=== PATIENT | male | born 1935 | race Caucasian/White ===

== ENCOUNTER → 2016-08-13 | Outpatient (CLI) | payer OTHER ==
[2016-07-08 13:18] VITALS: BP 173/81
--- NOTE | 2016-08-14 09:19 | VAS ---
HISTORY: Bilateral feet pressure ulcers Study: Lower extremity arterial ultrasound Comparison: None Technique: Multiple rodriguez scale and color flow Doppler images of the right and left lower extremity a rterial system were obtained. Interrogation of the common femoral artery, superficial femoral arter y, popliteal artery, and tibial arteries was performed. Findings: Triphasic and biphasic waveforms are seen throughout the right and left lower extremity from the com mon femoral arterial system to the tibial runoff. The calf vessels are heavily calcified. IMPRESSION: 1. Triphasic and biphasic waveforms are seen throughout the right and left lower extremity with no evidence of high-grade stenosis. The calf vessels are heavily calcified limiting evaluation. Reported By:
== END ==
LOC: RAD 14:07
PROVIDERS: ATTEND Internal Medicine
DX: L89.899 Pressure ulcer of other site, unspecified stage (principal); R09.89 Other specified symptoms and signs involving the circulatory and respiratory systems
CPT/HCPCS: 93925

== ENCOUNTER → 2016-11-13 | Outpatient (CLI) | payer OTHER ==
[2016-07-08 13:18] VITALS: BP 173/81
--- NOTE | 2016-11-13 10:25 | RAD ---
HISTORY: Pain Study: Right shoulder series Comparison: None Findings: There is severe narrowing of the glenohumeral joint with subchondral areas of lucency and sclerosis along the articular surfaces. There are prominent osteophytes inferiorly. No fracture or dislocation is seen. There are mild hypertrophic changes of the AC joint. The soft tissues are unremarkable. 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 Mild hypertrophic changes of the AC joint. Reported By:
[2016-11-13 15:05] LABS: BILIRUBIN,URINE NEGATIVE (NEGATIVE); BLOOD/HEMOGLOBIN,URINE 3+ (NEGATIVE); GLUCOSE, URINE NEGATIVE (NEGATIVE); KETONES,URINE NEGATIVE (NEGATIVE); LEUKOCYTE ESTERASE ,URINE 3+ (NEGATIVE); NITRITES,URINE POSITIVE (NEGATIVE); PH,URINE 6.5 (5.0 - 8.0); PROTEIN,URINE 2+ (NEGATIVE); UROBILINOGEN,URINE NORMAL (NORMAL)
[2016-11-13 15:41] LABS: APPEARANCE,URINE CLOUDY (CLEAR); COLOR,URINE YELLOW (YELLOW); RBC,URINE NONE SEEN /HPF (NEGATIVE)
[2016-11-13 15:42] LABS: BACTERIA,URINE 3+ /HPF (NEGATIVE); SQUAMOUS EPITHELIAL CELL,UR NEGATIVE /HPF (NEGATIVE)
== END ==
LOC: RAD 09:07
PROVIDERS: ATTEND Internal Medicine
DX: M25.511 Pain in right shoulder (principal); R41.82 Altered mental status, unspecified; B96.5 Pseudomonas (aeruginosa) (mallei) (pseudomallei) as the cause of diseases classified elsewhere
CPT/HCPCS: 73030; 81001; 87086; 87088; 87186

== ENCOUNTER 2016-11-16 06:54 | Inpatient (IN) | payer OTHER ==
[2016-11-16 07:30] LABS: BILIRUBIN,URINE NEGATIVE (NEGATIVE); BLOOD/HEMOGLOBIN,URINE 5+ (NEGATIVE); GLUCOSE, URINE NEGATIVE (NEGATIVE); KETONES,URINE 1+ (NEGATIVE); LEUKOCYTE ESTERASE ,URINE 3+ (NEGATIVE); NITRITES,URINE POSITIVE (NEGATIVE); PROTEIN,URINE 2+ (NEGATIVE); UROBILINOGEN,URINE NORMAL (NORMAL)
[2016-11-16 07:37] LABS: APPEARANCE,URINE CLOUDY (CLEAR); BACTERIA,URINE 1+ /HPF (NEGATIVE); COLOR,URINE RED (YELLOW); RBC,URINE TNTC /HPF (NEGATIVE); SQUAMOUS EPITHELIAL CELL,UR NEGATIVE /HPF (NEGATIVE)
--- NOTE | 2016-11-16 07:42 | DR.GENAD ---
HPI - PCP Primary Care Physician: CORINA - Complaint/Symptoms Chief Complaint Doctors Comments: Patient sent from nursing for evaluation of fever yesterday of 103 with episode of nausea and vomiting. patient denies chest pain, SOB, nausea or vomiting or pain presently. States his bradley cath had some blood in it and his right shoulder has been bothering him and he has a sore on his bottom that they have been trying to heal other than that he has been doing fine. states his appetite has been good. He has had a cold and a cough but he is not coughing up anything. He denies abdominal pain or diarrhea. Chief Complaint:: STAFF AT [facility] STATES PT. HAD A FEVER OF 103 THROUGHOUT THE NIGHT WELL N/V. PT. WAS MEDICATED AND TEMP. DECREASED TO 100.3. PT. HAS HAD 3 EPISODES OF N/V SINCE 1900 ON 11/15/16. PT'S BRADLEY CATHETER WAS ALSO CHANGED YESTERDAY DUE TO HAVING BLOOD IN BAG AND TUBING. PT. DENIES PAIN. BLOOD AND CLOTS NOTED IN BRADLEY CATHETER TUBING AND BAG UPON ARRIVAL TO ER. - Nurses notes reviewed Nurses Notes Review: Yes - Source History Provided: [facility] - Mode of Arrival Mode of Arrival: Stretcher - Timing Onset of Chief Complaint: 11/15/16 Came on: Gradually - Duration Duration: Intermittent How lon Duration: Days - Location Location: fever - Severity Severity: Mild - Modifying Factors Worsens:: nothing Improves:: nothing <CATY GRECO - Last Filed: 11/16/16 08:01> PM - [facility] Past Medical History: Yes Past Medical History: Anxiety, Coronary Artery Disease, Dementia, Depression, Diabetes, Dyslipidemia, GERD, Hypertension Past Medical History Comment: UTI, 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, PARAPLEGIA, BPH, RLS Past Surgical History: Yes Surgical History: Cholecystectomy, Ortho Surgery - Family History History of Family Medical Conditions: Yes Family Medical History: Coronary Artery Disease, Hypertension - Social History Does patient currently use any type of tobacco product: No Have you used tobacco products in the last 12 months: No Type of Tobacco Use: None Does any household member use tobacco: No Alcohol Use: None Do you use any recreational Drugs:: No Lives Where: Pen[facility]iary - infectious screening In the last 2 months have you had wt loss of >10#?: NO Have you had fever, night sweats or hemotysis?: No Have you traveled outside the country in the last 6 months?: No Isolation: Standard <CATY GRECO - Last Filed: 11/16/16 08:01> ROS - Review of Systems Constitutional: Fever. negative: No Symptoms Reported, See HPI, Chills, Diaphoresis, Malaise, Weakness, Irritable, Fatigue, Loss of Appetite, Other Eyes: No Symptoms Reported. negative: See HPI, Eye Pain, Blurred Vision, Tearing, Discharge, Photophobia, Diplopia, Other ENTM: No Symptoms Reported, Nose Discharge, Nose Congestion. negative: See HPI , Ear Pain, Ear Discharge, Pulling on Ears, Hearing Loss, Nose Pain, Epistaxis, Mouth Pain, Mouth Swelling, Loose Teeth, Drooling, Throat Pain, Throat Swelling , Ear Foreign Body Respiratoy: Non-Productive Cough. negative: No Symptoms Reported, See HPI, Productive Cough, Moist Cough, Dry Cough, Hacking Cough, Barking Cough, Brassy Cough, Orthopnea, Short of Breath, Stridor, Wheezing, Hemoptysis, Other Cardiovascular: No Symptoms Reported. negative: See HPI, Chest Pain, Edema, Palpitations, Syncope, Cyanosis, Skin Mottling, Other Gastrointestinal/Abdominal: No Symptoms Reported, Nausea, Vomiting. negative: See HPI, Abdominal Pain, Constipation, Diarrhea, Food Intolerance, Other Genitourinary: No Symptoms Reported, Hematuria. negative: See HPI, Discharge, Dysuria, Frequency, Pain, Bleeding, Other Neurological: No Symptoms Reported. negative: See HPI (patient paralyzed), Anxiety, Depressed, Emotional Problems, Headache, Numbness, Paresthesia, Pre- existing Deficit, Seizure, Tingling, Tremors, Weakness, Dizziness, Problems Walking, Speech Problem, Other Musculoskeletal: No Symptoms Reported Integumentary: No Symptoms Reported Hematologic/Lymphatic: No Symptoms Reported Endocrine: No Symptoms Reported Psychiatric: No Symptoms Reported <CATY GRECO - Last Filed: 11/16/16 08:01> PE - General Limitations: No Limitations, Physical Limitation (patient paralyzed) General Appearance: Alert, In No Apparent Distress. negative: Appears Intoxicated, Anxious, Lethargic, Obtunded, In Distress, Obese, Cachectic, Other - Head Head Exam: Normal Inspection, Atraumatic, Normocephalic - Eyes Eye exam: Normal Appearance, PERRL, EOMI. negative: Scleral Icterus, Conjunctival Injection, Nystagmus, Miosis, Mydrasis, Periorbital Swelling, Periorbital Tenderness, Other - ENT ENT Exam: Normal Exam, Normal Oropharynx, Normal External Ear Exam, Mucous Membranes Moist, TM's Normal Bilaterally External Ear Exam: Normal External Inspection TM/Canal Exam: Bilateral Normal Nose Exam: Normal Nose Exam Mouth Exam: Normal Inspection Throat Exam: Normal Inspection - Neck Neck Exam: Normal Inspection, Full ROM, Trachea Midline. negative: Tenderness, Meningismus, Lymphadenopathy, Thyromegaly, Other - Chest Chest Inspection: Normal Inspection, Symmetric Chest Wall Rise - Respiratory Respiratory Exam: Normal Lung Sounds Bilat Respiratory Exam: Bilateral Clear to Auscultation - Cardiovascular Cardiovascular Exam: Regular Rate, Normal Rhythm, Normal Heart Sounds, Systolic Murmur. negative: Bradycardia, Tachycardia, Irregular Rhythm, Diastolic Murmur , Rubs, Gallop, Clicks, JVD, +S1, +S2, +S3, +S4, Other - Abdominal Exam Abdominal Exam: Normal Inspection, Normal Bowel Sounds, Soft. negative: Distention, Tenderness, Guarding, Rebound, Rigidity, Dimnished Bowel Sounds, Hyperactive Bowel Sounds, Hypoactive Bowel Sounds, Organomegaly, Trauma, Incision, Ascites, Mass, Bruit, Pulsatile Mass, Hernia, Other Abdominal Tenderness: negative: RUQ, RLQ, LUQ, LLQ, Epigastrium, Suprapubic, Diffuse, Mild, Moderate, Severe, Other - Extremities Extremities Exam: Normal Inspection, Normal Capillary Refill - Back Back Exam: Normal Inspection, Full ROM, Other (3 cm sacral decubitus with small crater, clean; iodoform gauze in center; no discharge) - Neurologic Neurological Exam: Alert, Oriented X3, Motor Sensory Deficit (paralyzed). negative: CN II-XII Intact (paralayzed lower extremities), Normal Gait (gait not tested), Reflexes Normal (patient paraplegic) - Psychiatric Psychiatric Exam: Normal Affect, Normal Mood. negative: Depressed, Agitated, Anxious, Flat Affect, Manic, Homicidal Ideation, Suicidal Ideation, Other - Skin Skin Exam: Warm, Dry, Intact, Normal Color <CATY GRECO - Last Filed: 11/16/16 08:01> MDM - Differential Diagnosis Differential Diagnosis: HYPOTENS.UROSEPSIS, UTI, PYELONEPHRITIS, HEMATURIA, SACRAL DECUBITUS ULCER. <DELISA CARMICHAEL - Last Filed: 11/16/16 10:29> Course - Treatment Treatment: HYPOTENSION PERSIST. NS 1L IV BOLUS IN PROGRESS. - Consultation Consultation Comments: DISCUSS PATIENT WITH DR. NY. HE WILL ADMIT PATIENT. - Education/Counseling Education/Counseling: Patient, Education Educated On: Treatment, Diagnosis <DELISA CARMICHAEL - Last Filed: 11/16/16 10:29> ROR - Labs Reviewed Result Diagrams: 11/16/16 07:14 11/16/16 07:14 <FANNIECATY - Last Filed: 11/16/16 08:01> - Labs Reviewed Laboratory Results Reviewed?: Yes Result Diagrams: 11/16/16 07:14 11/16/16 07:14 - XRAY XRAY Interpreted by: Radiologist XRAY Findings: REPORT DISCUSS WITH PATIENTS. <DELISA CARMICHAEL - Last Filed: 11/16/16 10:29> - Labs Reviewed Laboratory: WBC 19.4 X10^3/uL (3.6-10.0) H 11/16/16 07:14 RBC 3.54 X10^6/uL (4.7-6.0) L 11/16/16 07:14 Hgb 11.0 g/dL (13.5-18.0) L 11/16/16 07:14 Hct 32.4 % (42.0-54.0) L 11/16/16 07:14 MCV 91.5 fL (80.0-100.0) 11/16/16 07:14 MCH 31.0 pg (27.0-34.0) 11/16/16 07:14 MCHC 33.8 g/dL (33.0-35.0) 11/16/16 07:14 RDW 15.0 % (11.6-16.5) 11/16/16 07:14 Plt Count 164 X10^3/uL (150.0-450.0) 11/16/16 07:14 MPV 9.1 fL (7.4-11.0) 11/16/16 07:14 Neut % 88.9 % (42.0-75.0) H 11/16/16 07:14 Lymph % 4.7 % (21.0-51.0) L 11/16/16 07:14 [place] % 6.2 % (0.0-13.0) 11/16/16 07:14 Eos % 0.1 % (0.9-2.9) L 11/16/16 07:14 Baso % 0.1 % (0.2-1.0) L 11/16/16 07:14 Neut # 17.3 x10^3/uL (2.2-4.8) H 11/16/16 07:14 Lymph # 0.9 X10^3/uL (1.3-2.9) L 11/16/16 07:14 [place] # 1.2 x10^3/uL (0.3-0.8) H 11/16/16 07:14 Eos # 0.0 x10^3/uL (0.0-0.2) 11/16/16 07:14 Baso # 0.0 X10^3/uL (0.0-0.1) 11/16/16 07:14 Absolute Nucleated RBC 0.0 /100WBC 11/16/16 07:14 INR Target Range - 11/16/16 07:14 INR 1.46 (0.8-1.3) H 11/16/16 07:14 PTT 42.7 SECONDS (22.9-36.5) H 11/16/16 07:14 PTT Comment - 11/16/16 07:14 Sodium 134 mmol/L (136-145) L 11/16/16 07:14 Corrected Sodium 135 mmol/L (136-145) L 11/16/16 07:14 Potassium 5.0 mmol/L (3.5-5.1) 11/16/16 07:14 Chloride 103 mmol/L (98-107) 11/16/16 07:14 Carbon Dioxide 24.3 mmol/L (21-32) 11/16/16 07:14 BUN 47 mg/dL (7-18) H 11/16/16 07:14 Creatinine 1.63 mg/dL (0.70-1.30) H 11/16/16 07:14 Est GFR (MDRD) Af Amer 53 (>60) L 11/16/16 07:14 Est GFR (MDRD) Non-Af 44 (>60) L 11/16/16 07:14 Glucose 128 mg/dL (65-99) H 11/16/16 07:14 Lactic Acid 1.4 mmol/L (0.4-2.0) 11/16/16 08:49 Calcium 8.3 mg/dL (8.5-10.1) L 11/16/16 07:14 Corrected Calcium 9.3 mg/dL (8.5-10.1) 11/16/16 07:14 Magnesium 1.6 mg/dL (1.7-2.9) L 11/16/16 07:14 Total Bilirubin 0.60 mg/dL (0.2-1.0) 11/16/16 07:14 AST 16 Units/L (15-37) 11/16/16 07:14 ALT 19 Units/L (12-78) 11/16/16 07:14 Alkaline Phosphatase 94 Units/L (46-116) 11/16/16 07:14 Creatine Kinase 166 Units/L (39-308) 11/16/16 07:14 CK-MB (CK-2) 1.3 ng/mL (0-4.0) 11/16/16 07:14 CK/CKMB % Calc 0.8 % (<4) 11/16/16 07:14 Troponin I 0.08 ng/mL (0-1.5) 11/16/16 07:14 Total Protein 6.3 g/dL (6.4-8.2) L 11/16/16 07:14 Albumin 2.8 g/dL (3.4-5.0) L 11/16/16 07:14 Globulin 3.5 g/dL (2.5-4.5) 11/16/16 07:14 Albumin/Globulin Ratio 0.8 Ratio (1.1-2.1) L 11/16/16 07:14 Amylase 41 Units/L (25-115) 11/16/16 07:14 Lipase 79 Units/L (73-393) 11/16/16 07:14 Specimen Type Catherized urine 11/16/16 09:35 Urine Color Red (YELLOW) 11/16/16 09:35 Urine Appearance Cloudy (CLEAR) 11/16/16 09:35 Urine pH 6.0 (5.0 - 8.0) 11/16/16 09:35 Ur Specific Luana 1.010 (1.000-1.030) 11/16/16 09:35 Urine Protein 2+ (NEGATIVE) 11/16/16 09:35 Urine Glucose (UA) Negative (NEGATIVE) 11/16/16 09:35 Urine Ketones 1+ (NEGATIVE) 11/16/16 09:35 Urine Occult Blood 5+ (NEGATIVE) 11/16/16 09:35 Urine Nitrite Negative (NEGATIVE) 11/16/16 09:35 Urine Bilirubin Negative (NEGATIVE) 11/16/16 09:35 Urine Urobilinogen Normal (NORMAL) 11/16/16 09:35 Ur Leukocyte Esterase 3+ (NEGATIVE) 11/16/16 09:35 Urine RBC Tntc /HPF (NEGATIVE) 11/16/16 09:35 Urine WBC 3-5 /HPF (NEGATIVE) 11/16/16 09:35 Ur Squamous Epith Cells Negative /HPF (NEGATIVE) 11/16/16 09:35 Urine Bacteria 1+ /HPF (NEGATIVE) 11/16/16 09:35 Ur Culture Indicated? No/not indicated 11/16/16 09:35 (DELISA CARMICHAEL) <CATY GRECO - Last Filed: 11/16/16 08:01> <DELISA CARMICHAEL - Last Filed: 11/16/16 10:29> - Diagnosis Discharge Problem: Hypotension, Hematuria Urinary tract infection Qualifiers: Urinary tract infection type: acute cystitis Hematuria presence: with hematuria Qualified Code(s): N30.01 - Acute cystitis with hematuria Sacral decubitus ulcer Qualifiers: Pressure ulcer stage: stage 3 Qualified Code(s): L89.153 - Pressure ulcer of sacral region, stage 3 - Discharge Plan Disposition: ADMITTED INPATIENT Condition: Stable - Follow ups/Referrals Follow ups/Referrals: Sharif Edmonds [Primary Care Provider] - 3 days - Instructions
[2016-11-16 07:46] LABS: MEAN PLATELET VOLUME 9.1 fL (7.4-11.0); PLATELET COUNT 164 X10^3/uL (150.0-450.0)
[2016-11-16 07:48] LABS: BASOPHILS % (AUTO) 0.1 % (0.2-1.0); EOSINOPHILS % (AUTO) 0.1 % (0.9-2.9); HEMATOCRIT 32.4 % (42.0-54.0); LYMPHOCYTES # (AUTO) 0.9 X10^3/uL (1.3-2.9); LYMPHOCYTES % (AUTO) 4.7 % (21.0-51.0); MEAN CORPUSCULAR HGB CONC 33.8 g/dL (33.0-35.0); MEAN CORPUSCULAR VOLUME 91.5 fL (80.0-100.0); MONOCYTES # (AUTO) 1.2 x10^3/uL (0.3-0.8); MONOCYTES % (AUTO) 6.2 % (0.0-13.0); NEUTROPHILS # (AUTO) 17.3 x10^3/uL (2.2-4.8); NEUTROPHILS % (AUTO) 88.9 % (42.0-75.0); RED BLOOD COUNT 3.54 X10^6/uL (4.7-6.0); WHITE BLOOD COUNT 19.4 X10^3/uL (3.6-10.0)
[2016-11-16] MEDS: NS 1000 ML 1,000 ML IV SCH ×2 (07:53→21:32)
[2016-11-16] MEDS ORDERED: ROCEPHIN VIAL 1 GM 1 GM in NS 50 ML IV + SPIKE MINIBAG* 50 ML IV ONE (07:57)
[2016-11-16 08:16] LABS: CALCIUM 8.3 mg/dL (8.5-10.1); CARBON DIOXIDE 24.3 mmol/L (21-32); CREATININE 1.63 mg/dL (0.70-1.30); TROPONIN I 0.08 ng/mL (0-1.5)
[2016-11-16] MEDS ORDERED: ROCEPHIN 1 GM IV PREMIX * OUT OF STOCK 50 ML IV ONE (08:18)
[2016-11-16 08:19] LABS: ALBUMIN 2.8 g/dL (3.4-5.0); CKMB % 0.8 % (<4); COR CA(FOR HYPOALB) 9.3 mg/dL (8.5-10.1); CREATINE KINASE MB 1.3 ng/mL (0-4.0); MAGNESIUM 1.6 mg/dL (1.7-2.9); TOTAL PROTEIN 6.3 g/dL (6.4-8.2)
[2016-11-16] MEDS ORDERED: NORCO 10/325 TAB PO ONE (08:35)
[2016-11-16] MEDS ORDERED: NORCO 10/325 TAB ONE (08:38)
[2016-11-16] MEDS ORDERED: NS 1000 ML 1,000 ML IV ONE (09:23)
[2016-11-16 09:42] LABS: BILIRUBIN,URINE NEGATIVE (NEGATIVE); BLOOD/HEMOGLOBIN,URINE 5+ (NEGATIVE); GLUCOSE, URINE NEGATIVE (NEGATIVE); KETONES,URINE 1+ (NEGATIVE); LEUKOCYTE ESTERASE ,URINE 3+ (NEGATIVE); NITRITES,URINE NEGATIVE (NEGATIVE); PROTEIN,URINE 2+ (NEGATIVE); UROBILINOGEN,URINE NORMAL (NORMAL)
[2016-11-16] MEDS ORDERED: VANCOMYCIN 1 GM PREMIX (ADDVANTAGE) 250 ML IV NR (10:00)
[2016-11-16] MEDS ORDERED: PHARMACY CONSULT - VANCOMYCIN XX SCH (10:00)
[2016-11-16] MEDS ORDERED: XANAX PO PRN ×2 (10:04→19:17)
[2016-11-16] MEDS ORDERED: NORCO 10/325 TAB PO PRN (10:04)
[2016-11-16] MEDS ORDERED: ONDANSETRON HCL PO PRN (10:04)
[2016-11-16 10:12] LABS: APPEARANCE,URINE CLOUDY (CLEAR); COLOR,URINE RED (YELLOW); RBC,URINE TNTC /HPF (NEGATIVE)
[2016-11-16 10:13] LABS: BACTERIA,URINE 1+ /HPF (NEGATIVE); SQUAMOUS EPITHELIAL CELL,UR NEGATIVE /HPF (NEGATIVE)
[2016-11-16] MEDS ORDERED: PATIENT'S HOME MEDICATION (Apixaban [Eliquis] 2.5 MG) PO SCH (10:15)
[2016-11-16] MEDS ORDERED: CALCIUM CARBONATE VITAMIN D PO SCH (10:15)
[2016-11-16] MEDS ORDERED: ZOFRAN INJ 4 MG VIAL ONE (10:18)
[2016-11-16] MEDS ORDERED: ZOFRAN INJ 4 MG VIAL IVP PRN (10:18)
[2016-11-16] MEDS: PEPCID 20 MG IV PREMIX* 20 MG/50 ML BAG IV SCH ×2 (13:05→21:22)
[2016-11-16] MEDS: ZINC SULFATE PO SCH (13:06)
[2016-11-16] MEDS: WELLBUTRIN XL 150 MG (DAILY) PO SCH (13:06)
[2016-11-16] MEDS: ELIQUIS PO SCH ×2 (13:06→21:18)
[2016-11-16 13:11] LABS: HEMATOCRIT 28.9 % (42.0-54.0); HEMOGLOBIN 9.8 g/dL (13.5-18.0)
[2016-11-16 13:29] LABS: CKMB % 0.8 % (<4); CREATINE KINASE MB 2.1 ng/mL (0-4.0); TROPONIN I 0.06 ng/mL (0-1.5)
[2016-11-16] MEDS ORDERED: ZOSYN VIAL 3.375 GM 1.5 GM in NS 100 ML IV + SPIKE MINIBAG* 100 ML IV SCH (14:00)
[2016-11-16] MEDS ORDERED: NS 100 ML IV + SPIKE MINIBAG* 100 ML IV ONE (14:10)
[2016-11-16] MEDS ORDERED: ZOSYN VIAL 3.375 GM IV ONE (14:10)
[2016-11-16] MEDS: ZOSYN VIAL 3.375 GM 3.375 GM in NS 100 ML IV + SPIKE MINIBAG* 100 ML IV SCH ×2 (14:27→21:22)
--- NOTE | 2016-11-16 15:09 | RAD ---
AP Chest Indication:chest pain Comparison: 07/08/2016 Findings: The trachea is midline. The cardiac silhouette is unremarkable. There is suboptimal inspiration wi th vascular crowding and bilateral lower lobe subsegmental atelectasis. No focal airspace opacity, p leural effusion or pneumothorax. Since previous examination there has been removal of the right-side d PICC line. Advanced osteoarthrosis of the right glenohumeral joint. IMPRESSION: 1. No acute cardiopulmonary abnormality. Reported By:
[2016-11-16] MEDS: VOLTAREN 1 % GEL MULTI DOSE TUBE TOP SCH ×2 (15:14→21:17)
[2016-11-16 18:57] LABS: HEMOGLOBIN 9.6 g/dL (13.5-18.0)
[2016-11-16 19:16] LABS: CKMB % 0.9 % (<4); CREATINE KINASE MB 2.7 ng/mL (0-4.0); TROPONIN I 0.05 ng/mL (0-1.5)
[2016-11-16] MEDS ORDERED: ASCORBIC ACID PO SCH (21:00)
[2016-11-16] MEDS: MIRALAX POWDER (1 DOSE 17GM) PO SCH (21:17)
[2016-11-16] MEDS: VITAMIN C PO SCH (21:18)
[2016-11-16] MEDS: FLOMAX PO SCH (21:18)
[2016-11-16] MEDS: LIPITOR TAB 10 MG PO SCH (21:18)
[2016-11-16] MEDS: MAG-OX TAB PO SCH (21:18)
[2016-11-16] MEDS: VANCOMYCIN 1 GM PREMIX (ADDVANTAGE) 250 ML IV SCH (21:22)
[2016-11-16] MEDS: AMINO ACIDS PO SCH (21:34)
[2016-11-16] MEDS: PROTEIN HYDROLYS PO SCH (21:34)
[2016-11-16] MEDS: [UNRECOGNIZED DRUG - OTHER] PO SCH (21:34)
[2016-11-17 06:07] LABS: BASOPHILS % (AUTO) 0.5 % (0.2-1.0); EOSINOPHILS % (AUTO) 0.9 % (0.9-2.9); HEMOGLOBIN 9.3 g/dL (13.5-18.0); LYMPHOCYTES # (AUTO) 0.8 X10^3/uL (1.3-2.9); LYMPHOCYTES % (AUTO) 14.4 % (21.0-51.0); MEAN CORPUSCULAR HEMOGLOBIN 31.7 pg (27.0-34.0); MEAN CORPUSCULAR HGB CONC 34.3 g/dL (33.0-35.0); MEAN CORPUSCULAR VOLUME 92.6 fL (80.0-100.0); MEAN PLATELET VOLUME 9.3 fL (7.4-11.0); MONOCYTES # (AUTO) 0.3 x10^3/uL (0.3-0.8); MONOCYTES % (AUTO) 5.6 % (0.0-13.0); NEUTROPHILS # (AUTO) 4.2 x10^3/uL (2.2-4.8); NEUTROPHILS % (AUTO) 78.6 % (42.0-75.0); PLATELET COUNT 101 X10^3/uL (150.0-450.0); RED BLOOD COUNT 2.92 X10^6/uL (4.7-6.0); RED CELL DISTRIBUTION WIDTH 14.9 % (11.6-16.5); WHITE BLOOD COUNT 5.4 X10^3/uL (3.6-10.0)
[2016-11-17] MEDS: NS 1000 ML 1,000 ML IV SCH ×3 (06:07→15:35)
[2016-11-17] MEDS: ZOSYN VIAL 3.375 GM 3.375 GM in NS 100 ML IV + SPIKE MINIBAG* 100 ML IV SCH ×3 (06:07→21:52)
[2016-11-17 06:27] LABS: ALANINE AMINOTRANSFERASE 17 Units/L (12-78); ALBUMIN 2.3 g/dL (3.4-5.0); ALKALINE PHOSPHATASE 73 Units/L (46-116); ASPARTATE AMINO TRANSFERASE 17 Units/L (15-37); BLOOD UREA NITROGEN 45 mg/dL (7-18); CALCIUM 7.7 mg/dL (8.5-10.1); CARBON DIOXIDE 22.2 mmol/L (21-32); CHLORIDE 106 mmol/L (98-107); COR CA(FOR HYPOALB) 9.1 mg/dL (8.5-10.1); COR NA(FOR HYPERGLY) 137 mmol/L (136-145); CREATININE 1.38 mg/dL (0.70-1.30); GLUCOSE 125 mg/dL (65-99); SODIUM 136 mmol/L (136-145); TOTAL PROTEIN 5.4 g/dL (6.4-8.2); eGFR BLACK RACES > 60 (>60); eGFR NON BLACK RACES 53 (>60)
[2016-11-17] MEDS ORDERED: GLUCOPHAGE ONE (08:43)
[2016-11-17] MEDS: AMINO ACIDS PO SCH ×2 (08:53→21:56)
[2016-11-17] MEDS: ZINC SULFATE PO SCH (08:53)
[2016-11-17] MEDS: PROTEIN HYDROLYS PO SCH ×2 (08:53→21:56)
[2016-11-17] MEDS: [UNRECOGNIZED DRUG - OTHER] PO SCH ×2 (08:53→21:56)
[2016-11-17] MEDS: VITAMIN C PO SCH ×2 (08:54→21:46)
[2016-11-17] MEDS: MIRALAX POWDER (1 DOSE 17GM) PO SCH ×2 (08:54→21:47)
[2016-11-17] MEDS: TAB-A-VITE PO SCH (08:56)
[2016-11-17] MEDS: OSCAL+D or CALTRATE+D PO SCH (08:56)
[2016-11-17] MEDS: GLUCOPHAGE PO SCH (08:56)
[2016-11-17] MEDS: PROSCAR PO SCH (08:56)
[2016-11-17] MEDS: MAG-OX TAB PO SCH ×2 (08:57→21:45)
[2016-11-17] MEDS: WELLBUTRIN XL 150 MG (DAILY) PO SCH (08:57)
[2016-11-17] MEDS: ELIQUIS PO SCH ×2 (08:57→21:42)
[2016-11-17] MEDS: PEPCID 20 MG IV PREMIX* 20 MG/50 ML BAG IV SCH ×2 (08:59→23:06)
[2016-11-17] MEDS ORDERED: MULTIPLE VITAMIN PO SCH (09:00)
[2016-11-17] MEDS ORDERED: FINASTERIDE 5 MG PO SCH (09:00)
[2016-11-17] MEDS: VOLTAREN 1 % GEL MULTI DOSE TUBE TOP SCH ×2 (09:02→21:51)
[2016-11-17] MEDS: VANCOMYCIN 1 GM PREMIX (ADDVANTAGE) 250 ML IV SCH ×2 (09:20→21:40)
[2016-11-17] MEDS: FLOMAX PO SCH (21:44)
[2016-11-17] MEDS: LIPITOR TAB 10 MG PO SCH (21:45)
[2016-11-18] MEDS: NS 1000 ML 1,000 ML IV SCH (01:08)
[2016-11-18 06:01] LABS: ALANINE AMINOTRANSFERASE 17 Units/L (12-78); ALBUMIN 2.3 g/dL (3.4-5.0); ALKALINE PHOSPHATASE 65 Units/L (46-116); ASPARTATE AMINO TRANSFERASE 16 Units/L (15-37); BLOOD UREA NITROGEN 30 mg/dL (7-18); CALCIUM 8.1 mg/dL (8.5-10.1); CARBON DIOXIDE 22.9 mmol/L (21-32); CHLORIDE 109 mmol/L (98-107); COR CA(FOR HYPOALB) 9.5 mg/dL (8.5-10.1); CREATININE 1.03 mg/dL (0.70-1.30); GLUCOSE 91 mg/dL (65-99); SODIUM 140 mmol/L (136-145); TOTAL PROTEIN 5.6 g/dL (6.4-8.2); eGFR BLACK RACES > 60 (>60); eGFR NON BLACK RACES > 60 (>60)
[2016-11-18 06:08] LABS: BASOPHILS % (AUTO) 0.7 % (0.2-1.0); EOSINOPHILS # (AUTO) 0.2 x10^3/uL (0.0-0.2); EOSINOPHILS % (AUTO) 4.5 % (0.9-2.9); HEMOGLOBIN 9.3 g/dL (13.5-18.0); LYMPHOCYTES # (AUTO) 1.3 X10^3/uL (1.3-2.9); LYMPHOCYTES % (AUTO) 28.1 % (21.0-51.0); MEAN CORPUSCULAR HEMOGLOBIN 31.5 pg (27.0-34.0); MEAN CORPUSCULAR HGB CONC 34.3 g/dL (33.0-35.0); MEAN CORPUSCULAR VOLUME 91.7 fL (80.0-100.0); MEAN PLATELET VOLUME 9.4 fL (7.4-11.0); MONOCYTES # (AUTO) 0.4 x10^3/uL (0.3-0.8); NEUTROPHILS # (AUTO) 2.7 x10^3/uL (2.2-4.8); NEUTROPHILS % (AUTO) 57.7 % (42.0-75.0); PLATELET COUNT 120 X10^3/uL (150.0-450.0); RED BLOOD COUNT 2.95 X10^6/uL (4.7-6.0); RED CELL DISTRIBUTION WIDTH 14.7 % (11.6-16.5); WHITE BLOOD COUNT 4.7 X10^3/uL (3.6-10.0)
[2016-11-18] MEDS: ZOSYN VIAL 3.375 GM 3.375 GM in NS 100 ML IV + SPIKE MINIBAG* 100 ML IV SCH ×2 (06:11→16:30)
[2016-11-18] MEDS ORDERED: GLUCOPHAGE ONE (09:22)
[2016-11-18 09:58] VITALS: BMI 28.0
[2016-11-18] MEDS: OSCAL+D or CALTRATE+D PO SCH (10:01)
[2016-11-18] MEDS: ELIQUIS PO SCH (10:01)
[2016-11-18] MEDS: ZINC SULFATE PO SCH (10:02)
[2016-11-18] MEDS: WELLBUTRIN XL 150 MG (DAILY) PO SCH (10:02)
[2016-11-18] MEDS: VITAMIN C PO SCH (10:02)
[2016-11-18] MEDS: MAG-OX TAB PO SCH (10:02)
[2016-11-18] MEDS: TAB-A-VITE PO SCH (10:02)
[2016-11-18] MEDS: PROSCAR PO SCH (10:02)
[2016-11-18] MEDS: MIRALAX POWDER (1 DOSE 17GM) PO SCH (10:03)
[2016-11-18] MEDS: VOLTAREN 1 % GEL MULTI DOSE TUBE TOP SCH (10:03)
[2016-11-18] MEDS: GLUCOPHAGE PO SCH (10:03)
[2016-11-18] MEDS: PEPCID 20 MG IV PREMIX* 20 MG/50 ML BAG IV SCH (10:03)
[2016-11-18 10:14] LABS: CREATININE 1.14 mg/dL (0.70-1.30); VANCOMYCIN,TROUGH 19.3 ug/mL (15-20)
[2016-11-18] MEDS: VANCOMYCIN 1 GM PREMIX (ADDVANTAGE) 250 ML IV SCH (11:40)
[2016-11-18 13:55] VITALS: BP 119/59
[2016-11-18] MEDS: [UNRECOGNIZED DRUG - OTHER] PO SCH (13:55)
[2016-11-18] MEDS: AMINO ACIDS PO SCH (13:55)
[2016-11-18] MEDS: PROTEIN HYDROLYS PO SCH (13:55)
== END 2016-11-18 16:05 | DRG 314 ==
LOC: ER 06:54 → MED/SURG 10:22
PROVIDERS: ADMIT Internal Medicine; ATTEND Internal Medicine
DX: I95.89 Other hypotension (principal); N30.01 Acute cystitis with hematuria; I25.10 Atherosclerotic heart disease of native coronary artery without angina pectoris; L89.153 Pressure ulcer of sacral region, stage 3; R94.31 Abnormal electrocardiogram [ECG] [EKG]
CPT/HCPCS: 36415; 51702; 71010; 74176; 80053; 80202; 81001; 82150; 82550; 82553; 82565; 83605; 83690; 83735; 84484; 85014; 85018; 85025; 85610; 85730; 87040; 87070; 87075; 87077; 87086; 87186; 87205; 93005; 94760; 96365; 96367; 96374; 96375; 99284; A4222; S0028; S0106; S0138; J0696; J2405; J2543; J3370

== ENCOUNTER → 2017-07-07 | Outpatient (CLI) | payer OTHER ==
[2017-04-15 02:09] VITALS: BP 136/70
--- NOTE | 2017-07-07 15:02 | RAD ---
Examination: Lumbar spine, AP and lateral views History: Back pain Findings: There is severe degenerative disc narrowing and osteophyte formation at multiple levels. Th ere is retrolisthesis at L2-3-4 and anterior listhesis at L5-S1. No acute fracture or bone destructio n or sacroiliac disease is appreciated. Impression: Severe multilevel degenerative disc disease and spondylosis. Malalignment of vertebrae at levels described is consistent with associated apophyseal facet arthrosis. Reported By:
== END ==
LOC: RAD 12:09
PROVIDERS: ATTEND Internal Medicine
DX: M54.5 Low back pain (principal)
CPT/HCPCS: 72100

== ENCOUNTER → 2017-08-12 | Outpatient (CLI) | payer OTHER ==
[2017-04-15 02:09] VITALS: BP 136/70
--- NOTE | 2017-08-12 15:52 | CT ---
CT HEAD WITHOUT CONTRAST CLINICAL HISTORY: 82-year-old male slurred speech COMPARISON: None. TECHNIQUE: Multiple, non-contrasted axial CT images were obtained from the skull base to the cranial vertex. Coronal and sagittal reformats were performed. FINDINGS: There are no abnormal intra- or extra-axial fluid collections, midline shift, or mass effec t. Babcock-white differentiation is normal. Global cortical involutional changes are present that are ad vanced for the patient's stated age. The ventricular system is enlarged but commensurate with the deg ree of sulcal prominence. Periventricular and supraventricular white matter hypodensity is present th at is nonspecific in appearance, but most likely to represent microvascular ischemic changes. Atheros clerotic vascular calcification is present within the carotid siphons and distal vertebral arteries. The imaged paranasal sinuses and mastoid air cells are clear. Debris in the tympanic cavities, likely cerumen. IMPRESSION: 1. No definite evidence of an acute intracranial process. If clinical concern persists for acute str michael, consider MRI/MRA brain. 2. Moderate microvascular white matter ischemic changes, with associated volume loss. Reported By:
--- NOTE | 2017-08-13 06:18 | VAS ---
HISTORY: Type 2 diabetes, paraplegia Study: Bilateral lower extremity arterial Doppler ultrasound Comparison: 08/13/2016. Technique: Grayscale, color and duplex Doppler imaging of the arteries of both lower extremities is p rovided. Findings: Calcified plaque materials are present throughout the lower extremity arteries bilaterally. There are predominantly biphasic waveforms present on the right. Triphasic and biphasic waveforms are present on the left. There is increase in velocity, but less than doubling of peak systolic arterial velociti es, proceeding from the proximal to the mid posterior tibial artery regions bilaterally. Findings lik bhavik indicate stenosis, but less than 70%. Turbulent waveforms are present in both areas. IMPRESSION: Atherosclerotic changes with no evidence of hemodynamically significant stenosis. Reported By:
== END | disposition home or self-care (01) ==
LOC: RAD 10:10
PROVIDERS: ATTEND Internal Medicine
DX: R47.81 Slurred speech (principal); G82.20 Paraplegia, unspecified; E11.9 Type 2 diabetes mellitus without complications
CPT/HCPCS: 70450; 93925

== ENCOUNTER 2019-03-30 17:18 | Inpatient (IN) ==
[2019-03-30] MEDS ORDERED: LEVAQUIN PREMIX IV 500 MG 500 MG/100 ML BAG IV SCH (20:00)
[2019-03-30] MEDS: FORTAZ or TAZICEF VIAL INJ 1 G in NS 100 ML IV + SPIKE MINIBAG* 100 ML IV SCH (20:52)
[2019-03-30 20:53] VITALS: BMI 28.6
[2019-03-30] MEDS: NS 1000 ML 1,000 ML IV SCH (20:53)
[2019-03-30] MEDS ORDERED: HumuLIN R SUBCUT PRN (20:58)
[2019-03-30] MEDS ORDERED: PHARMACY CONSULT LTC MEDICATIONS XX SCH (21:00)
[2019-03-31] MEDS: FORTAZ or TAZICEF VIAL INJ 1 G in NS 100 ML IV + SPIKE MINIBAG* 100 ML IV SCH ×2 (00:14→05:44)
[2019-03-31 05:25] LABS: BASOPHILS % (AUTO) 0.2 % (0.2-1.0); HEMATOCRIT 38.2 % (42.0-54.0); LYMPHOCYTES # (AUTO) 1.6 X10^3/uL (1.3-2.9); LYMPHOCYTES % (AUTO) 10.3 % (21.0-51.0); MEAN PLATELET VOLUME 8.6 fL (7.4-11.0); MONOCYTES # (AUTO) 1.5 x10^3/uL (0.3-0.8); MONOCYTES % (AUTO) 9.6 % (0.0-13.0); NEUTROPHILS # (AUTO) 12.4 x10^3/uL (2.2-4.8); NEUTROPHILS % (AUTO) 79.9 % (42.0-75.0); PLATELET COUNT 176 X10^3/uL (150.0-450.0); RED CELL DISTRIBUTION WIDTH 15.6 % (11.6-16.5); WHITE BLOOD COUNT 15.5 X10^3/uL (3.6-10.0)
[2019-03-31 05:37] LABS: ALBUMIN 2.9 g/dL (3.4-5.0); CALCIUM 8.3 mg/dL (8.5-10.1); CARBON DIOXIDE 26.4 mmol/L (21-32); COR CA(FOR HYPOALB) 9.2 mg/dL (8.5-10.1); CREATININE 2.13 mg/dL (0.70-1.30); TOTAL PROTEIN 6.5 g/dL (6.4-8.2)
[2019-03-31] MEDS ORDERED: LEVAQUIN PREMIX IV 500 MG 500 MG/100 ML BAG IV ONE (08:00)
[2019-03-31] MEDS: NS 1000 ML 1,000 ML IV SCH ×2 (10:29→22:11)
--- NOTE | 2019-03-31 12:04 | DR.H&P ---
H&P - History & Physical for Day of: H&P Date: 03/30/19 - Chief Complaint Chief Complaint: AMS, ABDOMINAL PAIN, URINARY TRACT INFECTION - History of Present Illness History of Present Illness: IS A 83 YEAR OLD PATIENT OF OURS WHO WAS A DIRECT ADMISSION TO THE HOSPITAL DUE TO UROSEPSIS. OUTPATIENT LABS WERE OBTAINED ON 03/30/19 AND REVEALED THE FOLLOWING ABNORMAL VALUES: WBC 13.0, RBC 4.44, HGB 13.2, HCT 40.2, BUN 34, CREATININE 1.66, GLUCOSE 175. A URINALYSIS WAS OBTAINED AND REVEALED: WBC 30-50, RBC TNTC, LEUKOCYTES 3+, BACTERIA 1+. A URINE CULTURE WAS SET UP. ON ADMISSION, VITALS WERE 98.3-60-18-99%-108/44. HE REPORTED LOWER ABDOMINAL PAIN. STAFF REPORTS CONFUSION AT TIMES. WE STARTED NORMAL SALINE AT 75ML/HR, LEVAQUIN 250MG IV DAILY, FORTAZ 1G IV DAILY, OTBS ACHS, AND HUMULIN R SLIDING SCALE. OTHERWISE, WE WILL FOLLOW UP WITH AM LABS AND CONTINUE TO MONITOR. - Past Medical History Past Medical History: Coronary Artery Disease, Hypertension, Dyslipidemia, Diabetes, Dementia, Depression, Anxiety, GERD Additional Medical History: bph/paraplegia - Past Surgical History Surgical History: Cholecystectomy, Ortho Surgery - Family History Family Medical History: Diabetes Mellitus, Cancer, Hypertension - Social History Does patient currently use any type of tobacco product: No Have you used tobacco products in the last 12 months: No Alcohol Use: None Drug Use: None - Medications Home Medications: doxycycline Allergy (Verified 03/30/19 20:55) CONTINUE taking the following medications acetaminophen [Tylenol] 650 mg PO Q4H PRN 03/30/19 [History] aspirin [Aspir-81] 81 mg PO DAILY 03/30/19 [History] finasteride 5 mg PO DAILY 03/30/19 [History] fluoxetine 40 mg PO DAILY 03/30/19 [History] metoprolol succinate 25 mg PO DAILY 03/30/19 [History] tramadol 50 mg PO Q8H PRN 03/30/19 [History] - Review of Systems Constitutional: See HPI, Weakness Eyes: No Symptoms Reported ENT: No Symptoms Reported Respiratory: No Symptoms Reported Cardiovascular: No Symptoms Reported Gastrointestinal: Abdominal Pain Genitourinary: No Symptoms Reported Musculoskeletal: No Symptoms Reported Skin: No Symptoms Reported Neurological: Weakness, Confusion - Physical Exam Vital Signs: Temperature 98.6 F Pulse Rate [Right Brachial] 59 Respiratory Rate 18 Blood Pressure [Left Arm] 141/79 Blood Pressure [Right Arm] 100/51 Blood Pressure 141/79 O2 Sat by Pulse Oximetry 98 Oriented: Not Oriented Eyes: Normal Ear: Normal Nose: Normal Throat: Normal Respiratory: Diminished Throughout Cardiovascular: Normal : Normal Auscultation: Bowel Sounds: Normal Palpation: Normal Tenderness: Suprapubic, Mild. negative: Rebound, Guarding, Rigidity Skin: Normal Musculoskeletal: Normal Psychiatric: Normal Mood Description: Calm Affect: Normal Speech Pattern: Inappropriate - Assessment/Plan (1) Sepsis due to urinary tract infection Status: Acute (2) Sepsis Qualifiers: Sepsis type: sepsis due to unspecified organism Sepsis acute organ dysfunction status: unspecified Qualified Code(s): A41.9 - Sepsis, unspecified organism Status: Acute Plan: NORMAL SALINE, IV FORTAZ, IV LEVAQUIN, CONTINUE TO MONITOR (3) Diabetes mellitus Qualifiers: Diabetes mellitus type: type 2 Diabetes mellitus buttermaker continuous churn insulin use: unspecified buttermaker continuous churn insulin use status Diabetes mellitus complication status: without complication Qualified Code(s): E11.9 - Type 2 diabetes mellitus without complications Status: Acute Plan: OTBS ACHS, HUMULIN R SLIDING SCALE, CONTINUE TO MONITOR - Allergies Allergies/Adverse Reactions: Allergies Allergy/AdvReac Type Severity Reaction Status Date / Time doxycycline Allergy Verified 03/30/19 20:55
[2019-03-31] MEDS ORDERED: TYLENOL 325 MG TAB PO PRN (12:05)
[2019-03-31] MEDS ORDERED: ULTRAM PO PRN (12:05)
[2019-03-31] MEDS ORDERED: CALCIUM CARBONATE VITAMIN D PO SCH (12:15)
[2019-03-31] MEDS ORDERED: MULTIPLE VITAMIN PO SCH (12:15)
[2019-03-31] MEDS: ELIQUIS PO SCH (15:31)
[2019-03-31] MEDS: VITAMIN C PO SCH (15:32)
[2019-03-31] MEDS: PROzac PO SCH (15:32)
[2019-03-31] MEDS: ASPIRIN EC 81 MG PO SCH (15:33)
[2019-03-31] MEDS: K-DUR TAB 20 MEQ PO SCH ×2 (15:33→21:56)
[2019-03-31] MEDS: MAG-OX TAB PO SCH ×2 (15:34→21:56)
[2019-03-31] MEDS: PROSCAR PO SCH (15:34)
[2019-03-31] MEDS: ZINC SULFATE PO SCH (15:35)
--- NOTE | 2019-03-31 16:42 | PCM.PROG ---
Progress Note - Progress Note for Day of Date of Exam: 03/31/19 - Subjective Subjective: IS BEING TREATED FOR UROSEPSIS AND ALTERED MENTAL STATUS. TODAY, HE IS LYING IN BED WITH EYES CLOSED ON MORNING ROUNDS. HE OPENS EYES TO VERBAL STIMULI. HE ANSWERS QUESTIONS APPROPRIATELY TODAY AND IS ORIENTED TO PERSON AND PLACE. HE REPORTS LOWER ABDOMINAL PAIN THIS MORNING. ON EXAMINATION, HEART IS REGULAR IN RATE AND RHYTHM. BILATERAL LUNGS ARE NOTED WITH DIMINISHED LUNG SOUNDS THROUGHOUT. ABDOMEN IS ROUND, SOFT, AND NOTED WITH MILD, SUPRAPUBIC TENDERNESS TO PALPATION. HIS VITALS THIS MORNING ARE: 98.6-59-18-98%-100/51. LABS WERE OBTAINED. ABNORMAL LAB VALUES INCLUDE THE FOLLOWING: WBC 15.5, RBC 4.20, HGB 13.0, HCT 38.2, SODIUM 134, BUN 41, CREATININE 2.13, GLUCOSE 134, C ALCIUM 8.3, TOTAL BILI 1.20, ALBUMIN 2.9. A URINE CULTURE IS PENDING. PRELIMINARY CULTURES REPORT GROWTH OF GRAM NEGATIVE RODS. HE IS CURRENTLY RECEIVING NORMAL SALINE AT 75ML/HR, LEVAQUIN 250 MG IV DAILY, FORTAZ 1G IV DAILY, AND HOME MEDICATIONS WERE RESUMED. WE WILL CONTINUE WITH CURRENT PLAN OF CARE TODAY. OTHERWISE, WE WILL FOLLOW UP WITH AM LABS AND CONTINUE TO MONITOR. - Past Medical Family Social History Past Med/Fam/Surg Hx: No changes since H&P Allergies: Allergies doxycycline Allergy (Verified 03/30/19 20:55) - Review of Systems ROS: No change since H&P - Vital Signs and I&O's Vital Signs: Temperature 98.6 F Pulse Rate [Right Brachial] 59 Respiratory Rate 18 Blood Pressure [Left Arm] 141/79 Blood Pressure [Right Arm] 100/51 Blood Pressure 141/79 O2 Sat by Pulse Oximetry 98 Intake and Output: Intake & Output 03/29/19 03/30/19 03/31/19 04/01/19 11:59 11:59 11:59 11:59 Intake Total 840 / 840 Balance 840 / 840 - Physical Exam Oriented: Not Oriented Eyes: Normal Ear: Normal Nose: Normal Throat: Normal Cardiovascular: Normal : Normal Auscultation: Bowel Sounds: Normal Palpation: Normal Tenderness: Suprapubic, Mild. negative: Rebound, Guarding, Rigidity Skin: Normal Musculoskeletal: Normal Psychiatric: Normal Mood Description: Calm Affect: Normal Speech Pattern: Inappropriate - Laboratory and Diagnostics Result Diagrams: 03/31/19 05:04 03/31/19 05:04 Labs: Laboratory WBC 15.5 X10^3/uL (3.6-10.0) H 03/31/19 05:04 RBC 4.20 X10^6/uL (4.7-6.0) L 03/31/19 05:04 Hgb 13.0 g/dL (13.5-18.0) L 03/31/19 05:04 Hct 38.2 % (42.0-54.0) L 03/31/19 05:04 MCV 91.0 fL (80.0-100.0) 03/31/19 05:04 MCH 31.0 pg (27.0-34.0) 03/31/19 05:04 MCHC 34.0 g/dL (33.0-35.0) 03/31/19 05:04 RDW 15.6 % (11.6-16.5) 03/31/19 05:04 Plt Count 176 X10^3/uL (150.0-450.0) 03/31/19 05:04 MPV 8.6 fL (7.4-11.0) 03/31/19 05:04 Neut % (Auto) 79.9 % (42.0-75.0) H 03/31/19 05:04 Lymph % (Auto) 10.3 % (21.0-51.0) L 03/31/19 05:04 [place] % (Auto) 9.6 % (0.0-13.0) 03/31/19 05:04 Eos % (Auto) 0.0 % (0.9-2.9) L 03/31/19 05:04 Baso % (Auto) 0.2 % (0.2-1.0) 03/31/19 05:04 Neut # (Auto) 12.4 x10^3/uL (2.2-4.8) H 03/31/19 05:04 Lymph # (Auto) 1.6 X10^3/uL (1.3-2.9) 03/31/19 05:04 [place] # (Auto) 1.5 x10^3/uL (0.3-0.8) H 03/31/19 05:04 Eos # (Auto) 0.0 x10^3/uL (0.0-0.2) 03/31/19 05:04 Baso # (Auto) 0.0 X10^3/uL (0.0-0.1) 03/31/19 05:04 Absolute Nucleated RBC 0.1 /100WBC 03/31/19 05:04 Sodium 134 mmol/L (136-145) L 03/31/19 05:04 Corrected Sodium 135 mmol/L (136-145) L 03/31/19 05:04 Potassium 5.0 mmol/L (3.5-5.1) 03/31/19 05:04 Chloride 101 mmol/L (98-107) 03/31/19 05:04 Carbon Dioxide 26.4 mmol/L (21-32) 03/31/19 05:04 BUN 41 mg/dL (7-18) H 03/31/19 05:04 Creatinine 2.13 mg/dL (0.70-1.30) H 03/31/19 05:04 Est GFR (MDRD) Af Amer 39 (>60) L 03/31/19 05:04 Est GFR (MDRD) Non-Af 32 (>60) L 03/31/19 05:04 Glucose 134 mg/dL (65-99) H 03/31/19 05:04 POC Glucose (mg/dL) 94 mg/dL (65-99) 03/31/19 16:05 Calcium 8.3 mg/dL (8.5-10.1) L 03/31/19 05:04 Corrected Calcium 9.2 mg/dL (8.5-10.1) 03/31/19 05:04 Total Bilirubin 1.20 mg/dL (0.2-1.0) H 03/31/19 05:04 AST 15 Units/L (15-37) 03/31/19 05:04 ALT 17 Units/L (12-78) 03/31/19 05:04 Alkaline Phosphatase 88 Units/L (46-116) 03/31/19 05:04 Total Protein 6.5 g/dL (6.4-8.2) 03/31/19 05:04 Albumin 2.9 g/dL (3.4-5.0) L 03/31/19 05:04 Globulin 3.6 g/dL (2.5-4.5) 03/31/19 05:04 Albumin/Globulin Ratio 0.8 Ratio (1.1-2.1) L 03/31/19 05:04 - Plan (1) Sepsis due to urinary tract infection Status: Acute Plan: NORMAL SALINE, IV FORTAZ, IV LEVAQUIN, CONTINUE TO MONITOR (2) Diabetes mellitus Status: Acute Qualifiers: Diabetes mellitus type: type 2 Diabetes mellitus senior care insulin use: unspecified senior care insulin use status Diabetes mellitus complication statu s: without complication Qualified Code(s): E11.9 - Type 2 diabetes mellitus without complications Plan: OTBS ACHS, HUMULIN R SLIDING SCALE, CONTINUE TO MONITOR
[2019-03-31] MEDS ORDERED: BUTT CREAM (COMPOUND) ONE (18:39)
[2019-03-31] MEDS: VOLTAREN 1 % GEL MULTI DOSE TUBE TOP SCH ×2 (18:40→21:00)
[2019-03-31] MEDS: BUTT CREAM (COMPOUND) TOP SCH (21:57)
[2019-03-31] MEDS: XANAX PO SCH (21:57)
[2019-03-31] MEDS: FLOMAX PO SCH (21:57)
[2019-03-31] MEDS: LIPITOR TAB 10 MG PO SCH (21:57)
[2019-03-31] MEDS: SNACK - Diabetic Appropriate PO SCH (22:10)
[2019-03-31] MEDS: LANTISEPTIC TOP SCH (22:10)
[2019-04-01] MEDS: NS 1000 ML 1,000 ML IV SCH ×3 (05:44→23:06)
[2019-04-01 06:40] LABS: BASOPHILS % (AUTO) 0.2 % (0.2-1.0); EOSINOPHILS # (AUTO) 0.1 x10^3/uL (0.0-0.2); EOSINOPHILS % (AUTO) 0.7 % (0.9-2.9); HEMATOCRIT 31.4 % (42.0-54.0); HEMOGLOBIN 10.5 g/dL (13.5-18.0); LYMPHOCYTES # (AUTO) 1.1 X10^3/uL (1.3-2.9); LYMPHOCYTES % (AUTO) 12.9 % (21.0-51.0); MEAN CORPUSCULAR HEMOGLOBIN 30.2 pg (27.0-34.0); MEAN CORPUSCULAR HGB CONC 33.4 g/dL (33.0-35.0); MEAN CORPUSCULAR VOLUME 90.5 fL (80.0-100.0); MEAN PLATELET VOLUME 8.3 fL (7.4-11.0); MONOCYTES # (AUTO) 0.6 x10^3/uL (0.3-0.8); MONOCYTES % (AUTO) 7.7 % (0.0-13.0); NEUTROPHILS # (AUTO) 6.5 x10^3/uL (2.2-4.8); NEUTROPHILS % (AUTO) 78.5 % (42.0-75.0); PLATELET COUNT 123 X10^3/uL (150.0-450.0); RED BLOOD COUNT 3.47 X10^6/uL (4.7-6.0); RED CELL DISTRIBUTION WIDTH 15.6 % (11.6-16.5); WHITE BLOOD COUNT 8.3 X10^3/uL (3.6-10.0)
[2019-04-01 06:49] LABS: ALBUMIN 2.4 g/dL (3.4-5.0); CALCIUM 7.9 mg/dL (8.5-10.1); CARBON DIOXIDE 24.5 mmol/L (21-32); COR CA(FOR HYPOALB) 9.2 mg/dL (8.5-10.1); CREATININE 2.67 mg/dL (0.70-1.30); TOTAL PROTEIN 5.9 g/dL (6.4-8.2)
[2019-04-01] MEDS: LANTISEPTIC TOP SCH ×3 (08:11→21:33)
[2019-04-01] MEDS ORDERED: LEVAQUIN PREMIX IV 250 MG 250 MG/50 ML BAG IV SCH (09:00)
[2019-04-01] MEDS ORDERED: FORTAZ or TAZICEF VIAL INJ 1 G in NS 100 ML IV + SPIKE MINIBAG* 100 ML IV SCH (09:00)
[2019-04-01] MEDS: VITAMIN C PO SCH (10:18)
[2019-04-01] MEDS: PROSCAR PO SCH (10:18)
[2019-04-01] MEDS: ZINC SULFATE PO SCH (10:19)
[2019-04-01] MEDS: MAG-OX TAB PO SCH ×2 (10:20→21:34)
[2019-04-01] MEDS: PROzac PO SCH (10:20)
[2019-04-01] MEDS: K-DUR TAB 20 MEQ PO SCH ×2 (10:20→21:34)
[2019-04-01] MEDS: XANAX PO SCH ×2 (10:20→21:34)
[2019-04-01] MEDS: ASPIRIN EC 81 MG PO SCH (10:21)
[2019-04-01] MEDS: ELIQUIS PO SCH (10:21)
[2019-04-01] MEDS: BUTT CREAM (COMPOUND) TOP SCH ×2 (10:23→21:32)
[2019-04-01] MEDS: VOLTAREN 1 % GEL MULTI DOSE TUBE TOP SCH ×2 (10:24→21:32)
[2019-04-01] MEDS: INVANZ INJ 1 GM VIAL 1 GM in NS 100 ML IV + SPIKE MINIBAG* 100 ML IV SCH (11:35)
--- NOTE | 2019-04-01 17:42 | PCM.PROG ---
Progress Note - Progress Note for Day of Date of Exam: 04/01/19 - Subjective Subjective: IS BEING TREATED FOR UROSEPSIS AND ALTERED MENTAL STATUS. TODAY, HE IS LYING IN BED WITH EYES CLOSED ON MORNING ROUNDS. HE OPENS EYES TO VERBAL STIMULI. HE IS ORIENTED TO PERSON AND PLACE. HE CONTINUES WITH LOWER ABDOMINAL PAIN THIS MORNING. ON EXAMINATION, HEART IS REGULAR IN RATE AND RHYTHM. BILATERAL LUNGS ARE NOTED WITH DIMINISHED LUNG SOUNDS THROUGHOUT. ABDOMEN IS ROUND, SOFT, AND NOTED WITH MILD, SUPRAPUBIC TENDERNESS TO PALPATION. HIS VITALS THIS MORNING ARE: 98.3-57-20-98%-93/51. LABS WERE OBTAINED. ABNORMAL LAB VALUES INCLUDE THE FOLLOWING: RBC 3.47, HGB 10.5, HCT 31.4, PLT COUNT 123, SODIUM 134, BUN 52, CREATININE 2.067, GLUCOSE 113, CALCIUM 7.9, AST 13, BNP 337, TOTAL PROTEIN 5.9, ALBUMIN 2.4. A URINE CULTURE IS PENDING. PRELIMINARY CULTURES REPORT GROWTH OF E.COLI. HE IS CURRENTLY RECEIVING NORMAL SALINE AT 75ML/HR, LEVAQUIN 250 MG IV DAILY, FORTAZ 1G IV DAILY, AND HOME MEDICATIONS WERE RESUMED. WE WILL DISCONTINUE THE FORTAZ AND LEVAQUIN TODAY AND START INVANZ 1G IV DAILY. OTHERWISE, WE WILL CONTINUE WITH CURRENT PLAN OF CARE TODAY. WE WILL FOLLOW UP WITH AM LABS AND CONTINUE TO MONITOR. - Past Medical Family Social History Past Med/Fam/Surg Hx: No changes since H&P Allergies: Allergies doxycycline Allergy (Verified 03/30/19 20:55) - Review of Systems ROS: No change since H&P - Vital Signs and I&O's Vital Signs: Temperature 98.5 F Pulse Rate [Right Brachial] 58 Respiratory Rate 20 Blood Pressure [Left Arm] 141/79 Blood Pressure [Right Arm] 130/57 Blood Pressure 141/79 O2 Sat by Pulse Oximetry 96 Intake and Output: Intake & Output 03/30/19 03/31/19 04/01/19 04/02/19 11:59 11:59 11:59 11:59 Intake Total 840 / 840 2440 / 2440 480 / 480 Balance 840 / 840 2440 / 2440 480 / 480 - Physical Exam Oriented: Not Oriented Eyes: Normal Ear: Normal Nose: Normal Throat: Normal Cardiovascular: Normal : Normal Auscultation: Bowel Sounds: Normal Tenderness: Suprapubic, Mild. negative: Rebound, Guarding, Rigidity Skin: Normal Musculoskeletal: Normal Psychiatric: Normal Mood Description: Calm Affect: Normal Speech Pattern: Clear, Appropriate - Laboratory and Diagnostics Result Diagrams: 04/01/19 06:05 04/01/19 06:05 Labs: Laboratory WBC 8.3 X10^3/uL (3.6-10.0) 04/01/19 06:05 RBC 3.47 X10^6/uL (4.7-6.0) L 04/01/19 06:05 Hgb 10.5 g/dL (13.5-18.0) L D 04/01/19 06:05 Hct 31.4 % (42.0-54.0) L 04/01/19 06:05 MCV 90.5 fL (80.0-100.0) 04/01/19 06:05 MCH 30.2 pg (27.0-34.0) 04/01/19 06:05 MCHC 33.4 g/dL (33.0-35.0) 04/01/19 06:05 RDW 15.6 % (11.6-16.5) 04/01/19 06:05 Plt Count 123 X10^3/uL (150.0-450.0) L 04/01/19 06:05 MPV 8.3 fL (7.4-11.0) 04/01/19 06:05 Neut % (Auto) 78.5 % (42.0-75.0) H 04/01/19 06:05 Lymph % (Auto) 12.9 % (21.0-51.0) L 04/01/19 06:05 [place] % (Auto) 7.7 % (0.0-13.0) 04/01/19 06:05 Eos % (Auto) 0.7 % (0.9-2.9) L 04/01/19 06:05 Baso % (Auto) 0.2 % (0.2-1.0) 04/01/19 06:05 Neut # (Auto) 6.5 x10^3/uL (2.2-4.8) H 04/01/19 06:05 Lymph # (Auto) 1.1 X10^3/uL (1.3-2.9) L 04/01/19 06:05 [place] # (Auto) 0.6 x10^3/uL (0.3-0.8) 04/01/19 06:05 Eos # (Auto) 0.1 x10^3/uL (0.0-0.2) 04/01/19 06:05 Baso # (Auto) 0.0 X10^3/uL (0.0-0.1) 04/01/19 06:05 Absolute Nucleated RBC 0.0 /100WBC 04/01/19 06:05 Sodium 134 mmol/L (136-145) L 04/01/19 06:05 Corrected Sodium 134 mmol/L (136-145) L 04/01/19 06:05 Potassium 4.0 mmol/L (3.5-5.1) 04/01/19 06:05 Chloride 102 mmol/L (98-107) 04/01/19 06:05 Carbon Dioxide 24.5 mmol/L (21-32) 04/01/19 06:05 BUN 52 mg/dL (7-18) H 04/01/19 06:05 Creatinine 2.67 mg/dL (0.70-1.30) H 04/01/19 06:05 Est GFR (MDRD) Af Amer 30 (>60) L 04/01/19 06:05 Est GFR (MDRD) Non-Af 25 (>60) L 04/01/19 06:05 Glucose 113 mg/dL (65-99) H 04/01/19 06:05 POC Glucose (mg/dL) 98 mg/dL (65-99) 04/01/19 16:50 Calcium 7.9 mg/dL (8.5-10.1) L 04/01/19 06:05 Corrected Calcium 9.2 mg/dL (8.5-10.1) 04/01/19 06:05 Total Bilirubin 0.50 mg/dL (0.2-1.0) 04/01/19 06:05 AST 13 Units/L (15-37) L 04/01/19 06:05 ALT 14 Units/L (12-78) 04/01/19 06:05 Alkaline Phosphatase 79 Units/L (46-116) 04/01/19 06:05 B-Natriuretic Peptide 337 pg/mL (0-79) H 04/01/19 06:05 Total Protein 5.9 g/dL (6.4-8.2) L 04/01/19 06:05 Albumin 2.4 g/dL (3.4-5.0) L 04/01/19 06:05 Globulin 3.5 g/dL (2.5-4.5) 04/01/19 06:05 Albumin/Globulin Ratio 0.7 Ratio (1.1-2.1) L 04/01/19 06:05 - Plan (1) Sepsis due to urinary tract infection Status: Acute Plan: NORMAL SALINE, INVANZ 1G IV DAILY, CONTINUE TO MONITOR (2) Diabetes mellitus Status: Acute Qualifiers: Diabetes mellitus type: type 2 Diabetes mellitus snf insulin use: unspecified snf insulin use status Diabetes mellitus complication status: without complication Qualified Code(s): E11.9 - Type 2 diabetes mellitus without complications Plan: OTBS ACHS, HUMULIN R SLIDING SCALE, CONTINUE TO MONITOR
[2019-04-01] MEDS: SNACK - Diabetic Appropriate PO SCH (19:57)
[2019-04-01] MEDS: FLOMAX PO SCH (21:34)
[2019-04-01] MEDS: LIPITOR TAB 10 MG PO SCH (21:34)
[2019-04-02] MEDS: NS 1000 ML 1,000 ML IV SCH ×4 (02:49→20:23)
[2019-04-02 05:18] LABS: BASOPHILS % (AUTO) 0.3 % (0.2-1.0); EOSINOPHILS # (AUTO) 0.1 x10^3/uL (0.0-0.2); EOSINOPHILS % (AUTO) 2.2 % (0.9-2.9); HEMATOCRIT 31.2 % (42.0-54.0); HEMOGLOBIN 10.4 g/dL (13.5-18.0); LYMPHOCYTES # (AUTO) 0.8 X10^3/uL (1.3-2.9); LYMPHOCYTES % (AUTO) 13.7 % (21.0-51.0); MEAN CORPUSCULAR HEMOGLOBIN 30.3 pg (27.0-34.0); MEAN CORPUSCULAR HGB CONC 33.3 g/dL (33.0-35.0); MEAN CORPUSCULAR VOLUME 90.9 fL (80.0-100.0); MEAN PLATELET VOLUME 8.5 fL (7.4-11.0); MONOCYTES # (AUTO) 0.4 x10^3/uL (0.3-0.8); MONOCYTES % (AUTO) 7.6 % (0.0-13.0); NEUTROPHILS # (AUTO) 4.4 x10^3/uL (2.2-4.8); NEUTROPHILS % (AUTO) 76.2 % (42.0-75.0); PLATELET COUNT 119 X10^3/uL (150.0-450.0); RED BLOOD COUNT 3.43 X10^6/uL (4.7-6.0); RED CELL DISTRIBUTION WIDTH 15.6 % (11.6-16.5); WHITE BLOOD COUNT 5.8 X10^3/uL (3.6-10.0)
[2019-04-02 05:35] LABS: ALBUMIN 2.4 g/dL (3.4-5.0); CALCIUM 7.9 mg/dL (8.5-10.1); CARBON DIOXIDE 22.1 mmol/L (21-32); COR CA(FOR HYPOALB) 9.2 mg/dL (8.5-10.1); CREATININE 2.12 mg/dL (0.70-1.30)
[2019-04-02] MEDS: INVANZ INJ 1 GM VIAL 1 GM in NS 100 ML IV + SPIKE MINIBAG* 100 ML IV SCH (09:07)
[2019-04-02] MEDS: ASPIRIN EC 81 MG PO SCH (09:08)
[2019-04-02] MEDS: ZINC SULFATE PO SCH (09:08)
[2019-04-02] MEDS: XANAX PO SCH ×3 (09:08→20:23)
[2019-04-02] MEDS: PROSCAR PO SCH (09:09)
[2019-04-02] MEDS: K-DUR TAB 20 MEQ PO SCH ×2 (09:09→20:23)
[2019-04-02] MEDS: VITAMIN C PO SCH (09:09)
[2019-04-02] MEDS: MAG-OX TAB PO SCH ×2 (09:09→20:23)
[2019-04-02] MEDS: PROzac PO SCH (09:09)
[2019-04-02] MEDS: VOLTAREN 1 % GEL MULTI DOSE TUBE TOP SCH ×2 (09:10→20:25)
[2019-04-02] MEDS: ELIQUIS PO SCH (09:10)
[2019-04-02] MEDS: BUTT CREAM (COMPOUND) TOP SCH ×2 (09:11→20:24)
[2019-04-02] MEDS: LANTISEPTIC TOP SCH ×2 (12:00→20:24)
[2019-04-02] MEDS: FLOMAX PO SCH (20:23)
[2019-04-02] MEDS: LIPITOR TAB 10 MG PO SCH (20:23)
[2019-04-02] MEDS: SNACK - Diabetic Appropriate PO SCH (20:25)
[2019-04-03 05:08] LABS: BASOPHILS % (AUTO) 0.5 % (0.2-1.0); EOSINOPHILS # (AUTO) 0.2 x10^3/uL (0.0-0.2); EOSINOPHILS % (AUTO) 3.4 % (0.9-2.9); HEMATOCRIT 32.6 % (42.0-54.0); LYMPHOCYTES # (AUTO) 1.1 X10^3/uL (1.3-2.9); LYMPHOCYTES % (AUTO) 20.6 % (21.0-51.0); MEAN CORPUSCULAR HEMOGLOBIN 30.6 pg (27.0-34.0); MEAN CORPUSCULAR HGB CONC 33.7 g/dL (33.0-35.0); MEAN PLATELET VOLUME 8.6 fL (7.4-11.0); MONOCYTES # (AUTO) 0.4 x10^3/uL (0.3-0.8); MONOCYTES % (AUTO) 7.5 % (0.0-13.0); NEUTROPHILS # (AUTO) 3.5 x10^3/uL (2.2-4.8); PLATELET COUNT 146 X10^3/uL (150.0-450.0); RED BLOOD COUNT 3.58 X10^6/uL (4.7-6.0); RED CELL DISTRIBUTION WIDTH 15.3 % (11.6-16.5); WHITE BLOOD COUNT 5.1 X10^3/uL (3.6-10.0)
[2019-04-03 05:28] LABS: ALANINE AMINOTRANSFERASE 16 Units/L (12-78); ALBUMIN 2.4 g/dL (3.4-5.0); ALKALINE PHOSPHATASE 72 Units/L (46-116); ASPARTATE AMINO TRANSFERASE 12 Units/L (15-37); BLOOD UREA NITROGEN 31 mg/dL (7-18); CALCIUM 8.1 mg/dL (8.5-10.1); CHLORIDE 108 mmol/L (98-107); COR CA(FOR HYPOALB) 9.4 mg/dL (8.5-10.1); CREATININE 1.62 mg/dL (0.70-1.30); SODIUM 139 mmol/L (136-145); TOTAL PROTEIN 6.1 g/dL (6.4-8.2); eGFR NON BLACK RACES 44 (>60)
[2019-04-03] MEDS: NS 1000 ML 1,000 ML IV SCH ×2 (05:49→20:06)
[2019-04-03] MEDS: MAG-OX TAB PO SCH ×2 (09:15→20:08)
[2019-04-03] MEDS: VITAMIN C PO SCH (09:15)
[2019-04-03] MEDS: PROSCAR PO SCH (09:15)
[2019-04-03] MEDS: K-DUR TAB 20 MEQ PO SCH ×2 (09:15→20:08)
[2019-04-03] MEDS: ZINC SULFATE PO SCH (09:15)
[2019-04-03] MEDS: PROzac PO SCH (09:15)
[2019-04-03] MEDS: ASPIRIN EC 81 MG PO SCH (09:15)
[2019-04-03] MEDS: ELIQUIS PO SCH (09:15)
[2019-04-03] MEDS: INVANZ INJ 1 GM VIAL 1 GM in NS 100 ML IV + SPIKE MINIBAG* 100 ML IV SCH (09:15)
[2019-04-03] MEDS: XANAX PO SCH ×2 (09:15→20:08)
[2019-04-03] MEDS: BUTT CREAM (COMPOUND) TOP SCH ×2 (09:30→20:07)
[2019-04-03] MEDS: LANTISEPTIC TOP SCH ×2 (09:31→20:09)
[2019-04-03] MEDS: VOLTAREN 1 % GEL MULTI DOSE TUBE TOP SCH ×2 (09:33→20:07)
[2019-04-03] MEDS: TOPROL XL PO SCH (17:08)
[2019-04-03] MEDS: SNACK - Diabetic Appropriate PO SCH (20:07)
[2019-04-03] MEDS: LIPITOR TAB 10 MG PO SCH (20:08)
[2019-04-03] MEDS: FLOMAX PO SCH (20:08)
[2019-04-04 05:11] LABS: BASOPHILS % (AUTO) 0.6 % (0.2-1.0); EOSINOPHILS # (AUTO) 0.2 x10^3/uL (0.0-0.2); EOSINOPHILS % (AUTO) 3.9 % (0.9-2.9); HEMOGLOBIN 11.1 g/dL (13.5-18.0); LYMPHOCYTES # (AUTO) 1.4 X10^3/uL (1.3-2.9); LYMPHOCYTES % (AUTO) 24.7 % (21.0-51.0); MEAN CORPUSCULAR HEMOGLOBIN 30.1 pg (27.0-34.0); MEAN CORPUSCULAR HGB CONC 33.5 g/dL (33.0-35.0); MEAN CORPUSCULAR VOLUME 89.6 fL (80.0-100.0); MEAN PLATELET VOLUME 7.8 fL (7.4-11.0); MONOCYTES # (AUTO) 0.4 x10^3/uL (0.3-0.8); MONOCYTES % (AUTO) 7.8 % (0.0-13.0); NEUTROPHILS # (AUTO) 3.5 x10^3/uL (2.2-4.8); PLATELET COUNT 168 X10^3/uL (150.0-450.0); RED BLOOD COUNT 3.68 X10^6/uL (4.7-6.0); RED CELL DISTRIBUTION WIDTH 15.1 % (11.6-16.5); WHITE BLOOD COUNT 5.6 X10^3/uL (3.6-10.0)
[2019-04-04 05:17] LABS: ALANINE AMINOTRANSFERASE 14 Units/L (12-78); ALBUMIN 2.5 g/dL (3.4-5.0); ALKALINE PHOSPHATASE 72 Units/L (46-116); ASPARTATE AMINO TRANSFERASE 12 Units/L (15-37); BLOOD UREA NITROGEN 22 mg/dL (7-18); CALCIUM 7.8 mg/dL (8.5-10.1); CARBON DIOXIDE 24.5 mmol/L (21-32); CHLORIDE 108 mmol/L (98-107); CREATININE 1.27 mg/dL (0.70-1.30); SODIUM 141 mmol/L (136-145); TOTAL PROTEIN 6.1 g/dL (6.4-8.2); eGFR NON BLACK RACES 58 (>60)
[2019-04-04] MEDS: NS 1000 ML 1,000 ML IV SCH ×2 (05:40→16:32)
[2019-04-04] MEDS: TOPROL XL PO SCH (08:34)
[2019-04-04] MEDS: ASPIRIN EC 81 MG PO SCH (08:34)
[2019-04-04] MEDS: XANAX PO SCH ×2 (08:34→21:24)
[2019-04-04] MEDS: PROSCAR PO SCH (08:34)
[2019-04-04] MEDS: ZINC SULFATE PO SCH (08:34)
[2019-04-04] MEDS: PROzac PO SCH (08:34)
[2019-04-04] MEDS: K-DUR TAB 20 MEQ PO SCH ×2 (08:35→21:24)
[2019-04-04] MEDS: MAG-OX TAB PO SCH ×2 (08:35→21:24)
[2019-04-04] MEDS: VITAMIN C PO SCH (08:35)
[2019-04-04] MEDS: ELIQUIS PO SCH (08:35)
[2019-04-04] MEDS: VOLTAREN 1 % GEL MULTI DOSE TUBE TOP SCH ×2 (08:39→21:26)
[2019-04-04] MEDS: INVANZ INJ 1 GM VIAL 1 GM in NS 100 ML IV + SPIKE MINIBAG* 100 ML IV SCH (08:40)
[2019-04-04] MEDS: LANTISEPTIC TOP SCH ×2 (08:42→21:25)
[2019-04-04] MEDS: BUTT CREAM (COMPOUND) TOP SCH ×2 (08:42→21:24)
[2019-04-04] MEDS: SNACK - Diabetic Appropriate PO SCH (21:00)
[2019-04-04] MEDS: LIPITOR TAB 10 MG PO SCH (21:23)
[2019-04-04] MEDS: FLOMAX PO SCH (21:24)
[2019-04-05] MEDS: NS 1000 ML 1,000 ML IV SCH ×3 (01:00→19:10)
[2019-04-05 04:58] LABS: BASOPHILS % (AUTO) 0.7 % (0.2-1.0); EOSINOPHILS # (AUTO) 0.3 x10^3/uL (0.0-0.2); EOSINOPHILS % (AUTO) 3.7 % (0.9-2.9); HEMOGLOBIN 10.9 g/dL (13.5-18.0); LYMPHOCYTES # (AUTO) 1.4 X10^3/uL (1.3-2.9); LYMPHOCYTES % (AUTO) 20.4 % (21.0-51.0); MEAN CORPUSCULAR HEMOGLOBIN 29.7 pg (27.0-34.0); MEAN CORPUSCULAR HGB CONC 33.2 g/dL (33.0-35.0); MEAN CORPUSCULAR VOLUME 89.4 fL (80.0-100.0); MEAN PLATELET VOLUME 7.3 fL (7.4-11.0); MONOCYTES # (AUTO) 0.5 x10^3/uL (0.3-0.8); MONOCYTES % (AUTO) 7.7 % (0.0-13.0); NEUTROPHILS # (AUTO) 4.6 x10^3/uL (2.2-4.8); NEUTROPHILS % (AUTO) 67.5 % (42.0-75.0); PLATELET COUNT 174 X10^3/uL (150.0-450.0); RED BLOOD COUNT 3.69 X10^6/uL (4.7-6.0); RED CELL DISTRIBUTION WIDTH 14.7 % (11.6-16.5); WHITE BLOOD COUNT 6.8 X10^3/uL (3.6-10.0)
[2019-04-05 05:21] LABS: ALANINE AMINOTRANSFERASE 12 Units/L (12-78); ALBUMIN 2.6 g/dL (3.4-5.0); ALKALINE PHOSPHATASE 73 Units/L (46-116); ASPARTATE AMINO TRANSFERASE 16 Units/L (15-37); BLOOD UREA NITROGEN 16 mg/dL (7-18); CALCIUM 7.7 mg/dL (8.5-10.1); CHLORIDE 108 mmol/L (98-107); COR CA(FOR HYPOALB) 8.8 mg/dL (8.5-10.1); CREATININE 1.19 mg/dL (0.70-1.30); MAGNESIUM 1.7 mg/dL (1.7-2.9); SODIUM 140 mmol/L (136-145); TOTAL PROTEIN 6.3 g/dL (6.4-8.2); eGFR NON BLACK RACES > 60 (>60)
[2019-04-05] MEDS: INVANZ INJ 1 GM VIAL 1 GM in NS 100 ML IV + SPIKE MINIBAG* 100 ML IV SCH (09:41)
[2019-04-05] MEDS: VITAMIN C PO SCH (09:44)
[2019-04-05] MEDS: MAG-OX TAB PO SCH ×2 (09:45→21:48)
[2019-04-05] MEDS: PROzac PO SCH (09:45)
[2019-04-05] MEDS: K-DUR TAB 20 MEQ PO SCH ×2 (09:45→21:46)
[2019-04-05] MEDS: TOPROL XL PO SCH (09:46)
[2019-04-05] MEDS: ASPIRIN EC 81 MG PO SCH (09:46)
[2019-04-05] MEDS: ELIQUIS PO SCH (09:46)
[2019-04-05] MEDS: PROSCAR PO SCH (09:47)
[2019-04-05] MEDS: BUTT CREAM (COMPOUND) TOP SCH ×2 (09:48→21:47)
[2019-04-05] MEDS: ZINC SULFATE PO SCH (09:48)
[2019-04-05] MEDS: LANTISEPTIC TOP SCH ×2 (09:48→21:49)
[2019-04-05] MEDS: VOLTAREN 1 % GEL MULTI DOSE TUBE TOP SCH ×2 (09:49→21:50)
[2019-04-05] MEDS: XANAX PO SCH ×2 (09:49→21:48)
[2019-04-05] MEDS: SNACK - Diabetic Appropriate PO SCH (20:00)
[2019-04-05] MEDS: LIPITOR TAB 10 MG PO SCH (21:46)
[2019-04-05] MEDS: FLOMAX PO SCH (21:48)
[2019-04-06] MEDS: NS 1000 ML 1,000 ML IV SCH ×2 (04:00→06:29)
[2019-04-06 05:19] LABS: BASOPHILS % (AUTO) 0.6 % (0.2-1.0); EOSINOPHILS # (AUTO) 0.2 x10^3/uL (0.0-0.2); EOSINOPHILS % (AUTO) 2.9 % (0.9-2.9); HEMATOCRIT 33.9 % (42.0-54.0); HEMOGLOBIN 11.2 g/dL (13.5-18.0); LYMPHOCYTES # (AUTO) 1.2 X10^3/uL (1.3-2.9); LYMPHOCYTES % (AUTO) 16.6 % (21.0-51.0); MEAN CORPUSCULAR HEMOGLOBIN 29.8 pg (27.0-34.0); MEAN CORPUSCULAR HGB CONC 33.1 g/dL (33.0-35.0); MEAN CORPUSCULAR VOLUME 89.9 fL (80.0-100.0); MEAN PLATELET VOLUME 7.5 fL (7.4-11.0); MONOCYTES # (AUTO) 0.4 x10^3/uL (0.3-0.8); MONOCYTES % (AUTO) 6.1 % (0.0-13.0); NEUTROPHILS # (AUTO) 5.3 x10^3/uL (2.2-4.8); NEUTROPHILS % (AUTO) 73.8 % (42.0-75.0); PLATELET COUNT 199 X10^3/uL (150.0-450.0); RED BLOOD COUNT 3.77 X10^6/uL (4.7-6.0); WHITE BLOOD COUNT 7.1 X10^3/uL (3.6-10.0)
[2019-04-06 05:45] LABS: ALANINE AMINOTRANSFERASE 12 Units/L (12-78); ALBUMIN 2.7 g/dL (3.4-5.0); ALKALINE PHOSPHATASE 74 Units/L (46-116); ASPARTATE AMINO TRANSFERASE 14 Units/L (15-37); BLOOD UREA NITROGEN 13 mg/dL (7-18); CALCIUM 7.8 mg/dL (8.5-10.1); CARBON DIOXIDE 23.7 mmol/L (21-32); CHLORIDE 107 mmol/L (98-107); COR CA(FOR HYPOALB) 8.8 mg/dL (8.5-10.1); CREATININE 1.08 mg/dL (0.70-1.30); SODIUM 141 mmol/L (136-145); TOTAL PROTEIN 6.3 g/dL (6.4-8.2); eGFR NON BLACK RACES > 60 (>60)
--- NOTE | 2019-04-06 05:56 | RAD ---
Chest, one view Indication: Diminished lung sounds Comparison: 07/12/2018 Findings: Accounting for AP technique and low lung volumes, the cardiac silhouette is normal in size. Left-sided pacemaker noted. The lungs are hypoinflated and there are streaky bibasilar opacities, likely reflecting atelectasis. No significant pleural effusion is identified. No pneumothorax. Impression: Hypoinflation of the lungs with streaky bibasilar opacities, likely reflecting atelectasis. Underlying pneumonia not excluded. Correlate clinically. Reported By:
[2019-04-06] MEDS ORDERED: POTASSIUM CHL 40 MEQ/NS 0.45% 500 ML IV PRN (06:04)
[2019-04-06] MEDS ORDERED: KLOR-CON PO PRN (06:04)
[2019-04-06] MEDS ORDERED: MICRO K EXTEN CAP 10 MEQ PO PRN (06:04)
[2019-04-06] MEDS ORDERED: MAGNESIUM SULFATE 1 GRAM/100 mL PREMIX 1 GM/100 ML BAG IV PRN (06:04)
[2019-04-06] MEDS ORDERED: POTASSIUM CHLORIDE LIQ 20 MEQ UDC PO PRN (06:04)
[2019-04-06] MEDS ORDERED: K-RIDER 10 MEQ/NS 100 ML 10 MEQ/100 ML BAG IV PRN (06:04)
[2019-04-06] MEDS ORDERED: POTASSIUM CHL 60 MEQ/NS 0.45% 500 ML IV PRN (06:04)
[2019-04-06] MEDS ORDERED: K-DUR TAB 20 MEQ PO PRN (06:04)
[2019-04-06] MEDS: VOLTAREN 1 % GEL MULTI DOSE TUBE TOP SCH (08:57)
[2019-04-06] MEDS: INVANZ INJ 1 GM VIAL 1 GM in NS 100 ML IV + SPIKE MINIBAG* 100 ML IV SCH (08:57)
[2019-04-06] MEDS: ZINC SULFATE PO SCH (09:04)
[2019-04-06] MEDS: ELIQUIS PO SCH (09:04)
[2019-04-06] MEDS: VITAMIN C PO SCH (09:04)
[2019-04-06] MEDS: PROzac PO SCH (09:04)
[2019-04-06] MEDS: MAG-OX TAB PO SCH (09:05)
[2019-04-06] MEDS: TOPROL XL PO SCH (09:05)
[2019-04-06] MEDS: ASPIRIN EC 81 MG PO SCH (09:05)
[2019-04-06] MEDS: PROSCAR PO SCH (09:05)
[2019-04-06] MEDS: K-DUR TAB 20 MEQ PO SCH (09:05)
[2019-04-06] MEDS: XANAX PO SCH (09:08)
[2019-04-06] MEDS: BUTT CREAM (COMPOUND) TOP SCH (09:08)
[2019-04-06] MEDS: LANTISEPTIC TOP SCH (09:09)
[2019-04-06 13:06] VITALS: BP 162/78
== END 2019-04-06 13:14 | DRG 872 ==
LOC: MED/SURG
PROVIDERS: ADMIT Internal Medicine; ATTEND Internal Medicine
DX: N39.0 Urinary tract infection, site not specified; K21.9 Gastro-esophageal reflux disease without esophagitis; I25.10 Atherosclerotic heart disease of native coronary artery without angina pectoris; R79.89 Other specified abnormal findings of blood chemistry; M19.90 Unspecified osteoarthritis, unspecified site; E78.2 Mixed hyperlipidemia; Z79.899 Other long term (current) drug therapy; R10.84 Generalized abdominal pain; R31.9 Hematuria, unspecified; E11.65 Type 2 diabetes mellitus with hyperglycemia; I10 Essential (primary) hypertension; F32.89 Other specified depressive episodes; R40.4 Transient alteration of awareness; F41.8 Other specified anxiety disorders; A41.51 Sepsis due to Escherichia coli [E. coli]
CPT/HCPCS: 36415; 71010; 71045; 80053; 81001; 83735; 83880; 85025; 87086; 87088; 87186; 93306; A4222; S0138; G0378; J0713; J1335; J1956; J7030; J7050

== ENCOUNTER 2019-04-10 16:56 | Observation (INO) ==
[2019-04-10] MEDS ORDERED: DUONEB 0.5 MG/3 MG NEB ONE (17:16)
[2019-04-10] MEDS ORDERED: DUONEB 0.5 MG/3 MG ONE (17:18)
[2019-04-10 17:25] LABS: BASOPHILS % (AUTO) 0.3 % (0.2-1.0); EOSINOPHILS % (AUTO) 0.2 % (0.9-2.9); HEMATOCRIT 32.7 % (42.0-54.0); HEMOGLOBIN 10.9 g/dL (13.5-18.0); LYMPHOCYTES # (AUTO) 0.7 X10^3/uL (1.3-2.9); LYMPHOCYTES % (AUTO) 6.4 % (21.0-51.0); MEAN CORPUSCULAR HEMOGLOBIN 29.7 pg (27.0-34.0); MEAN CORPUSCULAR HGB CONC 33.4 g/dL (33.0-35.0); MEAN PLATELET VOLUME 6.8 fL (7.4-11.0); MONOCYTES # (AUTO) 0.5 x10^3/uL (0.3-0.8); MONOCYTES % (AUTO) 4.5 % (0.0-13.0); NEUTROPHILS # (AUTO) 9.1 x10^3/uL (2.2-4.8); NEUTROPHILS % (AUTO) 88.6 % (42.0-75.0); PLATELET COUNT 205 X10^3/uL (150.0-450.0); RED BLOOD COUNT 3.67 X10^6/uL (4.7-6.0); RED CELL DISTRIBUTION WIDTH 15.1 % (11.6-16.5); WHITE BLOOD COUNT 10.2 X10^3/uL (3.6-10.0)
--- NOTE | 2019-04-10 17:26 | DR.SOBA ---
HPI Time Seen Time Seen by Provider: 04/10/19 17:07 Primary Care Physician Primary Care Physician: CORINA GALVAN Complaints Chief Complaint Doctors Comments: Patient is 83 year old male who presents for shortness of breath and the saturation. Patient has past medical of pacer paraplegia and diet control diabetes. 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 The patient has been increasingly more congested over the past 2 to 3 days per nursing staff period. The patient is also been intermittently confused and resistant to care. The patient has is still completing ertapenem IV daily. The patient is speaking in one word sentences and seems to have labored breathing. Chief Complaint:: PT TO BE EVALUATED PER GHASSAN GALVAN ORDERS, [facility] STAFF STATES PT IS CONGESTED , UPON ARRIVAL TO HER PT RESP EVER NON-LABORDED PT DENIES ANY PAIN OR SOB, PT HAS EXP WHEEZING NOTED , PT STATES " I FEEL FINE "..BR Reviewed Nurses Notes Reviewed: Yes Source History Provided: Patient and [facility] Mode of Arrival Mode of Arrival: Stretcher Timing Onset of Chief Complaint: 04/10/19 PMH PMH Past Medical History: Yes Past Medical History: Anxiety, Coronary Artery Disease, Dementia, Depression, Diabetes, Dyslipidemia, GERD and Hypertension Past Surgical History: Yes Surgical History: Cholecystectomy and Ortho Surgery Family History History of Family Medical Conditions: Yes Family Medical History: Diabetes Mellitus, Cancer and Hypertension Social History Does patient currently use any type of tobacco product: No Have you used tobacco products in the last 12 months: No Type of Tobacco Use: None Does any household member use tobacco: No Alcohol Use: None Do you use any recreational Drugs:: No Lives Where: [facility] infectious screening In the last 2 months have you had wt loss of >10#?: NO Have you had fever, night sweats or hemotysis?: No Have you traveled outside the country in the last 6 months?: No Isolation: Standard ROS Review of Systems Constitutional: No Symptoms Reported and Fatigue Eyes: No Symptoms Reported ENTM: No Symptoms Reported Respiratoy: Productive Cough and Short of Breath Cardiovascular: No Symptoms Reported Gastrointestinal/Abdominal: No Symptoms Reported Genitourinary: Other (incontinence urinary ) Neurological: No Symptoms Reported Musculoskeletal: No Symptoms Reported Integumentary: No Symptoms Reported Hematologic/Lymphatic: No Symptoms Reported Endocrine: No Symptoms Reported Psychiatric: No Symptoms Reported All Other Systems: Reviewed and Negative PE Vital Signs Vitals: Temperature 98.2 F Pulse Rate 77 Respiratory Rate 21 Blood Pressure [Left Arm] 141/79 Blood Pressure [Right Arm] 162/78 Blood Pressure 131/68 O2 Sat by Pulse Oximetry 95 General Limitations: Physical Limitation General Appearance: Alert and In Distress (respiratory ) Head Head Exam: Normal Inspection, Atraumatic and Normocephalic Eyes Eye exam: Normal Appearance and PERRL ENT ENT Exam: Normal Exam and Mucous Membranes Dry Neck Neck Exam: Normal Inspection and Full ROM COURSE Treatment Treatment: Pt has been on ABX once today ertapenem IV daily for urosepsis. Pt has LLL PNA vs CHF exacerbation, lasix given in ED. with pt WBC likely infectious. Will given levaquin in ED and allow hospitalist team to adjust. Reevaluation 1st: Improved (15:50 pt improved ) 2nd: Unchanged (17:20 pt is stable ) Consultation Called: 18:04 Call Returned: 18:04 Consultation Comments: Dr. Ko discussed case with him, he accepts admission Education/Counseling Education/Counseling: Patient, Family, Education and Counseling Educated On: Treatment, Diagnosis, Prognosis and Needs for Follow Up ROR Labs Reviewed Laboratory Results Reviewed?: Yes Result Diagrams: 04/10/19 17:15 04/10/19 17:15 Laboratory: WBC 10.2 X10^3/uL (3.6-10.0) H 04/10/19 17:15 RBC 3.67 X10^6/uL (4.7-6.0) L 04/10/19 17:15 Hgb 10.9 g/dL (13.5-18.0) L 04/10/19 17:15 Hct 32.7 % (42.0-54.0) L 04/10/19 17:15 MCV 89.0 fL (80.0-100.0) 04/10/19 17:15 MCH 29.7 pg (27.0-34.0) 04/10/19 17:15 MCHC 33.4 g/dL (33.0-35.0) 04/10/19 17:15 RDW 15.1 % (11.6-16.5) 04/10/19 17:15 Plt Count 205 X10^3/uL (150.0-450.0) 04/10/19 17:15 MPV 6.8 fL (7.4-11.0) L 04/10/19 17:15 Neut % (Auto) 88.6 % (42.0-75.0) H 04/10/19 17:15 Lymph % (Auto) 6.4 % (21.0-51.0) L 04/10/19 17:15 [place] % (Auto) 4.5 % (0.0-13.0) 04/10/19 17:15 Eos % (Auto) 0.2 % (0.9-2.9) L 04/10/19 17:15 Baso % (Auto) 0.3 % (0.2-1.0) 04/10/19 17:15 Neut # (Auto) 9.1 x10^3/uL (2.2-4.8) H 04/10/19 17:15 Lymph # (Auto) 0.7 X10^3/uL (1.3-2.9) L 04/10/19 17:15 [place] # (Auto) 0.5 x10^3/uL (0.3-0.8) 04/10/19 17:15 Eos # (Auto) 0.0 x10^3/uL (0.0-0.2) 04/10/19 17:15 Baso # (Auto) 0.0 X10^3/uL (0.0-0.1) 04/10/19 17:15 Absolute Nucleated RBC 0.0 /100WBC 04/10/19 17:15 Sample Site Lbra 04/10/19 17:21 ABG pH 7.480 (7.35-7.45) H 04/10/19 17:21 ABG pCO2 39.0 mmHg (35.0-45.0) 04/10/19 17:21 ABG pO2 70.0 mmHg (80.0-100.0) L 04/10/19 17:21 ABG HCO3 29.0 mmol/L (22-26) H 04/10/19 17:21 ABG O2 Saturation 95.0 % (90-100) 04/10/19 17:21 ABG Base Excess 5.2 mmol/L (-2.0-2.0) H 04/10/19 17:21 Félix Test N/a 04/10/19 17:21 A-a Gradient 31.0 mmHg 04/10/19 17:21 FiO2 21.0 04/10/19 17:21 Blood Gas Comments Pt deion well elj cdn 04/10/19 17:21 Sodium 142 mmol/L (136-145) 04/10/19 17:15 Corrected Sodium 143 mmol/L (136-145) 04/10/19 17:15 Potassium 4.0 mmol/L (3.5-5.1) 04/10/19 17:15 Chloride 106 mmol/L (98-107) 04/10/19 17:15 Carbon Dioxide 30.7 mmol/L (21-32) 04/10/19 17:15 BUN 18 mg/dL (7-18) 04/10/19 17:15 Creatinine 1.38 mg/dL (0.70-1.30) H 04/10/19 17:15 Est GFR (MDRD) Af Amer > 60 (>60) 04/10/19 17:15 Est GFR (MDRD) Non-Af 53 (>60) L 04/10/19 17:15 Glucose 135 mg/dL (65-99) H 04/10/19 17:15 Calcium 8.2 mg/dL (8.5-10.1) L 04/10/19 17:15 Corrected Calcium 9.2 mg/dL (8.5-10.1) 04/10/19 17:15 Total Bilirubin 0.40 mg/dL (0.2-1.0) 04/10/19 17:15 AST 13 Units/L (15-37) L 04/10/19 17:15 ALT 9 Units/L (12-78) L 04/10/19 17:15 Alkaline Phosphatase 77 Units/L (46-116) 04/10/19 17:15 Creatine Kinase 164 Units/L (39-308) 04/10/19 17:15 CK-MB (CK-2) 1.6 ng/mL (0-4.0) 04/10/19 17:15 CK/CKMB % Calc 1.0 % (<4) 04/10/19 17:15 Troponin I 0.04 ng/mL (0-1.5) 04/10/19 17:15 Total Protein 6.4 g/dL (6.4-8.2) 04/10/19 17:15 Albumin 2.7 g/dL (3.4-5.0) L 04/10/19 17:15 Globulin 3.7 g/dL (2.5-4.5) 04/10/19 17:15 Albumin/Globulin Ratio 0.7 Ratio (1.1-2.1) L 04/10/19 17:15 Influenza Type A (PCR) Negative (NEGATIVE) 04/10/19 17:15 Influenza Type B (PCR) Negative (NEGATIVE) 04/10/19 17:15 XRAY XRAY Interpreted by: Self and Both XRAY Findings: bilateral consolidation; EKG Compared to prior EKG Dated: 05/27/18 (both Read by Dr. Bah @ 04/10/19 ) Rate: 59 [place]: LAD Rhythm: Paced Block: None Hypertrophy: None (difficult to assess) ST: Normal Opioid Opioid Risk Tool Age (Jose David box if 16-45): No History of Preadolescent Sexual Abuse: No Total: 0 Total Score Risk Category: Low Risk Copyright: [employer] predicting aberrant behaviors Diagnosis Discharge Problem: Respiratory failure Qualifiers: Chronicity: acute Respiratory failure complication: hypoxia Qualified Code(s): J96.01 - Acute respiratory failure with hypoxia Narrative Support Text: Admitted to Dr. Ko
[2019-04-10 17:28] LABS: ABG BASE EXCESS 5.2 mmol/L (-2.0-2.0)
[2019-04-10 17:36] LABS: ALANINE AMINOTRANSFERASE 9 Units/L (12-78); ALBUMIN 2.7 g/dL (3.4-5.0); ALKALINE PHOSPHATASE 77 Units/L (46-116); ASPARTATE AMINO TRANSFERASE 13 Units/L (15-37); BLOOD UREA NITROGEN 18 mg/dL (7-18); CALCIUM 8.2 mg/dL (8.5-10.1); CARBON DIOXIDE 30.7 mmol/L (21-32); CHLORIDE 106 mmol/L (98-107); COR CA(FOR HYPOALB) 9.2 mg/dL (8.5-10.1); COR NA(FOR HYPERGLY) 143 mmol/L (136-145); CREATININE 1.38 mg/dL (0.70-1.30); SODIUM 142 mmol/L (136-145); TOTAL PROTEIN 6.4 g/dL (6.4-8.2); eGFR NON BLACK RACES 53 (>60)
--- NOTE | 2019-04-10 17:48 | RAD ---
HISTORY: Cough and congestion Study: Single-view chest Comparison: 04/06/2019 Findings: The trachea is midline. The cardiac silhouette is enlarged with a tortuous thoracic aorta. A pacing device overlying the left wisam thorax is observed. Increased interstitial and vascular prominence is observed within the right and left hemithorax for which developing CHF would be suspected. In addition, scattered airspace opacity within the left lower lobe is noted for which concomitant pneumonia is suspected. The bony thorax is unremarkable. IMPRESSION: Subtle airspace opacity within the left lower lobe with developing interstitial and vascular prominence consistent with CHF and concomitant left lower lobe pneumonia. Reported By:
[2019-04-10 17:58] LABS: CREATINE KINASE MB 1.6 ng/mL (0-4.0); TROPONIN I 0.04 ng/mL (0-1.5)
[2019-04-10] MEDS ORDERED: LASIX IVP ONE (18:04)
[2019-04-10] MEDS ORDERED: LASIX ONE (18:05)
[2019-04-10] MEDS ORDERED: LEVAQUIN PREMIX IV 750 MG 750 MG/150 ML BAG IV ONE ×2 (18:38→18:39)
[2019-04-10] MEDS ORDERED: NS 1000 ML 1,000 ML ONE (18:39)
[2019-04-10] MEDS: NS 1000 ML 1,000 ML IV SCH (18:45)
[2019-04-10] MEDS ORDERED: NS 1000 ML 1,000 ML IV SCH (19:00)
[2019-04-10 19:56] LABS: BILIRUBIN,URINE NEGATIVE (NEGATIVE); BLOOD/HEMOGLOBIN,URINE 2+ (NEGATIVE); GLUCOSE, URINE NEGATIVE (NEGATIVE); KETONES,URINE NEGATIVE (NEGATIVE); LEUKOCYTE ESTERASE ,URINE 1+ (NEGATIVE); NITRITES,URINE NEGATIVE (NEGATIVE); PROTEIN,URINE 2+ (NEGATIVE); UROBILINOGEN,URINE NORMAL (NORMAL)
[2019-04-10] MEDS: DUONEB 0.5 MG/3 MG NEB SCH (20:04)
[2019-04-10] MEDS: PULMICORT NEB TX 0.5 MG NEB SCH (20:04)
[2019-04-10 20:05] LABS: APPEARANCE,URINE CLEAR (CLEAR); BACTERIA,URINE NEGATIVE /HPF (NEGATIVE); COLOR,URINE YELLOW (YELLOW); SQUAMOUS EPITHELIAL CELL,UR RARE /HPF (NEGATIVE)
[2019-04-10 20:06] LABS: AMORPHOUS SEDIMENT,UR 1+ /HPF (NEGATIVE); HYALINE CASTS, URINE FEW /LPF (NEGATIVE)
[2019-04-10 22:27] VITALS: BMI 29.4
[2019-04-10] MEDS ORDERED: PHARMACY CONSULT LTC MEDICATIONS XX SCH (23:00)
[2019-04-11] MEDS: DUONEB 0.5 MG/3 MG NEB SCH ×7 (01:10→20:29)
[2019-04-11] MEDS ORDERED: ROCEPHIN VIAL 500 MG ONE (05:30)
[2019-04-11] MEDS ORDERED: ROCEPHIN VIAL 1 GRAM 1 G in NS 100 ML IV + SPIKE MINIBAG* 100 ML IV SCH (06:00)
[2019-04-11 06:10] LABS: BASOPHILS % (AUTO) 0.4 % (0.2-1.0); EOSINOPHILS # (AUTO) 0.1 x10^3/uL (0.0-0.2); EOSINOPHILS % (AUTO) 0.8 % (0.9-2.9); HEMATOCRIT 30.1 % (42.0-54.0); HEMOGLOBIN 10.1 g/dL (13.5-18.0); LYMPHOCYTES # (AUTO) 0.8 X10^3/uL (1.3-2.9); MEAN CORPUSCULAR HGB CONC 33.6 g/dL (33.0-35.0); MEAN CORPUSCULAR VOLUME 89.2 fL (80.0-100.0); MEAN PLATELET VOLUME 6.9 fL (7.4-11.0); MONOCYTES # (AUTO) 0.4 x10^3/uL (0.3-0.8); MONOCYTES % (AUTO) 5.1 % (0.0-13.0); NEUTROPHILS # (AUTO) 6.4 x10^3/uL (2.2-4.8); NEUTROPHILS % (AUTO) 83.7 % (42.0-75.0); PLATELET COUNT 162 X10^3/uL (150.0-450.0); RED BLOOD COUNT 3.37 X10^6/uL (4.7-6.0); RED CELL DISTRIBUTION WIDTH 15.1 % (11.6-16.5); WHITE BLOOD COUNT 7.6 X10^3/uL (3.6-10.0)
[2019-04-11 06:31] LABS: ALANINE AMINOTRANSFERASE 7 Units/L (12-78); ALBUMIN 2.5 g/dL (3.4-5.0); ALKALINE PHOSPHATASE 73 Units/L (46-116); ASPARTATE AMINO TRANSFERASE 16 Units/L (15-37); BLOOD UREA NITROGEN 17 mg/dL (7-18); CALCIUM 7.9 mg/dL (8.5-10.1); CARBON DIOXIDE 30.9 mmol/L (21-32); CHLORIDE 104 mmol/L (98-107); COR CA(FOR HYPOALB) 9.1 mg/dL (8.5-10.1); CREATININE 1.28 mg/dL (0.70-1.30); SODIUM 141 mmol/L (136-145); TOTAL PROTEIN 6.2 g/dL (6.4-8.2); eGFR NON BLACK RACES 57 (>60)
[2019-04-11] MEDS ORDERED: TYLENOL 325 MG TAB PO PRN (06:52)
[2019-04-11] MEDS: PULMICORT NEB TX 0.5 MG NEB SCH ×2 (08:19→20:29)
[2019-04-11] MEDS: ZITHROMAX INJ 500 MG VIAL 500 MG in D5W 250 ML IV 250 ML IV SCH (09:00)
[2019-04-11] MEDS ORDERED: PATIENT'S HOME MEDICATION PO SCH (09:00)
[2019-04-11] MEDS: MICRO K EXTEN CAP 10 MEQ PO SCH ×2 (09:00→09:15)
[2019-04-11] MEDS: LASIX IVP SCH ×2 (09:15→21:09)
[2019-04-11] MEDS: PROSCAR PO SCH (09:15)
[2019-04-11] MEDS: TAB-A-VITE PO SCH (09:16)
[2019-04-11] MEDS: VITAMIN C PO SCH (09:16)
[2019-04-11] MEDS: ELIQUIS PO SCH (09:16)
[2019-04-11] MEDS: ZINC SULFATE PO SCH (09:17)
[2019-04-11] MEDS: TOPROL XL PO SCH (09:17)
[2019-04-11] MEDS: MAG-OX TAB PO SCH ×2 (09:17→21:09)
[2019-04-11] MEDS: ASPIRIN EC 81 MG PO SCH (09:17)
[2019-04-11] MEDS ORDERED: ROCEPHIN 1 GRAM IV PREMIX 1 G/50 ML IV.SOLN. IV SCH (10:00)
[2019-04-11] MEDS ORDERED: BUTT CREAM (COMPOUND) ONE (14:33)
[2019-04-11] MEDS: INVANZ INJ 1 GM VIAL 1 GM in NS 100 ML IV + SPIKE MINIBAG* 100 ML IV SCH (16:11)
[2019-04-11] MEDS ORDERED: LIPITOR TAB 10 MG PO SCH (21:00)
[2019-04-11] MEDS ORDERED: FLOMAX PO SCH (21:00)
[2019-04-12] MEDS ORDERED: ROCEPHIN VIAL 1 GRAM 1 G in NS 100 ML IV + SPIKE MINIBAG* 100 ML IV SCH (06:00)
[2019-04-12 06:09] LABS: BASOPHILS % (AUTO) 0.4 % (0.2-1.0); EOSINOPHILS # (AUTO) 0.2 x10^3/uL (0.0-0.2); EOSINOPHILS % (AUTO) 1.8 % (0.9-2.9); HEMATOCRIT 31.5 % (42.0-54.0); HEMOGLOBIN 10.5 g/dL (13.5-18.0); LYMPHOCYTES # (AUTO) 1.2 X10^3/uL (1.3-2.9); LYMPHOCYTES % (AUTO) 13.6 % (21.0-51.0); MEAN CORPUSCULAR HEMOGLOBIN 29.5 pg (27.0-34.0); MEAN CORPUSCULAR HGB CONC 33.3 g/dL (33.0-35.0); MEAN CORPUSCULAR VOLUME 88.7 fL (80.0-100.0); MEAN PLATELET VOLUME 7.4 fL (7.4-11.0); MONOCYTES # (AUTO) 0.5 x10^3/uL (0.3-0.8); MONOCYTES % (AUTO) 5.6 % (0.0-13.0); NEUTROPHILS # (AUTO) 6.7 x10^3/uL (2.2-4.8); NEUTROPHILS % (AUTO) 78.6 % (42.0-75.0); PLATELET COUNT 198 X10^3/uL (150.0-450.0); RED BLOOD COUNT 3.55 X10^6/uL (4.7-6.0); RED CELL DISTRIBUTION WIDTH 15.1 % (11.6-16.5); WHITE BLOOD COUNT 8.5 X10^3/uL (3.6-10.0)
[2019-04-12 06:31] LABS: ALANINE AMINOTRANSFERASE 11 Units/L (12-78); ALBUMIN 2.5 g/dL (3.4-5.0); ALKALINE PHOSPHATASE 69 Units/L (46-116); ASPARTATE AMINO TRANSFERASE 14 Units/L (15-37); BLOOD UREA NITROGEN 18 mg/dL (7-18); CARBON DIOXIDE 32.2 mmol/L (21-32); CHLORIDE 101 mmol/L (98-107); COR CA(FOR HYPOALB) 9.2 mg/dL (8.5-10.1); MAGNESIUM 1.4 mg/dL (1.7-2.9); SODIUM 139 mmol/L (136-145); TOTAL PROTEIN 6.1 g/dL (6.4-8.2); eGFR NON BLACK RACES 56 (>60)
[2019-04-12] MEDS: NS 1000 ML 1,000 ML IV SCH (07:01)
[2019-04-12] MEDS ORDERED: OSCAL+D or CALTRATE+D PO SCH (09:00)
[2019-04-12] MEDS: ASPIRIN EC 81 MG PO SCH (09:18)
[2019-04-12] MEDS: INVANZ INJ 1 GM VIAL 1 GM in NS 100 ML IV + SPIKE MINIBAG* 100 ML IV SCH (09:18)
[2019-04-12] MEDS: PROSCAR PO SCH (09:19)
[2019-04-12] MEDS: TAB-A-VITE PO SCH (09:19)
[2019-04-12] MEDS: VITAMIN C PO SCH (09:19)
[2019-04-12] MEDS: MAG-OX TAB PO SCH (09:29)
[2019-04-12] MEDS: ELIQUIS PO SCH (09:30)
[2019-04-12] MEDS: LASIX IVP SCH (09:30)
[2019-04-12] MEDS: TOPROL XL PO SCH (09:30)
[2019-04-12] MEDS: MICRO K EXTEN CAP 10 MEQ PO SCH ×2 (09:32)
[2019-04-12] MEDS: ZINC SULFATE PO SCH (09:35)
[2019-04-12] MEDS: DUONEB 0.5 MG/3 MG NEB SCH ×2 (09:42→12:15)
[2019-04-12] MEDS: PULMICORT NEB TX 0.5 MG NEB SCH ×2 (09:42→09:43)
--- NOTE | 2019-04-12 09:47 | RAD ---
History: Cough and congestion and wheezing Study: Portable upright AP chest Comparison: Yesterday Findings: There is persistent left perihilar inferior infiltrate. There is limited inspiration. There is improvement in right perihilar density. Heart is enlarged as before with intact pacer wires via the left subclavian vein. 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 Impression: Persistent left perihilar and lower lobe pneumonitis. Improved right perihilar appearance compared to yesterday's exam. Reported By:
[2019-04-12] MEDS ORDERED: KLOR-CON PO PRN (10:03)
[2019-04-12] MEDS ORDERED: POTASSIUM CHL 60 MEQ/NS 0.45% 500 ML IV PRN (10:03)
[2019-04-12] MEDS ORDERED: POTASSIUM CHL 40 MEQ/NS 0.45% 500 ML IV PRN (10:03)
[2019-04-12] MEDS ORDERED: POTASSIUM CHLORIDE LIQ 20 MEQ UDC PO PRN (10:03)
[2019-04-12] MEDS ORDERED: K-DUR TAB 20 MEQ PO PRN (10:03)
[2019-04-12] MEDS ORDERED: MICRO K EXTEN CAP 10 MEQ PO PRN (10:03)
[2019-04-12] MEDS ORDERED: K-RIDER 10 MEQ/NS 100 ML 10 MEQ/100 ML BAG IV PRN (10:03)
[2019-04-12] MEDS: ZITHROMAX INJ 500 MG VIAL 500 MG in D5W 250 ML IV 250 ML IV SCH (10:47)
[2019-04-12 14:08] VITALS: BP 133/57
[2019-04-14 07:06] LABS: SODIUM STOOL < 20
[2019-04-14 07:07] LABS: CHLORIDE STOOL 56; POTASSIUM STOOL 147
== END 2019-04-12 14:50 ==
LOC: ICU 16:56 → ER 16:56 → ICU 19:15
PROVIDERS: ADMIT Internal Medicine; ATTEND Internal Medicine
DX: J15.212 Pneumonia due to Methicillin resistant Staphylococcus aureus; R94.31 Abnormal electrocardiogram [ECG] [EKG]; I50.1 Left ventricular failure, unspecified; N39.0 Urinary tract infection, site not specified; G82.20 Paraplegia, unspecified; Z95.0 Presence of cardiac pacemaker; J96.01 Acute respiratory failure with hypoxia; I11.0 Hypertensive heart disease with heart failure; Z79.01 Long term (current) use of anticoagulants; E11.65 Type 2 diabetes mellitus with hyperglycemia; R41.82 Altered mental status, unspecified
CPT/HCPCS: 36415; 36600; 71010; 71045; 80053; 81001; 82438; 82550; 82553; 82705; 82803; 83735; 84132; 84302; 84484; 84999; 85025; 87040; 87070; 87077; 87086; 87186; 87205; 87502; 93005; 94640; 94669; 96360; 96361; 96365; 96374; 96375; 99284; A4222; S0138; G0378; J0456; J0696; J1335; J1940; J1956; J7030; J7050; J7060; J7620; J7626

== ENCOUNTER 2020-04-24 11:24 | Inpatient (IN) ==
[2020-04-24 15:55] LABS: BASOPHILS % (AUTO) 0.4 % (0.2-1.0); EOSINOPHILS % (AUTO) 0.3 % (0.9-2.9); HEMATOCRIT 27.4 % (42.0-54.0); HEMOGLOBIN 9.3 g/dL (13.5-18.0); LYMPHOCYTES # (AUTO) 0.5 X10^3/uL (1.3-2.9); MEAN CORPUSCULAR HEMOGLOBIN 28.9 pg (27.0-34.0); MEAN CORPUSCULAR HGB CONC 33.8 g/dL (33.0-35.0); MEAN CORPUSCULAR VOLUME 85.3 fL (80.0-100.0); MEAN PLATELET VOLUME 6.5 fL (7.4-11.0); MONOCYTES # (AUTO) 0.5 x10^3/uL (0.3-0.8); NEUTROPHILS # (AUTO) 6.8 x10^3/uL (2.2-4.8); NEUTROPHILS % (AUTO) 86.3 % (42.0-75.0); PLATELET COUNT 148 X10^3/uL (150.0-450.0); RED BLOOD COUNT 3.21 X10^6/uL (4.7-6.0); RED CELL DISTRIBUTION WIDTH 16.8 % (11.6-16.5); WHITE BLOOD COUNT 7.9 X10^3/uL (3.6-10.0)
[2020-04-24 16:09] LABS: ALBUMIN 2.6 g/dL (3.4-5.0); CALCIUM 8.5 mg/dL (8.5-10.1); CARBON DIOXIDE 21.7 mmol/L (21-32); COR CA(FOR HYPOALB) 9.6 mg/dL (8.5-10.1); CREATININE 2.14 mg/dL (0.70-1.30); TOTAL PROTEIN 7.4 g/dL (6.4-8.2)
--- NOTE | 2020-04-24 16:27 | RAD ---
HISTORYSOBSTUDYCHEST, 1 VIEWCOMPARISONAP chest December 06, 2019.FINDINGSThe trachea is midline. The cardiac silhouette is unremarkable. A pacemaker is in place battery over the left anterior thorax 1 lead in the superior 1 lead in the inferior right ventricle and 1 in the right atrium. Lung volumes are extremely low. The lungs are clear without focal infiltrate or effusion. The bony thorax is unremarkable. Osteoarthritis is severe at both glenohumeral joints.IMPRESSIONLow lung volumes but no acute cardiopulmonary disease and no change from last film December 06, 2019..Electronically signed by: RHONDA THOMAS (Apr 24, 2020 16:25:57)
[2020-04-24] MEDS: LEVAQUIN PREMIX IV 500 MG 500 MG/100 ML BAG IV SCH (17:15)
[2020-04-24] MEDS: NS 1000 ML 1,000 ML IV SCH (17:15)
[2020-04-24 17:17] VITALS: BMI 30.2
[2020-04-24] MEDS ORDERED: PHARMACY CONSULT LTC MEDICATIONS XX SCH (18:00)
[2020-04-24] MEDS ORDERED: HumuLIN R SC PRN (19:06)
[2020-04-24] MEDS: BACTRIM DS TAB PO SCH (21:04)
[2020-04-24] MEDS: SNACK - Diabetic Appropriate PO SCH (22:21)
[2020-04-24 23:55] LABS: BILIRUBIN,URINE NEGATIVE (NEGATIVE); BLOOD/HEMOGLOBIN,URINE 5+ (NEGATIVE); GLUCOSE, URINE NEGATIVE (NEGATIVE); KETONES,URINE NEGATIVE (NEGATIVE); LEUKOCYTE ESTERASE ,URINE 3+ (NEGATIVE); NITRITES,URINE NEGATIVE (NEGATIVE); PROTEIN,URINE 3+ (NEGATIVE); UROBILINOGEN,URINE NORMAL (NORMAL)
[2020-04-24 23:59] LABS: APPEARANCE,URINE CLOUDY (CLEAR); BACTERIA,URINE 2+ /HPF (NEGATIVE); COLOR,URINE YELLOW (YELLOW); RBC,URINE TNTC /HPF (0-3); SQUAMOUS EPITHELIAL CELL,UR FEW /HPF (NEGATIVE)
[2020-04-25] MEDS: NS 1000 ML 1,000 ML IV SCH ×4 (03:03→20:32)
[2020-04-25 06:34] LABS: BASOPHILS % (AUTO) 0.3 % (0.2-1.0); EOSINOPHILS # (AUTO) 0.1 x10^3/uL (0.0-0.2); EOSINOPHILS % (AUTO) 0.8 % (0.9-2.9); HEMATOCRIT 23.8 % (42.0-54.0); HEMOGLOBIN 8.1 g/dL (13.5-18.0); LYMPHOCYTES # (AUTO) 1.1 X10^3/uL (1.3-2.9); LYMPHOCYTES % (AUTO) 15.3 % (21.0-51.0); MEAN CORPUSCULAR HGB CONC 33.9 g/dL (33.0-35.0); MEAN CORPUSCULAR VOLUME 85.7 fL (80.0-100.0); MONOCYTES # (AUTO) 0.6 x10^3/uL (0.3-0.8); MONOCYTES % (AUTO) 8.5 % (0.0-13.0); NEUTROPHILS # (AUTO) 5.3 x10^3/uL (2.2-4.8); NEUTROPHILS % (AUTO) 75.1 % (42.0-75.0); PLATELET COUNT 131 X10^3/uL (150.0-450.0); RED BLOOD COUNT 2.78 X10^6/uL (4.7-6.0); RED CELL DISTRIBUTION WIDTH 16.8 % (11.6-16.5); WHITE BLOOD COUNT 7.1 X10^3/uL (3.6-10.0)
[2020-04-25 06:49] LABS: ALANINE AMINOTRANSFERASE 12 Units/L (12-78); ALBUMIN 2.3 g/dL (3.4-5.0); ALKALINE PHOSPHATASE 80 Units/L (46-116); ASPARTATE AMINO TRANSFERASE 17 Units/L (15-37); BLOOD UREA NITROGEN 25 mg/dL (7-18); CALCIUM 8.3 mg/dL (8.5-10.1); CARBON DIOXIDE 21.6 mmol/L (21-32); CHLORIDE 101 mmol/L (98-107); COR CA(FOR HYPOALB) 9.7 mg/dL (8.5-10.1); CREATININE 1.99 mg/dL (0.70-1.30); SODIUM 133 mmol/L (136-145); TOTAL PROTEIN 6.6 g/dL (6.4-8.2); eGFR NON BLACK RACES 34 (>60)
--- NOTE | 2020-04-25 09:09 | DR.H&P ---
H&P - History & Physical for Day of: H&P Date: 04/24/20 - Chief Complaint Chief Complaint: UTI, FEVER, WEAKNESS, AMS - History of Present Illness History of Present Illness: IS A 84 YEAR OLD PATIENT OF OURS. HE IS A RESIDENT OF [facility]. HE PRESENTED TO THE HOSPITAL A DIRECT ADMISSION DUE TO REPORTS OF FEVER, WEAKNESS, AND ALTERED MENTAL STATUS. A URINE CULTURE WAS SET UP ON 04/10/20 AND WAS POSITIVE FOR GROWTH OF STENOTROPHOMONAS MALTOPHILIA AND MRSA. HE HAS HAD BEEN TREATED WITH INVANZ 1G IV DAILY X 14 DAYS. HE WAS THEN STARTED ON BACTRIM DS 1 TABLET BID. HE CONTINUES TO RECEIVE THE BACTRIM. DESPITE COMPLIANCE WITH MEDICATIONS, SYMPTOMS CONTINUE TO WORSEN. ON ARRIVAL TO THE HOSPITAL, VITALS WERE 98.6-76-20-97%-115/55. LABS WERE OBTAINED. ABNORMAL LAB VALUES INCLUDE THE FOLLOWING: RBC 3.21, HGB 9.3, HCT 27.4, SODIUM 131, BUN 26, CREATININE 2.14, GLUCOSE 171, LACTIC ACID 2.4, ALT 10, ALBUMIN 2.6, GLOBULIN 4.8. A CHEST XRAY WAS OBTAINED AND REVEALED: Low lung volumes but no acute cardiopulmonary disease and no change from last film December 06, 2019. OUTPATIENT BLOOD CULTURES WERE SET UP ON 04/23/20. WE WILL REPEAT URINALYSIS AND URINE CULTURE. HE WAS STARTED ON NORMAL SALINE AT 80 ML/HR, LEVAQUIN 500MG IV DAILY, BACTRIM DS 1 TABLET PO BID, AND HUMULIN R SLIDING SCALE. WE WILL REVIEW HIS HOME MEDICATIONS. OTHERWISE, WE WILL FOLLOW UP WITH AM LABS AND CONTINUE TO MONITOR. - Past Medical History Past Medical History: Coronary Artery Disease, Hypertension, Dyslipidemia, Diabetes, Dementia, Depression, Anxiety, GERD Additional Medical History: bph/paraplegia - Past Surgical History Surgical History: Cholecystectomy, Joint Replacement, Other - Family History Family Medical History: Diabetes Mellitus, Cancer, Hypertension - Social History Does patient currently use any type of tobacco product: No Have you used tobacco products in the last 12 months: No Type of Tobacco Use: Cigarettes How many years tobacco product used: 25 Does any household member use tobacco: No Alcohol Use: None Drug Use: None - Medications Home Medications: doxycycline Allergy (Verified 04/10/19 17:47) CONTINUE taking the following medications apixaban [Eliquis] 0.625 mg PO HS 04/24/20 [History] [id number] [UTI-Stat] 30 ea PO DAILY 04/24/20 [History] cranberry fruit concentrate [Azo Cranberry] 500 mg PO DAILY 04/24/20 [History] triamterene-hydrochlorothiazid 1 tab PO DAILY 04/24/20 [History] - Review of Systems Constitutional: Fever, Chills, Weakness Eyes: No Symptoms Reported ENT: No Symptoms Reported Respiratory: No Symptoms Reported Cardiovascular: No Symptoms Reported Gastrointestinal: Abdominal Pain Genitourinary: No Symptoms Reported Musculoskeletal: No Symptoms Reported Skin: No Symptoms Reported Neurological: Weakness, Confusion - Physical Exam Vital Signs: Temperature 99.1 F Pulse Rate [Left Brachial] 65 Respiratory Rate 16 Blood Pressure [Left Arm] 107/50 Blood Pressure 133/62 O2 Sat by Pulse Oximetry 98 Oriented: Not Oriented Eyes: Normal Ear: Normal Nose: Normal Throat: Normal Respiratory: Diminished Throughout Cardiovascular: Normal : Normal Auscultation: Bowel Sounds: Normal Palpation: Normal Tenderness: Suprapubic, Mild Skin: Normal Musculoskeletal: Normal Psychiatric: Normal Mood Description: Calm Affect: Normal Speech Pattern: Clear - Assessment/Plan (1) Acute hyponatremia Status: Acute Plan: ADMIT (2) Sepsis Qualifiers: Sepsis type: sepsis due to unspecified organism Sepsis acute organ dysfunction status: unspecified Qualified Code(s): A41.9 - Sepsis, unspecified organism Status: Acute (3) Urinary tract infection Qualifiers: Hematuria presence: with hematuria Status: Acute - Allergies Allergies/Adverse Reactions: Allergies Allergy/AdvReac Type Severity Reaction Status Date / Time doxycycline Allergy Verified 04/10/19 17:47
[2020-04-25] MEDS: BACTRIM DS TAB PO SCH ×2 (09:30→20:33)
[2020-04-25] MEDS: LEVAQUIN PREMIX IV 500 MG 500 MG/100 ML BAG IV SCH (09:32)
[2020-04-25] MEDS ORDERED: ZOFRAN INJ 4 MG VIAL IVP PRN (18:44)
[2020-04-25] MEDS: SNACK - Diabetic Appropriate PO SCH (20:35)
[2020-04-26] MEDS: NS 1000 ML 1,000 ML IV SCH ×3 (04:01→18:21)
[2020-04-26] MEDS ORDERED: TYLENOL 325 MG TAB PO PRN (04:14)
[2020-04-26 05:54] LABS: ALBUMIN 2.3 g/dL (3.4-5.0); CALCIUM 8.1 mg/dL (8.5-10.1); COR CA(FOR HYPOALB) 9.5 mg/dL (8.5-10.1); CREATININE 1.84 mg/dL (0.70-1.30); TOTAL PROTEIN 6.6 g/dL (6.4-8.2)
[2020-04-26 06:01] LABS: CARBON DIOXIDE 21.5 mmol/L (21-32)
[2020-04-26 06:13] LABS: BASOPHILS % (AUTO) 0.2 % (0.2-1.0); EOSINOPHILS % (AUTO) 0.4 % (0.9-2.9); HEMATOCRIT 23.7 % (42.0-54.0); HEMOGLOBIN 7.9 g/dL (13.5-18.0); LYMPHOCYTES # (AUTO) 1.1 X10^3/uL (1.3-2.9); MEAN CORPUSCULAR HEMOGLOBIN 28.5 pg (27.0-34.0); MEAN CORPUSCULAR HGB CONC 33.2 g/dL (33.0-35.0); MEAN CORPUSCULAR VOLUME 85.9 fL (80.0-100.0); MEAN PLATELET VOLUME 7.1 fL (7.4-11.0); MONOCYTES # (AUTO) 0.7 x10^3/uL (0.3-0.8); MONOCYTES % (AUTO) 10.1 % (0.0-13.0); NEUTROPHILS # (AUTO) 5.3 x10^3/uL (2.2-4.8); NEUTROPHILS % (AUTO) 74.3 % (42.0-75.0); PLATELET COUNT 137 X10^3/uL (150.0-450.0); RED BLOOD COUNT 2.76 X10^6/uL (4.7-6.0); RED CELL DISTRIBUTION WIDTH 16.8 % (11.6-16.5); WHITE BLOOD COUNT 7.1 X10^3/uL (3.6-10.0)
[2020-04-26 07:16] LABS: PLATELET MORPHOLOGY COMMENT NORMAL (NORMAL)
[2020-04-26] MEDS ORDERED: CRANBERRY FRUIT 250 MG PO SCH (09:00)
[2020-04-26] MEDS ORDERED: [UNRECOGNIZED DRUG - OTHER] PO SCH (09:00)
[2020-04-26] MEDS ORDERED: PHARMACY CONSULT - VANCOMYCIN XX SCH (09:00)
[2020-04-26] MEDS ORDERED: [UNRECOGNIZED DRUG - OTHER] PO SCH (09:00)
[2020-04-26] MEDS ORDERED: CRAN VITC MANNOSE FOS BROMELN PO SCH (09:00)
[2020-04-26] MEDS: CYMBALTA PO SCH (10:22)
[2020-04-26] MEDS: PROSCAR PO SCH (10:22)
[2020-04-26] MEDS: K-DUR TAB 20 MEQ PO SCH (10:23)
[2020-04-26] MEDS: XANAX PO SCH ×2 (10:23→21:26)
[2020-04-26] MEDS: VANCOMYCIN IV *PREMIX 1 G/200 ML BAG 1 G/200 ML PIGGYBACK IV SCH ×2 (10:23→21:26)
[2020-04-26] MEDS: VOLTAREN 1 % GEL MULTI DOSE TUBE TOP SCH ×2 (10:24→21:26)
[2020-04-26] MEDS: VSL#3 PO SCH ×2 (10:24→21:26)
[2020-04-26] MEDS: TOPROL XL PO SCH (10:25)
[2020-04-26] MEDS: MAG-OX TAB PO SCH ×2 (10:25→21:26)
[2020-04-26] MEDS: PriLOSEC PO SCH (10:25)
[2020-04-26] MEDS: VITAMIN C PO SCH (10:37)
[2020-04-26 11:09] LABS: BILIRUBIN,URINE NEGATIVE (NEGATIVE); BLOOD/HEMOGLOBIN,URINE 5+ (NEGATIVE); GLUCOSE, URINE NEGATIVE (NEGATIVE); KETONES,URINE NEGATIVE (NEGATIVE); LEUKOCYTE ESTERASE ,URINE 3+ (NEGATIVE); NITRITES,URINE NEGATIVE (NEGATIVE); PH,URINE 6.5 (5.0 - 8.0); PROTEIN,URINE 3+ (NEGATIVE); UROBILINOGEN,URINE NORMAL (NORMAL)
[2020-04-26 11:22] LABS: APPEARANCE,URINE CLOUDY (CLEAR); BACTERIA,URINE 2+ /HPF (NEGATIVE); COLOR,URINE YELLOW (YELLOW); RBC,URINE TNTC /HPF (0-3); SQUAMOUS EPITHELIAL CELL,UR NEGATIVE /HPF (NEGATIVE)
[2020-04-26 11:23] LABS: YEAST,URINE MODERATE /HPF (NEGATIVE)
[2020-04-26 11:39] LABS: BILIRUBIN,URINE NEGATIVE (NEGATIVE); BLOOD/HEMOGLOBIN,URINE 4+ (NEGATIVE); GLUCOSE, URINE NEGATIVE (NEGATIVE); KETONES,URINE NEGATIVE (NEGATIVE); LEUKOCYTE ESTERASE ,URINE 3+ (NEGATIVE); NITRITES,URINE NEGATIVE (NEGATIVE); PROTEIN,URINE 1+ (NEGATIVE); UROBILINOGEN,URINE NORMAL (NORMAL)
[2020-04-26 11:46] LABS: APPEARANCE,URINE SLIGHTLY HAZY (CLEAR); BACTERIA,URINE TRACE /HPF (NEGATIVE); COLOR,URINE YELLOW (YELLOW); SQUAMOUS EPITHELIAL CELL,UR RARE /HPF (NEGATIVE); YEAST,URINE FEW /HPF (NEGATIVE)
[2020-04-26] MEDS ORDERED: FLOMAX PO SCH (21:00)
[2020-04-26] MEDS ORDERED: LIPITOR TAB 10 MG PO SCH (21:00)
[2020-04-26] MEDS: SNACK - Diabetic Appropriate PO SCH (21:25)
[2020-04-27] MEDS: NS 1000 ML 1,000 ML IV SCH ×2 (01:37→06:30)
[2020-04-27 06:07] LABS: BASOPHILS % (AUTO) 0.2 % (0.2-1.0); EOSINOPHILS # (AUTO) 0.1 x10^3/uL (0.0-0.2); EOSINOPHILS % (AUTO) 1.4 % (0.9-2.9); HEMATOCRIT 24.9 % (42.0-54.0); HEMOGLOBIN 8.3 g/dL (13.5-18.0); LYMPHOCYTES # (AUTO) 0.9 X10^3/uL (1.3-2.9); LYMPHOCYTES % (AUTO) 16.5 % (21.0-51.0); MEAN CORPUSCULAR HEMOGLOBIN 28.8 pg (27.0-34.0); MEAN CORPUSCULAR HGB CONC 33.3 g/dL (33.0-35.0); MEAN CORPUSCULAR VOLUME 86.5 fL (80.0-100.0); MEAN PLATELET VOLUME 7.1 fL (7.4-11.0); MONOCYTES # (AUTO) 0.5 x10^3/uL (0.3-0.8); MONOCYTES % (AUTO) 8.7 % (0.0-13.0); NEUTROPHILS # (AUTO) 4.2 x10^3/uL (2.2-4.8); NEUTROPHILS % (AUTO) 73.2 % (42.0-75.0); PLATELET COUNT 137 X10^3/uL (150.0-450.0); RED BLOOD COUNT 2.88 X10^6/uL (4.7-6.0); RED CELL DISTRIBUTION WIDTH 16.1 % (11.6-16.5); WHITE BLOOD COUNT 5.7 X10^3/uL (3.6-10.0)
[2020-04-27 06:27] LABS: ALBUMIN 2.1 g/dL (3.4-5.0); CALCIUM 8.2 mg/dL (8.5-10.1); CARBON DIOXIDE 19.9 mmol/L (21-32); COR CA(FOR HYPOALB) 9.7 mg/dL (8.5-10.1); CREATININE 1.68 mg/dL (0.70-1.30); TOTAL PROTEIN 6.5 g/dL (6.4-8.2)
[2020-04-27] MEDS ORDERED: ZINC SULFATE PO SCH (09:00)
[2020-04-27] MEDS ORDERED: TAB-A-VITE PO SCH (09:00)
[2020-04-27] MEDS ORDERED: CITRACAL + VITAMIN D PO SCH (09:00)
[2020-04-27] MEDS: VITAMIN C PO SCH (10:00)
[2020-04-27] MEDS: K-DUR TAB 20 MEQ PO SCH (10:10)
[2020-04-27] MEDS: CYMBALTA PO SCH (10:10)
[2020-04-27] MEDS: MAG-OX TAB PO SCH (10:11)
[2020-04-27] MEDS: PriLOSEC PO SCH (10:11)
[2020-04-27] MEDS: PROSCAR PO SCH (10:11)
[2020-04-27] MEDS: VSL#3 PO SCH (10:12)
[2020-04-27] MEDS: TOPROL XL PO SCH (10:12)
[2020-04-27] MEDS: XANAX PO SCH (10:13)
[2020-04-27] MEDS: VANCOMYCIN IV *PREMIX 1 G/200 ML BAG 1 G/200 ML PIGGYBACK IV SCH (10:14)
[2020-04-27] MEDS: VOLTAREN 1 % GEL MULTI DOSE TUBE TOP SCH (10:34)
[2020-04-27 12:24] VITALS: BP 125/65
[2020-04-27] MEDS ORDERED: PHARMACY COMMENT IV NR (20:30)
== END 2020-04-27 15:10 | DRG 872 ==
LOC: MED/SURG 15:29
PROVIDERS: ADMIT Internal Medicine; ATTEND Internal Medicine

== ENCOUNTER 2020-08-04 19:44 | Inpatient (IN) ==
[2020-08-04] MEDS ORDERED: PEPCID 20 MG IV PREMIX* 20 MG/50 ML BAG IV SCH (21:00)
[2020-08-04] MEDS: NS 1000 ML 1,000 ML IV SCH (22:05)
[2020-08-04] MEDS: CIPRO IV 200 MG PREMIX* 200 MG/100 ML BAG IV SCH (22:06)
[2020-08-04] MEDS: PROTONIX INJ 40 MG VIAL IVP SCH (22:06)
[2020-08-04] MEDS: ZOFRAN INJ 4 MG VIAL IVP PRN (22:06)
[2020-08-04 23:18] VITALS: BMI 29.0
[2020-08-04] MEDS ORDERED: PHARMACY CONSULT LTC MEDICATIONS XX SCH (23:45)
[2020-08-05 00:35] LABS: BILIRUBIN,URINE NEGATIVE (NEGATIVE); BLOOD/HEMOGLOBIN,URINE 5+ (NEGATIVE); GLUCOSE, URINE NEGATIVE (NEGATIVE); KETONES,URINE 1+ (NEGATIVE); LEUKOCYTE ESTERASE ,URINE 3+ (NEGATIVE); NITRITES,URINE NEGATIVE (NEGATIVE); PROTEIN,URINE 3+ (NEGATIVE); UROBILINOGEN,URINE 1+ (NORMAL)
[2020-08-05 00:53] LABS: APPEARANCE,URINE CLOUDY (CLEAR); BACTERIA,URINE 3+ /HPF (NEGATIVE); COLOR,URINE YELLOW (YELLOW); RBC,URINE TNTC /HPF (0-3); SQUAMOUS EPITHELIAL CELL,UR NEGATIVE /HPF (NEGATIVE)
[2020-08-05 00:54] LABS: YEAST,URINE NUMEROUS /HPF (NEGATIVE)
[2020-08-05] MEDS: NS 1000 ML 1,000 ML IV SCH ×4 (04:06→20:14)
[2020-08-05 06:30] LABS: BASOPHILS % (AUTO) 0.2 % (0.2-1.0); EOSINOPHILS % (AUTO) 0.2 % (0.9-2.9); HEMATOCRIT 37.3 % (42.0-54.0); HEMOGLOBIN 12.3 g/dL (13.5-18.0); LYMPHOCYTES # (AUTO) 1.4 X10^3/uL (1.3-2.9); LYMPHOCYTES % (AUTO) 10.4 % (21.0-51.0); MEAN CORPUSCULAR HEMOGLOBIN 28.4 pg (27.0-34.0); MEAN CORPUSCULAR HGB CONC 33.1 g/dL (33.0-35.0); MEAN PLATELET VOLUME 7.2 fL (7.4-11.0); MONOCYTES # (AUTO) 0.6 x10^3/uL (0.3-0.8); MONOCYTES % (AUTO) 4.2 % (0.0-13.0); NEUTROPHILS # (AUTO) 11.4 x10^3/uL (2.2-4.8); PLATELET COUNT 343 X10^3/uL (150.0-450.0); RED BLOOD COUNT 4.33 X10^6/uL (4.7-6.0); RED CELL DISTRIBUTION WIDTH 16.3 % (11.6-16.5); WHITE BLOOD COUNT 13.4 X10^3/uL (3.6-10.0)
[2020-08-05 06:34] LABS: ALBUMIN 2.8 g/dL (3.4-5.0); CREATININE 2.43 mg/dL (0.70-1.30); TOTAL PROTEIN 7.4 g/dL (6.4-8.2)
--- NOTE | 2020-08-05 06:58 | RAD ---
HISTORYIleus versus SBOSTUDYKUBCOMPARISONMarch 2020FINDINGSThere is persistent gaseous dilatation of small bowel and colon. There is no evidence for developing pneumatosis, ascites or mass formation. Visceral contours are obscured. No abnormal calcification is seen.IMPRESSIONNo significant change. Persistent intestinal distention consistent with ileus or distal mechanical obstruction. Abdomen CT may provide additional diagnostic detail if clinically appropriate.Electronically signed by: YAZMIN FIGUEROA (Aug 05, 2020 06:56:24)
[2020-08-05] MEDS: CIPRO IV 200 MG PREMIX* 200 MG/100 ML BAG IV SCH ×2 (08:13→20:06)
[2020-08-05] MEDS: PROTONIX INJ 40 MG VIAL IVP SCH ×2 (08:13→20:12)
[2020-08-05] MEDS: ZOFRAN INJ 4 MG VIAL IVP PRN ×3 (09:11→20:14)
[2020-08-05] MEDS: DIFLUCAN 100 MG IV (MIX by PHARMACY)* 100 MG/50 ML BAG IV SCH (09:30)
[2020-08-05] MEDS: PROSCAR PO SCH (09:30)
[2020-08-05] MEDS: CYMBALTA PO SCH (09:30)
[2020-08-05] MEDS: VOLTAREN 1 % GEL MULTI DOSE TUBE TOP SCH ×2 (09:30→20:27)
[2020-08-05] MEDS: XANAX PO SCH ×2 (09:30→20:13)
[2020-08-05] MEDS: TOPROL XL PO SCH (09:30)
[2020-08-05] MEDS: VSL#3 PO SCH ×2 (09:30→20:13)
[2020-08-05] MEDS: VITAMIN C PO SCH (09:30)
[2020-08-05] MEDS: GEODON PO SCH ×2 (09:30→20:12)
--- NOTE | 2020-08-05 09:37 | DR.H&P ---
H&P - History & Physical for Day of: H&P Date: 08/04/20 - Chief Complaint Chief Complaint: ABDOMINAL PAIN, NAUSEA, VOMITING, ABDOMINAL DISTENTION - History of Present Illness History of Present Illness: IS A 85 YEAR OLD PATIENT OF OURS WHO IS A RESIDENT OF [facility]. HE PRESENTED TO THE HOSPITAL A DIRECT ADMISSION DUE TO ILEUS VS SMALL BOWEL OBSTRUCTION. PATIENT BEGAN COMPLAINING OF NAUSEA, VOMTING, ABDOMINAL PAIN, AND ABDOMINAL SWELLING TWO DAYS PRIOR TO ARRIVAL. OUTPATIENT LABS AND KUB WERE OBTAINED AT THE [facility]UST[facility]. ABNORMAL LAB VALUES INCLUDED THE FOLLOWING: WBC 15.3, RBC 4.30, HGB 12.3, HCT 37.5, ESR 67, BUN 68, CREATININE 2.32, GLUCOSE 179, ALT 10, CRP 93.80, ALBUMIN 2.7, GLOBULIN 4.9, LIPASE 71. COVID-19 WAS NEGATIVE. A KUB WAS OBTAINED AND REVEALED: Significant generalized intestinal distention. The appearance may represent a reflex ileus although a distal obstruction is not excluded and should be clinically considered with follow-up imaging. HE WAS GIVEN ZOFRAN AND MILK OF MAGNESIA AT THE CUSTOD[facility], BUT HE DENIED IMPROVEMENT IN SYMPTOMS. HE WAS ADMITTED TO THE HOSPITAL FOR FURTHER EVALUATION AND TREATMENT. ON EXAMINATION, ABDOMEN IS NOTED TO BE DISTENDED AND HYPOACTIVE BOWEL SOUNDS ARE NOTED. PATIENT IS NOTED TO HAVE MULTIPLE PRESSURE ULCERS TO SACRUM AND LOWER EXTREMITIES. SEE WOUND ASSESSMENT. PATIENT IS PARAPLEGIC AND IS BED BOUND. ON ARRIVAL, HIS VITALS WERE 97.4-94-20-97%-150/70. A URINALYSIS WAS OBTAINED AND REVEALED: WBC TNTC, RBC TNTC, LEUKOCYTES 3+, BACTERIA 3+, YEAST NUMEROUS, OCCULT BLOOD 5+, PROTEIN 3+. A URINE CULTURE WAS SET UP. HE WAS STARTED ON NORMAL SALINE AT 75 ML/HR, CIPRO 200MG IV Q12H, DIFLUCAN 100MG IV DAILY, PEPCID 20MG IV HS, PROTONIX 40MG IV BID, AND ZOFRAN 4MG IV Q4H PRN. WE WILL REVIEW HIS HOME MEDICATIONS. WE WILL ALSO OBTAIN AN ABDOMEN/PELVIS CT WITHOUT CONTRAST. OTHERWISE, WE WILL FOLLOW UP WITH AM LABS AND CONTINUE TO MONITOR. TIME SPENT ON CLINICAL ASSESSMENT, REVIEWING LABS AND IMAGING, DECISION MAKING, AND DOCUMENTATION, WAS GREATER THAN 75 MINUTES. - Past Medical History Past Medical History: Coronary Artery Disease, Hypertension, Dyslipidemia, Diabetes, Dementia, Depression, Anxiety, GERD Additional Medical History: bph/paraplegia - Past Surgical History Surgical History: Cholecystectomy, Joint Replacement - Family History Family Medical History: Diabetes Mellitus, Cancer, Hypertension - Social History Type of Tobacco Use: Cigarettes How many years tobacco product used: 25 Alcohol Use: None Drug Use: Prescription Drugs - Medications Home Medications: doxycycline Allergy (Verified 04/10/19 17:47) CONTINUE taking the following medications amoxicillin-pot clavulanate [Augmentin] 1 tab PO BID 08/04/20 [History] vieihquo-esjjqapod-zejjqre HMB [Jorge A] 1 ea PO BID 08/04/20 [History] cephalexin [Keflex] 250 mg PO DAILY 08/04/20 [History] oxycodone-acetaminophen [Percocet] 1 tab PO Q4HR PRN 08/04/20 [History] ziprasidone HCl [Geodon] 20 mg PO BID 08/04/20 [History] - Review of Systems Constitutional: Weakness Eyes: No Symptoms Reported ENT: No Symptoms Reported Respiratory: No Symptoms Reported Cardiovascular: No Symptoms Reported Gastrointestinal: See HPI, Nausea, Vomiting, Abdominal Pain Genitourinary: No Symptoms Reported Musculoskeletal: No Symptoms Reported Skin: See HPI, Wound Neurological: Weakness - Physical Exam Vital Signs: Temperature 98.4 F Pulse Rate [Right Radial] 86 Respiratory Rate 18 Blood Pressure [Right Arm] 126/64 Blood Pressure 107/45 O2 Sat by Pulse Oximetry 99 Oriented: Normal Eyes: Normal Ear: Normal Nose: Normal Throat: Normal Respiratory: Diminished Throughout Cardiovascular: Normal : Normal Auscultation: Bowel Sounds: Normal Palpation: Normal Tenderness: RLQ, LLQ Skin: Wound (SEE WOUND ASSESSMENT ) Musculoskeletal: Normal Psychiatric: Normal Mood Description: Calm Affect: Normal Speech Pattern: Clear - Assessment/Plan (1) Ileus Status: Acute Plan: ADMIT, NORMAL SALINE AT 75 ML/HR, CIPRO 200MG IV Q12H, DIFLUCAN 100MG IV DAILY, PEPCID 20MG IV HS, PROTONIX 40MG IV BID, AND ZOFRAN 4MG IV Q4H PRN. OBTAIN ABDOMEN/PELVIS CT (2) Abdominal pain Qualifiers: Abdominal location: left lower quadrant Qualified Code(s): R10.32 - Left lower quadrant pain Status: Acute (3) Urinary tract infection Qualifiers: Urinary tract infection type: acute cystitis Hematuria presence: with hematuria Qualified Code(s): N30.01 - Acute cystitis with hematuria Status: Acute (4) Dehydration Status: Acute (5) Nausea and vomiting Qualifiers: Vomiting Intractability: intractable Status: Acute (6) Sacral decubitus ulcer Qualifiers: Pressure injury stage: unspecified pressure injury stage Qualified Code(s): L89.159 - Pressure ulcer of sacral region, unspecified stage Status: Acute - Allergies Allergies/Adverse Reactions: Allergies Allergy/AdvReac Type Severity Reaction Status Date / Time doxycycline Allergy Verified 04/10/19 17:47
[2020-08-05] MEDS ORDERED: TYLENOL 325 MG TAB PO PRN (09:43)
[2020-08-05] MEDS ORDERED: PERCOCET TAB 5/325 MG PO PRN (09:43)
[2020-08-05] MEDS: MAG-OX TAB PO SCH ×2 (10:41→20:11)
[2020-08-05] MEDS: K-DUR TAB 20 MEQ PO SCH (11:14)
--- NOTE | 2020-08-05 11:42 | CT ---
HISTORYileus vs sbo, abdominal painSTUDYABDOMEN/PELVIS W/O CONCOMPARISONNone availableTECHNIQUEAxial CT images of the abdomen and pelvis without intravenous contrast. Coronal and sagittal images are obtained. Dose reduction techniques including Automated Exposure Control (AEC) and adjustment of mA and kV were utilized.FINDINGSThere is bibasilar volume loss.Gallbladder is surgically absent. Liver, pancreas, spleen, and adrenals are unremarkable.There is bilateral renal atrophy with moderate right hydronephrosis with transition to normal caliber ureter at the mid to distal ureter. No discrete ureteral calculus. There is gas within the renal collecting systems bilaterally. Bladder is partially decompressed with scattered foci of gas. No significant wall thickening.Large amount of stool distends the rectal vault with mural thickening and perirectal inflammatory stranding, concerning for stercoral colitis. There is diffuse fluid and gas distention of the colon proximally and diffusely throughout the small bowel, involving the stomach. Layering mixed attenuation in the stomach likely reflects ingested material. Otherwise, no significant bowel wall thickening or inflammatory changes.No free fluid or lymphadenopathy. Aorta is normal in caliber.Remote displaced right femur fracture and severe thoracolumbar spondylosis. No acute process.IMPRESSION1. Diffuse distention of the bowel with a large amount of stool distending the rectal vault with rectal wall thickening and inflammatory stranding. Findings are concerning for mild stercoral colitis related to fecal impaction.2. Moderate right hydronephrosis to the level of the proximal to mid right ureter. Findings may reflect ureteral stricture. Consider urology consultation for further evaluation.3. Gas within the renal collecting system bladder is likely related to recent instrumentation, though recommend correlation to exclude urinary tract infection.4. Other findings, as aboveElectronically signed by: Raza Berger (Aug 05, 2020 11:40:08)
[2020-08-05] MEDS: COLACE CAP 100 MG PO SCH ×2 (13:34→20:12)
[2020-08-05] MEDS: MILK OF MAGNESIA PO SCH ×3 (13:35→20:13)
[2020-08-05] MEDS: PEPCID 20 MG IV PREMIX* 20 MG/50 ML BAG IV SCH (20:08)
[2020-08-05] MEDS: LIPITOR TAB 10 MG PO SCH (20:11)
[2020-08-05] MEDS: FLOMAX PO SCH (20:12)
[2020-08-05] MEDS: MIRALAX POWDER (1 DOSE 17 G) PO SCH (20:13)
[2020-08-05] MEDS: JUVEN PO SCH (20:13)
[2020-08-06] MEDS: NS 1000 ML 1,000 ML IV SCH ×4 (04:05→20:34)
[2020-08-06 06:21] LABS: BASOPHILS % (AUTO) 0.3 % (0.2-1.0); EOSINOPHILS % (AUTO) 0.4 % (0.9-2.9); HEMATOCRIT 36.9 % (42.0-54.0); HEMOGLOBIN 11.8 g/dL (13.5-18.0); LYMPHOCYTES # (AUTO) 1.3 X10^3/uL (1.3-2.9); MEAN CORPUSCULAR HEMOGLOBIN 27.7 pg (27.0-34.0); MEAN CORPUSCULAR HGB CONC 31.8 g/dL (33.0-35.0); MEAN PLATELET VOLUME 7.4 fL (7.4-11.0); MONOCYTES # (AUTO) 0.9 x10^3/uL (0.3-0.8); NEUTROPHILS # (AUTO) 10.9 x10^3/uL (2.2-4.8); NEUTROPHILS % (AUTO) 82.3 % (42.0-75.0); PLATELET COUNT 343 X10^3/uL (150.0-450.0); RED BLOOD COUNT 4.25 X10^6/uL (4.7-6.0); RED CELL DISTRIBUTION WIDTH 16.2 % (11.6-16.5); WHITE BLOOD COUNT 13.2 X10^3/uL (3.6-10.0)
[2020-08-06 06:27] LABS: ALBUMIN 2.7 g/dL (3.4-5.0); CALCIUM 8.7 mg/dL (8.5-10.1); CARBON DIOXIDE 27.1 mmol/L (21-32); COR CA(FOR HYPOALB) 9.7 mg/dL (8.5-10.1); CREATININE 2.28 mg/dL (0.70-1.30); TOTAL PROTEIN 6.7 g/dL (6.4-8.2)
--- NOTE | 2020-08-06 07:27 | RAD ---
HISTORYILEUS VS. SBOSTUDYKUBCOMPARISONAbdomen KUB from 08/05/2020TECHNIQUEKUB, 2 imagesFINDINGSSimilar appearance of moderately dilated gas-filled bowel. Moderate amount of stool in the right colon. Cholecystectomy clips are present. No free air, pneumatosis or portal venous gas.IMPRESSIONSimilar appearance of moderately dilated gas-filled bowel more suggestive of ileus.Electronically signed by: Peter Lindsey (Aug 06, 2020 07:25:01)
[2020-08-06] MEDS: COLACE CAP 100 MG PO SCH ×2 (08:45→20:17)
[2020-08-06] MEDS: CYMBALTA PO SCH (08:45)
[2020-08-06] MEDS: CIPRO IV 200 MG PREMIX* 200 MG/100 ML BAG IV SCH ×2 (08:46→22:24)
[2020-08-06] MEDS: JUVEN PO SCH ×2 (08:47→20:31)
[2020-08-06] MEDS: GEODON PO SCH ×2 (08:47→20:17)
[2020-08-06] MEDS: MILK OF MAGNESIA PO SCH ×4 (08:48→20:16)
[2020-08-06] MEDS: MAG-OX TAB PO SCH ×2 (08:48→20:32)
[2020-08-06] MEDS: K-DUR TAB 20 MEQ PO SCH (08:48)
[2020-08-06] MEDS: PROTONIX INJ 40 MG VIAL IVP SCH ×2 (08:49→20:17)
[2020-08-06] MEDS: PROSCAR PO SCH (08:49)
[2020-08-06] MEDS: VITAMIN C PO SCH (08:50)
[2020-08-06] MEDS: TOPROL XL PO SCH (08:51)
[2020-08-06] MEDS: XANAX PO SCH ×2 (08:51→20:17)
[2020-08-06] MEDS: VSL#3 PO SCH ×2 (08:52→20:22)
[2020-08-06] MEDS: TAB-A-VITE PO SCH (08:52)
[2020-08-06] MEDS: OSCAL+D or CALTRATE+D PO SCH (08:52)
[2020-08-06] MEDS: VOLTAREN 1 % GEL MULTI DOSE TUBE TOP SCH ×2 (08:52→20:23)
[2020-08-06] MEDS: ZINC SULFATE PO SCH (08:53)
[2020-08-06] MEDS: DIFLUCAN 100 MG IV (MIX by PHARMACY)* 100 MG/50 ML BAG IV SCH (09:00)
--- NOTE | 2020-08-06 10:17 | PCM.PROG ---
Progress Note - Progress Note for Day of Date of Exam: 08/06/20 - Subjective Subjective: IS BEING TREATED FOR AN ILUES, UTI, DEHYDRATION, ABDOMINAL PAIN, AND NAUSEA/VOMITING. HE ALSO HAS MULTIPLE DECUBITUS ULCERS. TODAY, HE IS ALERT AND ORIENTED, LYING IN BED ON MORNING ROUNDS. HE CONTINUES WITH COMPLAINTS OF WEAKNESS, LOWER ABDOMINAL PAIN AND NAUSEA AT TIMES. ON EXAMINATION, HEART IS REGULAR IN RATE AND RHYTHM. BILATERAL LUNGS ARE NOTED WITH DIMINISHED LUNG SOUNDS THROUGHOUT. ABDOMEN IS ROUND, SOFT, AND NOTED WITH LLQ TENDERNESS ON EXAM. HYPOACTIVE BOWEL SOUNDS ARE NOTED IN ALL QUADRANTS. PATIENT IS NOTED TO HAVE MULTIPLE PRESSURE ULCERS TO SACRUM AND LOWER EXTREMITIES. SEE WOUND ASSESSMENT. HE HAS GOOD MOVEMENT TO UPPER EXTREMITIES. HIS VITALS THIS MORNING ARE: 98.0-85-20-99%-127/61. LABS WERE OBTAINED. ABNORMAL LAB VALUES INCLUDE THE FOLLOWING: WBC 13.2, RBC 4.25, HGB 11.8, HCT 36.9, BUN 71, CREATININE 2.28, GLUCOSE 147, ALBUMIN 2.7. URINE, BLOOD, AND WOUND CULTURES ARE PENDING. AN ABDOMEN/PELVIS CT WITHOUT CONTRAST WAS OBTAINED YESTERDAY AND REVEALED: 1. Diffuse distention of the bowel with a large amount of stool distending the rectal vault with rectal wall thickening and inflammatory stranding. Findings are concerning for mild stercoral colitis related to fecal impaction. 2. Moderate right hydronephrosis to the level of the proximal to mid right ureter. Findings may reflect ureteral stricture. Consider urology consultation for further evaluation. 3. Gas within the renal collecting system bladder is likely related to recent instrumentation, though recommend correlation to exclude urinary tract infection. TODAYS KUB REVEALED: Similar appearance of moderately dilated gas-filled bowel more suggestive of ileus. HE IS CURRENTLY RECEIVING NOR MAL SALINE AT 75 ML/HR, CIPRO 200MG IV Q12H, DIFLUCAN 100MG IV DAILY, PEPCID 20MG IV HS, PROTONIX 40MG IV BID, COLACE 200MG PO BID, MILK OF MAGNESIA 15ML PO QID, MIRALAX 17G PO DAILY, AND ZOFRAN 4MG IV Q4H PRN. WE RESUMED HIS HOME MEDICATIONS. WE WILL CONTINUE WITH CURRENT PLAN OF CARE TODAY. WE WILL ADVANCE HIM TO A CLEAR LIQUID DIET. OTHERWISE, WE WILL FOLLOW UP WITH AM LABS AND CONTINUE TO MONITOR. TIME SPENT ON CLINICAL ASSESSMENT, REVIEWING LABS AND IMAGING, DECISION MAKING, AND DOCUMENTATION, WAS GREATER THAN 45 MINUTES. - Past Medical Family Social History Past Med/Fam/Surg Hx: No changes since H&P Allergies: Allergies doxycycline Allergy (Verified 04/10/19 17:47) - Review of Systems ROS: No change since H&P - Vital Signs and I&O's Vital Signs: Temperature 98.0 F Pulse Rate [Right Radial] 85 Respiratory Rate 20 Blood Pressure [Right Arm] 127/61 Blood Pressure 107/45 O2 Sat by Pulse Oximetry 99 Intake and Output: Intake & Output 08/03/20 08/04/20 08/05/20 08/06/20 11:59 11:59 11:59 11:59 Intake Total 575 / 575 1963 / 1963 Output Total 100 / 100 1100 / 1100 Balance 475 / 475 864 / 864 - Physical Exam Oriented: Normal Eyes: Normal Ear: Normal Nose: Normal Throat: Normal Respiratory: Generalized, Diminished Cardiovascular: Normal : Normal Auscultation: Bowel Sounds: Normal Palpation: Normal Tenderness: RLQ, LLQ Skin: Wound (SEE WOUND ASSESSMENT ) Musculoskeletal: Normal Psychiatric: Normal Mood Description: Calm Affect: Normal Speech Pattern: Clear, Appropriate - Laboratory and Diagnostics Result Diagrams: 08/06/20 04:55 08/06/20 04:55 Labs: 08/05/20 17:17 Leg - Left Gram Stain - Final 08/05/20 17:17 Leg - Left Wound Culture - Preliminary 08/05/20 17:17 Ankle - Left Gram Stain - Final 08/05/20 17:17 Ankle - Left Wound Culture - Preliminary 08/05/20 17:17 Knee - Right Gram Stain - Final 08/05/20 17:17 Knee - Right Wound Culture - Preliminary 08/05/20 00:00 Urine,Clean Catch Urine Culture - Preliminary Laboratory WBC 13.2 X10^3/uL (3.6-10.0) H 08/06/20 04:55 RBC 4.25 X10^6/uL (4.7-6.0) L 08/06/20 04:55 Hgb 11.8 g/dL (13.5-18.0) L 08/06/20 04:55 Hct 36.9 % (42.0-54.0) L 08/06/20 04:55 MCV 87.0 fL (80.0-100.0) 08/06/20 04:55 MCH 27.7 pg (27.0-34.0) 08/06/20 04:55 MCHC 31.8 g/dL (33.0-35.0) L 08/06/20 04:55 RDW 16.2 % (11.6-16.5) 08/06/20 04:55 Plt Count 343 X10^3/uL (150.0-450.0) 08/06/20 04:55 MPV 7.4 fL (7.4-11.0) 08/06/20 04:55 Neut % (Auto) 82.3 % (42.0-75.0) H 08/06/20 04:55 Lymph % (Auto) 10.0 % (21.0-51.0) L 08/06/20 04:55 Bucks % (Auto) 7.0 % (0.0-13.0) 08/06/20 04:55 Eos % (Auto) 0.4 % (0.9-2.9) L 08/06/20 04:55 Baso % (Auto) 0.3 % (0.2-1.0) 08/06/20 04:55 Neut # (Auto) 10.9 x10^3/uL (2.2-4.8) H 08/06/20 04:55 Lymph # (Auto) 1.3 X10^3/uL (1.3-2.9) 08/06/20 04:55 Bucks # (Auto) 0.9 x10^3/uL (0.3-0.8) H 08/06/20 04:55 Eos # (Auto) 0.0 x10^3/uL (0.0-0.2) 08/06/20 04:55 Baso # (Auto) 0.0 X10^3/uL (0.0-0.1) 08/06/20 04:55 Absolute Nucleated RBC 0.0 /100WBC 08/06/20 04:55 ESR 67 MM/HOUR (0-15) H 08/04/20 13:27 Sodium 137 mmol/L (136-145) 08/06/20 04:55 Corrected Sodium 138 mmol/L (136-145) 08/06/20 04:55 Potassium 4.2 mmol/L (3.5-5.1) 08/06/20 04:55 Chloride 100 mmol/L (98-107) 08/06/20 04:55 Carbon Dioxide 27.1 mmol/L (21-32) 08/06/20 04:55 BUN 71 mg/dL (7-18) H 08/06/20 04:55 Creatinine 2.28 mg/dL (0.70-1.30) H 08/06/20 04:55 Est GFR (MDRD) Af Amer 35 (>60) L 08/06/20 04:55 Est GFR (MDRD) Non-Af 29 (>60) L 08/06/20 04:55 Glucose 147 mg/dL (65-99) H 08/06/20 04:55 POC Glucose (mg/dL) 120 mg/dL (65-99) H 08/06/20 05:43 Lactic Acid 1.9 mmol/L (0.4-2.0) 08/05/20 09:27 Calcium 8.7 mg/dL (8.5-10.1) 08/06/20 04:55 Corrected Calcium 9.7 mg/dL (8.5-10.1) 08/06/20 04:55 Total Bilirubin 0.50 mg/dL (0.2-1.0) 08/06/20 04:55 AST 19 Units/L (15-37) 08/06/20 04:55 ALT 12 Units/L (12-78) 08/06/20 04:55 Alkaline Phosphatase 80 Units/L (46-116) 08/06/20 04:55 C-Reactive Protein 51.90 mg/L (0-3.0) H 08/05/20 05:29 Total Protein 6.7 g/dL (6.4-8.2) 08/06/20 04:55 Albumin 2.7 g/dL (3.4-5.0) L 08/06/20 04:55 Globulin 4.0 g/dL (2.5-4.5) 08/06/20 04:55 Albumin/Globulin Ratio 0.7 Ratio (1.1-2.1) L 08/06/20 04:55 Amylase 36 Units/L (25-115) 08/04/20 13:27 Lipase 71 Units/L (73-393) L 08/04/20 13:27 Specimen Type Catherized urine 08/05/20 00:00 Urine Color Yellow (YELLOW) 08/05/20 00:00 Urine Appearance Cloudy (CLEAR) 08/05/20 00:00 Urine pH 5.0 (5.0 - 8.0) 08/05/20 00:00 Ur Specific Flan[place] 1.020 (1.000-1.030) 08/05/20 00:00 Urine Protein 3+ (NEGATIVE) 08/05/20 00:00 Urine Glucose (UA) Negative (NEGATIVE) 08/05/20 00:00 Urine Ketones 1+ (NEGATIVE) 08/05/20 00:00 Urine Occult Blood 5+ (NEGATIVE) 08/05/20 00:00 Urine Nitrite Negative (NEGATIVE) 08/05/20 00:00 Urine Bilirubin Negative (NEGATIVE) 08/05/20 00:00 Urine Urobilinogen 1+ (NORMAL) 08/05/20 00:00 Ur Leukocyte Esterase 3+ (NEGATIVE) 08/05/20 00:00 Urine RBC Tntc /HPF (0-3) A 08/05/20 00:00 Urine WBC Tntc /HPF (0-5) A 08/05/20 00:00 Ur Squamous Epith Cells Negative /HPF (NEGATIVE) 08/05/20 00:00 Urine Bacteria 3+ /HPF (NEGATIVE) 08/05/20 00:00 Urine Yeast Numerous /HPF (NEGATIVE) 08/05/20 00:00 Ur Culture Indicated? Yes/culture set up 08/05/20 00:00 SARS CoV-2 RNA Rapid HEMA Negative (NEGATIVE) 08/04/20 20:20 - Plan (1) Ileus Status: Acute Plan: NORMAL SALINE AT 75 ML/HR, CIPRO 200MG IV Q12H, DIFLUCAN 100MG IV DAILY, PEPCID 20MG IV HS, PROTONIX 40MG IV BID, AND ZOFRAN 4MG IV Q4H PRN. OBTAIN ABDOMEN/PELVIS CT (2) Abdominal pain Status: Acute Qualifiers: Abdominal location: left lower quadrant Qualified Code(s): R10.32 - Left lower quadrant pain (3) Urinary tract infection Status: Acute Qualifiers: Urinary tract infection type: acute cystitis Hematuria presence: with hematuria Qualified Code(s): N30.01 - Acute cystitis with hematuria (4) Dehydration Status: Acute (5) Nausea and vomiting Status: Acute Qualifiers: Vomiting Intractability: intractable (6) Sacral decubitus ulcer Status: Acute Qualifiers: Pressure injury stage: unspecified pressure injury stage Qualified Code(s): L89.159 - Pressure ulcer of sacral region, unspecified stage (7) Fecal impaction Status: Acute Plan: COLACE 200MG PO BID, MILK OF MAGNESIA 15ML PO QID, MIRALAX 17G PO DAILY
[2020-08-06] MEDS: ZOFRAN INJ 4 MG VIAL IVP PRN (14:43)
[2020-08-06] MEDS: PHENERGAN INJ 25 MG IM PRN ×2 (15:55→15:56)
[2020-08-06] MEDS: LOVENOX INJ 30 MG SYR SC SCH (17:13)
[2020-08-06] MEDS: PEPCID 20 MG IV PREMIX* 20 MG/50 ML BAG IV SCH (20:14)
[2020-08-06] MEDS: FLOMAX PO SCH (20:17)
[2020-08-06] MEDS: LIPITOR TAB 10 MG PO SCH (20:17)
[2020-08-06] MEDS: MIRALAX POWDER (1 DOSE 17 G) PO SCH (20:22)
[2020-08-07 05:26] LABS: BASOPHILS % (AUTO) 0.1 % (0.2-1.0); EOSINOPHILS % (AUTO) 0.1 % (0.9-2.9); HEMATOCRIT 34.8 % (42.0-54.0); HEMOGLOBIN 11.2 g/dL (13.5-18.0); LYMPHOCYTES # (AUTO) 1.3 X10^3/uL (1.3-2.9); LYMPHOCYTES % (AUTO) 8.3 % (21.0-51.0); MEAN CORPUSCULAR HEMOGLOBIN 27.8 pg (27.0-34.0); MEAN CORPUSCULAR HGB CONC 32.3 g/dL (33.0-35.0); MEAN CORPUSCULAR VOLUME 86.1 fL (80.0-100.0); MEAN PLATELET VOLUME 7.2 fL (7.4-11.0); MONOCYTES # (AUTO) 1.1 x10^3/uL (0.3-0.8); MONOCYTES % (AUTO) 6.9 % (0.0-13.0); NEUTROPHILS # (AUTO) 13.4 x10^3/uL (2.2-4.8); NEUTROPHILS % (AUTO) 84.6 % (42.0-75.0); PLATELET COUNT 353 X10^3/uL (150.0-450.0); RED BLOOD COUNT 4.04 X10^6/uL (4.7-6.0); RED CELL DISTRIBUTION WIDTH 16.1 % (11.6-16.5); WHITE BLOOD COUNT 15.8 X10^3/uL (3.6-10.0)
[2020-08-07] MEDS: NS 1000 ML 1,000 ML IV SCH (05:26)
[2020-08-07 05:43] LABS: ALBUMIN 2.6 g/dL (3.4-5.0); CALCIUM 8.3 mg/dL (8.5-10.1); CARBON DIOXIDE 28.6 mmol/L (21-32); COR CA(FOR HYPOALB) 9.4 mg/dL (8.5-10.1); CREATININE 1.77 mg/dL (0.70-1.30); TOTAL PROTEIN 6.5 g/dL (6.4-8.2)
[2020-08-07] MEDS: MILK OF MAGNESIA PO SCH ×4 (07:24→17:05)
[2020-08-07] MEDS: CIPRO IV 200 MG PREMIX* 200 MG/100 ML BAG IV SCH (07:24)
[2020-08-07] MEDS: VITAMIN C PO SCH ×2 (07:25→10:28)
[2020-08-07] MEDS: TOPROL XL PO SCH ×2 (07:25→10:28)
[2020-08-07] MEDS: TAB-A-VITE PO SCH ×2 (07:26→10:28)
[2020-08-07] MEDS: GEODON PO SCH ×3 (07:27→23:55)
[2020-08-07] MEDS: COLACE CAP 100 MG PO SCH ×3 (07:27→23:53)
[2020-08-07] MEDS: K-DUR TAB 20 MEQ PO SCH ×2 (07:27→10:23)
[2020-08-07] MEDS: ZINC SULFATE PO SCH ×2 (07:27→10:25)
[2020-08-07] MEDS: PROTONIX INJ 40 MG VIAL IVP SCH ×2 (07:28→10:29)
[2020-08-07] MEDS: PROSCAR PO SCH ×2 (07:28→10:29)
[2020-08-07] MEDS: CYMBALTA PO SCH (07:30)
[2020-08-07] MEDS: VSL#3 PO SCH (07:30)
[2020-08-07] MEDS: XANAX PO SCH ×2 (07:30→10:27)
[2020-08-07] MEDS: ZOFRAN INJ 4 MG VIAL IVP PRN (08:00)
[2020-08-07] MEDS: DIFLUCAN 100 MG IV (MIX by PHARMACY)* 100 MG/50 ML BAG IV SCH (09:00)
[2020-08-07] MEDS: MAG-OX TAB PO SCH (09:00)
[2020-08-07] MEDS ORDERED: PHARMACY CONSULT - VANCOMYCIN XX SCH (10:00)
[2020-08-07] MEDS: DUONEB 0.5 MG/3 MG (3 mL) NEB SCH ×4 (10:21→20:37)
[2020-08-07] MEDS: JUVEN PO SCH (10:23)
[2020-08-07] MEDS: OSCAL+D or CALTRATE+D PO SCH (10:25)
[2020-08-07] MEDS: VOLTAREN 1 % GEL MULTI DOSE TUBE TOP SCH ×2 (10:27→22:00)
[2020-08-07] MEDS ORDERED: VANCOMYCIN IV *PREMIX 1.25 G/250 ML BAG 1.25 G/250 ML PIGGYBACK IV ONE (10:39)
[2020-08-07] MEDS: VANCOMYCIN IV *PREMIX 1.25 G/250 ML BAG 1.25 G/250 ML PIGGYBACK IV SCH (10:41)
[2020-08-07] MEDS: LOVENOX INJ 30 MG SYR SC SCH (10:42)
--- NOTE | 2020-08-07 10:49 | PCM.PROG ---
Progress Note - Progress Note for Day of Date of Exam: 08/07/20 - Subjective Subjective: IS BEING TREATED FOR AN ILUES, UTI, DEHYDRATION, ABDOMINAL PAIN, AND NAUSEA/VOMITING. HE ALSO HAS MULTIPLE DECUBITUS ULCERS. TODAY, HE IS ALERT AND ORIENTED, LYING IN BED ON MORNING ROUNDS. HE CONTINUES WITH COMPLAINTS OF WEAKNESS, LOWER ABDOMINAL PAIN AND NAUSEA AT TIMES. HE ALSO HAS A PRODUCTIVE COUGH. STAFF REPORTS THAT HE DID HAVE A BOWEL MOVEMENT LAST NIGHT. ON EXAMINATION, HEART IS REGULAR IN RATE AND RHYTHM. BILATERAL LUNGS ARE NOTED WITH DIMINISHED LUNG SOUNDS THROUGHOUT. ABDOMEN IS ROUND, SOFT, AND NOTED WITH LLQ TENDERNESS ON EXAM. ABDOMEN CONTINUES TO BE DISTENDED. HYPOACTIVE BOWEL SOUNDS ARE NOTED IN ALL QUADRANTS. PATIENT IS NOTED TO HAVE MULTIPLE PRESSURE ULCERS TO SACRUM AND LOWER EXTREMITIES. SEE WOUND ASSESSMENT. HE HAS GOOD MOVEMENT TO UPPER EXTREMITIES. HIS VITALS THIS MORNING ARE: 97.6-81-22-97%-149/65. LABS WERE OBTAINED. ABNORMAL LAB VALUES INCLUDE THE FOLLOWING: WBC 15.8, RBC 4.04, HGB 11.2, HCT 34.8, BUN 63, CREATININE 1.77, GLUCOSE 152, CALCIUM 8.3, ALBUMIN 2.6. URINE CULTURE REVEALS GROWTH OF YEAST. RIGHT KNEE AND LEFT ANKLE WOUND CULTURES REVEAL GROWTH OF MRSA. BLOOD CULTURES ARE PENDING. TODAYS KUB REVEALED: RIGHT UPPER QUADRANT SURGICAL CLIPS ARE PRESENT. SIMILAR APPEARANCE OF MODERATELY GAS FILLED DILATED BOWEL. NO DEFINITE FREE AIR, PNEUMATOSIS OR PORTAL VENOUS GAS. HE IS CURRENTLY RECEIVING NORMAL SALINE AT 75 ML/HR, CIPRO 200MG IV Q12H, DIFLUCAN 100MG IV DAILY, PEPCID 20MG IV HS, PROTONIX 40MG IV BID, COLACE 200MG PO BID, MT LK OF MAGNESIA 15ML PO QID, MIRALAX 17G PO DAILY, AND ZOFRAN 4MG IV Q4H PRN. WE RESUMED HIS HOME MEDICATIONS. TODAY, WE WILL DISCONTINUE THE CIPRO AND START VANCOMYCIN. WE WILL OBTAIN A CHEST XRAY AND A SPUTUM CULTURE. OTHERWISE, WE WILL CONTINUE WITH CURRENT PLAN OF CARE TODAY. WE WILL CONSULT DUE TO PERSISTENT ABDOMINAL PAIN, NAUSEA, AND ABDOMINAL DISTENTION. WE WILL FOLLOW UP WITH AM LABS AND CONTINUE TO MONITOR. TIME SPENT ON CLINICAL ASSESSMENT, REVIEWING LABS AND IMAGING, DECISION MAKING, AND DOCUMENTATION, WAS GREATER THAN 45 MINUTES. - Past Medical Family Social History Past Med/Fam/Surg Hx: No changes since H&P Allergies: Allergies doxycycline Allergy (Verified 04/10/19 17:47) - Review of Systems ROS: No change since H&P - Vital Signs and I&O's Vital Signs: Temperature 97.6 F Pulse Rate [Right Radial] 81 Respiratory Rate 22 Blood Pressure [Right Arm] 149/65 Blood Pressure 107/45 O2 Sat by Pulse Oximetry 97 Intake and Output: Intake & Output 08/04/20 08/05/20 08/06/20 08/07/20 11:59 11:59 11:59 11:59 Intake Total 575 / 575 1963 / 1963 1306 / 1306 Output Total 100 / 100 1100 / 1100 1070 / 1070 Balance 475 / 475 864 / 864 236 / 236 - Physical Exam Oriented: Normal Eyes: Normal Ear: Normal Nose: Normal Throat: Normal Respiratory: Generalized, Diminished Cardiovascular: Normal : Normal Auscultation: Bowel Sounds: Normal Tenderness: RLQ, LLQ Skin: Wound (SEE WOUND ASSESSMENT ) Musculoskeletal: Normal Psychiatric: Normal Mood Description: Calm Affect: Normal Speech Pattern: Clear, Appropriate - Laboratory and Diagnostics Result Diagrams: 08/07/20 04:05 08/07/20 04:05 Labs: 08/05/20 17:17 Knee - Right Gram Stain - Final 08/05/20 17:17 Knee - Right Wound Culture - Final Methicillin Resis Staph Aureus 08/05/20 17:17 Ankle - Left Gram Stain - Final 08/05/20 17:17 Ankle - Left Wound Culture - Final Methicillin Resis Staph Aureus 08/05/20 17:17 Leg - Left Gram Stain - Final 08/05/20 17:17 Leg - Left Wound Culture - Preliminary 08/05/20 00:00 Urine,Clean Catch Urine Culture - Final Laboratory WBC 15.8 X10^3/uL (3.6-10.0) H 08/07/20 04:05 RBC 4.04 X10^6/uL (4.7-6.0) L 08/07/20 04:05 Hgb 11.2 g/dL (13.5-18.0) L 08/07/20 04:05 Hct 34.8 % (42.0-54.0) L 08/07/20 04:05 MCV 86.1 fL (80.0-100.0) 03/23/21 04:05 MCH 27.8 pg (27.0-34.0) 08/07/20 04:05 MCHC 32.3 g/dL (33.0-35.0) L 08/07/20 04:05 RDW 16.1 % (11.6-16.5) 08/07/20 04:05 Plt Count 353 X10^3/uL (150.0-450.0) 08/07/20 04:05 MPV 7.2 fL (7.4-11.0) L 08/07/20 04:05 Neut % (Auto) 84.6 % (42.0-75.0) H 08/07/20 04:05 Lymph % (Auto) 8.3 % (21.0-51.0) L 08/07/20 04:05 [place] % (Auto) 6.9 % (0.0-13.0) 08/07/20 04:05 Eos % (Auto) 0.1 % (0.9-2.9) L 08/07/20 04:05 Baso % (Auto) 0.1 % (0.2-1.0) L 08/07/20 04:05 Neut # (Auto) 13.4 x10^3/uL (2.2-4.8) H 08/07/20 04:05 Lymph # (Auto) 1.3 X10^3/uL (1.3-2.9) 08/07/20 04:05 Stanton # (Auto) 1.1 x10^3/uL (0.3-0.8) H 08/07/20 04:05 Eos # (Auto) 0.0 x10^3/uL (0.0-0.2) 08/07/20 04:05 Baso # (Auto) 0.0 X10^3/uL (0.0-0.1) 08/07/20 04:05 Absolute Nucleated RBC 0.0 /100WBC 08/07/20 04:05 ESR 67 MM/HOUR (0-15) H 08/04/20 13:27 Sodium 138 mmol/L (136-145) 08/07/20 04:05 Corrected Sodium 139 mmol/L (136-145) 08/07/20 04:05 Potassium 3.5 mmol/L (3.5-5.1) 08/07/20 04:05 Chloride 100 mmol/L (98-107) 08/07/20 04:05 Carbon Dioxide 28.6 mmol/L (21-32) 08/07/20 04:05 BUN 63 mg/dL (7-18) H 08/07/20 04:05 Creatinine 1.77 mg/dL (0.70-1.30) H 08/07/20 04:05 Est GFR (MDRD) Af Amer 47 (>60) L 08/07/20 04:05 Est GFR (MDRD) Non-Af 39 (>60) L 08/07/20 04:05 Glucose 152 mg/dL (65-99) H 08/07/20 04:05 POC Glucose (mg/dL) 162 mg/dL (65-99) H 08/07/20 05:09 Lactic Acid 1.9 mmol/L (0.4-2.0) 08/05/20 09:27 Calcium 8.3 mg/dL (8.5-10.1) L 08/07/20 04:05 Corrected Calcium 9.4 mg/dL (8.5-10.1) 08/07/20 04:05 Total Bilirubin 0.40 mg/dL (0.2-1.0) 08/07/20 04:05 AST 16 Units/L (15-37) 08/07/20 04:05 ALT 13 Units/L (12-78) 08/07/20 04:05 Alkaline Phosphatase 77 Units/L (46-116) 08/07/20 04:05 C-Reactive Protein 51.90 mg/L (0-3.0) H 08/05/20 05:29 Total Protein 6.5 g/dL (6.4-8.2) 08/07/20 04:05 Albumin 2.6 g/dL (3.4-5.0) L 08/07/20 04:05 Globulin 3.9 g/dL (2.5-4.5) 08/07/20 04:05 Albumin/Globulin Ratio 0.7 Ratio (1.1-2.1) L 08/07/20 04:05 Amylase 36 Units/L (25-115) 08/04/20 13:27 Lipase 71 Units/L (73-393) L 08/04/20 13:27 Specimen Type Catherized urine 08/05/20 00:00 Urine Color Yellow (YELLOW) 08/05/20 00:00 Urine Appearance Cloudy (CLEAR) 08/05/20 00:00 Urine pH 5.0 (5.0 - 8.0) 08/05/20 00:00 Ur Specific [place] 1.020 (1.000-1.030) 08/05/20 00:00 Urine Protein 3+ (NEGATIVE) 08/05/20 00:00 Urine Glucose (UA) Negative (NEGATIVE) 08/05/20 00:00 Urine Ketones 1+ (NEGATIVE) 08/05/20 00:00 Urine Occult Blood 5+ (NEGATIVE) 08/05/20 00:00 Urine Nitrite Negative (NEGATIVE) 08/05/20 00:00 Urine Bilirubin Negative (NEGATIVE) 08/05/20 00:00 Urine Urobilinogen 1+ (NORMAL) 08/05/20 00:00 Ur Leukocyte Esterase 3+ (NEGATIVE) 08/05/20 00:00 Urine RBC Tntc /HPF (0-3) A 08/05/20 00:00 Urine WBC Tntc /HPF (0-5) A 08/05/20 00:00 Ur Squamous Epith Cells Negative /HPF (NEGATIVE) 08/05/20 00:00 Urine Bacteria 3+ /HPF (NEGATIVE) 08/05/20 00:00 Urine Yeast Numerous /HPF (NEGATIVE) 08/05/20 00:00 Ur Culture Indicated? Yes/culture set up 08/05/20 00:00 SARS CoV-2 RNA Rapid HEMA Negative (NEGATIVE) 08/04/20 20:20 - Plan (1) Ileus Status: Acute Plan: NORMAL SALINE AT 75 ML/HR, VANCOMYCIN, DIFLUCAN 100MG IV DAILY, PEPCID 20MG IV HS, PROTONIX 40MG IV BID, AND ZOFRAN 4MG IV Q4H PRN. OBTAIN ABDOMEN/PELVIS CT (2) Abdominal pain Status: Acute Qualifiers: Abdominal location: left lower quadrant Qualified Code(s): R10.32 - Left lower quadrant pain (3) Urinary tract infection Status: Acute Qualifiers: Urinary tract infection type: acute cystitis Hematuria presence: with hematuria Qualified Code(s): N30.01 - Acute cystitis with hematuria (4) Dehydration Status: Acute (5) Nausea and vomiting Status: Acute Qualifiers: Vomiting Intractability: intractable (6) Sacral decubitus ulcer Status: Acute Qualifiers: Pressure injury stage: unspecified pressure injury stage Qualified Code(s): L89.159 - Pressure ulcer of sacral region, unspecified stage (7) Fecal impaction Status: Acute Plan: COLACE 200MG PO BID, MILK OF MAGNESIA 15ML PO QID, MIRALAX 17G PO DAILY
--- NOTE | 2020-08-07 11:39 | RAD ---
HISTORYCOUGH, CONGESTIONSTUDYCHEST, 1 [id number]/12/2021FINDINGSThe lungs are not well inflated. As result, there are hypoventilatory changes.Linear atelectasis is present in both lungs, left side more than right. There were similar findings on the prior study.No obvious pneumonia or pleural effusion.Heart size probably normal when accounting for the poor degree of inflation.Degenerative changes are present in both shoulders, right side more than leftRight jugular central venous catheter is in the expected location of the superior vena cava. Left subclavian ICD is present with leads in expected location. Surgical clips are present in the right upper abdomen, probably from a cholecystectomy.IMPRESSION1. Hypo inflation with atelectasisElectronically signed by: Ranjit Stafford (Aug 07, 2020 11:37:21)
--- NOTE | 2020-08-07 12:04 | RAD ---
HISTORYNG TUBE PLACEMENTSTUDYKUB, x-ray abdomen one viewCOMPARISONX-ray 08/07/2020FINDINGSNasogastric tube tip and side hole are in the fundus of the stomach. Persistent small bowel dilation with air is seen.IMPRESSIONNG tube tip and side hole are in the fundus of the stomach.Electronically signed by: Main Sousa (Aug 07, 2020 12:02:00)
[2020-08-07] MEDS ORDERED: LASIX IVP ONE ×2 (12:43→14:37)
[2020-08-07 12:44] LABS: ABG BASE EXCESS 2.8 mmol/L (-2.0-2.0); ABG HCO3 27.9 mmol/L (22-26)
--- NOTE | 2020-08-07 14:04 | RAD ---
HISTORYS/P NG TUBE PLACEMENT, 3 CANISTERS OF BOWEL CONTENTS SUCTIONEDSTUDYKUBCOMPARISONNoneTECHNIQUEKUB radiograph, 2 imagesFINDINGSLung bases are not included. The NG tube enters into the stomach with the side port in good position. The tip is not visualized. T here is moderately dilated gas-filled diffuse bowel. Status post cholecystectomy.IMPRESSIONNG tube tariq cavanaugh in similar position.Electronically signed by: Peter Lindsey (Aug 07, 2020 14:02:21)
--- NOTE | 2020-08-07 15:31 | DR.PROGNOT ---
Hospital Progress Notes - Progress Note for Day of: Progress Note Date: 08/07/20 - Chief Complaint Chief Complaint: was seen for abdominal distention , ileus VS mechanical bowel obsrtuction . Pt was very uncomfortable , SOB and lethargic . NGT was inserted with about 3000 cc of fecaloid material was drained . Pt felt better with soft abdomen .. still distended and tympanic on the lower abdomen .. - Past Medical Family Social History Past Med/Fam/Surg Hx: No changes since H&P Allergies: Allergies doxycycline Allergy (Verified 04/10/19 17:47) - Review Of Systems ROS: No change since H&P - Vital Signs Vital Signs: Temperature 97.6 F Pulse Rate [Right Radial] 88 Pulse Rate 93 Respiratory Rate 28 Blood Pressure [Right Arm] 112/55 Blood Pressure 107/45 O2 Sat by Pulse Oximetry 93 - Physical Exam Oriented: Normal Eyes: Normal Ear: Normal Nose: Normal Throat: Normal Respiratory: Generalized, Diminished Cardiovascular: Normal : Normal GI:Auscultation: Decreased GI:Palpation: Normal GI: Tenderness: RLQ, LLQ Skin: Wound (SEE WOUND ASSESSMENT ) Musculoskeletal: Normal Psychiatric: Normal Mood Description: Calm Affect: Normal Speech Pattern: Clear, Appropriate - Laboratory and Diagnostics Result Diagrams: 08/07/20 04:05 08/07/20 04:05 Labs: 08/05/20 17:17 Knee - Right Gram Stain - Final 08/05/20 17:17 Knee - Right Wound Culture - Final Methicillin Resis Staph Aureus 08/05/20 17:17 Ankle - Left Gram Stain - Final 08/05/20 17:17 Ankle - Left Wound Culture - Final Methicillin Resis Staph Aureus 08/05/20 17:17 Leg - Left Gram Stain - Final 08/05/20 17:17 Leg - Left Wound Culture - Preliminary 08/05/20 00:00 Urine,Clean Catch Urine Culture - Final Laboratory WBC 15.8 X10^3/uL (3.6-10.0) H 08/07/20 04:05 RBC 4.04 X10^6/uL (4.7-6.0) L 08/07/20 04:05 Hgb 11.2 g/dL (13.5-18.0) L 08/07/20 04:05 Hct 34.8 % (42.0-54.0) L 08/07/20 04:05 MCV 86.1 fL (80.0-100.0) 08/07/20 04:05 MCH 27.8 pg (27.0-34.0) 08/07/20 04:05 MCHC 32.3 g/dL (33.0-35.0) L 08/07/20 04:05 RDW 16.1 % (11.6-16.5) 08/07/20 04:05 Plt Count 353 X10^3/uL (150.0-450.0) 08/07/20 04:05 MPV 7.2 fL (7.4-11.0) L 08/07/20 04:05 Neut % (Auto) 84.6 % (42.0-75.0) H 08/07/20 04:05 Lymph % (Auto) 8.3 % (21.0-51.0) L 08/07/20 04:05 [place] % (Auto) 6.9 % (0.0-13.0) 08/07/20 04:05 Eos % (Auto) 0.1 % (0.9-2.9) L 08/07/20 04:05 Baso % (Auto) 0.1 % (0.2-1.0) L 08/07/20 04:05 Neut # (Auto) 13.4 x10^3/uL (2.2-4.8) H 08/07/20 04:05 Lymph # (Auto) 1.3 X10^3/uL (1.3-2.9) 08/07/20 04:05 [place] # (Auto) 1.1 x10^3/uL (0.3-0.8) H 08/07/20 04:05 Eos # (Auto) 0.0 x10^3/uL (0.0-0.2) 08/07/20 04:05 Baso # (Auto) 0.0 X10^3/uL (0.0-0.1) 08/07/20 04:05 Absolute Nucleated RBC 0.0 /100WBC 08/07/20 04:05 ESR 67 MM/HOUR (0-15) H 08/04/20 13:27 Sample Site Rbra 08/07/20 12:38 ABG pH 7.410 (7.35-7.45) 08/07/20 12:38 ABG pCO2 44.0 mmHg (35.0-45.0) 08/07/20 12:38 ABG pO2 52.0 mmHg (80.0-100.0) L 08/07/20 12:38 ABG HCO3 27.9 mmol/L (22-26) H 08/07/20 12:38 ABG O2 Saturation 87.0 % (90-100) L 08/07/20 12:38 ABG Base Excess 2.8 mmol/L (-2.0-2.0) H 08/07/20 12:38 Félix Test N/a 08/07/20 12:38 A-a Gradient 150.0 mmHg 08/07/20 12:38 FiO2 36.0 08/07/20 12:38 Blood Gas Comments Pt deion well elj 08/07/20 12:38 Sodium 138 mmol/L (136-145) 08/07/20 04:05 Corrected Sodium 139 mmol/L (136-145) 08/07/20 04:05 Potassium 3.5 mmol/L (3.5-5.1) 08/07/20 04:05 Chloride 100 mmol/L (98-107) 08/07/20 04:05 Carbon Dioxide 28.6 mmol/L (21-32) 08/07/20 04:05 BUN 63 mg/dL (7-18) H 08/07/20 04:05 Creatinine 1.77 mg/dL (0.70-1.30) H 08/07/20 04:05 Est GFR (MDRD) Af Amer 47 (>60) L 08/07/20 04:05 Est GFR (MDRD) Non-Af 39 (>60) L 08/07/20 04:05 Glucose 152 mg/dL (65-99) H 08/07/20 04:05 POC Glucose (mg/dL) 157 mg/dL (65-99) H 08/07/20 10:47 Lactic Acid 1.9 mmol/L (0.4-2.0) 08/05/20 09:27 Calcium 8.3 mg/dL (8.5-10.1) L 08/07/20 04:05 Corrected Calcium 9.4 mg/dL (8.5-10.1) 08/07/20 04:05 Total Bilirubin 0.40 mg/dL (0.2-1.0) 08/07/20 04:05 AST 16 Units/L (15-37) 08/07/20 04:05 ALT 13 Units/L (12-78) 08/07/20 04:05 Alkaline Phosphatase 77 Units/L (46-116) 08/07/20 04:05 C-Reactive Protein 51.90 mg/L (0-3.0) H 08/05/20 05:29 Total Protein 6.5 g/dL (6.4-8.2) 08/07/20 04:05 Albumin 2.6 g/dL (3.4-5.0) L 08/07/20 04:05 Globulin 3.9 g/dL (2.5-4.5) 08/07/20 04:05 Albumin/Globulin Ratio 0.7 Ratio (1.1-2.1) L 08/07/20 04:05 Amylase 36 Units/L (25-115) 08/04/20 13:27 Lipase 71 Units/L (73-393) L 08/04/20 13:27 Specimen Type Catherized urine 08/05/20 00:00 Urine Color Yellow (YELLOW) 08/05/20 00:00 Urine Appearance Cloudy (CLEAR) 08/05/20 00:00 Urine pH 5.0 (5.0 - 8.0) 08/05/20 00:00 Ur Specific [place] 1.020 (1.000-1.030) 08/05/20 00:00 Urine Protein 3+ (NEGATIVE) 08/05/20 00:00 Urine Glucose (UA) Negative (NEGATIVE) 08/05/20 00:00 Urine Ketones 1+ (NEGATIVE) 08/05/20 00:00 Urine Occult Blood 5+ (NEGATIVE) 08/05/20 00:00 Urine Nitrite Negative (NEGATIVE) 08/05/20 00:00 Urine Bilirubin Negative (NEGATIVE) 08/05/20 00:00 Urine Urobilinogen 1+ (NORMAL) 08/05/20 00:00 Ur Leukocyte Esterase 3+ (NEGATIVE) 08/05/20 00:00 Urine RBC Tntc /HPF (0-3) A 08/05/20 00:00 Urine WBC Tntc /HPF (0-5) A 08/05/20 00:00 Ur Squamous Epith Cells Negative /HPF (NEGATIVE) 08/05/20 00:00 Urine Bacteria 3+ /HPF (NEGATIVE) 08/05/20 00:00 Urine Yeast Numerous /HPF (NEGATIVE) 08/05/20 00:00 Ur Culture Indicated? Yes/culture set up 08/05/20 00:00 SARS CoV-2 RNA Rapid HEMA Negative (NEGATIVE) 08/04/20 20:20 - Assessment and Plan 1: severe illeus with soft stool in the rectum w/o palpable mass or bleeding. dehydration and renal failure. very limited ambulation .. multiple decubitus ulcers positive for MRSA .. to keep NGT . IVF , ATB , Enemas . repeat bdominal Xray in AM .. - Problem Patient Problems: Patient Problems Urinary tract infection (Acute) N39.0 Sacral decubitus ulcer (Acute) L89.159 Abdominal pain (Acute) R10.9 Nausea and vomiting (Acute) R11.2 Dehydration (Acute) E86.0 Ileus (Acute) K56.7 Fecal impaction (Acute) K56.41
[2020-08-07] MEDS ORDERED: ATIVAN INJ 2 MG VIAL ONE (17:00)
[2020-08-07] MEDS: ATIVAN INJ 2 MG VIAL IVP PRN (17:05)
--- NOTE | 2020-08-07 18:47 | RAD ---
HISTORYNG TUBE PLACEMENT (4TH)STUDYKUB x-ray abdomen one viewCOMPARISONX-ray from same dayFINDINGSNasogastric tube tip and side hole remain in the region of the fundus of the stomach directed left laterally. It is unchanged in position. Persistent small bowel dilation from obstruction is likely present.IMPRESSIONNasogastric tube tip and side hole are in the region of the fundus of the stomach, unchanged.Electronically signed by: Main Sousa (Aug 07, 2020 18:45:15)
[2020-08-07] MEDS ORDERED: NS 1000 ML 1,000 ML IV ONE (20:55)
[2020-08-07] MEDS ORDERED: ZOSYN VIAL 4.5 GRAMS 4.5 G in NS 100 ML IV + SPIKE MINIBAG* 100 ML IV SCH (21:00)
--- NOTE | 2020-08-07 21:04 | RAD ---
EXAM: CHEST X-RAYHISTORY: Respiratory distress.TECHNIQUE: AP chest x-ray dated August 07, 2020 at 8:45 PM.COMPARISON: CXR dated August 07, 2020 at 10:24 AM.FINDINGS:There is a stable right anterior chest wall chest port in situ with the distal tip in the SVC. There is a left anterior chest wall subclavian cardiac pacer with intact pacer wires to the right atrium and right ventricle.There is evidence for cardiomegaly. The pulmonary vascularity and interstitial markings are diffusely prominent, consistent with mild CHF or volume overload in the appropriate clinical setting; differential diagnosis includes (but is not limited to) mild bronchitis and interstitial pneumonia in the appropriate clinical setting.There is no gross focal lung consolidation, pleural effusion, or pneumothorax seen. The visualized bony structures are within normal limits.IMPRESSION:1. Findings consistent with mild CHF or volume overload in the appropriate clinical setting (with mild interval progression of congestive changes); DDX includes (but is not limited to) mild bronchitis and interstitial pneumonia in the appropriate clinical setting.2. Recommend clinical correlation and appropriate follow-up CXR evaluation to ensure interval clearance as clinically warranted.3. Consider follow-up noncontrast chest CT for further characterization as clinically warranted.Electronically signed by: Vinh Lr (Aug 07, 2020 21:02:23)
[2020-08-07 21:05] LABS: ABG BASE EXCESS 0.8 mmol/L (-2.0-2.0)
[2020-08-07 21:06] LABS: ABG ALLEN TEST POS
[2020-08-07 21:35] LABS: BASOPHILS % (AUTO) 0.1 % (0.2-1.0); HEMATOCRIT 33.2 % (42.0-54.0); HEMOGLOBIN 10.7 g/dL (13.5-18.0); LYMPHOCYTES # (AUTO) 0.5 X10^3/uL (1.3-2.9); LYMPHOCYTES % (AUTO) 6.1 % (21.0-51.0); MEAN CORPUSCULAR HEMOGLOBIN 27.9 pg (27.0-34.0); MEAN CORPUSCULAR HGB CONC 32.4 g/dL (33.0-35.0); MEAN CORPUSCULAR VOLUME 86.2 fL (80.0-100.0); MEAN PLATELET VOLUME 7.1 fL (7.4-11.0); MONOCYTES # (AUTO) 0.4 x10^3/uL (0.3-0.8); MONOCYTES % (AUTO) 4.4 % (0.0-13.0); NEUTROPHILS # (AUTO) 7.3 x10^3/uL (2.2-4.8); NEUTROPHILS % (AUTO) 89.4 % (42.0-75.0); PLATELET COUNT 284 X10^3/uL (150.0-450.0); RED BLOOD COUNT 3.85 X10^6/uL (4.7-6.0); WHITE BLOOD COUNT 8.1 X10^3/uL (3.6-10.0)
[2020-08-07] MEDS ORDERED: DOPAMINE IV PREMIX 400 MG/250 ML 400 MG/250 ML BAG IV PRN (21:56)
[2020-08-07 21:58] LABS: ALBUMIN 2.2 g/dL (3.4-5.0); CARBON DIOXIDE 23.7 mmol/L (21-32); CKMB % 1.5 % (<4); COR CA(FOR HYPOALB) 9.4 mg/dL (8.5-10.1); CREATINE KINASE MB 3.3 ng/mL (0-4.0); CREATININE 2.34 mg/dL (0.70-1.30); MAGNESIUM 2.5 mg/dL (1.7-2.9); TOTAL PROTEIN 5.5 g/dL (6.4-8.2); TROPONIN I 0.04 ng/mL (0-1.5)
[2020-08-07] MEDS ORDERED: DOPAMINE IV PREMIX 400 MG/250 ML 400 MG/250 ML BAG IV ONE (21:58)
[2020-08-07] MEDS ORDERED: VERSED ONE (21:58)
[2020-08-07 21:59] LABS: LACTIC ACID 2.8 mmol/L (0.4-2.0)
[2020-08-07] MEDS ORDERED: QUELICIN (OR ANECTINE) ONE (21:59)
[2020-08-07] MEDS ORDERED: ZOSYN VIAL 3.375 GRAMS 3.375 G in NS 100 ML IV + SPIKE MINIBAG* 100 ML IV SCH (22:00)
[2020-08-07] MEDS ORDERED: LEVOPHED INJ ONE (22:17)
[2020-08-07] MEDS ORDERED: D5W 250 ML IV 250 ML IV ONE (22:17)
[2020-08-07] MEDS: LEVOPHED INJ 8 MG in D5W 250 ML IV 242 ML IV PRN (22:34)
[2020-08-07] MEDS ORDERED: DIPRIVAN PREMIX 1 GRAM IV 1,000 MG/100 ML VIAL ONE (22:34)
[2020-08-07] MEDS: DIPRIVAN PREMIX 1 GRAM IV 1,000 MG/100 ML VIAL IV PRN (22:36)
[2020-08-07] MEDS ORDERED: SALINE 3% 15 ML NEB TX ONE ×2 (22:43→22:46)
[2020-08-07 22:56] LABS: ABG ALLEN TEST POS; ABG BASE EXCESS -0.7 mmol/L (-2.0-2.0); ABG HCO3 23.4 mmol/L (22-26)
[2020-08-07] MEDS ORDERED: QUELICIN (OR ANECTINE) IVP ONE (23:12)
[2020-08-07] MEDS ORDERED: VERSED IVP ONE (23:12)
--- NOTE | 2020-08-07 23:12 | RAD ---
EXAM: CHEST X-RAYHISTORY: Status post intubation.TECHNIQUE: AP chest x-ray dated August 07, 2020 at 10:12 PMCOMPARISON: CXR dated August 07, 2020 at 8:45 PM.FINDINGS:An endotracheal tube is noted in situ with the distal tip approximately 1.7 cm above the rafi. Recommend partial withdrawal approximately 1 to 2 cm for safekeeping. An nasogastric tube is noted in situ with the distal tip in the gastric fundus.There is a stable right anterior chest wall chest port in situ with the distal tip in the proximal right atrium. There is a left anterior chest wall subclavian cardiac pacer with intact pacer wires to the right atrium and right ventricle.There is evidence for cardiomegaly. The pulmonary vascularity and interstitial markings are diffusely prominent, consistent with mild CHF or volume overload in the appropriate clinical setting.There is no gross focal lung consolidation, pleural effusion, or pneumothorax seen. The visualized bony structures are within normal limits.IMPRESSION:1. An endotracheal tube is noted in situ with the distal tip approximately 1.7 cm above the rafi. Recommend partial withdrawal approximately 1 to 2 cm for safekeeping.2. Findings consistent with moderate to severe CHF or volume overload in the appropriate clinical setting, with significant interval progression of infiltrates compared with the earlier exam.3. Recommend clinical correlation and appropriate follow-up CXR evaluation to assess interval change as clinically warranted.Electronically signed by: Vinh Lr (Aug 07, 2020 23:10:38)
[2020-08-07] MEDS: FLOMAX PO SCH (23:54)
[2020-08-08] MEDS: LIPITOR TAB 10 MG PO SCH
[2020-08-08] MEDS: XANAX PO SCH ×2 (00:01→11:01)
[2020-08-08] MEDS: MILK OF MAGNESIA PO SCH ×2 (00:03→10:58)
[2020-08-08] MEDS: VSL#3 PO SCH ×2 (00:04→11:01)
[2020-08-08] MEDS: MIRALAX POWDER (1 DOSE 17 G) PO SCH (00:04)
[2020-08-08] MEDS ORDERED: ZOSYN VIAL 3.375 GRAMS 3.375 G in NS 100 ML IV + SPIKE MINIBAG* 100 ML IV ONE (00:19)
[2020-08-08] MEDS: NS 1000 ML 1,000 ML IV SCH ×7 (00:32→20:15)
[2020-08-08] MEDS: PEPCID 20 MG IV PREMIX* 20 MG/50 ML BAG IV SCH ×2 (00:32→20:25)
[2020-08-08 00:49] LABS: BILIRUBIN,URINE NEGATIVE (NEGATIVE); BLOOD/HEMOGLOBIN,URINE 5+ (NEGATIVE); GLUCOSE, URINE NEGATIVE (NEGATIVE); KETONES,URINE NEGATIVE (NEGATIVE); LEUKOCYTE ESTERASE ,URINE 3+ (NEGATIVE); NITRITES,URINE NEGATIVE (NEGATIVE); PROTEIN,URINE 3+ (NEGATIVE); UROBILINOGEN,URINE NORMAL (NORMAL)
[2020-08-08 00:50] LABS: APPEARANCE,URINE HAZY (CLEAR); COLOR,URINE STRAW (YELLOW)
[2020-08-08 01:54] LABS: CKMB % 1.1 % (<4); TROPONIN I 0.06 ng/mL (0-1.5)
[2020-08-08] MEDS: JUVEN PO SCH ×2 (02:15→10:57)
[2020-08-08] MEDS: LEVOPHED INJ 8 MG in D5W 250 ML IV 242 ML IV PRN ×2 (03:55→09:28)
[2020-08-08 04:32] LABS: ABG ALLEN TEST POS; ABG BASE EXCESS -0.3 mmol/L (-2.0-2.0); ABG HCO3 22.1 mmol/L (22-26)
[2020-08-08 05:21] LABS: BASOPHILS % (AUTO) 0.1 % (0.2-1.0); HEMATOCRIT 33.3 % (42.0-54.0); HEMOGLOBIN 10.6 g/dL (13.5-18.0); LYMPHOCYTES % (AUTO) 4.5 % (21.0-51.0); MEAN CORPUSCULAR HEMOGLOBIN 27.9 pg (27.0-34.0); MEAN CORPUSCULAR HGB CONC 31.8 g/dL (33.0-35.0); MEAN CORPUSCULAR VOLUME 87.5 fL (80.0-100.0); MEAN PLATELET VOLUME 7.6 fL (7.4-11.0); MONOCYTES # (AUTO) 0.9 x10^3/uL (0.3-0.8); MONOCYTES % (AUTO) 3.8 % (0.0-13.0); NEUTROPHILS % (AUTO) 91.6 % (42.0-75.0); PLATELET COUNT 398 X10^3/uL (150.0-450.0); RED BLOOD COUNT 3.81 X10^6/uL (4.7-6.0); RED CELL DISTRIBUTION WIDTH 16.3 % (11.6-16.5); WHITE BLOOD COUNT 22.9 X10^3/uL (3.6-10.0)
[2020-08-08 05:56] LABS: PLATELET MORPHOLOGY COMMENT NORMAL (NORMAL)
[2020-08-08 06:16] LABS: ALBUMIN 2.2 g/dL (3.4-5.0); CARBON DIOXIDE 21.2 mmol/L (21-32); CKMB % 0.9 % (<4); COR CA(FOR HYPOALB) 9.4 mg/dL (8.5-10.1); CREATININE 2.51 mg/dL (0.70-1.30); TOTAL PROTEIN 5.8 g/dL (6.4-8.2); TROPONIN I 0.08 ng/mL (0-1.5)
[2020-08-08 06:20] LABS: CREATINE KINASE MB 5.6 ng/mL (0-4.0)
[2020-08-08] MEDS: DUONEB 0.5 MG/3 MG (3 mL) NEB SCH ×4 (08:16→20:15)
[2020-08-08] MEDS: DIPRIVAN PREMIX 1 GRAM IV 1,000 MG/100 ML VIAL IV PRN (08:52)
[2020-08-08] MEDS ORDERED: PROTONIX INJ 40 MG VIAL IVP SCH (09:00)
[2020-08-08] MEDS ORDERED: ZOSYN VIAL 3.375 GRAMS 3.375 G in NS 100 ML IV + SPIKE MINIBAG* 100 ML IV SCH ×2 (09:00→21:00)
[2020-08-08] MEDS: VANCOMYCIN IV *PREMIX 1.25 G/250 ML BAG 1.25 G/250 ML PIGGYBACK IV SCH (09:01)
[2020-08-08] MEDS ORDERED: LEVOPHED INJ ONE (09:20)
[2020-08-08] MEDS ORDERED: NS 250 ML IV 250 ML IV ONE (09:20)
[2020-08-08] MEDS: COLACE CAP 100 MG PO SCH (09:38)
--- NOTE | 2020-08-08 10:27 | RAD ---
HISTORYCHF, PNEUMONIA, VENT PATIENTSTUDYCHEST, 1 VIEWCOMPARISONPortable chest August 07, 2020. Pacemaker is in place.FINDINGSThe trachea is midline. The cardiac silhouette is enlarged but stable in size.. Pacemaker is in place. Right subclavian port is in place. An ET tube and NG tube are in place in good position. The bilateral perihilar infiltrates are unchanged from prior day's film. Findings are most consistent with pulmonary congestion and perihilar infiltrates due to CHF.. The bony thorax is unremarkable other than severe osteoarthritis both glenohumeral joints..IMPRESSIONNo change in the bilateral perihilar infiltrates compared to yesterday's exam.Pacemaker, right subclavian port, ETT and NG tube in place.Electronically signed by: RHONDA THOMAS (Aug 08, 2020 10:25:03)
[2020-08-08] MEDS ORDERED: LOVENOX INJ 30 MG SYR SC ONE (10:36)
--- NOTE | 2020-08-08 10:45 | RAD ---
HISTORYILEUS, FECAL IMPACTIONSTUDYKUB, x-ray abdomen one viewCOMPARISONX-ray from previous dayFINDINGSPossible mild retained fecal material in the colon without suggestion of fecal impaction. There is dilation of colon and small bowel with air. Findings are probably due to moderate ileus. Degree of colonic and small bowel air is diminished since prior study.There is a subtrochanteric fracture of the right femur that is not included on prior x-ray but is chronic. This is seen on x-rays in 2019.IMPRESSIONProbable moderate ileus. There may be mild retained fecal material in the colon without suggestion of fecal impaction.Electronically signed by: Main Sousa (Aug 08, 2020 10:43:45)
[2020-08-08] MEDS: DOPAMINE IV PREMIX 400 MG/250 ML 400 MG/250 ML BAG IV PRN ×2 (10:50→15:58)
[2020-08-08] MEDS: DIFLUCAN 100 MG IV (MIX by PHARMACY)* 100 MG/50 ML BAG IV SCH (10:51)
[2020-08-08] MEDS: CYMBALTA PO SCH (10:56)
[2020-08-08] MEDS: GEODON PO SCH (10:57)
[2020-08-08] MEDS: K-DUR TAB 20 MEQ PO SCH (10:57)
[2020-08-08] MEDS: MAG-OX TAB PO SCH ×2 (10:58)
[2020-08-08] MEDS: OSCAL+D or CALTRATE+D PO SCH (10:59)
[2020-08-08] MEDS: LOVENOX INJ 30 MG SYR SC SCH (10:59)
[2020-08-08] MEDS: TOPROL XL PO SCH (11:00)
[2020-08-08] MEDS: PROSCAR PO SCH (11:00)
[2020-08-08] MEDS: TAB-A-VITE PO SCH (11:00)
[2020-08-08] MEDS: VOLTAREN 1 % GEL MULTI DOSE TUBE TOP SCH ×2 (11:01→21:35)
[2020-08-08] MEDS: VITAMIN C PO SCH (11:01)
[2020-08-08] MEDS: ZINC SULFATE PO SCH (11:01)
[2020-08-08] MEDS: LASIX IVP SCH ×3 (11:02→17:40)
--- NOTE | 2020-08-08 11:44 | PCM.PROG ---
Progress Note - Progress Note for Day of Date of Exam: 08/08/20 - Subjective Subjective: IS BEING TREATED FOR AN ILUES, UTI, DEHYDRATION, ABDOMINAL PAIN, AND NAUSEA/VOMITING. HE ALSO HAS MULTIPLE DECUBITUS ULCERS. AFTER WE SAW HIM YESTERDAY, STAFF REPORTS THAT HE BEGAN VOMITING COPIOUS AMOUNTS. THEY REPORT THAT HE WAS ALSO COUGHING UP THICK YELLOW SPUTUM. WAS CONSULTED DUE TO PERSISTENT ABDOMINAL SWELLING, PAIN, AND INTRACTABLE VOMITING. AN NG TUBE WAS INSERTED AND HOOKED TO LOW INTERMITTENT SUCTION. STAFF APPARENTLY COLLECTED APPROXIMATELY 2400 ML GASTRIC DRAINAGE FROM NG TUBE. A CENTRAL LINE WAS INSERTED. HE BECAME HYPOTENSIVE WITH BLOOD PRESSURE 80s-40s. INCREASED HIS IV FLUIDS TO 125 ML/HR. CHEST XRAY AT 0939 YESTERDAY REVEALED: The lungs are not well inflated. As result, there are hypoventilatory changes. Linear atelectasis is present in both lungs, left side more than right. There were similar findings on the prior study. No obvious pneumonia or pleural effusion. Heart size probably normal when accounting for the poor degree of inflation. Degenerative changes are present in both shoulders, right side more than left. HIS SATURATIONS WERE 93-95% ON 5 LITERS NASAL CANNULA. LATER ON IN THE EVENING, PATIENTS SATURATIONS HAD DROP TO THE 80s AND HER BLOOD PRESSURE WAS 60s/40s. A CHEST XRAY WAS REPEATED AT 2202. IT REVEALED: 1. An endotracheal tube is noted in situ with the distal tip approximately 1.7 cm above the rafi. Recommend partial withdrawal approximately 1 to 2 cm for safekeeping. 2. Findings consistent with moderate to severe CHF or volume overload in the appropriate clinical setting, with significant interval progression of infiltrates compared with the earlier exam. AN ABG WAS REPEATED AT 22:54. HIS P02 WAS 66 ON 60%. CONSULTED , ER PHYSICIAN FOR INTUBATION. BLOOD AND SPUTUM CULTURES WERE REPEATED. HE WAS STARTED ON A NOREPINEPHRINE DRIP. TODAY, HE REMAINS ON THE MECHANICAL VENT. SETTINGS ARE: A/C, VENT RATE 14, TIDAL VOLUME 550, PEEP 5, FI02 40. ON EXAMINATION, HEART IS REGULAR IN RATE AND RHYTHM. BILATERAL LUNGS ARE NOTED WITH DIMINISHED LUNG SOUNDS THROUGHOUT. ABDOMEN IS ROUND, SOFT, AND CONTINUES TO BE DISTENDED. DISTENTION HAS DECREASED SINCE YESTERDAY. HYPOACTIVE BOWEL SOUNDS ARE NOTED IN ALL QUADRANTS. PATIENT IS NOTED TO HAVE MULTIPLE PRESSURE ULCERS TO SACRUM AND LOWER EXTREMITIES. SEE WOUND ASSESSMENT. HE HAS GOOD MOVEMENT TO UPPER EXTREMITIES. HIS VITALS THIS MORNING ARE: 98.4-77-18-99%-116/58. LABS WERE OBTAINED. ABNORMAL LAB VALUES INCLUDE THE FOLLOWING: WBC 22.9, RBC 3.81, HGB 10.6, HCT 33.3, POTASSIUM 3.3, BUN 76, CREATININE 2.51, GLUCOSE 166, CALCIUM 8.0, CREATINE KINASE 631, CK-MB 5.6, TROPONIN 0.08, TOTAL PROTEIN 5.8, ALBUMIN 2.2. URINE CULTURE REVEALS GROWTH OF YEAST. RIGHT KNEE AND LEFT ANKLE WOUND CULTURES REVEAL GROWTH OF MRSA. BLOOD CULTURES ARE PENDING. TODAYS KUB REVEALED: Probable moderate ileus. There may be mild retained fecal material in the colon without suggestion of fecal impaction. A CHEST XRAY WAS OBTAINED AND REVEALED: No change in the bilateral perihilar infiltrates compared to yesterday's exam. Pacemaker, right subclavian port, ETT and NG tube in place. HE IS CURRENTLY RECEIVING NORMAL SALINE AT 50 ML/HR, VANCOMYCIN, ZOSYN 3.375 IV BID, DIFLUCAN 100MG IV DAILY, DUONEBS QID, NOREPINEPHRINE DRIP, PROPOFOL DRIP, PEPCID 20MG IV HS, PROTONIX 40MG IV BID. WE WILL CONTINUE WITH CURRENT PLAN OF CARE TODAY. WE WILL ALSO CHECK A BNP, INCREASE HIS PEEP, MONITOR SERIAL CARDIAC ENZYMES AND EKGS, ADMINISTER LASIX 20MG IV BID X 2 DOSES, AND CHANGE THE NOREPINEPHRINE TO DOPAMINE. WILL CONTINUE TO MONITOR PATIENT. WE WILL FOLLOW UP WITH AM LABS AND CONTINUE TO MONITOR. TIME SPENT ON CLINICAL ASSESSMENT, REVIEWING LABS AND IMAGING, DECISION MAKING, AND DOCUMENTATION, WAS GREATER THAN 75 MINUTES. - Past Medical Family Social History Past Med/Fam/Surg Hx: No changes since H&P Allergies: Allergies doxycycline Allergy (Verified 04/10/19 17:47) - Review of Systems ROS: No change since H&P - Vital Signs and I&O's Vital Signs: Temperature 98.4 F Pulse Rate [Right Radial] 91 Pulse Rate 76 Respiratory Rate 18 Blood Pressure [Right Arm] 123/56 Blood Pressure 107/45 O2 Sat by Pulse Oximetry 96 Intake and Output: Intake & Output 08/05/20 08/06/20 08/07/2008/08/21 11:59 11:59 11:59 11:59 Intake Total 575 / 575 1963 / 1963 1306 / 1306 3220 / 3220 Output Total 100 / 100 1100 / 1100 1120 / 1120 3129 / 3129 Balance 475 / 475 864 / 864 186 / 186 91 / 91 - Physical Exam Eyes: Normal Ear: Normal Nose: Normal Throat: Normal Respiratory: Generalized, Diminished Cardiovascular: Irregular : Normal Auscultation: Bowel Sounds: Decreased Palpation: Normal Tenderness: Other (DISTENDED ) Skin: Wound (SEE WOUND ASSESSMENT ) Musculoskeletal: Normal Psychiatric: Normal Mood Description: Calm Affect: Normal Speech Pattern: Artificially Ventilated - Laboratory and Diagnostics Result Diagrams: 08/08/20 03:50 08/08/20 03:50 Labs: 08/05/20 17:17 Leg - Left Gram Stain - Final 08/05/20 17:17 Leg - Left Wound Culture - Final Methicillin Resis Staph Aureus 08/05/20 09:54 Blood Blood Culture - Preliminary 08/05/20 09:46 Blood Blood Culture - Preliminary 08/07/20 23:01 Sputum - Endotracheal Wash - Final 08/05/20 17:17 Knee - Right Gram Stain - Final 08/05/20 17:17 Knee - Right Wound Culture - Final Methicillin Resis Staph Aureus 08/05/20 17:17 Ankle - Left Gram Stain - Final 08/05/20 17:17 Ankle - Left Wound Culture - Final Methicillin Resis Staph Aureus 08/05/20 00:00 Urine,Clean Catch Urine Culture - Final Laboratory WBC 22.9 X10^3/uL (3.6-10.0) H D 08/08/20 03:50 RBC 3.81 X10^6/uL (4.7-6.0) L 08/08/20 03:50 Hgb 10.6 g/dL (13.5-18.0) L 08/08/20 03:50 Hct 33.3 % (42.0-54.0) L 08/08/20 03:50 MCV 87.5 fL (80.0-100.0) 08/08/20 03:50 MCH 27.9 pg (27.0-34.0) 08/08/20 03:50 MCHC 31.8 g/dL (33.0-35.0) L 08/08/20 03:50 RDW 16.3 % (11.6-16.5) 08/08/20 03:50 Plt Count 398 X10^3/uL (150.0-450.0) 08/08/20 03:50 Plt Count Comment Adequate (ADEQUATE) 08/08/20 03:50 MPV 7.6 fL (7.4-11.0) 08/08/20 03:50 Neut % (Auto) 91.6 % (42.0-75.0) H 08/08/20 03:50 Lymph % (Auto) 4.5 % (21.0-51.0) L 08/08/20 03:50 [place] % (Auto) 3.8 % (0.0-13.0) 08/08/20 03:50 Eos % (Auto) 0.0 % (0.9-2.9) L 08/08/20 03:50 Baso % (Auto) 0.1 % (0.2-1.0) L 08/08/20 03:50 Neut # (Auto) 21.0 x10^3/uL (2.2-4.8) H 08/08/20 03:50 Lymph # (Auto) 1.0 X10^3/uL (1.3-2.9) L 08/08/20 03:50 [place] # (Auto) 0.9 x10^3/uL (0.3-0.8) H 08/08/20 03:50 Eos # (Auto) 0.0 x10^3/uL (0.0-0.2) 08/08/20 03:50 Baso # (Auto) 0.0 X10^3/uL (0.0-0.1) 08/08/20 03:50 Absolute Nucleated RBC 0.1 /100WBC 08/08/20 03:50 Total Counted 100 08/08/20 03:50 Neutrophils % (Manual) 91 % (39-76) H 08/08/20 03:50 Lymphocytes % (Manual) 9 % (13-43) L 08/08/20 03:50 Plt Morphology Comment Normal (NORMAL) 08/08/20 03:50 RBC Morphology Normal (NORMAL) 08/08/20 03:50 ESR 67 MM/HOUR (0-15) H 08/04/20 13:27 Sample Site Lr 08/08/20 04:25 ABG pH 7.490 (7.35-7.45) H 08/08/20 04:25 ABG pCO2 29.0 mmHg (35.0-45.0) L 08/08/20 04:25 ABG pO2 73.0 mmHg (80.0-100.0) L 08/08/20 04:25 ABG HCO3 22.1 mmol/L (22-26) 08/08/20 04:25 ABG O2 Saturation 96.0 % (90-100) 08/08/20 04:25 ABG Base Excess -0.3 mmol/L (-2.0-2.0) 08/08/20 04:25 Félix Test Pos 08/08/20 04:25 A-a Gradient 176.0 mmHg 08/08/20 04:25 FiO2 40.0 08/08/20 04:25 Blood Gas Comments Jewel well ae 08/08/20 04:25 Sodium 138 mmol/L (136-145) 08/08/20 03:50 Corrected Sodium 140 mmol/L (136-145) 08/08/20 03:50 Potassium 3.3 mmol/L (3.5-5.1) L 08/08/20 03:50 Chloride 102 mmol/L (98-107) 08/08/20 03:50 Carbon Dioxide 21.2 mmol/L (21-32) 08/08/20 03:50 BUN 76 mg/dL (7-18) H 08/08/20 03:50 Creatinine 2.51 mg/dL (0.70-1.30) H 08/08/20 03:50 Est GFR (MDRD) Af Amer 32 (>60) L 08/08/20 03:50 Est GFR (MDRD) Non-Af 26 (>60) L 08/08/20 03:50 Glucose 166 mg/dL (65-99) H 08/08/20 03:50 POC Glucose (mg/dL) 132 mg/dL (65-99) H 08/07/20 19:36 Lactic Acid 2.8 mmol/L (0.4-2.0) H 08/07/20 21:18 Calcium 8.0 mg/dL (8.5-10.1) L 08/08/20 03:50 Corrected Calcium 9.4 mg/dL (8.5-10.1) 08/08/20 03:50 Magnesium 2.5 mg/dL (1.7-2.9) 08/07/20 21:08 Total Bilirubin 0.70 mg/dL (0.2-1.0) 08/08/20 03:50 AST 30 Units/L (15-37) 08/08/20 03:50 ALT 13 Units/L (12-78) 08/08/20 03:50 Alkaline Phosphatase 68 Units/L (46-116) 08/08/20 03:50 Creatine Kinase 631 Units/L (39-308) H 08/08/20 03:50 CK-MB (CK-2) 5.6 ng/mL (0-4.0) H* 08/08/20 03:50 CK/CKMB % Calc 0.9 % (<4) 08/08/20 03:50 Troponin I 0.08 ng/mL (0-1.5) 08/08/20 03:50 C-Reactive Protein 51.90 mg/L (0-3.0) H 08/05/20 05:29 B-Natriuretic Peptide 156 pg/mL (0-79) H 08/08/20 03:50 Total Protein 5.8 g/dL (6.4-8.2) L 08/08/20 03:50 Albumin 2.2 g/dL (3.4-5.0) L 08/08/20 03:50 Globulin 3.6 g/dL (2.5-4.5) 08/08/20 03:50 Albumin/Globulin Ratio 0.6 Ratio (1.1-2.1) L 08/08/20 03:50 Amylase 36 Units/L (25-115) 08/04/20 13:27 Lipase 71 Units/L (73-393) L 08/04/20 13:27 Specimen Type Catherized urine 08/08/20 00:04 Urine Color Straw (YELLOW) 08/08/20 00:04 Urine Appearance Hazy (CLEAR) 08/08/20 00:04 Urine pH 5.0 (5.0 - 8.0) 08/08/20 00:04 Ur Specific [place] 1.010 (1.000-1.030) 08/08/20 00:04 Urine Protein 3+ (NEGATIVE) 08/08/20 00:04 Urine Glucose (UA) Negative (NEGATIVE) 08/08/20 00:04 Urine Ketones Negative (NEGATIVE) 08/08/20 00:04 Urine Occult Blood 5+ (NEGATIVE) 08/08/20 00:04 Urine Nitrite Negative (NEGATIVE) 08/08/20 00:04 Urine Bilirubin Negative (NEGATIVE) 08/08/20 00:04 Urine Urobilinogen Normal (NORMAL) 08/08/20 00:04 Ur Leukocyte Esterase 3+ (NEGATIVE) 08/08/20 00:04 Urine RBC Tntc /HPF (0-3) A 08/05/20 00:00 Urine WBC Tntc /HPF (0-5) A 08/05/20 00:00 Ur Squamous Epith Cells Negative /HPF (NEGATIVE) 08/05/20 00:00 Urine Bacteria 3+ /HPF (NEGATIVE) 08/05/20 00:00 Urine Yeast Numerous /HPF (NEGATIVE) 08/05/20 00:00 Ur Culture Indicated? Yes/culture set up 08/05/20 00:00 SARS CoV-2 RNA Rapid HEMA Negative (NEGATIVE) 08/04/20 20:20 - Plan (1) Aspiration pneumonia Status: Acute Qualifiers: Aspiration pneumonia type: due to vomit Laterality: unspecified laterality Lung location: unspecified part of lung Qualified Code(s): J69.0 - Pneumonitis due to inhalation of food and vomit Plan: NORMAL SALINE AT 50 ML/HR, VANCOMYCIN, ZOSYN 3.375 IV BID, DUONEBS, DIFLUCAN 100MG IV DAILY, DUONEBS QID, DOPAMINE DRIP, PROPOFOL DRIP, PEPCID 20MG IV HS, PROTONIX 40MG IV BID, LASIX 20MG IV X 2 DOSES (2) CHF (congestive heart failure) Status: Acute Qualifiers: Heart failure type: unspecified Heart failure chronicity: acute on chronic Qualified Code(s): I50.9 - Heart failure, unspecified (3) Ileus Status: Acute Plan: NORMAL SALINE AT 50 ML/HR, VANCOMYCIN, ZOSYN 3.375 IV BID, DIFLUCAN 100MG IV DAILY, DUONEBS QID, DOPAMINE DRIP, PROPOFOL DRIP, PEPCID 20MG IV HS, PROTONIX 40MG IV BID, LASIX 20MG IV X 2 DOSES (4) Abdominal pain Status: Acute Qualifiers: Abdominal location: left lower quadrant Qualified Code(s): R10.32 - Left lower quadrant pain (5) Urinary tract infection Status: Acute Qualifiers: Urinary tract infection type: acute cystitis Hematuria presence: with hematuria Qualified Code(s): N30.01 - Acute cystitis with hematuria (6) Dehydration Status: Acute (7) Nausea and vomiting Status: Acute Qualifiers: Vomiting Intractability: intractable (8) Sacral decubitus ulcer Status: Acute Qualifiers: Pressure injury stage: unspecified pressure injury stage Qualified Code(s): L89.159 - Pressure ulcer of sacral region, unspecified stage (9) Fecal impaction Status: Acute
[2020-08-08 11:46] LABS: CKMB % 0.6 % (<4); CREATINE KINASE MB 4.7 ng/mL (0-4.0); TROPONIN I 0.09 ng/mL (0-1.5)
[2020-08-08] MEDS: PRECEDEX 400 MCG/100 ML PREMIX 400 MCG/100 ML INFUS..BTL IV PRN ×4 (12:14→23:45)
[2020-08-08] MEDS ORDERED: NS 1000 ML 1,000 ML IV ONE ×3 (14:21→18:47)
[2020-08-08] MEDS ORDERED: ZOSYN VIAL 4.5 GRAMS 4.5 G in NS 100 ML IV + SPIKE MINIBAG* 100 ML IV SCH (21:15)
[2020-08-09] MEDS ORDERED: MORPHINE SULFATE INJ 2 MG INJ IVP ONE (03:08)
[2020-08-09] MEDS ORDERED: MORPHINE SULFATE INJ 2 MG INJ ONE (03:10)
[2020-08-09] MEDS: ATIVAN INJ 2 MG VIAL IVP PRN (03:23)
[2020-08-09] MEDS: DOPAMINE IV PREMIX 400 MG/250 ML 400 MG/250 ML BAG IV PRN ×3 (04:00→22:57)
[2020-08-09] MEDS: PRECEDEX 400 MCG/100 ML PREMIX 400 MCG/100 ML INFUS..BTL IV PRN ×6 (04:15→22:58)
[2020-08-09 04:43] LABS: ABG ALLEN TEST POS; ABG BASE EXCESS -1.1 mmol/L (-2.0-2.0); ABG HCO3 22.2 mmol/L (22-26)
[2020-08-09] MEDS: NS 1000 ML 1,000 ML IV SCH ×4 (05:50→20:51)
[2020-08-09] MEDS: BUTT CREAM (COMPOUND) TOP PRN ×2 (06:02→16:17)
[2020-08-09 06:10] LABS: BASOPHILS % (AUTO) 0.1 % (0.2-1.0); EOSINOPHILS # (AUTO) 0.1 x10^3/uL (0.0-0.2); EOSINOPHILS % (AUTO) 1.2 % (0.9-2.9); HEMATOCRIT 27.5 % (42.0-54.0); HEMOGLOBIN 9.2 g/dL (13.5-18.0); LYMPHOCYTES # (AUTO) 0.8 X10^3/uL (1.3-2.9); LYMPHOCYTES % (AUTO) 8.3 % (21.0-51.0); MEAN CORPUSCULAR HGB CONC 33.7 g/dL (33.0-35.0); MEAN PLATELET VOLUME 7.1 fL (7.4-11.0); MONOCYTES # (AUTO) 0.3 x10^3/uL (0.3-0.8); MONOCYTES % (AUTO) 3.5 % (0.0-13.0); NEUTROPHILS # (AUTO) 7.9 x10^3/uL (2.2-4.8); NEUTROPHILS % (AUTO) 86.9 % (42.0-75.0); PLATELET COUNT 193 X10^3/uL (150.0-450.0); RED BLOOD COUNT 3.19 X10^6/uL (4.7-6.0); WHITE BLOOD COUNT 9.1 X10^3/uL (3.6-10.0)
--- NOTE | 2020-08-09 06:10 | RAD ---
HISTORYSOBSTUDYCHEST, 1 [id number] trachea is midline. Endotracheal tube tip above the rafi. NG tube below the hemidiaphragm. Right Port-A-Cath tip in distal SVC. Permanent pacing device. The cardiac silhouette is stable bilateral perihilar infiltrates unchanged. No pneumothorax.. The lungs are clear without focal infiltrate or effusion. The bony thorax is unremarkable.IMPRESSIONBilateral perihilar infiltrates; no significant change from 1Electronically signed by: Xu Dawn (Aug 09, 2020 06:08:39)
--- NOTE | 2020-08-09 06:10 | RAD ---
HISTORYIleus, fecal [id number] abdominal gas pattern is nonspecific but nonobstruct britt. There is decreased small and large bowel distension when compared with the prior examination. Th ere is a small amount of stool within the rectum and scattered throughout the colon. No definite feca l impaction is identified. No abnormal masses or abnormal calcifications are identified. Regional ske leton is intact.IMPRESSIONFindings most suggestive of a generalized ileus demonstrating some improvem ent when compared to the prior examinationElectronically signed by: WILLIAM SHAIKH (Aug 09, 2020 06:08 :42)
[2020-08-09 06:34] LABS: ALBUMIN 1.9 g/dL (3.4-5.0); CALCIUM 7.5 mg/dL (8.5-10.1); CARBON DIOXIDE 23.8 mmol/L (21-32); COR CA(FOR HYPOALB) 9.2 mg/dL (8.5-10.1); CREATININE 1.91 mg/dL (0.70-1.30); TOTAL PROTEIN 5.3 g/dL (6.4-8.2)
[2020-08-09] MEDS: VERSED IV PREMIX 100 MG/100 ML IV.SOLN IV PRN ×2 (07:32→23:51)
[2020-08-09] MEDS: DUONEB 0.5 MG/3 MG (3 mL) NEB SCH ×4 (08:20→20:49)
[2020-08-09] MEDS ORDERED: LOVENOX INJ 30 MG SYR SC ONE (08:34)
[2020-08-09] MEDS: VANCOMYCIN IV *PREMIX 1.25 G/250 ML BAG 1.25 G/250 ML PIGGYBACK IV SCH (08:38)
[2020-08-09] MEDS: VOLTAREN 1 % GEL MULTI DOSE TUBE TOP SCH ×2 (08:53→20:52)
[2020-08-09] MEDS ORDERED: NS + KCL 40 MEQ/L 1,000 ML IV SCH (09:00)
[2020-08-09] MEDS: LOVENOX INJ 30 MG SYR SC SCH (09:09)
[2020-08-09] MEDS ORDERED: PHARMACY CONSULT - TPN XX SCH (10:00)
--- NOTE | 2020-08-09 10:46 | PCM.PROG ---
Progress Note - Progress Note for Day of Date of Exam: 08/09/20 - Subjective Subjective: IS BEING TREATED FOR ASPIRATION PNEUMONIA, ILEUS, UTI, DEHYDRATION, ACUTE RENAL FAILURE, AND HYPOTENSION. HE REMAINED HYPOTENSIVE THROUGHOUT THE NIGHT. THE PROPOFOL WAS CHANGED TO PRESEDEX. THIS CHANGE WAS NOT KEEPING HIM SEDATED, THEREFORE VERSED WAS ADDED. THIS HAS HELPED WITH SEDATION AND HAS HELD HIS BLOOD PRESSURE AT A SAFE LEVEL, WITH THE ADDITION OF MULTIPLE BOLUSES OF IV FLUIDS THROUGHOUT THE NIGHT. HAS ALSO CONTINUES TO HAVE THE DOPAMINE INFUSING. HE REMAINS ON THE MECHANICAL VENT THIS MORNING. AN NG TUBE REMAINS IN PLACE TO LOW INTERMITTENT SUCTION. VENT SETTINGS ARE: A/C, VENT RATE 14, TIDAL VOLUME 550, PEEP 5, FI02 45. HE HAD ABOUT 260ML 24 HOUR GASTRIC OUTPUT YESTERDAY. ON EXAMINATION, HEART IS REGULAR IN RATE AND RHYTHM. BILATERAL LUNGS ARE NOTED WITH DIMINISHED LUNG SOUNDS THROUGHOUT. ABDOMEN IS ROUND, SOFT, AND CONTINUES TO BE DISTENDED. DISTENTION HAS DECREASED SINCE YESTERDAY. HYPOACTIVE BOWEL SOUNDS ARE NOTED IN ALL QUADRANTS. PATIENT IS NOTED TO HAVE MULTIPLE PRESSURE ULCERS TO SACRUM AND LOWER EXTREMITIES. SEE WOUND ASSESSMENT. HIS VITALS THIS MORNING ARE: 98.5-87-14-97%-126/60. LABS WERE OBTAINED. ABNORMAL LAB VALUES INCLUDE THE FOLLOWING: RBC 3.19, HGB 9.2, HCT 27.5, POTASSIUM 2.9, BUN 67, CREATININE 1.91, GLUCOSE 142, CALCIUM 7.5, TOTAL PROTEIN 5.3, ALBUMIN 1.9. URINE CULTURE REVEALS GROWTH OF YEAST. RIGHT KNEE AND LEFT ANKLE WOUND CULTURES REVEAL GROWTH OF MRSA. REPEAT BLOOD AND SPUTUM CULTURES ARE PENDING. TODAYS KUB REVEALED: Findings most suggestive of a generalized ileus demonstrating some improvement when compared to the prior examination. A CHEST XRAY WAS OBTAINED AND REVEALED: Bilateral perihilar infiltrates; no significant change from 08/08/2020. TODAY, WE WILL ADD TPN AT 50 ML/HR. WE WILL DISCONTINUE THE ZOSYN AND START INVANZ 1G IV DAILY. OTHERWISE, WE WILL CONTINUE WITH CURRENT PLAN OF CARE TODAY. WILL CONTINUE TO MONITOR PATIENT. WE WILL FOLLOW UP WITH AM LABS AND CONTINUE TO MONITOR. TIME SPENT ON CLINICAL ASSESSMENT, REVIEWING LABS AND IMAGING, DECISION MAKING, AND DOCUMENTATION, WAS GREATER THAN 75 MINUTES. - Past Medical Family Social History Past Med/Fam/Surg Hx: No changes since H&P Allergies: Allergies doxycycline Allergy (Verified 04/10/19 17:47) - Review of Systems ROS: No change since H&P - Vital Signs and I&O's Vital Signs: Temperature 98.5 F Pulse Rate [Right Radial] 87 Pulse Rate 84 Respiratory Rate 14 Blood Pressure [Right Arm] 126/60 Blood Pressure 107/45 O2 Sat by Pulse Oximetry 97 Intake and Output: Intake & Output 08/06/20 08/07/20 08/08/20 08/09/20 11:59 11:59 11:59 11:59 Intake Total 1963 / 1963 1306 / 1306 3220 / 3220 7122 / 7122 Output Total 1100 / 1100 1120 / 1120 3247 / 3247 1744 / 1744 Balance 864 / 864 186 / 186 -27 / -27 5378 / 5378 - Physical Exam Oriented: Unable to test Eyes: Normal Ear: Normal Nose: Normal Throat: Normal Respiratory: Generalized, Diminished Cardiovascular: Irregular : Normal Auscultation: Bowel Sounds: Decreased Palpation: Normal Tenderness: Other (DISTENDED ) Skin: Wound (SEE WOUND ASSESSMENT ) Musculoskeletal: Normal Psychiatric: Other (SEDATED) Speech Pattern: Artificially Ventilated - Laboratory and Diagnostics Result Diagrams: 08/09/20 05:37 08/09/20 05:37 Labs: 08/08/20 16:45 Sputum - Expectorated Sputum Sputum Culture - Preliminary 08/07/20 20:53 Urine,Clean Catch Urine Culture - Preliminary 08/07/20 23:01 Sputum - Endotracheal Wash Sputum Culture - Preliminary 08/07/20 23:01 Sputum - Endotracheal Wash - Final 08/07/20 21:18 Blood Blood Culture - Preliminary 08/07/20 21:08 Blood Blood Culture - Preliminary 08/05/20 17:17 Leg - Left Gram Stain - Final 08/05/20 17:17 Leg - Left Wound Culture - Final Methicillin Resis Staph Aureus 08/05/20 09:54 Blood Blood Culture - Preliminary 08/05/20 09:46 Blood Blood Culture - Preliminary 08/05/20 17:17 Knee - Right Gram Stain - Final 08/05/20 17:17 Knee - Right Wound Culture - Final Methicillin Resis Staph Aureus 08/05/20 17:17 Ankle - Left Gram Stain - Final 08/05/20 17:17 Ankle - Left Wound Culture - Final Methicillin Resis Staph Aureus 08/05/20 00:00 Urine,Clean Catch Urine Culture - Final Laboratory WBC 9.1 X10^3/uL (3.6-10.0) D 08/09/20 05:37 RBC 3.19 X10^6/uL (4.7-6.0) L 08/09/20 05:37 Hgb 9.2 g/dL (13.5-18.0) L 08/09/20 05:37 Hct 27.5 % (42.0-54.0) L 08/09/20 05:37 MCV 86.0 fL (80.0-100.0) 08/09/20 05:37 MCH 29.0 pg (27.0-34.0) 08/09/20 05:37 MCHC 33.7 g/dL (33.0-35.0) 08/09/20 05:37 RDW 16.0 % (11.6-16.5) 08/09/20 05:37 Plt Count 193 X10^3/uL (150.0-450.0) 08/09/20 05:37 Plt Count Comment Adequate (ADEQUATE) 08/08/20 03:50 MPV 7.1 fL (7.4-11.0) L 08/09/20 05:37 Neut % (Auto) 86.9 % (42.0-75.0) H 08/09/20 05:37 Lymph % (Auto) 8.3 % (21.0-51.0) L 08/09/20 05:37 [place] % (Auto) 3.5 % (0.0-13.0) 08/09/20 05:37 Eos % (Auto) 1.2 % (0.9-2.9) 08/09/20 05:37 Baso % (Auto) 0.1 % (0.2-1.0) L 08/09/20 05:37 Neut # (Auto) 7.9 x10^3/uL (2.2-4.8) H 08/09/20 05:37 Lymph # (Auto) 0.8 X10^3/uL (1.3-2.9) L 08/09/20 05:37 [place] # (Auto) 0.3 x10^3/uL (0.3-0.8) 08/09/20 05:37 Eos # (Auto) 0.1 x10^3/uL (0.0-0.2) 08/09/20 05:37 Baso # (Auto) 0.0 X10^3/uL (0.0-0.1) 08/09/20 05:37 Absolute Nucleated RBC 0.0 /100WBC 08/09/20 05:37 Total Counted 100 08/08/20 03:50 Neutrophils % (Manual) 91 % (39-76) H 08/08/20 03:50 Lymphocytes % (Manual) 9 % (13-43) L 08/08/20 03:50 Plt Morphology Comment Normal (NORMAL) 08/08/20 03:50 RBC Morphology Normal (NORMAL) 08/08/20 03:50 ESR 67 MM/HOUR (0-15) H 08/04/20 13:27 Sample Site Rr 08/09/20 04:35 ABG pH 7.450 (7.35-7.45) 08/09/20 04:35 ABG pCO2 32.0 mmHg (35.0-45.0) L 08/09/20 04:35 ABG pO2 50.0 mmHg (80.0-100.0) L 08/09/20 04:35 ABG HCO3 22.2 mmol/L (22-26) 08/09/20 04:35 ABG O2 Saturation 87.0 % (90-100) L 08/09/20 04:35 ABG Base Excess -1.1 mmol/L (-2.0-2.0) 08/09/20 04:35 Félix Test Pos 08/09/20 04:35 A-a Gradient 231.0 mmHg 08/09/20 04:35 FiO2 45.0 08/09/20 04:35 Blood Gas Comments Jewel well ae 08/09/20 04:35 Sodium 141 mmol/L (136-145) 08/09/20 05:37 Corrected Sodium 142 mmol/L (136-145) 08/09/20 05:37 Potassium 2.9 mmol/L (3.5-5.1) L* 08/09/20 05:37 Chloride 106 mmol/L (98-107) 08/09/20 05:37 Carbon Dioxide 23.8 mmol/L (21-32) 08/09/20 05:37 BUN 67 mg/dL (7-18) H 08/09/20 05:37 Creatinine 1.91 mg/dL (0.70-1.30) H 08/09/20 05:37 Est GFR (MDRD) Af Amer 43 (>60) L 08/09/20 05:37 Est GFR (MDRD) Non-Af 36 (>60) L 08/09/20 05:37 Glucose 142 mg/dL (65-99) H 08/09/20 05:37 POC Glucose (mg/dL) 125 mg/dL (65-99) H 08/09/20 05:40 Lactic Acid 2.8 mmol/L (0.4-2.0) H 08/07/20 21:18 Calcium 7.5 mg/dL (8.5-10.1) L 08/09/20 05:37 Corrected Calcium 9.2 mg/dL (8.5-10.1) 08/09/20 05:37 Magnesium 2.3 mg/dL (1.7-2.9) 08/09/20 05:33 Total Bilirubin 0.50 mg/dL (0.2-1.0) 08/09/20 05:37 AST 32 Units/L (15-37) 08/09/20 05:37 ALT 15 Units/L (12-78) 08/09/20 05:37 Alkaline Phosphatase 80 Units/L (46-116) 08/09/20 05:37 Creatine Kinase 748 Units/L (39-308) H 08/08/20 09:20 CK-MB (CK-2) 4.7 ng/mL (0-4.0) H* 08/08/20 09:20 CK/CKMB % Calc 0.6 % (<4) 08/08/20 09:20 Troponin I 0.09 ng/mL (0-1.5) 08/08/20 09:20 C-Reactive Protein 51.90 mg/L (0-3.0) H 08/05/20 05:29 B-Natriuretic Peptide 156 pg/mL (0-79) H 08/08/20 03:50 Total Protein 5.3 g/dL (6.4-8.2) L 08/09/20 05:37 Albumin 1.9 g/dL (3.4-5.0) L 08/09/20 05:37 Globulin 3.4 g/dL (2.5-4.5) 08/09/20 05:37 Albumin/Globulin Ratio 0.6 Ratio (1.1-2.1) L 08/09/20 05:37 Prealbumin 9.7 mg/dL (18-35.7) L 08/09/20 05:33 Amylase 36 Units/L (25-115) 08/04/20 13:27 Lipase 71 Units/L (73-393) L 08/04/20 13:27 Specimen Type Catherized urine 08/08/20 00:04 Urine Color Straw (YELLOW) 08/08/20 00:04 Urine Appearance Hazy (CLEAR) 08/08/20 00:04 Urine pH 5.0 (5.0 - 8.0) 08/08/20 00:04 Ur Specific [place] 1.010 (1.000-1.030) 08/08/20 00:04 Urine Protein 3+ (NEGATIVE) 08/08/20 00:04 Urine Glucose (UA) Negative (NEGATIVE) 08/08/20 00:04 Urine Ketones Negative (NEGATIVE) 08/08/20 00:04 Urine Occult Blood 5+ (NEGATIVE) 08/08/20 00:04 Urine Nitrite Negative (NEGATIVE) 08/08/20 00:04 Urine Bilirubin Negative (NEGATIVE) 08/08/20 00:04 Urine Urobilinogen Normal (NORMAL) 08/08/20 00:04 Ur Leukocyte Esterase 3+ (NEGATIVE) 08/08/20 00:04 Urine RBC Tntc /HPF (0-3) A 08/05/20 00:00 Urine WBC Tntc /HPF (0-5) A 08/05/20 00:00 Ur Squamous Epith Cells Negative /HPF (NEGATIVE) 08/05/20 00:00 Urine Bacteria 3+ /HPF (NEGATIVE) 08/05/20 00:00 Urine Yeast Numerous /HPF (NEGATIVE) 08/05/20 00:00 Ur Culture Indicated? Yes/culture set up 08/05/20 00:00 SARS CoV-2 RNA Rapid HEMA Negative (NEGATIVE) 08/04/20 20:20 - Plan (1) Aspiration pneumonia Status: Acute Qualifiers: Aspiration pneumonia type: due to vomit Laterality: unspecified laterality Lung location: unspecified part of lung Qualified Code(s): J69.0 - Pneumonitis due to inhalation of food and vomit Plan: NORMAL SALINE AT 50 ML/HR, TPN AT 50 ML/HR, VANCOMYCIN, INVANZ 1G IV DAILY, DUONEBS, DIFLUCAN 100MG IV DAILY, DUONEBS QID, DOPAMINE DRIP, PRESEDEX DRIP, VERSED DRIP, PEPCID 20MG IV HS, PROTONIX 40MG IV BID (2) CHF (congestive heart failure) Status: Acute Qualifiers: Heart failure type: unspecified Heart failure chronicity: acute on chronic Qualified Code(s): I50.9 - Heart failure, unspecified (3) Ileus Status: Acute Plan: NORMAL SALINE AT 50 ML/HR, VANCOMYCIN, INVANZ 1G IV DAILY, DIFLUCAN 100MG IV DAILY, DUONEBS QID, DOPAMINE DRIP, PRESEDEX DRIP, VERSED DRIP, PEPCID 20MG IV HS, PROTONIX 40MG IV BID (4) Abdominal pain Status: Acute Qualifiers: Abdominal location: left lower quadrant Qualified Code(s): R10.32 - Left lower quadrant pain (5) Urinary tract infection Status: Acute Qualifiers: Urinary tract infection type: acute cystitis Hematuria presence: with hematuria Qualified Code(s): N30.01 - Acute cystitis with hematuria (6) Dehydration Status: Acute (7) Nausea and vomiting Status: Acute Qualifiers: Vomiting Intractability: intractable (8) Sacral decubitus ulcer Status: Acute Qualifiers: Pressure injury stage: unspecified pressure injury stage Qualified Code(s): L89.159 - Pressure ulcer of sacral region, unspecified stage (9) Fecal impaction Status: Resolved
[2020-08-09] MEDS: LASIX IVP SCH ×2 (10:48→16:17)
[2020-08-09] MEDS ORDERED: DEXTROSE 10% 1,000 ML IV PRN (11:06)
[2020-08-09 11:32] LABS: PHOSPHORUS 2.6 mg/dL (2.6-4.7)
[2020-08-09] MEDS: DIFLUCAN 100 MG IV (MIX by PHARMACY)* 100 MG/50 ML BAG IV SCH (11:32)
[2020-08-09] MEDS: INVANZ INJ 1 GM VIAL 1 GM in NS 100 ML IV + SPIKE MINIBAG* 100 ML IV SCH (11:35)
[2020-08-09] MEDS ORDERED: TRACE ELEMENTS IV SCH ×7 (12:00)
[2020-08-09] MEDS ORDERED: CLINIMIX IV SCH ×7 (12:00)
[2020-08-09] MEDS ORDERED: MVI IV SCH ×7 (12:00)
[2020-08-09] MEDS ORDERED: [UNRECOGNIZED DRUG - OTHER] IV SCH ×7 (12:00)
--- NOTE | 2020-08-09 18:56 | DR.PROGNOT ---
Hospital Progress Notes - Progress Note for Day of: Progress Note Date: 08/09/20 - Chief Complaint Chief Complaint: still on the vent and more comfortable this PM . BP is still maintained with Dopamin. NGT drainage is mild . fair urine out put . BUN/Creat 67/1.9 .. BS 153 .. K 2.9 .. Albumin 1.9 - Past Medical Family Social History Past Med/Fam/Surg Hx: No changes since H&P Allergies: Allergies doxycycline Allergy (Verified 04/10/19 17:47) - Review Of Systems ROS: No change since H&P - Vital Signs Vital Signs: Temperature 98.8 F Pulse Rate [Right Radial] 81 Pulse Rate 84 Respiratory Rate 14 Blood Pressure [Right Arm] 109/54 Blood Pressure 107/45 O2 Sat by Pulse Oximetry 97 - Physical Exam Oriented: Unable to test Eyes: Normal Ear: Normal Nose: Normal Throat: Normal Respiratory: Generalized, Diminished Cardiovascular: Irregular : Normal GI:Auscultation: Decreased GI:Palpation: Normal GI: Tenderness: Other (mild distention , soft abdomen . BS+ but hypoactive .) Skin: Wound (SEE WOUND ASSESSMENT ) Musculoskeletal: Normal Psychiatric: Other (SEDATED) Mood Description: Calm Affect: Normal Speech Pattern: Artificially Ventilated - Laboratory and Diagnostics Result Diagrams: 08/09/20 05:37 08/09/20 05:37 Labs: 08/08/20 16:45 Sputum - Expectorated Sputum Sputum Culture - Preliminary 08/07/20 20:53 Urine,Clean Catch Urine Culture - Preliminary 08/07/20 23:01 Sputum - Endotracheal Wash Sputum Culture - Preliminary 08/07/20 23:01 Sputum - Endotracheal Wash - Final 08/07/20 21:18 Blood Blood Culture - Preliminary 08/07/20 21:08 Blood Blood Culture - Preliminary 08/05/20 17:17 Leg - Left Gram Stain - Final 08/05/20 17:17 Leg - Left Wound Culture - Final Methicillin Resis Staph Aureus 08/05/20 09:54 Blood Blood Culture - Preliminary 08/05/20 09:46 Blood Blood Culture - Preliminary 08/05/20 17:17 Knee - Right Gram Stain - Final 08/05/20 17:17 Knee - Right Wound Culture - Final Methicillin Resis Staph Aureus 08/05/20 17:17 Ankle - Left Gram Stain - Final 08/05/20 17:17 Ankle - Left Wound Culture - Final Methicillin Resis Staph Aureus 08/05/20 00:00 Urine,Clean Catch Urine Culture - Final Laboratory WBC 9.1 X10^3/uL (3.6-10.0) D 08/09/20 05:37 RBC 3.19 X10^6/uL (4.7-6.0) L 08/09/20 05:37 Hgb 9.2 g/dL (13.5-18.0) L 08/09/20 05:37 Hct 27.5 % (42.0-54.0) L 08/09/20 05:37 MCV 86.0 fL (80.0-100.0) 08/09/20 05:37 MCH 29.0 pg (27.0-34.0) 08/09/20 05:37 MCHC 33.7 g/dL (33.0-35.0) 08/09/20 05:37 RDW 16.0 % (11.6-16.5) 08/09/20 05:37 Plt Count 193 X10^3/uL (150.0-450.0) 08/09/20 05:37 Plt Count Comment Adequate (ADEQUATE) 08/08/20 03:50 MPV 7.1 fL (7.4-11.0) L 08/09/20 05:37 Neut % (Auto) 86.9 % (42.0-75.0) H 08/09/20 05:37 Lymph % (Auto) 8.3 % (21.0-51.0) L 08/09/20 05:37 Andrew % (Auto) 3.5 % (0.0-13.0) 08/09/20 05:37 Eos % (Auto) 1.2 % (0.9-2.9) 08/09/20 05:37 Baso % (Auto) 0.1 % (0.2-1.0) L 08/09/20 05:37 Neut # (Auto) 7.9 x10^3/uL (2.2-4.8) H 08/09/20 05:37 Lymph # (Auto) 0.8 X10^3/uL (1.3-2.9) L 08/09/20 05:37 Andrew # (Auto) 0.3 x10^3/uL (0.3-0.8) 08/09/20 05:37 Eos # (Auto) 0.1 x10^3/uL (0.0-0.2) 08/09/20 05:37 Baso # (Auto) 0.0 X10^3/uL (0.0-0.1) 08/09/20 05:37 Absolute Nucleated RBC 0.0 /100WBC 08/09/20 05:37 Total Counted 100 08/08/20 03:50 Neutrophils % (Manual) 91 % (39-76) H 08/08/20 03:50 Lymphocytes % (Manual) 9 % (13-43) L 08/08/20 03:50 Plt Morphology Comment Normal (NORMAL) 08/08/20 03:50 RBC Morphology Normal (NORMAL) 08/08/20 03:50 ESR 67 MM/HOUR (0-15) H 08/04/20 13:27 Sample Site Rr 08/09/20 04:35 ABG pH 7.450 (7.35-7.45) 08/09/20 04:35 ABG pCO2 32.0 mmHg (35.0-45.0) L 08/09/20 04:35 ABG pO2 50.0 mmHg (80.0-100.0) L 08/09/20 04:35 ABG HCO3 22.2 mmol/L (22-26) 08/09/20 04:35 ABG O2 Saturation 87.0 % (90-100) L 08/09/20 04:35 ABG Base Excess -1.1 mmol/L (-2.0-2.0) 08/09/20 04:35 Félix Test Pos 08/09/20 04:35 A-a Gradient 231.0 mmHg 08/09/20 04:35 FiO2 45.0 08/09/20 04:35 Blood Gas Comments Jewel well ae 08/09/20 04:35 Sodium 141 mmol/L (136-145) 08/09/20 05:37 Corrected Sodium 142 mmol/L (136-145) 08/09/20 05:37 Potassium 2.9 mmol/L (3.5-5.1) L* 08/09/20 05:37 Chloride 106 mmol/L (98-107) 08/09/20 05:37 Carbon Dioxide 23.8 mmol/L (21-32) 08/09/20 05:37 BUN 67 mg/dL (7-18) H 08/09/20 05:37 Creatinine 1.91 mg/dL (0.70-1.30) H 08/09/20 05:37 Est GFR (MDRD) Af Amer 43 (>60) L 08/09/20 05:37 Est GFR (MDRD) Non-Af 36 (>60) L 08/09/20 05:37 Glucose 142 mg/dL (65-99) H 08/09/20 05:37 POC Glucose (mg/dL) 153 mg/dL (65-99) H 08/09/20 16:29 Lactic Acid 2.8 mmol/L (0.4-2.0) H 08/07/20 21:18 Calcium 7.5 mg/dL (8.5-10.1) L 08/09/20 05:37 Corrected Calcium 9.2 mg/dL (8.5-10.1) 08/09/20 05:37 Phosphorus 2.6 mg/dL (2.6-4.7) 08/09/20 05:33 Magnesium 2.3 mg/dL (1.7-2.9) 08/09/20 05:33 Total Bilirubin 0.50 mg/dL (0.2-1.0) 08/09/20 05:37 AST 32 Units/L (15-37) 08/09/20 05:37 ALT 15 Units/L (12-78) 08/09/20 05:37 Alkaline Phosphatase 80 Units/L (46-116) 08/09/20 05:37 Creatine Kinase 748 Units/L (39-308) H 08/08/20 09:20 CK-MB (CK-2) 4.7 ng/mL (0-4.0) H* 08/08/20 09:20 CK/CKMB % Calc 0.6 % (<4) 08/08/20 09:20 Troponin I 0.09 ng/mL (0-1.5) 08/08/20 09:20 C-Reactive Protein 51.90 mg/L (0-3.0) H 08/05/20 05:29 B-Natriuretic Peptide 156 pg/mL (0-79) H 08/08/20 03:50 Total Protein 5.3 g/dL (6.4-8.2) L 08/09/20 05:37 Albumin 1.9 g/dL (3.4-5.0) L 08/09/20 05:37 Globulin 3.4 g/dL (2.5-4.5) 08/09/20 05:37 Albumin/Globulin Ratio 0.6 Ratio (1.1-2.1) L 08/09/20 05:37 Prealbumin 9.7 mg/dL (18-35.7) L 08/09/20 05:33 Triglycerides 82 mg/dL (0-150) 08/09/20 05:33 Amylase 36 Units/L (25-115) 08/04/20 13:27 Lipase 71 Units/L (73-393) L 08/04/20 13:27 Specimen Type Catherized urine 08/08/20 00:04 Urine Color Straw (YELLOW) 08/08/20 00:04 Urine Appearance Hazy (CLEAR) 08/08/20 00:04 Urine pH 5.0 (5.0 - 8.0) 08/08/20 00:04 Ur Specific [place] 1.010 (1.000-1.030) 08/08/20 00:04 Urine Protein 3+ (NEGATIVE) 08/08/20 00:04 Urine Glucose (UA) Negative (NEGATIVE) 08/08/20 00:04 Urine Ketones Negative (NEGATIVE) 08/08/20 00:04 Urine Occult Blood 5+ (NEGATIVE) 08/08/20 00:04 Urine Nitrite Negative (NEGATIVE) 08/08/20 00:04 Urine Bilirubin Negative (NEGATIVE) 08/08/20 00:04 Urine Urobilinogen Normal (NORMAL) 08/08/20 00:04 Ur Leukocyte Esterase 3+ (NEGATIVE) 08/08/20 00:04 Urine RBC Tntc /HPF (0-3) A 08/05/20 00:00 Urine WBC Tntc /HPF (0-5) A 08/05/20 00:00 Ur Squamous Epith Cells Negative /HPF (NEGATIVE) 08/05/20 00:00 Urine Bacteria 3+ /HPF (NEGATIVE) 08/05/20 00:00 Urine Yeast Numerous /HPF (NEGATIVE) 08/05/20 00:00 Ur Culture Indicated? Yes/culture set up 08/05/20 00:00 SARS CoV-2 RNA Rapid HEMA Negative (NEGATIVE) 08/04/20 20:20 - Assessment and Plan 1: aspiration with respiratory failure /CHF. dehydration and renal failure. subsiding ileus. very limited ambulation .. multiple decubitus ulcers positive for MRSA .. to keep NGT . IVF and TPN , ATB , . repeat bdominal Xray in AM .. - Problem Patient Problems: Patient Problems Urinary tract infection (Acute) N39.0 Sacral decubitus ulcer (Acute) L89.159 Abdominal pain (Acute) R10.9 Nausea and vomiting (Acute) R11.2 Dehydration (Acute) E86.0 Ileus (Acute) K56.7 Fecal impaction (Resolved) K56.41 Aspiration pneumonia (Acute) J69.0 CHF (congestive heart failure) (Acute) I50.9
[2020-08-09] MEDS: PEPCID 20 MG IV PREMIX* 20 MG/50 ML BAG IV SCH (20:19)
[2020-08-10] MEDS ORDERED: LACRI-LUBE S.O.P. ONE (00:34)
[2020-08-10] MEDS: LACRI-LUBE S.O.P. AFFEYE SCH ×3 (00:50→20:32)
[2020-08-10] MEDS: NS 1000 ML 1,000 ML IV SCH ×4 (02:05→21:53)
[2020-08-10] MEDS: PRECEDEX 400 MCG/100 ML PREMIX 400 MCG/100 ML INFUS..BTL IV PRN ×4 (03:39→18:56)
[2020-08-10 05:04] LABS: BASOPHILS % (AUTO) 0.1 % (0.2-1.0); EOSINOPHILS # (AUTO) 0.1 x10^3/uL (0.0-0.2); EOSINOPHILS % (AUTO) 1.3 % (0.9-2.9); HEMATOCRIT 28.9 % (42.0-54.0); HEMOGLOBIN 9.3 g/dL (13.5-18.0); LYMPHOCYTES # (AUTO) 0.9 X10^3/uL (1.3-2.9); LYMPHOCYTES % (AUTO) 12.3 % (21.0-51.0); MEAN CORPUSCULAR HEMOGLOBIN 27.8 pg (27.0-34.0); MEAN CORPUSCULAR HGB CONC 32.1 g/dL (33.0-35.0); MEAN CORPUSCULAR VOLUME 86.6 fL (80.0-100.0); MEAN PLATELET VOLUME 7.2 fL (7.4-11.0); MONOCYTES # (AUTO) 0.4 x10^3/uL (0.3-0.8); MONOCYTES % (AUTO) 5.5 % (0.0-13.0); NEUTROPHILS # (AUTO) 5.8 x10^3/uL (2.2-4.8); NEUTROPHILS % (AUTO) 80.8 % (42.0-75.0); PLATELET COUNT 226 X10^3/uL (150.0-450.0); RED BLOOD COUNT 3.33 X10^6/uL (4.7-6.0); RED CELL DISTRIBUTION WIDTH 16.2 % (11.6-16.5); WHITE BLOOD COUNT 7.2 X10^3/uL (3.6-10.0)
[2020-08-10 05:09] LABS: PREALBUMIN 7.7 mg/dL (18-35.7)
[2020-08-10 05:13] LABS: ALBUMIN 1.6 g/dL (3.4-5.0); CALCIUM 7.4 mg/dL (8.5-10.1); CARBON DIOXIDE 23.2 mmol/L (21-32); COR CA(FOR HYPOALB) 9.3 mg/dL (8.5-10.1); CREATININE 1.66 mg/dL (0.70-1.30); MAGNESIUM 2.1 mg/dL (1.7-2.9)
[2020-08-10 05:24] LABS: BAND NEUTROPHILS % 10 % (0-10); PLATELET MORPHOLOGY COMMENT NORMAL (NORMAL)
--- NOTE | 2020-08-10 05:42 | RAD ---
HISTORYSOB, VENTILATOR DEPENDENCESTUDYCHEST, 1 [id number]/2021FINDINGSThe trachea is midline. Endotracheal tube tip above the rafi. NG tube tip in the gastric fundus. Right Port-A-Cath tip in proximal right atrium. The cardiac silhouette is stable.. Suboptimal inspiratory effort. Patchy bilateral infiltrates unchanged. No pneumothorax.. The bony thorax is unremarkable.IMPRESSIONStable portable chestElectronically signed by: Xu Dawn (Aug 10, 2020 05:40:40)
[2020-08-10 06:02] LABS: ABG ALLEN TEST POS; ABG BASE EXCESS -1.8 mmol/L (-2.0-2.0); ABG HCO3 22.1 mmol/L (22-26)
--- NOTE | 2020-08-10 06:06 | RAD ---
HISTORYIleus, fecal [id number]/2021FINDINGSThere is a dilated loop of small bowel in the left upper quadrant more prominent than on the prior examination. However there is gas distally in more normal caliber small bowel and colon. Findings could be consistent with partial small bowel obstruction or i leus. A large amount of stool is not identified. No abnormal masses or abnormal calcifications are id entified. There is a vascular line likely in the right femoral vein. Regional skeleton is intact.IMPR ESSIONSome increase in small bowel distension when compared with the prior examination but with a lar ge amount of gas still present distally. Findings are most consistent with an ileus, however, an thuy y ordered partial small bowel obstruction ball moodElectronically signed by: WILLIAM SHAIKH (Aug 10 06:03:58)
[2020-08-10] MEDS ORDERED: PHARMACY COMMENT IV NR (08:30)
[2020-08-10] MEDS: DUONEB 0.5 MG/3 MG (3 mL) NEB SCH ×4 (08:35→20:56)
[2020-08-10] MEDS ORDERED: LOVENOX INJ 30 MG SYR SC ONE (08:42)
[2020-08-10] MEDS: INVANZ INJ 1 GM VIAL 1 GM in NS 100 ML IV + SPIKE MINIBAG* 100 ML IV SCH (08:54)
[2020-08-10] MEDS: LOVENOX INJ 30 MG SYR SC SCH (08:54)
[2020-08-10] MEDS ORDERED: FLEET ENEMA ADULT PR ONE (09:00)
[2020-08-10] MEDS: VOLTAREN 1 % GEL MULTI DOSE TUBE TOP SCH ×2 (09:03→20:32)
[2020-08-10] MEDS: LASIX IVP SCH ×2 (09:30→17:26)
[2020-08-10 09:31] LABS: CREATININE 1.73 mg/dL (0.70-1.30)
[2020-08-10] MEDS ORDERED: TYLENOL SUPP 650 MG PR PRN (09:31)
[2020-08-10] MEDS ORDERED: TRACE ELEMENTS IV SCH ×7 (10:00)
[2020-08-10] MEDS ORDERED: MVI IV SCH ×7 (10:00)
[2020-08-10] MEDS ORDERED: CLINIMIX IV SCH ×7 (10:00)
[2020-08-10] MEDS ORDERED: [UNRECOGNIZED DRUG - OTHER] IV SCH ×7 (10:00)
[2020-08-10] MEDS: DIFLUCAN 100 MG IV (MIX by PHARMACY)* 100 MG/50 ML BAG IV SCH (10:13)
--- NOTE | 2020-08-10 10:34 | PCM.PROG ---
Progress Note - Progress Note for Day of Date of Exam: 08/10/20 - Subjective Subjective: IS BEING TREATED FOR ASPIRATION PNEUMONIA, ILEUS, UTI, DEHYDRATION, ACUTE RENAL FAILURE, AND HYPOTENSION. HE REMAINS ON THE MECHANICAL VENT THIS MORNING. AN NG TUBE REMAINS IN PLACE TO LOW INTERMITTENT SUCTION. NG TUBE DRAINAGE IS MILD. VENT SETTINGS ARE: A/C, VENT RATE 14, TIDAL VOLUME 550, PEEP 5, FI02 45. HE HAS HAD GOOD URINE OUTPUT. ON EXAMINATION, HEART IS REGULAR IN RATE AND RHYTHM. BILATERAL LUNGS ARE NOTED WITH DIMINISHED LUNG SOUNDS THROUGHOUT. ABDOMEN IS ROUND, SOFT, AND CONTINUES TO BE DISTENDED. DISTENTION CONTINUES TO DECREASE. HYPOACTIVE BOWEL SOUNDS ARE NOTED IN ALL QUADRANTS. PATIENT IS NOTED TO HAVE MULTIPLE PRESSURE ULCERS TO SACRUM AND LOWER EXTREMITIES. SEE WOUND ASSESSMENT. HIS VITALS THIS MORNING ARE: 100.7-68-15-98%-115/56. LABS WERE OBTAINED. ABNORMAL LAB VALUES INCLUDE THE FOLLOWING: RBC 3.33, HGB 9.3, HCT 28.9, POTASSIUM 2.6, BUN 52, CREATININE 1.66, GLUCOSE 187, CALCIUM 7.4, TOTAL PROTEIN 5.0, ALBUMIN 1.6. URINE CULTURE REVEALS GROWTH OF YEAST. RIGHT KNEE AND LEFT ANKLE WOUND CULTURES REVEAL GROWTH OF MRSA. SPUTUM CULTURES REVEAL GROWTH OF PROTEUS MIRABILIS AND E.COLI. BLOOD CULTURES ARE PENDING. TODAYS KUB REVEALED: There is a voice recognition error in the impression. The impression should read: Some increase in small bowel distension when compared with the prior examination but with a large amount of gas still present distally. Findings are most consistent with a continued ileus however an early or partial small bowel obstruction is not excluded. TODAY, WE WILL CONTINUE WITH NORMAL SALINE, TPN AT 50 ML/HR, INVANZ, VANCOMYCIN, AND CURRENT PLAN OF CARE. WE WILL ADD ADDITIONAL POTASSIUM TO HIS TPN DUE TO PERSISTENT HYPOKALEMIA. WILL CONTINUE TO MONITOR PATIENT. WE WILL CONTINUE TO WEAN HIS OXYGEN. OTHERWISE, WE WILL FOLLOW UP WITH AM LABS AND CONTINUE TO MONITOR. TIME SPENT ON CLINICAL ASSESSMENT, REVIEWING LABS AND IMAGING, DECISION MAKING, AND DOCUMENTATION, WAS GREATER THAN 75 MINUTES. - Past Medical Family Social History Past Med/Fam/Surg Hx: No changes since H&P Allergies: Allergies doxycycline Allergy (Verified 04/10/19 17:47) - Review of Systems ROS: No change since H&P - Vital Signs and I&O's Vital Signs: Temperature 100.5 F Pulse Rate [Right Radial] 77 Pulse Rate 74 Respiratory Rate 18 Blood Pressure [Right Arm] 110/52 Blood Pressure 107/45 O2 Sat by Pulse Oximetry 97 Intake and Output: Intake & Output 08/07/20 08/08/20 08/09/20 08/10/20 11:59 11:59 11:59 11:59 Intake Total 1306 / 1306 3220 / 3220 7472 / 7472 4819 / 4819 Output Total 1120 / 1120 3247 / 3247 2214 / 2236 3262 / 3262 Balance 186 / 186 -27 / -27 5258 / 5236 1557 / 1557 - Physical Exam Oriented: Unable to test Eyes: Normal Ear: Normal Nose: Normal Throat: Normal Respiratory: Generalized, Diminished Cardiovascular: Irregular : Normal Auscultation: Bowel Sounds: Decreased Palpation: Normal Tenderness: Other (mild distention , soft abdomen . BS+ but hypoactive .) Skin: Wound (SEE WOUND ASSESSMENT ) Musculoskeletal: Normal Psychiatric: Other (SEDATED) Mood Description: Calm Affect: Normal Speech Pattern: Artificially Ventilated - Laboratory and Diagnostics Result Diagrams: 08/10/20 04:20 08/10/20 08:28 Labs: 08/08/20 16:45 Sputum - Expectorated Sputum Sputum Culture - Preliminary Proteus Mirabilis 08/07/20 23:01 Sputum - Endotracheal Wash Sputum Culture - Final Escherichia Coli Proteus Mirabilis 08/07/20 23:01 Sputum - Endotracheal Wash - Final 08/07/20 20:53 Urine,Clean Catch Urine Culture - Final 08/07/20 21:18 Blood Blood Culture - Preliminary 08/07/20 21:08 Blood Blood Culture - Preliminary 08/05/20 17:17 Leg - Left Gram Stain - Final 08/05/20 17:17 Leg - Left Wound Culture - Final Methicillin Resis Staph Aureus 08/05/20 09:54 Blood Blood Culture - Preliminary 08/05/20 09:46 Blood Blood Culture - Preliminary 08/05/20 17:17 Knee - Right Gram Stain - Final 08/05/20 17:17 Knee - Right Wound Culture - Final Methicillin Resis Staph Aureus 08/05/20 17:17 Ankle - Left Gram Stain - Final 08/05/20 17:17 Ankle - Left Wound Culture - Final Methicillin Resis Staph Aureus 08/05/20 00:00 Urine,Clean Catch Urine Culture - Final Laboratory WBC 7.2 X10^3/uL (3.6-10.0) 08/10/20 04:20 RBC 3.33 X10^6/uL (4.7-6.0) L 08/10/20 04:20 Hgb 9.3 g/dL (13.5-18.0) L 08/10/20 04:20 Hct 28.9 % (42.0-54.0) L 08/10/20 04:20 MCV 86.6 fL (80.0-100.0) 08/10/20 04:20 MCH 27.8 pg (27.0-34.0) 08/10/20 04:20 MCHC 32.1 g/dL (33.0-35.0) L 08/10/20 04:20 RDW 16.2 % (11.6-16.5) 08/10/20 04:20 Plt Count 226 X10^3/uL (150.0-450.0) 08/10/20 04:20 Plt Count Comment Adequate (ADEQUATE) 08/10/20 04:20 MPV 7.2 fL (7.4-11.0) L 08/10/20 04:20 Neut % (Auto) 80.8 % (42.0-75.0) H 08/10/20 04:20 Lymph % (Auto) 12.3 % (21.0-51.0) L 08/10/20 04:20 [place] % (Auto) 5.5 % (0.0-13.0) 08/10/20 04:20 Eos % (Auto) 1.3 % (0.9-2.9) 08/10/20 04:20 Baso % (Auto) 0.1 % (0.2-1.0) L 08/10/20 04:20 Neut # (Auto) 5.8 x10^3/uL (2.2-4.8) H 08/10/20 04:20 Lymph # (Auto) 0.9 X10^3/uL (1.3-2.9) L 08/10/20 04:20 [place] # (Auto) 0.4 x10^3/uL (0.3-0.8) 08/10/20 04:20 Eos # (Auto) 0.1 x10^3/uL (0.0-0.2) 08/10/20 04:20 Baso # (Auto) 0.0 X10^3/uL (0.0-0.1) 08/10/20 04:20 Absolute Nucleated RBC 0.0 /100WBC 08/10/20 04:20 Total Counted 100 08/10/20 04:20 Neutrophils % (Manual) 67 % (39-76) 08/10/20 04:20 Band Neutrophils % 10 % (0-10) 08/10/20 04:20 Lymphocytes % (Manual) 17 % (13-43) 08/10/20 04:20 Monocytes % (Manual) 4 % (4-9) 08/10/20 04:20 Eosinophils % (Manual) 2 % (0-6) 08/10/20 04:20 Plt Morphology Comment Normal (NORMAL) 08/10/20 04:20 RBC Morphology Normal (NORMAL) 08/10/20 04:20 ESR 67 MM/HOUR (0-15) H 08/04/20 13:27 Sample Site Rrad 08/10/20 06:00 ABG pH 7.420 (7.35-7.45) 08/10/20 06:00 ABG pCO2 34.0 mmHg (35.0-45.0) L 08/10/20 06:00 ABG pO2 73.0 mmHg (80.0-100.0) L 08/10/20 06:00 ABG HCO3 22.1 mmol/L (22-26) 08/10/20 06:00 ABG O2 Saturation 95.0 % (90-100) 08/10/20 06:00 ABG Base Excess -1.8 mmol/L (-2.0-2.0) 08/10/20 06:00 Félix Test Pos 08/10/20 06:00 A-a Gradient 205.0 mmHg 08/10/20 06:00 FiO2 45.0 08/10/20 06:00 Blood Gas Comments Jewel abg well-mtf 08/10/20 06:00 Sodium 142 mmol/L (136-145) 08/10/20 04:20 Corrected Sodium 144 mmol/L (136-145) 08/10/20 04:20 Potassium 2.6 mmol/L (3.5-5.1) L* 08/10/20 04:20 Chloride 108 mmol/L (98-107) H 08/10/20 04:20 Carbon Dioxide 23.2 mmol/L (21-32) 08/10/20 04:20 BUN 52 mg/dL (7-18) H 08/10/20 04:20 Creatinine 1.73 mg/dL (0.70-1.30) H 08/10/20 08:28 Est GFR (MDRD) Af Amer 51 (>60) L 08/10/20 04:20 Est GFR (MDRD) Non-Af 42 (>60) L 08/10/20 04:20 Glucose 187 mg/dL (65-99) H 08/10/20 04:20 POC Glucose (mg/dL) 157 mg/dL (65-99) H 08/10/20 05:05 Lactic Acid 2.8 mmol/L (0.4-2.0) H 08/07/20 21:18 Calcium 7.4 mg/dL (8.5-10.1) L 08/10/20 04:20 Corrected Calcium 9.3 mg/dL (8.5-10.1) 08/10/20 04:20 Phosphorus 2.6 mg/dL (2.6-4.7) 08/09/20 05:33 Magnesium 2.1 mg/dL (1.7-2.9) 08/10/20 04:20 Total Bilirubin 0.40 mg/dL (0.2-1.0) 08/10/20 04:20 AST 17 Units/L (15-37) 08/10/20 04:20 ALT 13 Units/L (12-78) 08/10/20 04:20 Alkaline Phosphatase 71 Units/L (46-116) 08/10/20 04:20 Creatine Kinase 748 Units/L (39-308) H 08/08/20 09:20 CK-MB (CK-2) 4.7 ng/mL (0-4.0) H* 08/08/20 09:20 CK/CKMB % Calc 0.6 % (<4) 08/08/20 09:20 Troponin I 0.09 ng/mL (0-1.5) 08/08/20 09:20 C-Reactive Protein 51.90 mg/L (0-3.0) H 08/05/20 05:29 B-Natriuretic Peptide 156 pg/mL (0-79) H 08/08/20 03:50 Total Protein 5.0 g/dL (6.4-8.2) L 08/10/20 04:20 Albumin 1.6 g/dL (3.4-5.0) L 08/10/20 04:20 Globulin 3.4 g/dL (2.5-4.5) 08/10/20 04:20 Albumin/Globulin Ratio 0.5 Ratio (1.1-2.1) L 08/10/20 04:20 Prealbumin 7.7 mg/dL (18-35.7) L 08/10/20 04:20 Triglycerides 82 mg/dL (0-150) 08/09/20 05:33 Amylase 36 Units/L (25-115) 08/04/20 13:27 Lipase 71 Units/L (73-393) L 08/04/20 13:27 Carcinoembryonic Ag 3.9 ng/mL (0.0-3.0) H 08/07/20 04:05 Specimen Type Catherized urine 08/08/20 00:04 Urine Color Straw (YELLOW) 08/08/20 00:04 Urine Appearance Hazy (CLEAR) 08/08/20 00:04 Urine pH 5.0 (5.0 - 8.0) 08/08/20 00:04 Ur Specific [place] 1.010 (1.000-1.030) 08/08/20 00:04 Urine Protein 3+ (NEGATIVE) 08/08/20 00:04 Urine Glucose (UA) Negative (NEGATIVE) 08/08/20 00:04 Urine Ketones Negative (NEGATIVE) 08/08/20 00:04 Urine Occult Blood 5+ (NEGATIVE) 08/08/20 00:04 Urine Nitrite Negative (NEGATIVE) 08/08/20 00:04 Urine Bilirubin Negative (NEGATIVE) 08/08/20 00:04 Urine Urobilinogen Normal (NORMAL) 08/08/20 00:04 Ur Leukocyte Esterase 3+ (NEGATIVE) 08/08/20 00:04 Urine RBC Tntc /HPF (0-3) A 08/05/20 00:00 Urine WBC Tntc /HPF (0-5) A 08/05/20 00:00 Ur Squamous Epith Cells Negative /HPF (NEGATIVE) 08/05/20 00:00 Urine Bacteria 3+ /HPF (NEGATIVE) 08/05/20 00:00 Urine Yeast Numerous /HPF (NEGATIVE) 08/05/20 00:00 Ur Culture Indicated? Yes/culture set up 08/05/20 00:00 SARS CoV-2 RNA Rapid HEMA Negative (NEGATIVE) 08/04/20 20:20 - Plan (1) Aspiration pneumonia Status: Acute Qualifiers: Aspiration pneumonia type: due to vomit Laterality: unspecified laterality Lung location: unspecified part of lung Qualified Code(s): J69.0 - Pneumonitis due to inhalation of food and vomit Plan: NORMAL SALINE AT 50 ML/HR, TPN AT 50 ML/HR, VANCOMYCIN, INVANZ 1G IV DAILY, DUONEBS, DIFLUCAN 100MG IV DAILY, DUONEBS QID, DOPAMINE DRIP, PRESEDEX DRIP, VERSED DRIP, PEPCID 20MG IV HS, PROTONIX 40MG IV BID (2) CHF (congestive heart failure) Status: Acute Qualifiers: Heart failure type: unspecified Heart failure chronicity: acute on chronic Qualified Code(s): I50.9 - Heart failure, unspecified (3) Ileus Status: Acute Plan: NORMAL SALINE AT 50 ML/HR, VANCOMYCIN, INVANZ 1G IV DAILY, DIFLUCAN 100MG IV DAILY, DUONEBS QID, DOPAMINE DRIP, PRESEDEX DRIP, VERSED DRIP, PEPCID 20MG IV HS, PROTONIX 40MG IV BID (4) Abdominal pain Status: Acute Qualifiers: Abdominal location: left lower quadrant Qualified Code(s): R10.32 - Left lower quadrant pain (5) Urinary tract infection Status: Acute Qualifiers: Urinary tract infection type: acute cystitis Hematuria presence: with hematuria Qualified Code(s): N30.01 - Acute cystitis with hematuria (6) Dehydration Status: Acute (7) Nausea and vomiting Status: Acute Qualifiers: Vomiting Intractability: intractable (8) Sacral decubitus ulcer Status: Acute Qualifiers: Pressure injury stage: unspecified pressure injury stage Qualified Code(s): L89.159 - Pressure ulcer of sacral region, unspecified stage (9) Fecal impaction Status: Resolved Plan: COLACE 200MG PO BID, MILK OF MAGNESIA 15ML PO QID, MIRALAX 17G PO DAILY
[2020-08-10 10:35] LABS: VANCOMYCIN,TROUGH 21.3 ug/mL (15-20)
[2020-08-10] MEDS: DOPAMINE IV PREMIX 400 MG/250 ML 400 MG/250 ML BAG IV PRN ×2 (11:22→21:52)
[2020-08-10] MEDS: BUTT CREAM (COMPOUND) TOP PRN (11:24)
[2020-08-10] MEDS: VANCOMYCIN IV *PREMIX 1 G/200 ML BAG 1 G/200 ML PIGGYBACK IV SCH (11:45)
--- NOTE | 2020-08-10 15:40 | DR.PROGNOT ---
Hospital Progress Notes - Progress Note for Day of: Progress Note Date: 08/10/20 - Chief Complaint Chief Complaint: still on vent and BP support . moderate abdominal distention , no BM ( ileus ). moderate drainage in NGT. fair urine out put . BUN/Creat 52/1.68..K 2.9..Alb 1.6. temp 98.2 - Past Medical Family Social History Past Med/Fam/Surg Hx: No changes since H&P Allergies: Allergies doxycycline Allergy (Verified 04/10/19 17:47) - Review Of Systems ROS: No change since H&P - Vital Signs Vital Signs: Temperature 98.7 F Pulse Rate [Right Radial] 72 Pulse Rate 74 Respiratory Rate 18 Blood Pressure [Right Arm] 99/50 Blood Pressure 107/45 O2 Sat by Pulse Oximetry 96 - Physical Exam Oriented: Unable to test Eyes: Normal Ear: Normal Nose: Normal Throat: Normal Respiratory: Generalized, Diminished Cardiovascular: Irregular : Normal GI:Auscultation: Decreased GI:Palpation: Other (moderate distention , BS hypoactive ) GI: Tenderness: Other (mild distention , soft abdomen . BS+ but hypoactive .) Skin: Wound (SEE WOUND ASSESSMENT ) Musculoskeletal: Normal Psychiatric: Other (SEDATED) Mood Description: Calm Affect: Normal Speech Pattern: Artificially Ventilated - Laboratory and Diagnostics Result Diagrams: 08/10/20 04:20 08/10/20 08:28 Labs: 08/05/20 09:54 Blood Blood Culture - Final 08/05/20 09:46 Blood Blood Culture - Final 08/08/20 16:45 Sputum - Expectorated Sputum Sputum Culture - Preliminary Proteus Mirabilis 08/07/20 23:01 Sputum - Endotracheal Wash Sputum Culture - Final Escherichia Coli Proteus Mirabilis 08/07/20 23:01 Sputum - Endotracheal Wash - Final 08/07/20 20:53 Urine,Clean Catch Urine Culture - Final 08/07/20 21:18 Blood Blood Culture - Preliminary 08/07/20 21:08 Blood Blood Culture - Preliminary 08/05/20 17:17 Leg - Left Gram Stain - Final 08/05/20 17:17 Leg - Left Wound Culture - Final Methicillin Resis Staph Aureus 08/05/20 17:17 Knee - Right Gram Stain - Final 08/05/20 17:17 Knee - Right Wound Culture - Final Methicillin Resis Staph Aureus 08/05/20 17:17 Ankle - Left Gram Stain - Final 08/05/20 17:17 Ankle - Left Wound Culture - Final Methicillin Resis Staph Aureus 08/05/20 00:00 Urine,Clean Catch Urine Culture - Final Laboratory WBC 7.2 X10^3/uL (3.6-10.0) 08/10/20 04:20 RBC 3.33 X10^6/uL (4.7-6.0) L 08/10/20 04:20 Hgb 9.3 g/dL (13.5-18.0) L 08/10/20 04:20 Hct 28.9 % (42.0-54.0) L 08/10/20 04:20 MCV 86.6 fL (80.0-100.0) 08/10/20 04:20 MCH 27.8 pg (27.0-34.0) 08/10/20 04:20 MCHC 32.1 g/dL (33.0-35.0) L 08/10/20 04:20 RDW 16.2 % (11.6-16.5) 08/10/20 04:20 Plt Count 226 X10^3/uL (150.0-450.0) 08/10/20 04:20 Plt Count Comment Adequate (ADEQUATE) 08/10/20 04:20 MPV 7.2 fL (7.4-11.0) L 08/10/20 04:20 Neut % (Auto) 80.8 % (42.0-75.0) H 08/10/20 04:20 Lymph % (Auto) 12.3 % (21.0-51.0) L 08/10/20 04:20 [place] % (Auto) 5.5 % (0.0-13.0) 08/10/20 04:20 Eos % (Auto) 1.3 % (0.9-2.9) 08/10/20 04:20 Baso % (Auto) 0.1 % (0.2-1.0) L 08/10/20 04:20 Neut # (Auto) 5.8 x10^3/uL (2.2-4.8) H 08/10/20 04:20 Lymph # (Auto) 0.9 X10^3/uL (1.3-2.9) L 08/10/20 04:20 [place] # (Auto) 0.4 x10^3/uL (0.3-0.8) 08/10/20 04:20 Eos # (Auto) 0.1 x10^3/uL (0.0-0.2) 08/10/20 04:20 Baso # (Auto) 0.0 X10^3/uL (0.0-0.1) 08/10/20 04:20 Absolute Nucleated RBC 0.0 /100WBC 08/10/20 04:20 Total Counted 100 08/10/20 04:20 Neutrophils % (Manual) 67 % (39-76) 08/10/20 04:20 Band Neutrophils % 10 % (0-10) 08/10/20 04:20 Lymphocytes % (Manual) 17 % (13-43) 08/10/20 04:20 Monocytes % (Manual) 4 % (4-9) 08/10/20 04:20 Eosinophils % (Manual) 2 % (0-6) 08/10/20 04:20 Plt Morphology Comment Normal (NORMAL) 08/10/20 04:20 RBC Morphology Normal (NORMAL) 08/10/20 04:20 ESR 67 MM/HOUR (0-15) H 08/04/20 13:27 Sample Site Rrad 08/10/20 06:00 ABG pH 7.420 (7.35-7.45) 08/10/20 06:00 ABG pCO2 34.0 mmHg (35.0-45.0) L 08/10/20 06:00 ABG pO2 73.0 mmHg (80.0-100.0) L 08/10/20 06:00 ABG HCO3 22.1 mmol/L (22-26) 08/10/20 06:00 ABG O2 Saturation 95.0 % (90-100) 08/10/20 06:00 ABG Base Excess -1.8 mmol/L (-2.0-2.0) 08/10/20 06:00 Félix Test Pos 08/10/20 06:00 A-a Gradient 205.0 mmHg 08/10/20 06:00 FiO2 45.0 08/10/20 06:00 Blood Gas Comments Jewel abg well-mtf 08/10/20 06:00 Sodium 142 mmol/L (136-145) 08/10/20 04:20 Corrected Sodium 144 mmol/L (136-145) 08/10/20 04:20 Potassium 2.6 mmol/L (3.5-5.1) L* 08/10/20 04:20 Chloride 108 mmol/L (98-107) H 08/10/20 04:20 Carbon Dioxide 23.2 mmol/L (21-32) 08/10/20 04:20 BUN 52 mg/dL (7-18) H 08/10/20 04:20 Creatinine 1.73 mg/dL (0.70-1.30) H 08/10/20 08:28 Est GFR (MDRD) Af Amer 51 (>60) L 08/10/20 04:20 Est GFR (MDRD) Non-Af 42 (>60) L 08/10/20 04:20 Glucose 187 mg/dL (65-99) H 08/10/20 04:20 POC Glucose (mg/dL) 176 mg/dL (65-99) H 08/10/20 11:09 Lactic Acid 2.8 mmol/L (0.4-2.0) H 08/07/20 21:18 Calcium 7.4 mg/dL (8.5-10.1) L 08/10/20 04:20 Corrected Calcium 9.3 mg/dL (8.5-10.1) 08/10/20 04:20 Phosphorus 2.6 mg/dL (2.6-4.7) 08/09/20 05:33 Magnesium 2.1 mg/dL (1.7-2.9) 08/10/20 04:20 Total Bilirubin 0.40 mg/dL (0.2-1.0) 08/10/20 04:20 AST 17 Units/L (15-37) 08/10/20 04:20 ALT 13 Units/L (12-78) 08/10/20 04:20 Alkaline Phosphatase 71 Units/L (46-116) 08/10/20 04:20 Creatine Kinase 748 Units/L (39-308) H 08/08/20 09:20 CK-MB (CK-2) 4.7 ng/mL (0-4.0) H* 08/08/20 09:20 CK/CKMB % Calc 0.6 % (<4) 08/08/20 09:20 Troponin I 0.09 ng/mL (0-1.5) 08/08/20 09:20 C-Reactive Protein 51.90 mg/L (0-3.0) H 08/05/20 05:29 B-Natriuretic Peptide 156 pg/mL (0-79) H 08/08/20 03:50 Total Protein 5.0 g/dL (6.4-8.2) L 08/10/20 04:20 Albumin 1.6 g/dL (3.4-5.0) L 08/10/20 04:20 Globulin 3.4 g/dL (2.5-4.5) 08/10/20 04:20 Albumin/Globulin Ratio 0.5 Ratio (1.1-2.1) L 08/10/20 04:20 Prealbumin 7.7 mg/dL (18-35.7) L 08/10/20 04:20 Triglycerides 82 mg/dL (0-150) 08/09/20 05:33 Amylase 36 Units/L (25-115) 08/04/20 13:27 Lipase 71 Units/L (73-393) L 08/04/20 13:27 Carcinoembryonic Ag 3.9 ng/mL (0.0-3.0) H 08/07/20 04:05 Specimen Type Catherized urine 08/08/20 00:04 Urine Color Straw (YELLOW) 08/08/20 00:04 Urine Appearance Hazy (CLEAR) 08/08/20 00:04 Urine pH 5.0 (5.0 - 8.0) 08/08/20 00:04 Ur Specific [place] 1.010 (1.000-1.030) 08/08/20 00:04 Urine Protein 3+ (NEGATIVE) 08/08/20 00:04 Urine Glucose (UA) Negative (NEGATIVE) 08/08/20 00:04 Urine Ketones Negative (NEGATIVE) 08/08/20 00:04 Urine Occult Blood 5+ (NEGATIVE) 08/08/20 00:04 Urine Nitrite Negative (NEGATIVE) 08/08/20 00:04 Urine Bilirubin Negative (NEGATIVE) 08/08/20 00:04 Urine Urobilinogen Normal (NORMAL) 08/08/20 00:04 Ur Leukocyte Esterase 3+ (NEGATIVE) 08/08/20 00:04 Urine RBC Tntc /HPF (0-3) A 08/05/20 00:00 Urine WBC Tntc /HPF (0-5) A 08/05/20 00:00 Ur Squamous Epith Cells Negative /HPF (NEGATIVE) 08/05/20 00:00 Urine Bacteria 3+ /HPF (NEGATIVE) 08/05/20 00:00 Urine Yeast Numerous /HPF (NEGATIVE) 08/05/20 00:00 Ur Culture Indicated? Yes/culture set up 08/05/20 00:00 Vancomycin Trough 21.3 ug/mL (15-20) H* 08/10/20 08:28 SARS CoV-2 RNA Rapid HEMA Negative (NEGATIVE) 08/04/20 20:20 - Assessment and Plan 1: aspiration with respiratory failure /CHF. dehydration and renal failure.DM. ileus 2nd to above .. multiple decubitus ulcers positive for MRSA .. to keep NGT . IVF and TPN , ATB ,. enemas as needed and stool culture. repeat bdominal Xray in AM .. - Problem Patient Problems: Patient Problems Urinary tract infection (Acute) N39.0 Sacral decubitus ulcer (Acute) L89.159 Abdominal pain (Acute) R10.9 Nausea and vomiting (Acute) R11.2 Dehydration (Acute) E86.0 Ileus (Acute) K56.7 Fecal impaction (Resolved) K56.41 Aspiration pneumonia (Acute) J69.0 CHF (congestive heart failure) (Acute) I50.9
[2020-08-10] MEDS: PEPCID 20 MG IV PREMIX* 20 MG/50 ML BAG IV SCH (20:32)
[2020-08-10] MEDS: VERSED IV PREMIX 100 MG/100 ML IV.SOLN IV PRN (21:53)
[2020-08-11] MEDS: PRECEDEX 400 MCG/100 ML PREMIX 400 MCG/100 ML INFUS..BTL IV PRN ×5 (00:10→21:15)
[2020-08-11 05:33] LABS: BASOPHILS % (AUTO) 0.2 % (0.2-1.0); EOSINOPHILS # (AUTO) 0.1 x10^3/uL (0.0-0.2); EOSINOPHILS % (AUTO) 1.4 % (0.9-2.9); HEMOGLOBIN 8.6 g/dL (13.5-18.0); LYMPHOCYTES # (AUTO) 0.9 X10^3/uL (1.3-2.9); LYMPHOCYTES % (AUTO) 14.8 % (21.0-51.0); MEAN CORPUSCULAR HEMOGLOBIN 28.5 pg (27.0-34.0); MEAN CORPUSCULAR HGB CONC 33.2 g/dL (33.0-35.0); MONOCYTES # (AUTO) 0.6 x10^3/uL (0.3-0.8); MONOCYTES % (AUTO) 9.5 % (0.0-13.0); NEUTROPHILS # (AUTO) 4.6 x10^3/uL (2.2-4.8); NEUTROPHILS % (AUTO) 74.1 % (42.0-75.0); PLATELET COUNT 179 X10^3/uL (150.0-450.0); RED BLOOD COUNT 3.02 X10^6/uL (4.7-6.0); RED CELL DISTRIBUTION WIDTH 16.2 % (11.6-16.5); WHITE BLOOD COUNT 6.2 X10^3/uL (3.6-10.0)
[2020-08-11 05:37] LABS: ABG BASE EXCESS -3.1 mmol/L (-2.0-2.0); ABG HCO3 21.1 mmol/L (22-26)
[2020-08-11 05:38] LABS: ABG ALLEN TEST POS
[2020-08-11 05:40] LABS: ALBUMIN 1.5 g/dL (3.4-5.0); CALCIUM 7.3 mg/dL (8.5-10.1); CARBON DIOXIDE 22.7 mmol/L (21-32); COR CA(FOR HYPOALB) 9.3 mg/dL (8.5-10.1); CREATININE 1.45 mg/dL (0.70-1.30); TOTAL PROTEIN 4.9 g/dL (6.4-8.2)
[2020-08-11 05:56] LABS: BAND NEUTROPHILS % 10 % (0-10); PLATELET MORPHOLOGY COMMENT NORMAL (NORMAL)
--- NOTE | 2020-08-11 06:45 | RAD ---
HISTORYSOBSTUDYAP [id number]/26/2021FINDINGSThere is no significant change in appearance of heart, lungs, mediastinum or support lines. Bilateral airspace disease is unchanged. No new areas of consolidation identified. There is no evidence for pneumothorax or other extrapulmonary air.IMPRESSIONNo change since 1 day earlier.Electronically signed by: YAZMIN FIGUEROA (Aug 11, 2020 06:43:47)
--- NOTE | 2020-08-11 06:49 | RAD ---
HISTORYIleus fecal [id number]/26/2021FINDINGSThere is dilatation of bowel, predominantly colon, with fecal excess. There is no significant small bowel dilatation now identified. There is no evidence for pneumatosis, developing mass or ascites. Surgical clips right upper quadrant.IMPRESSIONFindings desc ribed are consistent with constipation and colon ileus. A distal colon obstruction is less likely, es pecially since the abdomen CT from several days ago did not demonstrate any evidence for this.Electro nically signed by: YAZMIN FIGUERAO (Aug 11, 2020 06:46:57)
[2020-08-11] MEDS: DUONEB 0.5 MG/3 MG (3 mL) NEB SCH ×4 (08:21→21:35)
[2020-08-11] MEDS: VOLTAREN 1 % GEL MULTI DOSE TUBE TOP SCH ×2 (09:00→20:23)
[2020-08-11] MEDS: INVANZ INJ 1 GM VIAL 1 GM in NS 100 ML IV + SPIKE MINIBAG* 100 ML IV SCH (09:00)
[2020-08-11] MEDS: LACRI-LUBE S.O.P. AFFEYE SCH ×2 (09:30→20:23)
[2020-08-11] MEDS: VANCOMYCIN IV *PREMIX 1 G/200 ML BAG 1 G/200 ML PIGGYBACK IV SCH (10:10)
[2020-08-11] MEDS ORDERED: LOVENOX INJ 30 MG SYR SC ONE (10:17)
[2020-08-11] MEDS: LASIX IVP SCH ×2 (10:24→16:32)
[2020-08-11] MEDS: LOVENOX INJ 30 MG SYR SC SCH (10:49)
[2020-08-11] MEDS: DIFLUCAN 100 MG IV (MIX by PHARMACY)* 100 MG/50 ML BAG IV SCH ×2 (10:51→16:46)
[2020-08-11] MEDS: DOPAMINE IV PREMIX 400 MG/250 ML 400 MG/250 ML BAG IV PRN ×2 (11:00→20:23)
[2020-08-11] MEDS: ALBUMIN HUMAN 25%- 100 ML 100 ML IV SCH (11:37)
[2020-08-11] MEDS: NS 1000 ML 1,000 ML IV SCH ×2 (16:32→16:53)
[2020-08-11] MEDS: TRACE ELEMENTS IV SCH ×7 (16:35)
[2020-08-11] MEDS: MVI IV SCH ×7 (16:35)
[2020-08-11] MEDS: [UNRECOGNIZED DRUG - OTHER] IV SCH ×7 (16:35)
[2020-08-11] MEDS: CLINIMIX IV SCH ×7 (16:35)
[2020-08-11] MEDS: VERSED IV PREMIX 100 MG/100 ML IV.SOLN IV PRN (18:48)
[2020-08-11] MEDS: PEPCID 20 MG IV PREMIX* 20 MG/50 ML BAG IV SCH (20:22)
[2020-08-12] MEDS: PRECEDEX 400 MCG/100 ML PREMIX 400 MCG/100 ML INFUS..BTL IV PRN ×5 (01:37→23:30)
[2020-08-12] MEDS: NS 1000 ML 1,000 ML IV SCH ×4 (03:53→15:11)
[2020-08-12 05:35] LABS: BASOPHILS % (AUTO) 0.3 % (0.2-1.0); EOSINOPHILS # (AUTO) 0.2 x10^3/uL (0.0-0.2); EOSINOPHILS % (AUTO) 2.3 % (0.9-2.9); HEMATOCRIT 24.7 % (42.0-54.0); LYMPHOCYTES # (AUTO) 0.9 X10^3/uL (1.3-2.9); LYMPHOCYTES % (AUTO) 12.1 % (21.0-51.0); MEAN CORPUSCULAR HEMOGLOBIN 28.1 pg (27.0-34.0); MEAN CORPUSCULAR HGB CONC 32.4 g/dL (33.0-35.0); MEAN CORPUSCULAR VOLUME 86.8 fL (80.0-100.0); MEAN PLATELET VOLUME 7.5 fL (7.4-11.0); MONOCYTES # (AUTO) 0.6 x10^3/uL (0.3-0.8); MONOCYTES % (AUTO) 8.9 % (0.0-13.0); NEUTROPHILS # (AUTO) 5.4 x10^3/uL (2.2-4.8); NEUTROPHILS % (AUTO) 76.4 % (42.0-75.0); PLATELET COUNT 150 X10^3/uL (150.0-450.0); RED BLOOD COUNT 2.84 X10^6/uL (4.7-6.0); RED CELL DISTRIBUTION WIDTH 16.4 % (11.6-16.5); WHITE BLOOD COUNT 7.1 X10^3/uL (3.6-10.0)
[2020-08-12 05:49] LABS: ALANINE AMINOTRANSFERASE 10 Units/L (12-78); ALBUMIN 1.6 g/dL (3.4-5.0); ALKALINE PHOSPHATASE 67 Units/L (46-116); ASPARTATE AMINO TRANSFERASE 10 Units/L (15-37); BLOOD UREA NITROGEN 37 mg/dL (7-18); CALCIUM 7.5 mg/dL (8.5-10.1); CARBON DIOXIDE 19.2 mmol/L (21-32); CHLORIDE 113 mmol/L (98-107); COR CA(FOR HYPOALB) 9.4 mg/dL (8.5-10.1); COR NA(FOR HYPERGLY) 145 mmol/L (136-145); CREATININE 1.35 mg/dL (0.70-1.30); SODIUM 143 mmol/L (136-145); TOTAL PROTEIN 4.9 g/dL (6.4-8.2); eGFR NON BLACK RACES 54 (>60)
[2020-08-12 06:01] LABS: ABG BASE EXCESS -5.8 mmol/L (-2.0-2.0); ABG HCO3 18.5 mmol/L (22-26)
[2020-08-12 06:02] LABS: ABG ALLEN TEST POS
--- NOTE | 2020-08-12 06:18 | RAD ---
HISTORYSOBSTUDYAP [id number]/27/2021FINDINGSStable heart size and contour. There is no change in extent or distribution of right-sided infiltrates. The left diaphragm is now partially visualized, consistent with slight improvement in lower lobe airspace involvement. Support lines are similar. No complicating pneumothorax seen.IMPRESSIONPersistent bilateral pneumonia. Slight apparent improvement in left lower lobe component with no new abnormality identified.Electronically signed by: YAZMIN FIGUEROA (Aug 12, 2020 06:15:15)
[2020-08-12] MEDS: DUONEB 0.5 MG/3 MG (3 mL) NEB SCH ×4 (08:08→20:05)
[2020-08-12] MEDS: TRACE ELEMENTS IV SCH ×14 (09:23→11:24)
[2020-08-12] MEDS: CLINIMIX IV SCH ×14 (09:23→11:24)
[2020-08-12] MEDS: LACRI-LUBE S.O.P. AFFEYE SCH ×2 (09:23→20:25)
[2020-08-12] MEDS: ALBUMIN HUMAN 25%- 100 ML 100 ML IV SCH (09:23)
[2020-08-12] MEDS: MVI IV SCH ×14 (09:23→11:24)
[2020-08-12] MEDS: [UNRECOGNIZED DRUG - OTHER] IV SCH ×14 (09:23→11:24)
[2020-08-12] MEDS: INVANZ INJ 1 GM VIAL 1 GM in NS 100 ML IV + SPIKE MINIBAG* 100 ML IV SCH (09:23)
[2020-08-12] MEDS: VANCOMYCIN IV *PREMIX 1 G/200 ML BAG 1 G/200 ML PIGGYBACK IV SCH (09:24)
[2020-08-12] MEDS: VOLTAREN 1 % GEL MULTI DOSE TUBE TOP SCH ×2 (09:24→20:25)
[2020-08-12] MEDS: LASIX IVP SCH ×2 (09:24→18:35)
[2020-08-12] MEDS ORDERED: LOVENOX INJ 30 MG SYR SC ONE (09:46)
[2020-08-12] MEDS: LOVENOX INJ 30 MG SYR SC SCH (09:50)
[2020-08-12] MEDS: DIFLUCAN 100 MG IV (MIX by PHARMACY)* 100 MG/50 ML BAG IV SCH (10:30)
[2020-08-12] MEDS: VERSED IV PREMIX 100 MG/100 ML IV.SOLN IV PRN (13:35)
[2020-08-12] MEDS: DOPAMINE IV PREMIX 400 MG/250 ML 400 MG/250 ML BAG IV PRN (19:50)
[2020-08-12] MEDS: PEPCID 20 MG IV PREMIX* 20 MG/50 ML BAG IV SCH (20:30)
[2020-08-13 05:44] LABS: ABG BASE EXCESS -9.7 mmol/L (-2.0-2.0); ABG HCO3 17.6 mmol/L (22-26)
[2020-08-13 05:45] LABS: ABG ALLEN TEST POS
[2020-08-13 05:58] LABS: BASOPHILS % (AUTO) 0.3 % (0.2-1.0); EOSINOPHILS # (AUTO) 0.1 x10^3/uL (0.0-0.2); EOSINOPHILS % (AUTO) 1.2 % (0.9-2.9); HEMATOCRIT 26.2 % (42.0-54.0); HEMOGLOBIN 8.5 g/dL (13.5-18.0); LYMPHOCYTES # (AUTO) 1.4 X10^3/uL (1.3-2.9); LYMPHOCYTES % (AUTO) 14.2 % (21.0-51.0); MEAN CORPUSCULAR HEMOGLOBIN 28.3 pg (27.0-34.0); MEAN CORPUSCULAR HGB CONC 32.5 g/dL (33.0-35.0); MEAN CORPUSCULAR VOLUME 87.3 fL (80.0-100.0); MEAN PLATELET VOLUME 7.7 fL (7.4-11.0); MONOCYTES # (AUTO) 0.9 x10^3/uL (0.3-0.8); MONOCYTES % (AUTO) 8.8 % (0.0-13.0); NEUTROPHILS # (AUTO) 7.5 x10^3/uL (2.2-4.8); NEUTROPHILS % (AUTO) 75.5 % (42.0-75.0); PLATELET COUNT 175 X10^3/uL (150.0-450.0); RED BLOOD COUNT 2.99 X10^6/uL (4.7-6.0); RED CELL DISTRIBUTION WIDTH 16.4 % (11.6-16.5); WHITE BLOOD COUNT 9.9 X10^3/uL (3.6-10.0)
[2020-08-13 06:09] LABS: ALBUMIN 1.9 g/dL (3.4-5.0); CALCIUM 7.6 mg/dL (8.5-10.1); CARBON DIOXIDE 19.1 mmol/L (21-32); COR CA(FOR HYPOALB) 9.3 mg/dL (8.5-10.1); CREATININE 1.49 mg/dL (0.70-1.30); TOTAL PROTEIN 5.3 g/dL (6.4-8.2)
[2020-08-13 06:38] LABS: BAND NEUTROPHILS % 2 % (0-10); PLATELET MORPHOLOGY COMMENT NORMAL (NORMAL)
[2020-08-13] MEDS: VERSED IV PREMIX 100 MG/100 ML IV.SOLN IV PRN (07:16)
--- NOTE | 2020-08-13 07:21 | RAD ---
HISTORYIleus follow-[id number]/27/2021FINDINGSThe abdominal gas pattern is nonspecific and nonobstruct britt. Mild colonic dilatation is identified however gas is present in the rectum. This likely represen ts a mild ileus improved when compared with the prior examination. No abnormal masses or abnormal jim cifications are identified. Regional skeleton is intact. There is a right-sided femoral vascular line present.IMPRESSIONImproving ileusElectronically signed by: WILLIAM SHAIKH (Aug 13, 2020 07:19:38)
--- NOTE | 2020-08-13 07:45 | RAD ---
HISTORYShortness of breathSTUDYChest AP sjoncsgyKWZGPRLOPS74/28/2021FINDINGSThere is an endotracheal tube above the rafi. There is a pacema ker present on the left. There is a port present on the right. Heart size is accentuated by marked hy po orally. It is likely upper limits normal in size. Diffuse bilateral perihilar alveolar filling has worsened when compared to the prior examination. Findings could be due to worsening bilateral pneumo delroy, worsening cardiogenic or noncardiogenic pulmonary edema or ARDS. No pleural effusions are identi fied. Bony thorax is unremarkable with the exception of bilateral glenohumeral joint degenerative bladimir nt disease.IMPRESSIONContinued marked hypo inflationWorsening diffuse bilateral perihilar alveolar fi lling. Differential diagnosis as aboveElectronically signed by: WILLIAM SHAIKH (Aug 13, 2020 07:42:26)
[2020-08-13] MEDS: DOPAMINE IV PREMIX 400 MG/250 ML 400 MG/250 ML BAG IV PRN ×3 (08:05→21:02)
[2020-08-13] MEDS: NS 1000 ML 1,000 ML IV SCH ×4 (08:11→21:01)
[2020-08-13] MEDS: PRECEDEX 400 MCG/100 ML PREMIX 400 MCG/100 ML INFUS..BTL IV PRN (08:17)
[2020-08-13] MEDS ORDERED: PHARMACY COMMENT IV NR (08:30)
[2020-08-13] MEDS: DUONEB 0.5 MG/3 MG (3 mL) NEB SCH ×4 (08:41→20:07)
[2020-08-13] MEDS: INVANZ INJ 1 GM VIAL 1 GM in NS 100 ML IV + SPIKE MINIBAG* 100 ML IV SCH (08:59)
[2020-08-13] MEDS: LACRI-LUBE S.O.P. AFFEYE SCH ×2 (09:01→21:04)
[2020-08-13] MEDS ORDERED: LOVENOX INJ 30 MG SYR SC ONE (09:03)
[2020-08-13] MEDS: CLINIMIX IV SCH ×7 (09:16)
[2020-08-13] MEDS: [UNRECOGNIZED DRUG - OTHER] IV SCH ×7 (09:16)
[2020-08-13] MEDS: LOVENOX INJ 30 MG SYR SC SCH (09:16)
[2020-08-13] MEDS: TRACE ELEMENTS IV SCH ×7 (09:16)
[2020-08-13] MEDS: MVI IV SCH ×7 (09:16)
[2020-08-13] MEDS: LASIX IVP SCH ×2 (09:17→17:21)
[2020-08-13 09:44] LABS: CREATININE 1.73 mg/dL (0.70-1.30)
[2020-08-13 09:47] LABS: VANCOMYCIN,TROUGH 20.9 ug/mL (15-20)
[2020-08-13] MEDS: ALBUMIN HUMAN 25%- 100 ML 100 ML IV SCH (10:22)
[2020-08-13] MEDS: VOLTAREN 1 % GEL MULTI DOSE TUBE TOP SCH ×2 (10:22→21:04)
[2020-08-13] MEDS: DIFLUCAN 100 MG IV (MIX by PHARMACY)* 100 MG/50 ML BAG IV SCH (10:51)
--- NOTE | 2020-08-13 11:01 | PCM.PROG ---
Progress Note - Progress Note for Day of Date of Exam: 08/11/20 - Subjective Subjective: IS BEING TREATED FOR ASPIRATION PNEUMONIA, ILEUS, UTI, DEHYDRATION, ACUTE RENAL FAILURE, AND HYPOTENSION. HE REMAINS ON THE MECHANICAL VENT THIS MORNING. AN NG TUBE REMAINS IN PLACE TO LOW INTERMITTENT SUCTION. NG TUBE DRAINAGE IS MILD. VENT SETTINGS ARE: A/C, VENT RATE 14, TIDAL VOLUME 550, PEAK FLOW 30, PEEP 5, FI02 35. HE HAS HAD GOOD URINE OUTPUT. ON EXAMINATION, HEART IS REGULAR IN RATE AND RHYTHM. BILATERAL LUNGS ARE NOTED WITH DIMINISHED LUNG SOUNDS THROUGHOUT. ABDOMEN IS ROUND, SOFT, AND CONTINUES TO HAVE HYPOACTIVE BOWEL SOUND IN ALL QUADRANTS. PATIENT IS NOTED TO HAVE MULTIPLE PRESSURE ULCERS TO SACRUM AND LOWER EXTREMITIES. SEE WOUND ASSESSMENT. HIS VITALS THIS MORNING ARE: 98.6-72-15-97%-103/51. LABS WERE OBTAINED. ABNORMAL LAB VALUES INCLUDE THE FOLLOWING: RBC 3.02, HGB 8.6, HCT 26.0, POTASSIUM 2.8, BUN 46, CREATININE 1.45, GLUCOSE 198, CALCIUM 7.3, AST 12, ALT 11, TOTAL PROTEIN 4.9, ALBUMIN 1.5. URINE CULTURE REVEALS GROWTH OF YEAST. RIGHT KNEE AND LEFT ANKLE WOUND CULTURES REVEAL GROWTH OF MRSA. SPUTUM CULTURES REVEAL GROWTH OF PROTEUS MIRABILIS AND E.COLI. BLOOD CULTURES ARE PENDING. TODAYS CHEST XRAY REVEALED: There is no significant change in appearance of heart, lungs, mediastinum or support lines. Bilateral airspace disease is unchanged. No new areas of consolidation identified. There is no evidence for pneumothorax or other extrapulmonary air. KUB REVEALED: Findings described are consistent with constipation and colon ileus. A distal co [place] obstruction is less likely, especially since the abdomen CT from several days ago did not demonstrate any evidence for this. TODAY, WE WILL CONTINUE WITH NORMAL SALINE, TPN AT 50 ML/HR, ALBUMIN 25% IV DAILY, INVANZ, VANCOMYCIN, AND CURRENT PLAN OF CARE. WILL CONTINUE TO MONITOR PATIENT. WE WILL CONTINUE TO WEAN HIS OXYGEN. OTHERWISE, WE WILL FOLLOW UP WITH AM LABS AND CONTINUE TO MONITOR. TIME SPENT ON CLINICAL ASSESSMENT, REVIEWING LABS AND IMAGING, DECISION MAKING, AND DOCUMENTATION, WAS GREATER THAN 75 MINUTES. - Past Medical Family Social History Past Med/Fam/Surg Hx: No changes since H&P Allergies: Allergies doxycycline Allergy (Verified 04/10/19 17:47) - Review of Systems ROS: No change since H&P - Vital Signs and I&O's Vital Signs: Temperature 98.8 F Pulse Rate [Right Radial] 87 Pulse Rate 89 Respiratory Rate 30 Blood Pressure [Right Arm] 96/48 Blood Pressure 107/45 O2 Sat by Pulse Oximetry 93 Intake and Output: Intake & Output 08/10/20 08/11/20 08/12/20 08/13/20 11:59 11:59 11:59 11:59 Intake Total 4906 / 4906 4397 / 4397 5519 / 5519 4159 / 4159 Output Total 3375 / 3470 1840 / 1930 2179 / 2229 923 / 923 Balance 1531 / 1436 2557 / 2467 3340 / 3290 3236 / 3236 - Physical Exam Oriented: Unable to test Eyes: Normal Ear: Normal Nose: Normal Throat: Normal Respiratory: Generalized, Diminished Cardiovascular: Irregular : Normal Auscultation: Bowel Sounds: Decreased Palpation: Normal Tenderness: Other (mild distention , soft abdomen . BS+ but hypoactive .) Skin: Wound (SEE WOUND ASSESSMENT ) Musculoskeletal: Normal Psychiatric: Other (SEDATED) Mood Description: Calm Affect: Normal Speech Pattern: Artificially Ventilated - Laboratory and Diagnostics Result Diagrams: 08/13/20 05:23 08/13/20 09:15 Labs: 08/08/20 16:45 Sputum - Expectorated Sputum Sputum Culture - Final Proteus Mirabilis Escherichia Coli 08/05/20 09:54 Blood Blood Culture - Final 08/05/20 09:46 Blood Blood Culture - Final 08/07/20 23:01 Sputum - Endotracheal Wash Sputum Culture - Final Escherichia Coli Proteus Mirabilis 08/07/20 23:01 Sputum - Endotracheal Wash - Final 08/07/20 20:53 Urine,Clean Catch Urine Culture - Final 08/07/20 21:18 Blood Blood Culture - Preliminary 08/07/20 21:08 Blood Blood Culture - Preliminary 08/05/20 17:17 Leg - Left Gram Stain - Final 08/05/20 17:17 Leg - Left Wound Culture - Final Methicillin Resis Staph Aureus 08/05/20 17:17 Knee - Right Gram Stain - Final 08/05/20 17:17 Knee - Right Wound Culture - Final Methicillin Resis Staph Aureus 08/05/20 17:17 Ankle - Left Gram Stain - Final 08/05/20 17:17 Ankle - Left Wound Culture - Final Methicillin Resis Staph Aureus 08/05/20 00:00 Urine,Clean Catch Urine Culture - Final Laboratory WBC 9.9 X10^3/uL (3.6-10.0) 08/13/20 05:23 RBC 2.99 X10^6/uL (4.7-6.0) L 08/13/20 05:23 Hgb 8.5 g/dL (13.5-18.0) L 08/13/20 05:23 Hct 26.2 % (42.0-54.0) L 08/13/20 05:23 MCV 87.3 fL (80.0-100.0) 08/13/20 05:23 MCH 28.3 pg (27.0-34.0) 08/13/20 05:23 MCHC 32.5 g/dL (33.0-35.0) L 08/13/20 05:23 RDW 16.4 % (11.6-16.5) 08/13/20 05:23 Plt Count 175 X10^3/uL (150.0-450.0) 08/13/20 05:23 Plt Count Comment Adequate (ADEQUATE) 08/13/20 05:23 MPV 7.7 fL (7.4-11.0) 08/13/20 05:23 Neut % (Auto) 75.5 % (42.0-75.0) H 08/13/20 05:23 Lymph % (Auto) 14.2 % (21.0-51.0) L 08/13/20 05:23 [place] % (Auto) 8.8 % (0.0-13.0) 08/13/20 05:23 Eos % (Auto) 1.2 % (0.9-2.9) 08/13/20 05:23 Baso % (Auto) 0.3 % (0.2-1.0) 08/13/20 05:23 Neut # (Auto) 7.5 x10^3/uL (2.2-4.8) H 08/13/20 05:23 Lymph # (Auto) 1.4 X10^3/uL (1.3-2.9) 08/13/20 05:23 [place] # (Auto) 0.9 x10^3/uL (0.3-0.8) H 08/13/20 05:23 Eos # (Auto) 0.1 x10^3/uL (0.0-0.2) 08/13/20 05:23 Baso # (Auto) 0.0 X10^3/uL (0.0-0.1) 08/13/20 05:23 Absolute Nucleated RBC 0.1 /100WBC 08/13/20 05:23 Total Counted 100 08/13/20 05:23 Neutrophils % (Manual) 74 % (39-76) 08/13/20 05:23 Band Neutrophils % 2 % (0-10) 08/13/20 05:23 Lymphocytes % (Manual) 17 % (13-43) 08/13/20 05:23 Monocytes % (Manual) 6 % (4-9) 08/13/20 05:23 Eosinophils % (Manual) 2 % (0-6) 08/11/20 05:09 Plt Morphology Comment Normal (NORMAL) 08/13/20 05:23 RBC Morphology Normal (NORMAL) 08/13/20 05:23 ESR 67 MM/HOUR (0-15) H 08/04/20 13:27 Sample Site Lra 08/13/20 05:40 ABG pH 7.220 (7.35-7.45) L 08/13/20 05:40 ABG pCO2 43.0 mmHg (35.0-45.0) 08/13/20 05:40 ABG pO2 62.0 mmHg (80.0-100.0) L 08/13/20 05:40 ABG HCO3 17.6 mmol/L (22-26) L* 08/13/20 05:40 ABG O2 Saturation 86.0 % (90-100) L 08/13/20 05:40 ABG Base Excess -9.7 mmol/L (-2.0-2.0) L 08/13/20 05:40 Félix Test Pos 08/13/20 05:40 A-a Gradient 134.0 mmHg 08/13/20 05:40 FiO2 35.0 08/13/20 05:40 Blood Gas Comments Jewel well mt 08/13/20 05:40 Sodium 143 mmol/L (136-145) 08/13/20 05:23 Corrected Sodium 145 mmol/L (136-145) 08/13/20 05:23 Potassium 4.3 mmol/L (3.5-5.1) 08/13/20 05:23 Chloride 113 mmol/L (98-107) H 08/13/20 05:23 Carbon Dioxide 19.1 mmol/L (21-32) L 08/13/20 05:23 BUN 39 mg/dL (7-18) H 08/13/20 05:23 Creatinine 1.73 mg/dL (0.70-1.30) H 08/13/20 09:15 Est GFR (MDRD) Af Amer 58 (>60) L 08/13/20 05:23 Est GFR (MDRD) Non-Af 48 (>60) L 08/13/20 05:23 Glucose 198 mg/dL (65-99) H 08/13/20 05:23 POC Glucose (mg/dL) 179 mg/dL (65-99) H 08/13/20 06:18 Lactic Acid 2.8 mmol/L (0.4-2.0) H 08/07/20 21:18 Calcium 7.6 mg/dL (8.5-10.1) L 08/13/20 05:23 Corrected Calcium 9.3 mg/dL (8.5-10.1) 08/13/20 05:23 Phosphorus 1.0 mg/dL (2.6-4.7) L 08/12/20 05:02 Magnesium 2.1 mg/dL (1.7-2.9) 08/10/20 04:20 Total Bilirubin 0.20 mg/dL (0.2-1.0) 08/13/20 05:23 AST 9 Units/L (15-37) L 08/13/20 05:23 ALT 9 Units/L (12-78) L 08/13/20 05:23 Alkaline Phosphatase 71 Units/L (46-116) 08/13/20 05:23 Creatine Kinase 748 Units/L (39-308) H 08/08/20 09:20 CK-MB (CK-2) 4.7 ng/mL (0-4.0) H* 08/08/20 09:20 CK/CKMB % Calc 0.6 % (<4) 08/08/20 09:20 Troponin I 0.09 ng/mL (0-1.5) 08/08/20 09:20 C-Reactive Protein 51.90 mg/L (0-3.0) H 08/05/20 05:29 B-Natriuretic Peptide 156 pg/mL (0-79) H 08/08/20 03:50 Total Protein 5.3 g/dL (6.4-8.2) L 08/13/20 05:23 Albumin 1.9 g/dL (3.4-5.0) L 08/13/20 05:23 Globulin 3.4 g/dL (2.5-4.5) 08/13/20 05:23 Albumin/Globulin Ratio 0.6 Ratio (1.1-2.1) L 08/13/20 05:23 Prealbumin 7.7 mg/dL (18-35.7) L 08/10/20 04:20 Triglycerides 100 mg/dL (0-150) 08/12/20 05:02 Amylase 36 Units/L (25-115) 08/04/20 13:27 Lipase 71 Units/L (73-393) L 08/04/20 13:27 Carcinoembryonic Ag 3.9 ng/mL (0.0-3.0) H 08/07/20 04:05 Specimen Type Catherized urine 08/08/20 00:04 Urine Color Straw (YELLOW) 08/08/20 00:04 Urine Appearance Hazy (CLEAR) 08/08/20 00:04 Urine pH 5.0 (5.0 - 8.0) 08/08/20 00:04 Ur Specific [place] 1.010 (1.000-1.030) 08/08/20 00:04 Urine Protein 3+ (NEGATIVE) 08/08/20 00:04 Urine Glucose (UA) Negative (NEGATIVE) 08/08/20 00:04 Urine Ketones Negative (NEGATIVE) 08/08/20 00:04 Urine Occult Blood 5+ (NEGATIVE) 08/08/20 00:04 Urine Nitrite Negative (NEGATIVE) 08/08/20 00:04 Urine Bilirubin Negative (NEGATIVE) 08/08/20 00:04 Urine Urobilinogen Normal (NORMAL) 08/08/20 00:04 Ur Leukocyte Esterase 3+ (NEGATIVE) 08/08/20 00:04 Urine RBC Tntc /HPF (0-3) A 08/05/20 00:00 Urine WBC Tntc /HPF (0-5) A 08/05/20 00:00 Ur Squamous Epith Cells Negative /HPF (NEGATIVE) 08/05/20 00:00 Urine Bacteria 3+ /HPF (NEGATIVE) 08/05/20 00:00 Urine Yeast Numerous /HPF (NEGATIVE) 08/05/20 00:00 Ur Culture Indicated? Yes/culture set up 08/05/20 00:00 Stl C. diff Tox B Gene Negative (NEGATIVE) 08/10/20 18:20 Stl C. diff [id number] Presumptive negative (NEGATIVE) 08/10/20 18:20 Vancomycin Trough 20.9 ug/mL (15-20) H* 08/13/20 09:15 SARS CoV-2 RNA Rapid HEMA Negative (NEGATIVE) 08/04/20 20:20 - Plan (1) Aspiration pneumonia Status: Acute Qualifiers: Aspiration pneumonia type: due to vomit Laterality: unspecified laterality Lung location: unspecified part of lung Qualified Code(s): J69.0 - Pneumonitis due to inhalation of food and vomit Plan: NORMAL SALINE AT 50 ML/HR, TPN AT 50 ML/HR, ALBUMIN 25% IV DAILY, VANCOMYCIN, INVANZ 1G IV DAILY, DUONEBS, DIFLUCAN 100MG IV DAILY, DUONEBS QID, DOPAMINE DRIP, PRESEDEX DRIP, VERSED DRIP, PEPCID 20MG IV HS, PROTONIX 40MG IV BID (2) CHF (congestive heart failure) Status: Acute Qualifiers: Heart failure type: unspecified Heart failure chronicity: acute on chronic Qualified Code(s): I50.9 - Heart failure, unspecified (3) Ileus Status: Acute Plan: NORMAL SALINE AT 50 ML/HR, VANCOMYCIN, INVANZ 1G IV DAILY, DIFLUCAN 100MG IV DAILY, DUONEBS QID, DOPAMINE DRIP, PRESEDEX DRIP, VERSED DRIP, PEPCID 20MG IV HS, PROTONIX 40MG IV BID (4) Abdominal pain Status: Acute Qualifiers: Abdominal location: left lower quadrant Qualified Code(s): R10.32 - Left lower quadrant pain (5) Urinary tract infection Status: Acute Qualifiers: Urinary tract infection type: acute cystitis Hematuria presence: with hematuria Qualified Code(s): N30.01 - Acute cystitis with hematuria (6) Dehydration Status: Acute (7) Nausea and vomiting Status: Acute Qualifiers: Vomiting Intractability: intractable (8) Sacral decubitus ulcer Status: Acute Qualifiers: Pressure injury stage: unspecified pressure injury stage Qualified Code(s): L89.159 - Pressure ulcer of sacral region, unspecified stage (9) Fecal impaction Status: Resolved Plan: COLACE 200MG PO BID, MILK OF MAGNESIA 15ML PO QID, MIRALAX 17G PO DAILY
--- NOTE | 2020-08-13 11:07 | PCM.PROG ---
Progress Note - Progress Note for Day of Date of Exam: 08/12/20 - Subjective Subjective: IS BEING TREATED FOR ASPIRATION PNEUMONIA, ILEUS, UTI, DEHYDRATION, ACUTE RENAL FAILURE, AND HYPOTENSION. HE REMAINS ON THE MECHANICAL VENT THIS MORNING. AN NG TUBE REMAINS IN PLACE TO LOW INTERMITTENT SUCTION. NG TUBE DRAINAGE IS MILD. VENT SETTINGS ARE: A/C, VENT RATE 14, TIDAL VOLUME 550, PEAK FLOW 20, PEEP 5, FI02 35. HE HAS HAD GOOD URINE OUTPUT. ON EXAMINATION, HEART IS REGULAR IN RATE AND RHYTHM. BILATERAL LUNGS ARE NOTED WITH DIMINISHED LUNG SOUNDS THROUGHOUT. ABDOMEN IS ROUND, SOFT, AND CONTINUES TO HAVE HYPOACTIVE BOWEL SOUNDS IN ALL QUADRANTS. PATIENT IS NOTED TO HAVE MULTIPLE PRESSURE ULCERS TO SACRUM AND LOWER EXTREMITIES. SEE WOUND ASSESSMENT. HIS VITALS THIS MORNING ARE: 100.7-60-23-98%-98/50. LABS WERE OBTAINED. ABNORMAL LAB VALUES INCLUDE THE FOLLOWING: RBC 2.84, HGB 8.0, HCT 24.7, POTASSIUM 3.4, CHLORIDE 113, BUN 37, CREATININE 1.35, GLUCOSE 200, CALCIUM 7.5, PHOSPHORUS 1.0, AST 10, ALT 10, TOTAL PROTEIN 4.9, ALBUMIN 1.6. URINE CULTURE REVEALS GROWTH OF YEAST. RIGHT KNEE AND LEFT ANKLE WOUND CULTURES REVEAL GROWTH OF MRSA. SPUTUM CULTURES REVEAL GROWTH OF PROTEUS MIRABILIS AND E.COLI. BLOOD CULTURES ARE PENDING. TODAYS CHEST XRAY REVEALED: Persistent bilateral pneumonia. Slight apparent improvement in left lower lobe component with no new abnormality identified. TODAY, WE WILL CONTINUE WITH NORMAL SALINE, TPN AT 50 ML/HR, ALBUMIN 25% IV DAILY, INVANZ, VANCOMYCIN, DOPAMINE, VERSED AND PRESEDEX FOR SEDATION, AND CURRENT PLAN OF CARE. WILL CONTINUE TO MONITOR PATIENT. WE WILL CONTINUE TO WEAN HIS OXYGEN. OTHERWISE, WE WILL FOLLOW UP WITH AM LABS AND CONTINUE TO MONITOR. TIME SPENT ON CLINICAL ASSESSMENT, REVIEWING LABS AND IMAGING, DECISION MAKING, AND DOCUMENTATION, WAS GREATER THAN 75 MINUTES. - Past Medical Family Social History Past Med/Fam/Surg Hx: No changes since H&P Allergies: Allergies doxycycline Allergy (Verified 04/10/19 17:47) - Review of Systems ROS: No change since H&P - Vital Signs and I&O's Vital Signs: Temperature 98.8 F Pulse Rate [Right Radial] 82 Pulse Rate 89 Respiratory Rate 17 Blood Pressure [Right Arm] 96/51 Blood Pressure 107/45 O2 Sat by Pulse Oximetry 94 Intake and Output: Intake & Output 08/10/20 08/11/20 08/12/20 08/13/20 11:59 11:59 11:59 11:59 Intake Total 4906 / 4906 4397 / 4397 5519 / 5519 4159 / 4159 Output Total 3375 / 3470 1840 / 1930 2179 / 2229 947 / 947 Balance 1531 / 1436 2557 / 2467 3340 / 3290 3212 / 3212 - Physical Exam Oriented: Unable to test Eyes: Normal Ear: Normal Nose: Normal Throat: Normal Respiratory: Generalized, Diminished Cardiovascular: Irregular : Normal Auscultation: Bowel Sounds: Decreased Palpation: Normal Tenderness: Other (mild distention , soft abdomen . BS+ but hypoactive .) Skin: Wound (SEE WOUND ASSESSMENT ) Musculoskeletal: Normal Psychiatric: Other (SEDATED) Mood Description: Calm Affect: Normal Speech Pattern: Artificially Ventilated - Laboratory and Diagnostics Result Diagrams: 08/13/20 05:23 08/13/20 09:15 Labs: 08/08/20 16:45 Sputum - Expectorated Sputum Sputum Culture - Final Proteus Mirabilis Escherichia Coli 08/05/20 09:54 Blood Blood Culture - Final 08/05/20 09:46 Blood Blood Culture - Final 08/07/20 23:01 Sputum - Endotracheal Wash Sputum Culture - Final Escherichia Coli Proteus Mirabilis 08/07/20 23:01 Sputum - Endotracheal Wash - Final 08/07/20 20:53 Urine,Clean Catch Urine Culture - Final 08/07/20 21:18 Blood Blood Culture - Preliminary 08/07/20 21:08 Blood Blood Culture - Preliminary 08/05/20 17:17 Leg - Left Gram Stain - Final 08/05/20 17:17 Leg - Left Wound Culture - Final Methicillin Resis Staph Aureus 08/05/20 17:17 Knee - Right Gram Stain - Final 08/05/20 17:17 Knee - Right Wound Culture - Final Methicillin Resis Staph Aureus 08/05/20 17:17 Ankle - Left Gram Stain - Final 08/05/20 17:17 Ankle - Left Wound Culture - Final Methicillin Resis Staph Aureus 08/05/20 00:00 Urine,Clean Catch Urine Culture - Final Laboratory WBC 9.9 X10^3/uL (3.6-10.0) 08/13/20 05:23 RBC 2.99 X10^6/uL (4.7-6.0) L 08/13/20 05:23 Hgb 8.5 g/dL (13.5-18.0) L 08/13/20 05:23 Hct 26.2 % (42.0-54.0) L 08/13/20 05:23 MCV 87.3 fL (80.0-100.0) 08/13/20 05:23 MCH 28.3 pg (27.0-34.0) 08/13/20 05:23 MCHC 32.5 g/dL (33.0-35.0) L 08/13/20 05:23 RDW 16.4 % (11.6-16.5) 08/13/20 05:23 Plt Count 175 X10^3/uL (150.0-450.0) 08/13/20 05:23 Plt Count Comment Adequate (ADEQUATE) 08/13/20 05:23 MPV 7.7 fL (7.4-11.0) 08/13/20 05:23 Neut % (Auto) 75.5 % (42.0-75.0) H 08/13/20 05:23 Lymph % (Auto) 14.2 % (21.0-51.0) L 08/13/20 05:23 [place] % (Auto) 8.8 % (0.0-13.0) 08/13/20 05:23 Eos % (Auto) 1.2 % (0.9-2.9) 08/13/20 05:23 Baso % (Auto) 0.3 % (0.2-1.0) 08/13/20 05:23 Neut # (Auto) 7.5 x10^3/uL (2.2-4.8) H 08/13/20 05:23 Lymph # (Auto) 1.4 X10^3/uL (1.3-2.9) 08/13/20 05:23 [place] # (Auto) 0.9 x10^3/uL (0.3-0.8) H 08/13/20 05:23 Eos # (Auto) 0.1 x10^3/uL (0.0-0.2) 08/13/20 05:23 Baso # (Auto) 0.0 X10^3/uL (0.0-0.1) 08/13/20 05:23 Absolute Nucleated RBC 0.1 /100WBC 08/13/20 05:23 Total Counted 100 08/13/20 05:23 Neutrophils % (Manual) 74 % (39-76) 08/13/20 05:23 Band Neutrophils % 2 % (0-10) 08/13/20 05:23 Lymphocytes % (Manual) 17 % (13-43) 08/13/20 05:23 Monocytes % (Manual) 6 % (4-9) 08/13/20 05:23 Eosinophils % (Manual) 2 % (0-6) 08/11/20 05:09 Plt Morphology Comment Normal (NORMAL) 08/13/20 05:23 RBC Morphology Normal (NORMAL) 08/13/20 05:23 ESR 67 MM/HOUR (0-15) H 08/04/20 13:27 Sample Site Lra 08/13/20 05:40 ABG pH 7.220 (7.35-7.45) L 08/13/20 05:40 ABG pCO2 43.0 mmHg (35.0-45.0) 08/13/20 05:40 ABG pO2 62.0 mmHg (80.0-100.0) L 08/13/20 05:40 ABG HCO3 17.6 mmol/L (22-26) L* 08/13/20 05:40 ABG O2 Saturation 86.0 % (90-100) L 08/13/20 05:40 ABG Base Excess -9.7 mmol/L (-2.0-2.0) L 08/13/20 05:40 Félix Test Pos 08/13/20 05:40 A-a Gradient 134.0 mmHg 08/13/20 05:40 FiO2 35.0 08/13/20 05:40 Blood Gas Comments Jewel well mt 08/13/20 05:40 Sodium 143 mmol/L (136-145) 08/13/20 05:23 Corrected Sodium 145 mmol/L (136-145) 08/13/20 05:23 Potassium 4.3 mmol/L (3.5-5.1) 08/13/20 05:23 Chloride 113 mmol/L (98-107) H 08/13/20 05:23 Carbon Dioxide 19.1 mmol/L (21-32) L 08/13/20 05:23 BUN 39 mg/dL (7-18) H 08/13/20 05:23 Creatinine 1.73 mg/dL (0.70-1.30) H 08/13/20 09:15 Est GFR (MDRD) Af Amer 58 (>60) L 08/13/20 05:23 Est GFR (MDRD) Non-Af 48 (>60) L 08/13/20 05:23 Glucose 198 mg/dL (65-99) H 08/13/20 05:23 POC Glucose (mg/dL) 179 mg/dL (65-99) H 08/13/20 06:18 Lactic Acid 2.8 mmol/L (0.4-2.0) H 08/07/20 21:18 Calcium 7.6 mg/dL (8.5-10.1) L 08/13/20 05:23 Corrected Calcium 9.3 mg/dL (8.5-10.1) 08/13/20 05:23 Phosphorus 1.0 mg/dL (2.6-4.7) L 08/12/20 05:02 Magnesium 2.1 mg/dL (1.7-2.9) 08/10/20 04:20 Total Bilirubin 0.20 mg/dL (0.2-1.0) 08/13/20 05:23 AST 9 Units/L (15-37) L 08/13/20 05:23 ALT 9 Units/L (12-78) L 08/13/20 05:23 Alkaline Phosphatase 71 Units/L (46-116) 08/13/20 05:23 Creatine Kinase 748 Units/L (39-308) H 08/08/20 09:20 CK-MB (CK-2) 4.7 ng/mL (0-4.0) H* 08/08/20 09:20 CK/CKMB % Calc 0.6 % (<4) 08/08/20 09:20 Troponin I 0.09 ng/mL (0-1.5) 08/08/20 09:20 C-Reactive Protein 51.90 mg/L (0-3.0) H 08/05/20 05:29 B-Natriuretic Peptide 156 pg/mL (0-79) H 08/08/20 03:50 Total Protein 5.3 g/dL (6.4-8.2) L 08/13/20 05:23 Albumin 1.9 g/dL (3.4-5.0) L 08/13/20 05:23 Globulin 3.4 g/dL (2.5-4.5) 08/13/20 05:23 Albumin/Globulin Ratio 0.6 Ratio (1.1-2.1) L 08/13/20 05:23 Prealbumin 7.7 mg/dL (18-35.7) L 08/10/20 04:20 Triglycerides 100 mg/dL (0-150) 08/12/20 05:02 Amylase 36 Units/L (25-115) 08/04/20 13:27 Lipase 71 Units/L (73-393) L 08/04/20 13:27 Carcinoembryonic Ag 3.9 ng/mL (0.0-3.0) H 08/07/20 04:05 Specimen Type Catherized urine 08/08/20 00:04 Urine Color Straw (YELLOW) 08/08/20 00:04 Urine Appearance Hazy (CLEAR) 08/08/20 00:04 Urine pH 5.0 (5.0 - 8.0) 08/08/20 00:04 Ur Specific [place] 1.010 (1.000-1.030) 08/08/20 00:04 Urine Protein 3+ (NEGATIVE) 08/08/20 00:04 Urine Glucose (UA) Negative (NEGATIVE) 08/08/20 00:04 Urine Ketones Negative (NEGATIVE) 08/08/20 00:04 Urine Occult Blood 5+ (NEGATIVE) 08/08/20 00:04 Urine Nitrite Negative (NEGATIVE) 08/08/20 00:04 Urine Bilirubin Negative (NEGATIVE) 08/08/20 00:04 Urine Urobilinogen Normal (NORMAL) 08/08/20 00:04 Ur Leukocyte Esterase 3+ (NEGATIVE) 08/08/20 00:04 Urine RBC Tntc /HPF (0-3) A 08/05/20 00:00 Urine WBC Tntc /HPF (0-5) A 08/05/20 00:00 Ur Squamous Epith Cells Negative /HPF (NEGATIVE) 08/05/20 00:00 Urine Bacteria 3+ /HPF (NEGATIVE) 08/05/20 00:00 Urine Yeast Numerous /HPF (NEGATIVE) 08/05/20 00:00 Ur Culture Indicated? Yes/culture set up 08/05/20 00:00 Stl C. diff Tox B Gene Negative (NEGATIVE) 08/10/20 18:20 Stl C. diff [id number] Presumptive negative (NEGATIVE) 08/10/20 18:20 Vancomycin Trough 20.9 ug/mL (15-20) H* 08/13/20 09:15 SARS CoV-2 RNA Rapid HEMA Negative (NEGATIVE) 08/04/20 20:20 - Plan (1) Aspiration pneumonia Status: Acute Qualifiers: Aspiration pneumonia type: due to vomit Laterality: unspecified laterality Lung location: unspecified part of lung Qualified Code(s): J69.0 - Pneumonitis due to inhalation of food and vomit Plan: NORMAL SALINE AT 50 ML/HR, TPN AT 50 ML/HR, ALBUMIN 25% IV DAILY, VANCOMYCIN, INVANZ 1G IV DAILY, DUONEBS, DIFLUCAN 100MG IV DAILY, DUONEBS QID, DOPAMINE DRIP, PRESEDEX DRIP, VERSED DRIP, PEPCID 20MG IV HS, PROTONIX 40MG IV BID (2) CHF (congestive heart failure) Status: Acute Qualifiers: Heart failure type: unspecified Heart failure chronicity: acute on chronic Qualified Code(s): I50.9 - Heart failure, unspecified (3) Ileus Status: Acute Plan: NORMAL SALINE AT 50 ML/HR, VANCOMYCIN, INVANZ 1G IV DAILY, DIFLUCAN 100MG IV DAILY, DUONEBS QID, DOPAMINE DRIP, PRESEDEX DRIP, VERSED DRIP, PEPCID 20MG IV HS, PROTONIX 40MG IV BID (4) Abdominal pain Status: Acute Qualifiers: Abdominal location: left lower quadrant Qualified Code(s): R10.32 - Left lower quadrant pain (5) Urinary tract infection Status: Acute Qualifiers: Urinary tract infection type: acute cystitis Hematuria presence: with hematuria Qualified Code(s): N30.01 - Acute cystitis with hematuria (6) Dehydration Status: Acute (7) Nausea and vomiting Status: Acute Qualifiers: Vomiting Intractability: intractable (8) Sacral decubitus ulcer Status: Acute Qualifiers: Pressure injury stage: unspecified pressure injury stage Qualified Code(s): L89.159 - Pressure ulcer of sacral region, unspecified stage (9) Fecal impaction Status: Resolved Plan: COLACE 200MG PO BID, MILK OF MAGNESIA 15ML PO QID, MIRALAX 17G PO DAILY
[2020-08-13] MEDS: MUCOMYST 20% 200 MG/ML NEB SCH ×4 (13:30→20:07)
[2020-08-13] MEDS: PEPCID 20 MG IV PREMIX* 20 MG/50 ML BAG IV SCH (21:04)
[2020-08-14] MEDS ORDERED: SALINE 3% 15 ML NEB TX ONE (00:10)
[2020-08-14 04:27] LABS: ABG BASE EXCESS -11.7 mmol/L (-2.0-2.0)
[2020-08-14 04:28] LABS: ABG ALLEN TEST POS
[2020-08-14] MEDS: VERSED IV PREMIX 100 MG/100 ML IV.SOLN IV PRN (05:06)
[2020-08-14] MEDS: DOPAMINE IV PREMIX 400 MG/250 ML 400 MG/250 ML BAG IV PRN ×3 (05:07→17:50)
[2020-08-14] MEDS: NS 1000 ML 1,000 ML IV SCH (05:22)
[2020-08-14 05:59] LABS: BASOPHILS # (AUTO) 0.2 X10^3/uL (0.0-0.1); BASOPHILS % (AUTO) 1.2 % (0.2-1.0); EOSINOPHILS # (AUTO) 0.1 x10^3/uL (0.0-0.2); EOSINOPHILS % (AUTO) 0.4 % (0.9-2.9); HEMATOCRIT 28.9 % (42.0-54.0); LYMPHOCYTES # (AUTO) 0.9 X10^3/uL (1.3-2.9); LYMPHOCYTES % (AUTO) 4.7 % (21.0-51.0); MEAN CORPUSCULAR HEMOGLOBIN 27.4 pg (27.0-34.0); MEAN CORPUSCULAR HGB CONC 31.3 g/dL (33.0-35.0); MEAN CORPUSCULAR VOLUME 87.7 fL (80.0-100.0); MEAN PLATELET VOLUME 7.7 fL (7.4-11.0); MONOCYTES # (AUTO) 0.8 x10^3/uL (0.3-0.8); MONOCYTES % (AUTO) 3.8 % (0.0-13.0); NEUTROPHILS % (AUTO) 89.9 % (42.0-75.0); PLATELET COUNT 310 X10^3/uL (150.0-450.0); RED CELL DISTRIBUTION WIDTH 16.5 % (11.6-16.5)
[2020-08-14 06:14] LABS: ALBUMIN 2.1 g/dL (3.4-5.0); CALCIUM 7.9 mg/dL (8.5-10.1); CARBON DIOXIDE 16.4 mmol/L (21-32); COR CA(FOR HYPOALB) 9.4 mg/dL (8.5-10.1); CREATININE 1.73 mg/dL (0.70-1.30); TOTAL PROTEIN 5.8 g/dL (6.4-8.2)
[2020-08-14 06:32] LABS: BAND NEUTROPHILS % 12 % (0-10); METAMYELOCYTES % 5; MYELOCYTES % 1; PLATELET MORPHOLOGY COMMENT NORMAL (NORMAL)
--- NOTE | 2020-08-14 06:41 | RAD ---
HISTORYSOBSTUDYCHEST, 1 [id number]/29/2021.TECHNIQUEAP view of the chestFINDINGSET tube in good position. NG tube courses below the visualized field of view. Right chest wall port in good position. Left chest wall pacemaker in situ. There are numerous overlying leads/wires that limit evaluation. Cardiac and mediastinal contours are within normal limits. Similar appearance diffuse bilateral airspace opacities. Low lung volumes. Blunted costophrenic sulci. No discernible pneumothorax.IMPRESSIONSimilar appearance diffuse bilateral airspace opacities compared to prior.Electronically signed by: Peter Lindsey (Aug 14, 2020 06:39:04)
--- NOTE | 2020-08-14 06:43 | RAD ---
[id number]/29/2021FINDINGSThere is a nasogastric tube in good position. The abdomina l gas pattern is nonspecific and nonobstructive. There is some colonic dilatation present slightly mo re prominent than on the prior examination. Gas is seen within the rectum. Findings are consistent wi th a mild ileus slightly more prominent than on the prior examination. There is a moderately large am ount of stool in the right colon. No abnormal masses or abnormal calcifications are identified. Surgi jim clips are present in the right upper quadrant likely from prior cholecystectomy. There is a right femoral vascular line present. Regional skeleton is intact.IMPRESSIONPersistent ileus slightly more prominent than on the prior examinationElectronically signed by: WILLIAM SHAIKH (Aug 14, 2020 06:41:36 )
[2020-08-14] MEDS: ALBUMIN HUMAN 25%- 100 ML 100 ML IV SCH (08:38)
[2020-08-14] MEDS: MUCOMYST 20% 200 MG/ML NEB SCH ×4 (09:31→20:28)
[2020-08-14] MEDS: DUONEB 0.5 MG/3 MG (3 mL) NEB SCH ×4 (09:31→20:28)
[2020-08-14] MEDS ORDERED: DULCOLAX SUPPOSITORY 10 MG RECTAL ONE (09:47)
[2020-08-14] MEDS: DIFLUCAN 100 MG IV (MIX by PHARMACY)* 100 MG/50 ML BAG IV SCH (10:01)
[2020-08-14] MEDS: VOLTAREN 1 % GEL MULTI DOSE TUBE TOP SCH ×2 (10:10→21:10)
[2020-08-14] MEDS: NS 1000 ML 1,000 ML with SODIUM BICARBONATE 8.4% INJ ADULT 50 ML IV SCH ×4 (10:11→21:08)
[2020-08-14] MEDS: LACRI-LUBE S.O.P. AFFEYE SCH ×2 (10:12→21:08)
[2020-08-14] MEDS: LASIX IVP SCH ×2 (10:13→16:51)
[2020-08-14] MEDS ORDERED: LOVENOX INJ 30 MG SYR SC ONE (10:15)
[2020-08-14] MEDS: LOVENOX INJ 30 MG SYR SC SCH (10:18)
[2020-08-14] MEDS: INVANZ INJ 1 GM VIAL 1 GM in NS 100 ML IV + SPIKE MINIBAG* 100 ML IV SCH (10:49)
[2020-08-14] MEDS: VANCOMYCIN IV *PREMIX 750 mg/150 ML BAG 750 MG/150 ML PIGGYBACK IV SCH (11:30)
[2020-08-14] MEDS: [UNRECOGNIZED DRUG - OTHER] IV SCH ×7 (15:08)
[2020-08-14] MEDS: MVI IV SCH ×7 (15:08)
[2020-08-14] MEDS: CLINIMIX IV SCH ×7 (15:08)
[2020-08-14] MEDS: TRACE ELEMENTS IV SCH ×7 (15:08)
[2020-08-14] MEDS: HumuLIN R SUBCUT PRN ×2 (17:07→21:09)
[2020-08-14] MEDS: PEPCID 20 MG IV PREMIX* 20 MG/50 ML BAG IV SCH (21:09)
[2020-08-15] MEDS: DOPAMINE IV PREMIX 400 MG/250 ML 400 MG/250 ML BAG IV PRN ×2 (00:04→19:55)
[2020-08-15] MEDS: VERSED IV PREMIX 100 MG/100 ML IV.SOLN IV PRN ×2 (00:06→16:46)
[2020-08-15] MEDS: NS 1000 ML 1,000 ML with SODIUM BICARBONATE 8.4% INJ ADULT 50 ML IV SCH ×8 (01:52→23:00)
[2020-08-15 05:36] LABS: BASOPHILS % (AUTO) 0.3 % (0.2-1.0); EOSINOPHILS # (AUTO) 0.1 x10^3/uL (0.0-0.2); EOSINOPHILS % (AUTO) 0.5 % (0.9-2.9); HEMATOCRIT 25.7 % (42.0-54.0); HEMOGLOBIN 7.9 g/dL (13.5-18.0); MEAN CORPUSCULAR HEMOGLOBIN 27.3 pg (27.0-34.0); MEAN CORPUSCULAR HGB CONC 30.7 g/dL (33.0-35.0); MEAN CORPUSCULAR VOLUME 88.7 fL (80.0-100.0); MEAN PLATELET VOLUME 7.6 fL (7.4-11.0); MONOCYTES # (AUTO) 0.7 x10^3/uL (0.3-0.8); MONOCYTES % (AUTO) 4.2 % (0.0-13.0); NEUTROPHILS # (AUTO) 14.3 x10^3/uL (2.2-4.8); PLATELET COUNT 291 X10^3/uL (150.0-450.0); RED BLOOD COUNT 2.89 X10^6/uL (4.7-6.0); RED CELL DISTRIBUTION WIDTH 16.6 % (11.6-16.5)
[2020-08-15 05:45] LABS: ABG BASE EXCESS -12.4 mmol/L (-2.0-2.0)
[2020-08-15 05:47] LABS: ABG ALLEN TEST POS; ABG HCO3 15.7 mmol/L (22-26)
[2020-08-15 05:48] LABS: ALBUMIN 2.1 g/dL (3.4-5.0); CALCIUM 7.8 mg/dL (8.5-10.1); CARBON DIOXIDE 17.7 mmol/L (21-32); COR CA(FOR HYPOALB) 9.3 mg/dL (8.5-10.1); CREATININE 2.04 mg/dL (0.70-1.30); PHOSPHORUS 2.6 mg/dL (2.6-4.7); TOTAL PROTEIN 5.5 g/dL (6.4-8.2)
[2020-08-15 05:50] LABS: BAND NEUTROPHILS % 5 % (0-10); PREALBUMIN 8.6 mg/dL (18-35.7)
[2020-08-15 05:51] LABS: ANISOCYTOSIS SLIGHT; HYPOCHROMASIA SLIGHT; PLATELET MORPHOLOGY COMMENT NORMAL (NORMAL)
--- NOTE | 2020-08-15 06:44 | RAD ---
HISTORYSOBSTUDYCHEST, 1 [id number]/30/2021.TECHNIQUEAP view of the chestFINDINGSET tube in good position. NG tube in good position. Left chest wall pacemaker with leads in good position. Multiple overlying leads limit evaluation. Cardiac and mediastinal contours are within normal limits. Mild improvement in multifocal airspace opacities. Low lung volumes. No definite pleural effusion or pneumothorax. Soft tissue attenuation limits evaluation.IMPRESSIONMild improvement in multifocal airspace disease consistent with pneumonia.Electronically signed by: Peter Lindsey (Aug 15, 2020 06:42:36)
--- NOTE | 2020-08-15 06:55 | RAD ---
[id number]/30/2021TECHNIQUEKUB 3 imagesFINDINGSRight femoral approach central l ine in stable position. No significant change in gas-filled dilated colon. Moderate to large amount o f stool in the colon. No free air, pneumatosis or portal venous gas. Cholecystectomy clips noted. NG tube in good position. Bibasilar airspace opacities in the lungs. Calcifications in the pelvis are l ikely phleboliths.IMPRESSIONNo significant change. Gas filled dilated colon consistent with ileus.Zaira ctronically signed by: Peter Lindsey (Aug 15, 2020 06:53:36)
[2020-08-15] MEDS: DUONEB 0.5 MG/3 MG (3 mL) NEB SCH ×4 (08:50→21:16)
[2020-08-15] MEDS: MUCOMYST 20% 200 MG/ML NEB SCH ×4 (08:50→21:15)
[2020-08-15] MEDS ORDERED: [UNRECOGNIZED DRUG - OTHER] IV SCH ×7 (09:00)
[2020-08-15] MEDS ORDERED: MVI IV SCH ×7 (09:00)
[2020-08-15] MEDS ORDERED: TRACE ELEMENTS IV SCH ×7 (09:00)
[2020-08-15] MEDS ORDERED: CLINIMIX IV SCH ×7 (09:00)
[2020-08-15] MEDS: ALBUMIN HUMAN 25%- 100 ML 100 ML IV SCH (09:02)
[2020-08-15] MEDS: DULCOLAX SUPPOSITORY 10 MG RECTAL SCH ×2 (09:03→20:49)
[2020-08-15] MEDS: LACRI-LUBE S.O.P. AFFEYE SCH ×2 (09:03→21:08)
[2020-08-15] MEDS: VOLTAREN 1 % GEL MULTI DOSE TUBE TOP SCH ×2 (09:03→20:50)
[2020-08-15] MEDS: LOVENOX INJ 30 MG SYR SC SCH (09:05)
[2020-08-15] MEDS: DIFLUCAN 100 MG IV (MIX by PHARMACY)* 100 MG/50 ML BAG IV SCH ×2 (09:56→12:40)
[2020-08-15] MEDS ORDERED: NS 1000 ML 1,000 ML IV ONE (09:59)
[2020-08-15] MEDS: VANCOMYCIN IV *PREMIX 750 mg/150 ML BAG 750 MG/150 ML PIGGYBACK IV SCH (10:02)
[2020-08-15] MEDS ORDERED: NS 100 ML IV 100 ML IV ONE (10:09)
--- NOTE | 2020-08-15 10:22 | PCM.PROG ---
Progress Note - Progress Note for Day of Date of Exam: 08/13/20 - Subjective Subjective: IS BEING TREATED FOR ASPIRATION PNEUMONIA, ILEUS, UTI, DEHYDRATION, ACUTE RENAL FAILURE, AND HYPOTENSION. HE REMAINS ON THE MECHANICAL VENT THIS MORNING. AN NG TUBE REMAINS IN PLACE TO LOW INTERMITTENT SUCTION. NG TUBE DRAINAGE IS MILD. VENT SETTINGS ARE: SIMV, VENT RATE 10, TIDAL VOLUME 550, PEAK FLOW 31, PEEP 3, PRESSURE SUPPORT 12, FI02 35. HE HAS HAD GOOD URINE OUTPUT. ON EXAMINATION, HEART IS REGULAR IN RATE AND RHYTHM. BILATERAL LUNGS ARE NOTED WITH DIMINISHED LUNG SOUNDS THROUGHOUT. ABDOMEN IS ROUND, SOFT, AND CONTINUES TO HAVE HYPOACTIVE BOWEL SOUNDS IN ALL QUADRANTS. PATIENT IS NOTED TO HAVE MULTIPLE PRESSURE ULCERS TO SACRUM AND LOWER EXTREMITIES. SEE WOUND ASSESSM ENT. HIS VITALS THIS MORNING ARE: 98.8-81-19-95%-89/47. LABS WERE OBTAINED. ABNORMAL LAB VALUES INCLUDE THE FOLLOWING: RBC 2.99, HGB 8.5, HCT 26.2, CHLORIDE 113, CARBON DIOXIDE 19.1, BUN 39, CREATININE 1.49, GLUCOSE 198, CALCIUM 7.6, AST 9, ALT 9, TOTAL PROTEIN 5.3, ALBUMIN 1.9. ABG REVEALED: PH 7.220, PC02 43, P02 62, HC03 17.6, 02 SAT 86, A-A GRADIENT 134, FI02 35. URINE CULTURE REVEALS GROWTH OF YEAST. RIGHT KNEE AND LEFT ANKLE WOUND CULTURES REVEAL GROWTH OF MRSA. SPUTUM CULTURES REVEAL GROWTH OF PROTEUS MIRABILIS AND E.COLI. BLOOD CULTURES ARE PENDING. TODAYS CHEST XRAY REVEALED: Continued marked hypo inflation. Worsening diffuse bilateral perihilar alveolar filling. KUB REVEALED: The abdominal gas pattern is nonspecific and nonobstructive. Mild colonic dilatation is identified however gas is present in the rectum. This likely represents a mild ileus improved when compared with the prior examination. No abnormal masses or abnormal calcifications are identified. Regional skeleton is intact. There is a right-sided femoral vascular line present. TODAY, WE WILL CONTINUE WITH NORMAL SALINE, TPN AT 50 ML/HR, ALBUMIN 25% IV DAILY, INVANZ, VANCOMYCIN, DOPAMINE, VERSED AND PRESEDEX FOR SEDATION, AND CURRENT PLAN OF CARE. WE WILL ADD MUCOMYST TO HIS NEB TREATMENTS. WILL CONTINUE TO MONITOR PATIENT. WE WILL WEAN SEDATION AND OXYGEN PATIENT TOLERATES. OTHERWISE, WE WILL FOLLOW UP WITH AM LABS AND CONTINUE TO MONITOR. TIME SPENT ON CLINICAL ASSESSMENT, REVIEWING LABS AND IMAGING, DECISION MAKING, AND DOCUMENTATION, WAS GREATER THAN 75 MINUTES. - Past Medical Family Social History Past Med/Fam/Surg Hx: No changes since H&P Allergies: Allergies doxycycline Allergy (Verified 04/10/19 17:47) - Review of Systems ROS: No change since H&P - Vital Signs and I&O's Vital Signs: Temperature 97.9 F Pulse Rate [Right Radial] 85 Pulse Rate 91 Respiratory Rate 38 Blood Pressure [Right Arm] 128/63 Blood Pressure 98/47 O2 Sat by Pulse Oximetry 100 Intake and Output: Intake & Output 08/12/20 08/13/20 08/14/20 08/15/20 11:59 11:59 11:59 11:59 Intake Total 5519 / 5519 4159 / 4159 4705 / 4705 4318 / 4318 Output Total 2179 / 2229 947 / 954 1246 / 1246 1838 / 1838 Balance 3340 / 3290 3212 / 3205 3459 / 3459 2480 / 2480 - Physical Exam Oriented: Unable to test Eyes: Normal Ear: Normal Nose: Normal Throat: Normal Respiratory: Generalized, Diminished Cardiovascular: Irregular : Normal Auscultation: Bowel Sounds: Decreased Palpation: Normal Tenderness: Other (mild distention , soft abdomen . BS+ but hypoactive .) Skin: Wound (SEE WOUND ASSESSMENT ) Musculoskeletal: Normal Psychiatric: Other (SEDATED) Mood Description: Calm Affect: Normal Speech Pattern: Artificially Ventilated - Laboratory and Diagnostics Result Diagrams: 08/15/20 04:40 08/15/20 04:40 Labs: 08/14/20 10:00 Urine,Clean Catch Urine Culture - Preliminary 08/08/20 16:45 Sputum - Expectorated Sputum Sputum Culture - Final Proteus Mirabilis Escherichia Coli 08/08/20 16:45 Sputum - Expectorated Sputum - Final 08/07/20 21:18 Blood Blood Culture - Final 08/07/20 21:08 Blood Blood Culture - Final 08/05/20 09:54 Blood Blood Culture - Final 08/05/20 09:46 Blood Blood Culture - Final 08/07/20 23:01 Sputum - Endotracheal Wash Sputum Culture - Final Escherichia Coli Proteus Mirabilis 08/07/20 23:01 Sputum - Endotracheal Wash - Final 08/07/20 20:53 Urine,Clean Catch Urine Culture - Final 08/05/20 17:17 Leg - Left Gram Stain - Final 08/05/20 17:17 Leg - Left Wound Culture - Final Methicillin Resis Staph Aureus 08/05/20 17:17 Knee - Right Gram Stain - Final 08/05/20 17:17 Knee - Right Wound Culture - Final Methicillin Resis Staph Aureus 08/05/20 17:17 Ankle - Left Gram Stain - Final 08/05/20 17:17 Ankle - Left Wound Culture - Final Methicillin Resis Staph Aureus 08/05/20 00:00 Urine,Clean Catch Urine Culture - Final Laboratory WBC 16.0 X10^3/uL (3.6-10.0) H 08/15/20 04:40 RBC 2.89 X10^6/uL (4.7-6.0) L 08/15/20 04:40 Hgb 7.9 g/dL (13.5-18.0) L 08/15/20 04:40 Hct 25.7 % (42.0-54.0) L 08/15/20 04:40 MCV 88.7 fL (80.0-100.0) 08/15/20 04:40 MCH 27.3 pg (27.0-34.0) 08/15/20 04:40 MCHC 30.7 g/dL (33.0-35.0) L 08/15/20 04:40 RDW 16.6 % (11.6-16.5) H 08/15/20 04:40 Plt Count 291 X10^3/uL (150.0-450.0) 08/15/20 04:40 Plt Count Comment Adequate (ADEQUATE) 08/15/20 04:40 MPV 7.6 fL (7.4-11.0) 08/15/20 04:40 Neut % (Auto) 89.0 % (42.0-75.0) H 08/15/20 04:40 Lymph % (Auto) 6.0 % (21.0-51.0) L 08/15/20 04:40 [place] % (Auto) 4.2 % (0.0-13.0) 08/15/20 04:40 Eos % (Auto) 0.5 % (0.9-2.9) L 08/15/20 04:40 Baso % (Auto) 0.3 % (0.2-1.0) 08/15/20 04:40 Neut # (Auto) 14.3 x10^3/uL (2.2-4.8) H 08/15/20 04:40 Lymph # (Auto) 1.0 X10^3/uL (1.3-2.9) L 08/15/20 04:40 [place] # (Auto) 0.7 x10^3/uL (0.3-0.8) 08/15/20 04:40 Eos # (Auto) 0.1 x10^3/uL (0.0-0.2) 08/15/20 04:40 Baso # (Auto) 0.0 X10^3/uL (0.0-0.1) 08/15/20 04:40 Absolute Nucleated RBC 0.1 /100WBC 08/15/20 04:40 Total Counted 100 08/15/20 04:40 Neutrophils % (Manual) 84 % (39-76) H 08/15/20 04:40 Band Neutrophils % 5 % (0-10) 08/15/20 04:40 Lymphocytes % (Manual) 6 % (13-43) L 08/15/20 04:40 Monocytes % (Manual) 4 % (4-9) 08/15/20 04:40 Eosinophils % (Manual) 1 % (0-6) 08/15/20 04:40 Metamyelocytes % 5 08/14/20 05:20 Myelocytes % 1 08/14/20 05:20 Plt Morphology Comment Normal (NORMAL) 08/15/20 04:40 RBC Morphology Abnormal (NORMAL) 08/15/20 04:40 Hypochromasia Slight A 08/15/20 04:40 Anisocytosis Slight A 08/15/20 04:40 ESR 67 MM/HOUR (0-15) H 08/04/20 13:27 Sample Site Rrad 08/15/20 05:43 ABG pH 7.170 (7.35-7.45) L* 08/15/20 05:43 ABG pCO2 43.0 mmHg (35.0-45.0) 08/15/20 05:43 ABG pO2 87.0 mmHg (80.0-100.0) 08/15/20 05:43 ABG HCO3 15.7 mmol/L (22-26) L* 08/15/20 05:43 ABG O2 Saturation 94.0 % (90-100) 08/15/20 05:43 ABG Base Excess -12.4 mmol/L (-2.0-2.0) L 08/15/20 05:43 Félix Test Pos 08/15/20 05:43 A-a Gradient 73.0 mmHg 08/15/20 05:43 FiO2 30.0 08/15/20 05:43 Blood Gas Comments Jewel abg well-mtf 08/15/20 05:43 Sodium 137 mmol/L (136-145) 08/15/20 04:40 Corrected Sodium 140 mmol/L (136-145) 08/15/20 04:40 Potassium 5.2 mmol/L (3.5-5.1) H 08/15/20 04:40 Chloride 109 mmol/L (98-107) H 08/15/20 04:40 Carbon Dioxide 17.7 mmol/L (21-32) L 08/15/20 04:40 BUN 48 mg/dL (7-18) H 08/15/20 04:40 Creatinine 2.04 mg/dL (0.70-1.30) H 08/15/20 04:40 Est GFR (MDRD) Af Amer 40 (>60) L 08/15/20 04:40 Est GFR (MDRD) Non-Af 33 (>60) L 08/15/20 04:40 Glucose 245 mg/dL (65-99) H 08/15/20 04:40 POC Glucose (mg/dL) 225 mg/dL (65-99) H 08/14/20 19:41 Lactic Acid 2.8 mmol/L (0.4-2.0) H 08/07/20 21:18 Calcium 7.8 mg/dL (8.5-10.1) L 08/15/20 04:40 Corrected Calcium 9.3 mg/dL (8.5-10.1) 08/15/20 04:40 Phosphorus 2.6 mg/dL (2.6-4.7) 08/15/20 04:40 Magnesium 2.1 mg/dL (1.7-2.9) 08/10/20 04:20 Total Bilirubin 0.20 mg/dL (0.2-1.0) 08/15/20 04:40 AST 8 Units/L (15-37) L 08/15/20 04:40 ALT 11 Units/L (12-78) L 08/15/20 04:40 Alkaline Phosphatase 72 Units/L (46-116) 08/15/20 04:40 Creatine Kinase 748 Units/L (39-308) H 08/08/20 09:20 CK-MB (CK-2) 4.7 ng/mL (0-4.0) H* 08/08/20 09:20 CK/CKMB % Calc 0.6 % (<4) 08/08/20 09:20 Troponin I 0.09 ng/mL (0-1.5) 08/08/20 09:20 C-Reactive Protein 51.90 mg/L (0-3.0) H 08/05/20 05:29 B-Natriuretic Peptide 156 pg/mL (0-79) H 08/08/20 03:50 Total Protein 5.5 g/dL (6.4-8.2) L 08/15/20 04:40 Albumin 2.1 g/dL (3.4-5.0) L 08/15/20 04:40 Globulin 3.4 g/dL (2.5-4.5) 08/15/20 04:40 Albumin/Globulin Ratio 0.6 Ratio (1.1-2.1) L 08/15/20 04:40 Prealbumin 8.6 mg/dL (18-35.7) L 08/15/20 04:40 Triglycerides 138 mg/dL (0-150) 08/15/20 04:40 Amylase 36 Units/L (25-115) 08/04/20 13:27 Lipase 71 Units/L (73-393) L 08/04/20 13:27 Carcinoembryonic Ag 3.9 ng/mL (0.0-3.0) H 08/07/20 04:05 Specimen Type Catherized urine 08/08/20 00:04 Urine Color Straw (YELLOW) 08/08/20 00:04 Urine Appearance Hazy (CLEAR) 08/08/20 00:04 Urine pH 5.0 (5.0 - 8.0) 08/08/20 00:04 Ur Specific [place] 1.010 (1.000-1.030) 08/08/20 00:04 Urine Protein 3+ (NEGATIVE) 08/08/20 00:04 Urine Glucose (UA) Negative (NEGATIVE) 08/08/20 00:04 Urine Ketones Negative (NEGATIVE) 08/08/20 00:04 Urine Occult Blood 5+ (NEGATIVE) 08/08/20 00:04 Urine Nitrite Negative (NEGATIVE) 08/08/20 00:04 Urine Bilirubin Negative (NEGATIVE) 08/08/20 00:04 Urine Urobilinogen Normal (NORMAL) 08/08/20 00:04 Ur Leukocyte Esterase 3+ (NEGATIVE) 08/08/20 00:04 Urine RBC Tntc /HPF (0-3) A 08/05/20 00:00 Urine WBC Tntc /HPF (0-5) A 08/05/20 00:00 Ur Squamous Epith Cells Negative /HPF (NEGATIVE) 08/05/20 00:00 Urine Bacteria 3+ /HPF (NEGATIVE) 08/05/20 00:00 Urine Yeast Numerous /HPF (NEGATIVE) 08/05/20 00:00 Ur Culture Indicated? Yes/culture set up 08/05/20 00:00 Stl C. diff Tox B Gene Negative (NEGATIVE) 08/10/20 18:20 Stl C. diff [id number] Presumptive negative (NEGATIVE) 08/10/20 18:20 Vancomycin Trough 20.9 ug/mL (15-20) H* 08/13/20 09:15 SARS CoV-2 RNA Rapid HEMA Negative (NEGATIVE) 08/04/20 20:20 - Plan (1) Aspiration pneumonia Status: Acute Qualifiers: Aspiration pneumonia type: due to vomit Laterality: unspecified laterality Lung location: unspecified part of lung Qualified Code(s): J69.0 - Pneumonitis due to inhalation of food and vomit Plan: NORMAL SALINE AT 50 ML/HR, TPN AT 50 ML/HR, ALBUMIN 25% IV DAILY, VANCOMYCIN, INVANZ 1G IV DAILY, DUONEBS, MUCOMYST IN NEB [place], DIFLUCAN 100MG IV DAILY, DUONEBS QID, DOPAMINE DRIP, PRESEDEX DRIP, VERSED DRIP, PEPCID 20MG IV HS, PROTONIX 40MG IV BID (2) CHF (congestive heart failure) Status: Acute Qualifiers: Heart failure type: unspecified Heart failure chronicity: acute on chronic Qualified Code(s): I50.9 - Heart failure, unspecified (3) Ileus Status: Acute Plan: NORMAL SALINE AT 50 ML/HR, VANCOMYCIN, INVANZ 1G IV DAILY, DIFLUCAN 100MG IV DAILY, DUONEBS QID, DOPAMINE DRIP, PRESEDEX DRIP, VERSED DRIP, PEPCID 20MG IV HS, PROTONIX 40MG IV BID (4) Abdominal pain Status: Acute Qualifiers: Abdominal location: left lower quadrant Qualified Code(s): R10.32 - Left lower quadrant pain (5) Urinary tract infection Status: Acute Qualifiers: Urinary tract infection type: acute cystitis Hematuria presence: with hematuria Qualified Code(s): N30.01 - Acute cystitis with hematuria (6) Dehydration Status: Acute (7) Nausea and vomiting Status: Acute Qualifiers: Vomiting Intractability: intractable (8) Sacral decubitus ulcer Status: Acute Qualifiers: Pressure injury stage: unspecified pressure injury stage Qualified Code(s): L89.159 - Pressure ulcer of sacral region, unspecified stage (9) Fecal impaction Status: Resolved Plan: COLACE 200MG PO BID, MILK OF MAGNESIA 15ML PO QID, MIRALAX 17G PO DAILY
--- NOTE | 2020-08-15 10:44 | PCM.PROG ---
Progress Note - Progress Note for Day of Date of Exam: 08/14/20 - Subjective Subjective: IS BEING TREATED FOR ASPIRATION PNEUMONIA, ILEUS, UTI, DEHYDRATION, ACUTE RENAL FAILURE, AND HYPOTENSION. HE REMAINS ON THE MECHANICAL VENT THIS MORNING. AN NG TUBE REMAINS IN PLACE TO LOW INTERMITTENT SUCTION. NG TUBE DRAINAGE IS MILD. VENT SETTINGS ARE: SIMV, VENT RATE 10, TIDAL VOLUME 550, PEEP 3, PRESSURE SUPPORT 12, FI02 35. HE HAS HAD GOOD URINE OUTPUT. HIS DOPAMINE IS MAXED OUT AT THIS TIME DUE TO HYPOTENSION. HE REMAINS HYPOTENSIVE THIS MORNING. HE HAS ALSO BEEN TACHYCARDIC THROUGHOUT THE NIGHT. ON EXAMINATION, HEART IS REGULAR IN RATE AND RHYTHM. BILATERAL LUNGS ARE NOTED WITH DIMINISHED LUNG SOUNDS THROUGHOUT. ABDOMEN IS ROUND, SOFT, AND CONTINUES TO HAVE HYPOACTIVE BOWEL SOUNDS IN ALL QUADRANTS. PATIENT IS NOTED TO HAVE MULTIPLE PRESSURE ULCERS TO SACRUM AND LOWER EXTREMITIES. SEE WOUND ASSESSMENT. HIS VITALS THIS MORNING ARE: 98.7-126-36-95%-130/57. LABS WERE OBTAINED. ABNORMAL LAB VALUES INCLUDE THE FOLLOWING: WBC 20.0, RBC 3.30, HGB 9.0, HCT 28.9, CHLORIDE 111, CARBON DIOXIDE 16.4, BUN 41, CREATININE 1.73, GLUCOSE 208, CALCIUM 7.9, AST 9, ALT 11, TOTAL PROTEIN 5.8, ALBUMIN 2.1. ABG REVEALED: PH 7.190, PC02 42, P02 63, HC03 16, 02 SAT 85, BASE EXCESS -11.7, A-A GRADIENT 134, FI02 35. URINE CULTURE REVEALS GROWTH OF YEAST. RIGHT KNEE AND LEFT ANKLE WOUND CULTURES REVEAL GROWTH OF MRSA. SPUTUM CULTURES REVEAL GROWTH OF PROTEUS MIRABILIS AND E.COLI. BLOOD CULTURES ARE PENDING. TODAYS CHEST XRAY REVEALED: Similar appearance diffuse bilateral airspace opacities compared to prior. KUB REVEALED: There is a nasogastric tube in good position. The abdominal gas pattern is nonspecific and nonobstructive. There is some colonic dilatation present slightly more prominent than on the prior examination. Gas is seen within the rectum. Findings are consistent with a mild ileus slightly more prominent than on the prior examination. There is a moderately large amount of stool in the right colon. No abnormal masses or abnormal calcifications are identified. Surgical clips are present in the right upper quadrant likely from prior cholecystectomy. There is a right femoral vascular line present. Regional skeleton is intact. TODAY, WE WILL CONTINUE WITH NORMAL SALINE, TPN AT 50 ML/HR, ALBUMIN 25% IV DAILY, INVANZ, VANCOMYCIN, DOPAMINE, VERSED FOR SEDATION, DUONEBS, MUCOMYST, AND CURRENT PLAN OF CARE. WILL CONTINUE TO MONITOR PATIENT. WE WILL ADD AN AMP OF BICARB TO EACH LITER OF IV FLUIDS AND ORDER A DULOCOX SUPPOSITORY. WE WILL WEAN SEDATION AND OXYGEN PATIENT TOLERATES. OTHERWISE, WE WILL FOLLOW UP WITH AM LABS AND CONTINUE TO MONITOR. TIME SPENT ON CLINICAL ASSESSMENT, REVIEWING LABS AND IMAGING, DECISION MAKING, AND DOCUMENTATION, WAS GREATER THAN 75 MINUTES. - Past Medical Family Social History Past Med/Fam/Surg Hx: No changes since H&P Allergies: Allergies doxycycline Allergy (Verified 04/10/19 17:47) - Review of Systems ROS: No change since H&P - Vital Signs and I&O's Vital Signs: Temperature 97.9 F Pulse Rate [Right Radial] 85 Pulse Rate 91 Respiratory Rate 38 Blood Pressure [Right Arm] 128/63 Blood Pressure 98/47 O2 Sat by Pulse Oximetry 100 Intake and Output: Intake & Output 08/12/20 08/13/20 08/14/20 08/15/20 11:59 11:59 11:59 11:59 Intake Total 5519 / 5519 4159 / 4159 4705 / 4705 4318 / 4318 Output Total 2179 / 2229 947 / 954 1246 / 1246 1838 / 1838 Balance 3340 / 3290 3212 / 3205 3459 / 3459 2480 / 2480 - Physical Exam Oriented: Unable to test Eyes: Normal Ear: Normal Nose: Normal Throat: Normal Respiratory: Generalized, Diminished Cardiovascular: Irregular : Normal Auscultation: Bowel Sounds: Decreased Tenderness: Other (mild distention , soft abdomen . BS+ but hypoactive .) Skin: Wound (SEE WOUND ASSESSMENT ) Musculoskeletal: Normal Psychiatric: Other (SEDATED) Mood Description: Calm Affect: Normal Speech Pattern: Artificially Ventilated - Laboratory and Diagnostics Result Diagrams: 08/15/20 04:40 08/15/20 04:40 Labs: 08/14/20 10:00 Urine,Clean Catch Urine Culture - Preliminary 08/08/20 16:45 Sputum - Expectorated Sputum Sputum Culture - Final Proteus Mirabilis Escherichia Coli 08/08/20 16:45 Sputum - Expectorated Sputum - Final 08/07/20 21:18 Blood Blood Culture - Final 08/07/20 21:08 Blood Blood Culture - Final 08/05/20 09:54 Blood Blood Culture - Final 08/05/20 09:46 Blood Blood Culture - Final 08/07/20 23:01 Sputum - Endotracheal Wash Sputum Culture - Final Escherichia Coli Proteus Mirabilis 08/07/20 23:01 Sputum - Endotracheal Wash - Final 08/07/20 20:53 Urine,Clean Catch Urine Culture - Final 08/05/20 17:17 Leg - Left Gram Stain - Final 08/05/20 17:17 Leg - Left Wound Culture - Final Methicillin Resis Staph Aureus 08/05/20 17:17 Knee - Right Gram Stain - Final 08/05/20 17:17 Knee - Right Wound Culture - Final Methicillin Resis Staph Aureus 08/05/20 17:17 Ankle - Left Gram Stain - Final 08/05/20 17:17 Ankle - Left Wound Culture - Final Methicillin Resis Staph Aureus 08/05/20 00:00 Urine,Clean Catch Urine Culture - Final Laboratory WBC 16.0 X10^3/uL (3.6-10.0) H 08/15/20 04:40 RBC 2.89 X10^6/uL (4.7-6.0) L 08/15/20 04:40 Hgb 7.9 g/dL (13.5-18.0) L 08/15/20 04:40 Hct 25.7 % (42.0-54.0) L 08/15/20 04:40 MCV 88.7 fL (80.0-100.0) 08/15/20 04:40 MCH 27.3 pg (27.0-34.0) 08/15/20 04:40 MCHC 30.7 g/dL (33.0-35.0) L 08/15/20 04:40 RDW 16.6 % (11.6-16.5) H 08/15/20 04:40 Plt Count 291 X10^3/uL (150.0-450.0) 08/15/20 04:40 Plt Count Comment Adequate (ADEQUATE) 08/15/20 04:40 MPV 7.6 fL (7.4-11.0) 08/15/20 04:40 Neut % (Auto) 89.0 % (42.0-75.0) H 08/15/20 04:40 Lymph % (Auto) 6.0 % (21.0-51.0) L 08/15/20 04:40 [place] % (Auto) 4.2 % (0.0-13.0) 08/15/20 04:40 Eos % (Auto) 0.5 % (0.9-2.9) L 08/15/20 04:40 Baso % (Auto) 0.3 % (0.2-1.0) 08/15/20 04:40 Neut # (Auto) 14.3 x10^3/uL (2.2-4.8) H 08/15/20 04:40 Lymph # (Auto) 1.0 X10^3/uL (1.3-2.9) L 08/15/20 04:40 [place] # (Auto) 0.7 x10^3/uL (0.3-0.8) 08/15/20 04:40 Eos # (Auto) 0.1 x10^3/uL (0.0-0.2) 08/15/20 04:40 Baso # (Auto) 0.0 X10^3/uL (0.0-0.1) 08/15/20 04:40 Absolute Nucleated RBC 0.1 /100WBC 08/15/20 04:40 Total Counted 100 08/15/20 04:40 Neutrophils % (Manual) 84 % (39-76) H 08/15/20 04:40 Band Neutrophils % 5 % (0-10) 08/15/20 04:40 Lymphocytes % (Manual) 6 % (13-43) L 08/15/20 04:40 Monocytes % (Manual) 4 % (4-9) 08/15/20 04:40 Eosinophils % (Manual) 1 % (0-6) 08/15/20 04:40 Metamyelocytes % 5 08/14/20 05:20 Myelocytes % 1 08/14/20 05:20 Plt Morphology Comment Normal (NORMAL) 08/15/20 04:40 RBC Morphology Abnormal (NORMAL) 08/15/20 04:40 Hypochromasia Slight A 08/15/20 04:40 Anisocytosis Slight A 08/15/20 04:40 ESR 67 MM/HOUR (0-15) H 08/04/20 13:27 Sample Site Rrad 08/15/20 05:43 ABG pH 7.170 (7.35-7.45) L* 08/15/20 05:43 ABG pCO2 43.0 mmHg (35.0-45.0) 08/15/20 05:43 ABG pO2 87.0 mmHg (80.0-100.0) 08/15/20 05:43 ABG HCO3 15.7 mmol/L (22-26) L* 08/15/20 05:43 ABG O2 Saturation 94.0 % (90-100) 08/15/20 05:43 ABG Base Excess -12.4 mmol/L (-2.0-2.0) L 08/15/20 05:43 Félix Test Pos 08/15/20 05:43 A-a Gradient 73.0 mmHg 08/15/20 05:43 FiO2 30.0 08/15/20 05:43 Blood Gas Comments Jewel abg well-mtf 08/15/20 05:43 Sodium 137 mmol/L (136-145) 08/15/20 04:40 Corrected Sodium 140 mmol/L (136-145) 08/15/20 04:40 Potassium 5.2 mmol/L (3.5-5.1) H 08/15/20 04:40 Chloride 109 mmol/L (98-107) H 08/15/20 04:40 Carbon Dioxide 17.7 mmol/L (21-32) L 08/15/20 04:40 BUN 48 mg/dL (7-18) H 08/15/20 04:40 Creatinine 2.04 mg/dL (0.70-1.30) H 08/15/20 04:40 Est GFR (MDRD) Af Amer 40 (>60) L 08/15/20 04:40 Est GFR (MDRD) Non-Af 33 (>60) L 08/15/20 04:40 Glucose 245 mg/dL (65-99) H 08/15/20 04:40 POC Glucose (mg/dL) 225 mg/dL (65-99) H 08/14/20 19:41 Lactic Acid 2.8 mmol/L (0.4-2.0) H 08/07/20 21:18 Calcium 7.8 mg/dL (8.5-10.1) L 08/15/20 04:40 Corrected Calcium 9.3 mg/dL (8.5-10.1) 08/15/20 04:40 Phosphorus 2.6 mg/dL (2.6-4.7) 08/15/20 04:40 Magnesium 2.1 mg/dL (1.7-2.9) 08/10/20 04:20 Total Bilirubin 0.20 mg/dL (0.2-1.0) 08/15/20 04:40 AST 8 Units/L (15-37) L 08/15/20 04:40 ALT 11 Units/L (12-78) L 08/15/20 04:40 Alkaline Phosphatase 72 Units/L (46-116) 08/15/20 04:40 Creatine Kinase 748 Units/L (39-308) H 08/08/20 09:20 CK-MB (CK-2) 4.7 ng/mL (0-4.0) H* 08/08/20 09:20 CK/CKMB % Calc 0.6 % (<4) 08/08/20 09:20 Troponin I 0.09 ng/mL (0-1.5) 08/08/20 09:20 C-Reactive Protein 51.90 mg/L (0-3.0) H 08/05/20 05:29 B-Natriuretic Peptide 156 pg/mL (0-79) H 08/08/20 03:50 Total Protein 5.5 g/dL (6.4-8.2) L 08/15/20 04:40 Albumin 2.1 g/dL (3.4-5.0) L 08/15/20 04:40 Globulin 3.4 g/dL (2.5-4.5) 08/15/20 04:40 Albumin/Globulin Ratio 0.6 Ratio (1.1-2.1) L 08/15/20 04:40 Prealbumin 8.6 mg/dL (18-35.7) L 08/15/20 04:40 Triglycerides 138 mg/dL (0-150) 08/15/20 04:40 Amylase 36 Units/L (25-115) 08/04/20 13:27 Lipase 71 Units/L (73-393) L 08/04/20 13:27 Carcinoembryonic Ag 3.9 ng/mL (0.0-3.0) H 08/07/20 04:05 Specimen Type Catherized urine 08/08/20 00:04 Urine Color Straw (YELLOW) 08/08/20 00:04 Urine Appearance Hazy (CLEAR) 08/08/20 00:04 Urine pH 5.0 (5.0 - 8.0) 08/08/20 00:04 Ur Specific [place] 1.010 (1.000-1.030) 08/08/20 00:04 Urine Protein 3+ (NEGATIVE) 08/08/20 00:04 Urine Glucose (UA) Negative (NEGATIVE) 08/08/20 00:04 Urine Ketones Negative (NEGATIVE) 08/08/20 00:04 Urine Occult Blood 5+ (NEGATIVE) 08/08/20 00:04 Urine Nitrite Negative (NEGATIVE) 08/08/20 00:04 Urine Bilirubin Negative (NEGATIVE) 08/08/20 00:04 Urine Urobilinogen Normal (NORMAL) 08/08/20 00:04 Ur Leukocyte Esterase 3+ (NEGATIVE) 08/08/20 00:04 Urine RBC Tntc /HPF (0-3) A 08/05/20 00:00 Urine WBC Tntc /HPF (0-5) A 08/05/20 00:00 Ur Squamous Epith Cells Negative /HPF (NEGATIVE) 08/05/20 00:00 Urine Bacteria 3+ /HPF (NEGATIVE) 08/05/20 00:00 Urine Yeast Numerous /HPF (NEGATIVE) 08/05/20 00:00 Ur Culture Indicated? Yes/culture set up 08/05/20 00:00 Stl C. diff Tox B Gene Negative (NEGATIVE) 08/10/20 18:20 Stl C. diff [id number] Presumptive negative (NEGATIVE) 08/10/20 18:20 Vancomycin Trough 20.9 ug/mL (15-20) H* 08/13/20 09:15 SARS CoV-2 RNA Rapid HEMA Negative (NEGATIVE) 08/04/20 20:20 - Plan (1) Aspiration pneumonia Status: Acute Qualifiers: Aspiration pneumonia type: due to vomit Laterality: unspecified laterality Lung location: unspecified part of lung Qualified Code(s): J69.0 - Pneumoniti s due to inhalation of food and vomit Plan: NORMAL SALINE WITH ONE AMP BICARB IN EACH LITER AT 75 ML/HR, TPN AT 50 ML/HR, ALBUMIN 25% IV DAILY, VANCOMYCIN, INVANZ 1G IV DAILY, DUONEBS, MUCOMYST IN NEB [place], DIFLUCAN 100MG IV DAILY, DUONEBS QID, DOPAMINE DRIP, PRESEDEX DRIP, VERSED DRIP, PEPCID 20MG IV HS, PROTONIX 40MG IV BID (2) CHF (congestive heart failure) Status: Acute Qualifiers: Heart failure type: unspecified Heart failure chronicity: acute on chronic Qualified Code(s): I50.9 - Heart failure, unspecified (3) Ileus Status: Acute Plan: NORMAL SALINE AT 50 ML/HR, VANCOMYCIN, INVANZ 1G IV DAILY, DIFLUCAN 100MG IV DAILY, DUONEBS QID, DOPAMINE DRIP, PRESEDEX DRIP, VERSED DRIP, PEPCID 20MG IV HS, PROTONIX 40MG IV BID (4) Abdominal pain Status: Acute Qualifiers: Abdominal location: left lower quadrant Qualified Code(s): R10.32 - Left lower quadrant pain (5) Urinary tract infection Status: Acute Qualifiers: Urinary tract infection type: acute cystitis Hematuria presence: with hematuria Qualified Code(s): N30.01 - Acute cystitis with hematuria (6) Dehydration Status: Acute (7) Nausea and vomiting Status: Acute Qualifiers: Vomiting Intractability: intractable (8) Sacral decubitus ulcer Status: Acute Qualifiers: Pressure injury stage: unspecified pressure injury stage Qualified Code(s): L89.159 - Pressure ulcer of sacral region, unspecified stage (9) Fecal impaction Status: Resolved Plan: COLACE 200MG PO BID, MILK OF MAGNESIA 15ML PO QID, MIRALAX 17G PO DAILY
[2020-08-15] MEDS: INVANZ INJ 1 GM VIAL 0.5 GM in NS 50 ML IV 50 ML IV SCH (11:17)
[2020-08-15] MEDS ORDERED: NS 250 ML IV 250 ML IV ONE (11:22)
[2020-08-15] MEDS: PEPCID 20 MG IV PREMIX* 20 MG/50 ML BAG IV SCH (21:02)
[2020-08-16] MEDS: NS 1000 ML 1,000 ML with SODIUM BICARBONATE 8.4% INJ ADULT 50 ML IV SCH ×14 (02:11→20:02)
[2020-08-16 05:44] LABS: ABG ALLEN TEST POS; ABG HCO3 16.8 mmol/L (22-26)
[2020-08-16 06:12] LABS: BASOPHILS # (AUTO) 0.1 X10^3/uL (0.0-0.1); BASOPHILS % (AUTO) 0.4 % (0.2-1.0); EOSINOPHILS # (AUTO) 0.1 x10^3/uL (0.0-0.2); EOSINOPHILS % (AUTO) 0.8 % (0.9-2.9); HEMATOCRIT 24.4 % (42.0-54.0); HEMOGLOBIN 7.8 g/dL (13.5-18.0); LYMPHOCYTES # (AUTO) 0.9 X10^3/uL (1.3-2.9); MEAN CORPUSCULAR HEMOGLOBIN 27.9 pg (27.0-34.0); MEAN CORPUSCULAR VOLUME 87.3 fL (80.0-100.0); MEAN PLATELET VOLUME 7.5 fL (7.4-11.0); MONOCYTES # (AUTO) 0.4 x10^3/uL (0.3-0.8); MONOCYTES % (AUTO) 3.3 % (0.0-13.0); NEUTROPHILS # (AUTO) 11.3 x10^3/uL (2.2-4.8); NEUTROPHILS % (AUTO) 88.5 % (42.0-75.0); PLATELET COUNT 310 X10^3/uL (150.0-450.0); RED BLOOD COUNT 2.79 X10^6/uL (4.7-6.0); WHITE BLOOD COUNT 12.7 X10^3/uL (3.6-10.0)
[2020-08-16 06:17] LABS: ALBUMIN 2.3 g/dL (3.4-5.0); CALCIUM 7.8 mg/dL (8.5-10.1); CARBON DIOXIDE 16.9 mmol/L (21-32); COR CA(FOR HYPOALB) 9.2 mg/dL (8.5-10.1); CREATININE 2.31 mg/dL (0.70-1.30); TOTAL PROTEIN 5.7 g/dL (6.4-8.2)
[2020-08-16 06:51] LABS: BAND NEUTROPHILS % 4 % (0-10)
[2020-08-16 06:52] LABS: ANISOCYTOSIS SLIGHT; PLATELET MORPHOLOGY COMMENT NORMAL (NORMAL)
[2020-08-16] MEDS: DOPAMINE IV PREMIX 400 MG/250 ML 400 MG/250 ML BAG IV PRN ×2 (07:56→20:01)
[2020-08-16] MEDS: ALBUMIN HUMAN 25%- 100 ML 100 ML IV SCH (08:25)
[2020-08-16] MEDS: DULCOLAX SUPPOSITORY 10 MG RECTAL SCH ×2 (08:28→20:03)
[2020-08-16] MEDS: LACRI-LUBE S.O.P. AFFEYE SCH ×2 (08:28→20:03)
[2020-08-16] MEDS: LOVENOX INJ 30 MG SYR SC SCH (08:28)
[2020-08-16] MEDS: VOLTAREN 1 % GEL MULTI DOSE TUBE TOP SCH ×2 (08:29→20:03)
[2020-08-16 08:34] LABS: CREATININE 2.43 mg/dL (0.70-1.30)
[2020-08-16 08:35] LABS: VANCOMYCIN,TROUGH 26.3 ug/mL (15-20)
[2020-08-16] MEDS: INVANZ INJ 1 GM VIAL 0.5 GM in NS 50 ML IV 50 ML IV SCH (08:58)
[2020-08-16] MEDS: DUONEB 0.5 MG/3 MG (3 mL) NEB SCH ×4 (09:06→20:05)
[2020-08-16] MEDS: MUCOMYST 20% 200 MG/ML NEB SCH ×4 (09:06→20:05)
[2020-08-16] MEDS: DIFLUCAN 100 MG IV (MIX by PHARMACY)* 100 MG/50 ML BAG IV SCH (09:36)
[2020-08-16] MEDS: VERSED IV PREMIX 100 MG/100 ML IV.SOLN IV PRN (10:25)
--- NOTE | 2020-08-16 16:40 | PCM.PROG ---
Progress Note - Progress Note for Day of Date of Exam: 08/15/20 - Subjective Subjective: IS BEING TREATED FOR ASPIRATION PNEUMONIA, ILEUS, UTI, DEHYDRATION, ACUTE RENAL FAILURE, AND HYPOTENSION. HE REMAINS ON THE MECHANICAL VENT THIS MORNING. AN NG TUBE REMAINS IN PLACE TO LOW INTERMITTENT SUCTION. NG TUBE DRAINAGE IS MILD. VENT SETTINGS ARE: SIMV, VENT RATE 10, TIDAL VOLUME 550, PEEP 3, PRESSURE SUPPORT 12, FI02 28. HE HAS HAD DECREASED URINE OUTPUT TODAY. HE HAS CONTINUED TO BE HYPOTENSIVE THIS MORNING AND THROUGHOUT THE NIGHT. DOPAMINE HAS BEEN TITRATED TO MANAGE BLOOD PRESSURE. ON EXAMINATION, HEART IS REGULAR IN RATE AND RHYTHM. BILATERAL LUNGS ARE NOTED WITH DIMINISHED LUNG SOUNDS THROUGHOUT. ABDOMEN IS ROUND, SOFT, AND CONTINUES TO HAVE HYPOACTIVE BOWEL SOUNDS IN ALL QUADRANTS. PATIENT IS NOTED TO HAVE MULTIPLE PRESSURE ULCERS TO SACRUM AND LOWER EXTREMITIES. SEE WOUND ASSESSMENT. HIS VITALS THIS MORNING ARE: 97.9-92-36-99%-98/47. LABS WERE OBTAINED. ABNORMAL LAB VALUES INCLUDE THE FOLLOWING: WBC 16.0, RBC 2.89, HGB 7.9, HCT 25.7, POTASSIUM 5.2, CHLORIDE 109, CARBON DIOXIDE 17.7, BUN 48, CREATININE 2.04, GLUCOSE 245, CALCIUM 7.8, AST 8, ALT 11, TOTAL PROTEIN 5.5, ALBUMIN 2.1. ABG REVEALED: PH 7.170, PC02 43, P02 87.0, HC03 15.7, 02 SAT 94, BASE EXCESS -12.4, A-A GRADIENT 73, FI02 30. URINE CULTURE REVEALS GROWTH OF YEAST. RIGHT KNEE AND LEFT ANKLE WOUND CULTURES REVEAL GROWTH OF MRSA. SPUTUM CULTURES REVEAL GROWTH OF PROTEUS MIRABILIS AND E.COLI. BLOOD CULTURES ARE PENDING. TODAYS CHEST XRAY REVEALED: Mild improvement in multifocal airspace disease consistent with pneumonia. KUB REVEALED: Right femoral approach central line in stable position. No significant change in gas- filled dilated colon. Moderate to large amount of stool in the colon. No free air, pneumatosis or portal venous gas. Cholecystectomy clips noted. NG tube in good position. Bibasilar airspace opacities in the lungs. Calcifications in the pelvis are likely phleboliths. TODAY, WE WILL CONTINUE WITH NORMAL SALINE WITH BICARB, ALBUMIN 25% IV DAILY, INVANZ, VANCOMYCIN, DOPAMINE, VERSED FOR SEDATION, DUONEBS, MUCOMYST, AND CURRENT PLAN OF CARE. WILL CONTINUE TO MONITOR PATIENT. WE WILL DISCONTINUE THE TPN DUE TO ELEVATED POTASSIUM AND DECREASED RENAL FUNCTION. WE WILL BOLUS ONE LITER OF IV FLUIDS AND THEN INCREASE MAINTENANCE FLUIDS TO 150 ML/HR. WE WILL WEAN SEDATION AND OXYGEN PATIENT TOLERATES. OTHERWISE, WE WILL FOLLOW UP WITH AM LABS AND CONTINUE TO MONITOR. TIME SPENT ON CLINICAL ASSESSMENT, REVIEWING LABS AND IMAGING, DECISION MAKING, AND DOCUMENTATION, WAS GREATER THAN 75 MINUTES. - Past Medical Family Social History Past Med/Fam/Surg Hx: No changes since H&P Allergies: Allergies doxycycline Allergy (Verified 04/10/19 17:47) - Review of Systems ROS: No change since H&P - Vital Signs and I&O's Vital Signs: Temperature 97.2 F Pulse Rate [Right Radial] 85 Pulse Rate 97 Respiratory Rate 18 Blood Pressure [Right Arm] 128/63 Blood Pressure 100/53 O2 Sat by Pulse Oximetry 97 Intake and Output: Intake & Output 08/14/20 08/15/20 08/16/20 08/17/20 11:59 11:59 11:59 11:59 Intake Total 4705 / 4705 4318 / 4318 5554 / 5554 1550 / 1550 Output Total 1246 / 1246 1844 / 1844 105 / 105 25 / 25 Balance 3459 / 3459 2474 / 2474 5449 / 5449 1525 / 1525 - Physical Exam Oriented: Unable to test Eyes: Normal Ear: Normal Nose: Normal Throat: Normal Respiratory: Generalized, Diminished Cardiovascular: Irregular : Normal Auscultation: Bowel Sounds: Decreased Tenderness: Other (mild distention , soft abdomen . BS+ but hypoactive .) Skin: Wound (SEE WOUND ASSESSMENT ) Musculoskeletal: Normal Psychiatric: Other (SEDATED) Mood Description: Calm Affect: Normal Speech Pattern: Artificially Ventilated - Laboratory and Diagnostics Result Diagrams: 08/16/20 05:17 08/16/20 08:04 Labs: 08/14/20 10:22 Blood Blood Culture - Preliminary 08/14/20 10:25 Blood Blood Culture - Preliminary 08/14/20 10:00 Urine,Clean Catch Urine Culture - Final 08/08/20 16:45 Sputum - Expectorated Sputum Sputum Culture - Final Proteus Mirabilis Escherichia Coli 08/08/20 16:45 Sputum - Expectorated Sputum - Final 08/07/20 21:18 Blood Blood Culture - Final 08/07/20 21:08 Blood Blood Culture - Final 08/05/20 09:54 Blood Blood Culture - Final 08/05/20 09:46 Blood Blood Culture - Final 08/07/20 23:01 Sputum - Endotracheal Wash Sputum Culture - Final Escherichia Coli Proteus Mirabilis 08/07/20 23:01 Sputum - Endotracheal Wash - Final 08/07/20 20:53 Urine,Clean Catch Urine Culture - Final 08/05/20 17:17 Leg - Left Gram Stain - Final 08/05/20 17:17 Leg - Left Wound Culture - Final Methicillin Resis Staph Aureus 08/05/20 17:17 Knee - Right Gram Stain - Final 08/05/20 17:17 Knee - Right Wound Culture - Final Methicillin Resis Staph Aureus 08/05/20 17:17 Ankle - Left Gram Stain - Final 08/05/20 17:17 Ankle - Left Wound Culture - Final Methicillin Resis Staph Aureus 08/05/20 00:00 Urine,Clean Catch Urine Culture - Final Laboratory WBC 12.7 X10^3/uL (3.6-10.0) H 08/16/20 05:17 RBC 2.79 X10^6/uL (4.7-6.0) L 08/16/20 05:17 Hgb 7.8 g/dL (13.5-18.0) L 08/16/20 05:17 Hct 24.4 % (42.0-54.0) L 08/16/20 05:17 MCV 87.3 fL (80.0-100.0) 08/16/20 05:17 MCH 27.9 pg (27.0-34.0) 08/16/20 05:17 MCHC 32.0 g/dL (33.0-35.0) L 08/16/20 05:17 RDW 17.0 % (11.6-16.5) H 08/16/20 05:17 Plt Count 310 X10^3/uL (150.0-450.0) 08/16/20 05:17 Plt Count Comment Adequate (ADEQUATE) 08/16/20 05:17 MPV 7.5 fL (7.4-11.0) 08/16/20 05:17 Neut % (Auto) 88.5 % (42.0-75.0) H 08/16/20 05:17 Lymph % (Auto) 7.0 % (21.0-51.0) L 08/16/20 05:17 Beckham % (Auto) 3.3 % (0.0-13.0) 08/16/20 05:17 Eos % (Auto) 0.8 % (0.9-2.9) L 08/16/20 05:17 Baso % (Auto) 0.4 % (0.2-1.0) 08/16/20 05:17 Neut # (Auto) 11.3 x10^3/uL (2.2-4.8) H 08/16/20 05:17 Lymph # (Auto) 0.9 X10^3/uL (1.3-2.9) L 08/16/20 05:17 Beckham # (Auto) 0.4 x10^3/uL (0.3-0.8) 08/16/20 05:17 Eos # (Auto) 0.1 x10^3/uL (0.0-0.2) 08/16/20 05:17 Baso # (Auto) 0.1 X10^3/uL (0.0-0.1) 08/16/20 05:17 Absolute Nucleated RBC 0.2 /100WBC 08/16/20 05:17 Total Counted 100 08/16/20 05:17 Neutrophils % (Manual) 82 % (39-76) H 08/16/20 05:17 Band Neutrophils % 4 % (0-10) 08/16/20 05:17 Lymphocytes % (Manual) 10 % (13-43) L 08/16/20 05:17 Monocytes % (Manual) 2 % (4-9) L 08/16/20 05:17 Eosinophils % (Manual) 1 % (0-6) 08/15/20 04:40 Metamyelocytes % 5 08/14/20 05:20 Myelocytes % 1 08/14/20 05:20 Plt Morphology Comment Normal (NORMAL) 08/16/20 05:17 RBC Morphology Abnormal (NORMAL) 08/16/20 05:17 Hypochromasia Slight A 08/15/20 04:40 Anisocytosis Slight A 08/16/20 05:17 ESR 67 MM/HOUR (0-15) H 08/04/20 13:27 Sample Site Rr 08/16/20 05:00 ABG pH 7.190 (7.35-7.45) L* 08/16/20 05:00 ABG pCO2 44.0 mmHg (35.0-45.0) 08/16/20 05:00 ABG pO2 126.0 mmHg (80.0-100.0) H 08/16/20 05:00 ABG HCO3 16.8 mmol/L (22-26) L* 08/16/20 05:00 ABG O2 Saturation 98.0 % (90-100) 08/16/20 05:00 ABG Base Excess -11.0 mmol/L (-2.0-2.0) L 08/16/20 05:00 Félix Test Pos 08/16/20 05:00 A-a Gradient 19.0 mmHg 08/16/20 05:00 FiO2 28.0 08/16/20 05:00 Blood Gas Comments Jeewl well sw 08/16/20 05:00 Sodium 138 mmol/L (136-145) 08/16/20 05:17 Corrected Sodium 139 mmol/L (136-145) 08/16/20 05:17 Potassium 5.2 mmol/L (3.5-5.1) H 08/16/20 05:17 Chloride 110 mmol/L (98-107) H 08/16/20 05:17 Carbon Dioxide 16.9 mmol/L (21-32) L 08/16/20 05:17 BUN 49 mg/dL (7-18) H 08/16/20 05:17 Creatinine 2.43 mg/dL (0.70-1.30) H 08/16/20 08:04 Est GFR (MDRD) Af Amer 35 (>60) L 08/16/20 05:17 Est GFR (MDRD) Non-Af 29 (>60) L 08/16/20 05:17 Glucose 123 mg/dL (65-99) H 08/16/20 05:17 POC Glucose (mg/dL) 102 mg/dL (65-99) H 08/16/20 16:21 Lactic Acid 2.8 mmol/L (0.4-2.0) H 08/07/20 21:18 Calcium 7.8 mg/dL (8.5-10.1) L 08/16/20 05:17 Corrected Calcium 9.2 mg/dL (8.5-10.1) 08/16/20 05:17 Phosphorus 2.6 mg/dL (2.6-4.7) 08/15/20 04:40 Magnesium 2.1 mg/dL (1.7-2.9) 08/10/20 04:20 Total Bilirubin 0.20 mg/dL (0.2-1.0) 08/16/20 05:17 AST 11 Units/L (15-37) L 08/16/20 05:17 ALT 11 Units/L (12-78) L 08/16/20 05:17 Alkaline Phosphatase 68 Units/L (46-116) 08/16/20 05:17 Creatine Kinase 748 Units/L (39-308) H 08/08/20 09:20 CK-MB (CK-2) 4.7 ng/mL (0-4.0) H* 08/08/20 09:20 CK/CKMB % Calc 0.6 % (<4) 08/08/20 09:20 Troponin I 0.09 ng/mL (0-1.5) 08/08/20 09:20 C-Reactive Protein 51.90 mg/L (0-3.0) H 08/05/20 05:29 B-Natriuretic Peptide 156 pg/mL (0-79) H 08/08/20 03:50 Total Protein 5.7 g/dL (6.4-8.2) L 08/16/20 05:17 Albumin 2.3 g/dL (3.4-5.0) L 08/16/20 05:17 Globulin 3.4 g/dL (2.5-4.5) 08/16/20 05:17 Albumin/Globulin Ratio 0.7 Ratio (1.1-2.1) L 08/16/20 05:17 Prealbumin 11.0 mg/dL (18-35.7) L 08/16/20 05:17 Triglycerides 138 mg/dL (0-150) 08/15/20 04:40 Amylase 36 Units/L (25-115) 08/04/20 13:27 Lipase 71 Units/L (73-393) L 08/04/20 13:27 Carcinoembryonic Ag 3.9 ng/mL (0.0-3.0) H 08/07/20 04:05 Specimen Type Catherized urine 08/08/20 00:04 Urine Color Straw (YELLOW) 08/08/20 00:04 Urine Appearance Hazy (CLEAR) 08/08/20 00:04 Urine pH 5.0 (5.0 - 8.0) 08/08/20 00:04 Ur Specific [place] 1.010 (1.000-1.030) 08/08/20 00:04 Urine Protein 3+ (NEGATIVE) 08/08/20 00:04 Urine Glucose (UA) Negative (NEGATIVE) 08/08/20 00:04 Urine Ketones Negative (NEGATIVE) 08/08/20 00:04 Urine Occult Blood 5+ (NEGATIVE) 08/08/20 00:04 Urine Nitrite Negative (NEGATIVE) 08/08/20 00:04 Urine Bilirubin Negative (NEGATIVE) 08/08/20 00:04 Urine Urobilinogen Normal (NORMAL) 08/08/20 00:04 Ur Leukocyte Esterase 3+ (NEGATIVE) 08/08/20 00:04 Urine RBC Tntc /HPF (0-3) A 08/05/20 00:00 Urine WBC Tntc /HPF (0-5) A 08/05/20 00:00 Ur Squamous Epith Cells Negative /HPF (NEGATIVE) 08/05/20 00:00 Urine Bacteria 3+ /HPF (NEGATIVE) 08/05/20 00:00 Urine Yeast Numerous /HPF (NEGATIVE) 08/05/20 00:00 Ur Culture Indicated? Yes/culture set up 08/05/20 00:00 Stl C. diff Tox B Gene Negative (NEGATIVE) 08/10/20 18:20 Stl C. diff [id number] Presumptive negative (NEGATIVE) 08/10/20 18:20 Vancomycin Trough 26.3 ug/mL (15-20) H* 08/16/20 08:04 SARS CoV-2 RNA Rapid HEMA Negative (NEGATIVE) 08/04/20 20:20 - Plan (1) Aspiration pneumonia Status: Acute Qualifiers: Aspiration pneumonia type: due to vomit Laterality: unspecified laterality Lung location: unspecified part of lung Qualified Code(s): J69.0 - Pneumonitis due to inhalation of food and vomit Plan: NORMAL SALINE WITH ONE AMP BICARB IN EACH LITER AT 75 ML/HR, TPN AT 50 ML/HR, ALBUMIN 25% IV DAILY, VANCOMYCIN, INVANZ 1G IV DAILY, DUONEBS, MUCOMYST IN NEB [place], DIFLUCAN 100MG IV DAILY, DUONEBS QID, DOPAMINE DRIP, PRESEDEX DRIP, VERSED DRIP, PEPCID 20MG IV HS, PROTONIX 40MG IV BID (2) CHF (congestive heart failure) Status: Acute Qualifiers: Heart failure type: unspecified Heart failure chronicity: acute on chronic Qualified Code(s): I50.9 - Heart failure, unspecified (3) Ileus Status: Acute Plan: NORMAL SALINE AT 50 ML/HR, VANCOMYCIN, INVANZ 1G IV DAILY, DIFLUCAN 100MG IV DAILY, DUONEBS QID, DOPAMINE DRIP, PRESEDEX DRIP, VERSED DRIP, PEPCID 20MG IV HS, PROTONIX 40MG IV BID (4) Abdominal pain Status: Acute Qualifiers: Abdominal location: left lower quadrant Qualified Code(s): R10.32 - Left lower quadrant pain (5) Urinary tract infection Status: Acute Qualifiers: Urinary tract infection type: acute cystitis Hematuria presence: with hematuria Qualified Code(s): N30.01 - Acute cystitis with hematuria (6) Dehydration Status: Acute (7) Nausea and vomiting Status: Acute Qualifiers: Vomiting Intractability: intractable (8) Sacral decubitus ulcer Status: Acute Qualifiers: Pressure injury stage: unspecified pressure injury stage Qualified Code(s): L89.159 - Pressure ulcer of sacral region, unspecified stage (9) Fecal impaction Status: Resolved Plan: COLACE 200MG PO BID, MILK OF MAGNESIA 15ML PO QID, MIRALAX 17G PO DAILY
[2020-08-17] MEDS: VERSED IV PREMIX 100 MG/100 ML IV.SOLN IV PRN ×2 (04:10→21:35)
[2020-08-17] MEDS: NS 1000 ML 1,000 ML with SODIUM BICARBONATE 8.4% INJ ADULT 50 ML IV SCH ×6 (04:10→18:49)
[2020-08-17 04:28] LABS: ABG ALLEN TEST POS; ABG BASE EXCESS -9.9 mmol/L (-2.0-2.0); ABG HCO3 17.6 mmol/L (22-26)
[2020-08-17 06:12] LABS: BASOPHILS # (AUTO) 0.1 X10^3/uL (0.0-0.1); BASOPHILS % (AUTO) 0.5 % (0.2-1.0); EOSINOPHILS # (AUTO) 0.1 x10^3/uL (0.0-0.2); EOSINOPHILS % (AUTO) 0.7 % (0.9-2.9); HEMATOCRIT 24.6 % (42.0-54.0); HEMOGLOBIN 7.7 g/dL (13.5-18.0); LYMPHOCYTES # (AUTO) 1.2 X10^3/uL (1.3-2.9); LYMPHOCYTES % (AUTO) 10.4 % (21.0-51.0); MEAN CORPUSCULAR HEMOGLOBIN 27.4 pg (27.0-34.0); MEAN CORPUSCULAR HGB CONC 31.4 g/dL (33.0-35.0); MEAN CORPUSCULAR VOLUME 87.1 fL (80.0-100.0); MEAN PLATELET VOLUME 7.3 fL (7.4-11.0); MONOCYTES # (AUTO) 0.4 x10^3/uL (0.3-0.8); MONOCYTES % (AUTO) 3.9 % (0.0-13.0); NEUTROPHILS # (AUTO) 9.3 x10^3/uL (2.2-4.8); NEUTROPHILS % (AUTO) 84.5 % (42.0-75.0); PLATELET COUNT 333 X10^3/uL (150.0-450.0); RED BLOOD COUNT 2.83 X10^6/uL (4.7-6.0); RED CELL DISTRIBUTION WIDTH 16.8 % (11.6-16.5)
[2020-08-17 06:27] LABS: ALANINE AMINOTRANSFERASE 10 Units/L (12-78); ALBUMIN 2.3 g/dL (3.4-5.0); ALKALINE PHOSPHATASE 64 Units/L (46-116); ASPARTATE AMINO TRANSFERASE 11 Units/L (15-37); BLOOD UREA NITROGEN 52 mg/dL (7-18); CALCIUM 7.8 mg/dL (8.5-10.1); CARBON DIOXIDE 19.1 mmol/L (21-32); CHLORIDE 112 mmol/L (98-107); COR CA(FOR HYPOALB) 9.2 mg/dL (8.5-10.1); CREATININE 2.53 mg/dL (0.70-1.30); SODIUM 142 mmol/L (136-145); TOTAL PROTEIN 5.6 g/dL (6.4-8.2); eGFR NON BLACK RACES 26 (>60)
[2020-08-17 06:49] LABS: CREATININE 2.58 mg/dL (0.70-1.30)
[2020-08-17 06:55] LABS: VANCOMYCIN,TROUGH 21.2 ug/mL (15-20)
[2020-08-17 07:14] LABS: BAND NEUTROPHILS % 7 % (0-10)
[2020-08-17 07:15] LABS: PLATELET MORPHOLOGY COMMENT NORMAL (NORMAL)
--- NOTE | 2020-08-17 07:58 | RAD ---
HISTORYSOB, VENTILATOR DEPENDENCESTUDYCHEST, 1 [id number]/2021FINDINGSPatchy bilateral areas of opacity are present compatible with pneumonia. There may be a slight improvement, but most of the differences due to technique.No pleural effusion or pneumothorax.The heart size is magnified.Bones are unremarkable.The endotracheal tube is anatomic in position in the trachea. The enteric tube extends into the upper abdomen. Left subclavian ICD is present with leads in expected location. EKG leads are noted. Right subclavian central venous catheter is in the expected location of the superior vena cava. Surgical clips are present in the right upper abdomen, probably from a cholecystectomy.IMPRESSION1. Bilateral pneumonia, slightly improvedElectronically signed by: Ranjit Stafford (Aug 17, 2020 07:56:03)
[2020-08-17] MEDS ORDERED: PHARMACY COMMENT IV NR (08:30)
[2020-08-17] MEDS: DIFLUCAN 100 MG IV (MIX by PHARMACY)* 100 MG/50 ML BAG IV SCH (08:43)
[2020-08-17] MEDS: LOVENOX INJ 30 MG SYR SC SCH (08:44)
[2020-08-17] MEDS: VOLTAREN 1 % GEL MULTI DOSE TUBE TOP SCH ×2 (08:45→20:36)
[2020-08-17] MEDS: DULCOLAX SUPPOSITORY 10 MG RECTAL SCH ×2 (08:45→20:34)
[2020-08-17] MEDS: LACRI-LUBE S.O.P. AFFEYE SCH ×2 (08:45→20:35)
[2020-08-17] MEDS: DUONEB 0.5 MG/3 MG (3 mL) NEB SCH ×4 (09:06→20:15)
[2020-08-17] MEDS: MUCOMYST 20% 200 MG/ML NEB SCH ×4 (09:06→20:15)
[2020-08-17] MEDS: INVANZ INJ 1 GM VIAL 0.5 GM in NS 50 ML IV 50 ML IV SCH (09:29)
[2020-08-17] MEDS: ALBUMIN HUMAN 25%- 100 ML 100 ML IV SCH ×2 (10:20→20:50)
[2020-08-17] MEDS: DOPAMINE IV PREMIX 400 MG/250 ML 400 MG/250 ML BAG IV PRN (11:27)
[2020-08-17] MEDS: LASIX IVP SCH ×2 (11:38→22:15)
--- NOTE | 2020-08-17 12:49 | RAD ---
[id number]/2021FINDINGSThere is an enteric tube in left upper abdomen, most likely in the stomach.Gas is present in nondilated bowel. Most of the gas is present in the colon. Bu t there is less bowel gas than on the prior study. Today none of this is dilated. Findings represent improved paralytic ileus.Right common femoral central line noted.Degenerative changes are present in the spine. EKG leads are noted. Surgical clips are present in the right upper abdomen, probably from a cholecystectomy.IMPRESSION1. Improved paralytic ileusElectronically signed by: Ranjit Stafford (S[place] pr 2020 12:47:14)
[2020-08-17] MEDS: PEPCID 20 MG IV PREMIX* 20 MG/50 ML BAG IV SCH (20:25)
[2020-08-18] MEDS: NS 1000 ML 1,000 ML with SODIUM BICARBONATE 8.4% INJ ADULT 50 ML IV SCH ×8 (01:42→22:26)
[2020-08-18] MEDS: DOPAMINE IV PREMIX 400 MG/250 ML 400 MG/250 ML BAG IV PRN ×2 (02:19→16:50)
[2020-08-18 04:48] LABS: ABG ALLEN TEST POS
[2020-08-18 04:55] LABS: BASOPHILS # (AUTO) 0.1 X10^3/uL (0.0-0.1); BASOPHILS % (AUTO) 0.6 % (0.2-1.0); EOSINOPHILS % (AUTO) 0.4 % (0.9-2.9); HEMATOCRIT 22.4 % (42.0-54.0); LYMPHOCYTES # (AUTO) 0.8 X10^3/uL (1.3-2.9); LYMPHOCYTES % (AUTO) 9.2 % (21.0-51.0); MEAN CORPUSCULAR HEMOGLOBIN 27.5 pg (27.0-34.0); MEAN CORPUSCULAR HGB CONC 31.2 g/dL (33.0-35.0); MEAN CORPUSCULAR VOLUME 87.9 fL (80.0-100.0); MONOCYTES # (AUTO) 0.3 x10^3/uL (0.3-0.8); MONOCYTES % (AUTO) 3.6 % (0.0-13.0); NEUTROPHILS # (AUTO) 7.3 x10^3/uL (2.2-4.8); NEUTROPHILS % (AUTO) 86.2 % (42.0-75.0); PLATELET COUNT 333 X10^3/uL (150.0-450.0); RED BLOOD COUNT 2.55 X10^6/uL (4.7-6.0); RED CELL DISTRIBUTION WIDTH 17.3 % (11.6-16.5); WHITE BLOOD COUNT 8.5 X10^3/uL (3.6-10.0)
[2020-08-18 05:07] LABS: ALANINE AMINOTRANSFERASE 11 Units/L (12-78); ALBUMIN 2.6 g/dL (3.4-5.0); ALKALINE PHOSPHATASE 57 Units/L (46-116); ASPARTATE AMINO TRANSFERASE 11 Units/L (15-37); BLOOD UREA NITROGEN 54 mg/dL (7-18); CALCIUM 7.7 mg/dL (8.5-10.1); CHLORIDE 114 mmol/L (98-107); COR CA(FOR HYPOALB) 8.8 mg/dL (8.5-10.1); CREATININE 2.86 mg/dL (0.70-1.30); SODIUM 145 mmol/L (136-145); TOTAL PROTEIN 5.5 g/dL (6.4-8.2); eGFR NON BLACK RACES 23 (>60)
[2020-08-18 05:19] LABS: ANISOCYTOSIS 1+; HYPOCHROMASIA SLIGHT; MICROCYTOSIS SLIGHT; PLATELET MORPHOLOGY COMMENT NORMAL (NORMAL)
--- NOTE | 2020-08-18 05:41 | RAD ---
HISTORYSOBSTUDYAP [id number]/2021FINDINGSHeart remains enlarged although partly obscured by increasing bilateral confluent airspace disease. Slight additional pleural reaction is also noted bilaterally. Support lines are similar in position. No pneumothorax seen.IMPRESSIONIncreasing bilateral pulmonary infiltrates and pleural fluid consistent with pneumonia and parapneumonic effusions.Electronically signed by: YAZMIN FIGUEROA (Aug 18, 2020 05:39:18)
[2020-08-18] MEDS: ALBUMIN HUMAN 25%- 100 ML 100 ML IV SCH ×2 (08:45→20:37)
[2020-08-18] MEDS: DUONEB 0.5 MG/3 MG (3 mL) NEB SCH ×4 (09:08→20:20)
[2020-08-18] MEDS: MUCOMYST 20% 200 MG/ML NEB SCH ×4 (09:08→20:20)
[2020-08-18] MEDS: DIFLUCAN 100 MG IV (MIX by PHARMACY)* 100 MG/50 ML BAG IV SCH (09:43)
[2020-08-18] MEDS: LOVENOX INJ 30 MG SYR SC SCH (09:43)
[2020-08-18] MEDS: LACRI-LUBE S.O.P. AFFEYE SCH ×2 (09:44→20:38)
[2020-08-18] MEDS: VOLTAREN 1 % GEL MULTI DOSE TUBE TOP SCH ×2 (09:44→20:39)
[2020-08-18] MEDS: PHARMACY COMMENT IV NR (09:45)
[2020-08-18 09:55] LABS: CREATININE 2.92 mg/dL (0.70-1.30)
[2020-08-18 09:57] LABS: VANCOMYCIN,TROUGH 20.3 ug/mL (15-20)
[2020-08-18] MEDS: LASIX IVP SCH ×2 (10:00→20:38)
[2020-08-18] MEDS: DULCOLAX SUPPOSITORY 10 MG RECTAL SCH ×2 (10:05→20:38)
[2020-08-18] MEDS: INVANZ INJ 1 GM VIAL 0.5 GM in NS 50 ML IV 50 ML IV SCH (11:03)
[2020-08-18] MEDS: VERSED IV PREMIX 100 MG/100 ML IV.SOLN IV PRN (15:30)
[2020-08-19] MEDS ORDERED: DOPAMINE IV PREMIX 400 MG/250 ML 400 MG/250 ML BAG IV ONE (02:17)
[2020-08-19] MEDS: NS 1000 ML 1,000 ML with SODIUM BICARBONATE 8.4% INJ ADULT 50 ML IV SCH ×6 (02:24→18:20)
[2020-08-19] MEDS: DOPAMINE IV PREMIX 400 MG/250 ML 400 MG/250 ML BAG IV PRN (02:28)
[2020-08-19 05:07] LABS: BASOPHILS # (AUTO) 0.1 X10^3/uL (0.0-0.1); BASOPHILS % (AUTO) 0.9 % (0.2-1.0); EOSINOPHILS # (AUTO) 0.1 x10^3/uL (0.0-0.2); EOSINOPHILS % (AUTO) 0.8 % (0.9-2.9); HEMATOCRIT 24.7 % (42.0-54.0); HEMOGLOBIN 7.9 g/dL (13.5-18.0); LYMPHOCYTES # (AUTO) 1.5 X10^3/uL (1.3-2.9); MEAN CORPUSCULAR HEMOGLOBIN 28.1 pg (27.0-34.0); MEAN CORPUSCULAR VOLUME 87.7 fL (80.0-100.0); MONOCYTES # (AUTO) 0.4 x10^3/uL (0.3-0.8); MONOCYTES % (AUTO) 4.2 % (0.0-13.0); NEUTROPHILS # (AUTO) 7.8 x10^3/uL (2.2-4.8); NEUTROPHILS % (AUTO) 79.1 % (42.0-75.0); PLATELET COUNT 392 X10^3/uL (150.0-450.0); RED BLOOD COUNT 2.82 X10^6/uL (4.7-6.0); RED CELL DISTRIBUTION WIDTH 17.3 % (11.6-16.5); WHITE BLOOD COUNT 9.9 X10^3/uL (3.6-10.0)
[2020-08-19 05:18] LABS: ALANINE AMINOTRANSFERASE 10 Units/L (12-78); ALKALINE PHOSPHATASE 56 Units/L (46-116); ASPARTATE AMINO TRANSFERASE 10 Units/L (15-37); BLOOD UREA NITROGEN 54 mg/dL (7-18); CARBON DIOXIDE 19.9 mmol/L (21-32); COR CA(FOR HYPOALB) 8.8 mg/dL (8.5-10.1); CREATININE 3.02 mg/dL (0.70-1.30); SODIUM 149 mmol/L (136-145); TOTAL PROTEIN 5.9 g/dL (6.4-8.2); eGFR NON BLACK RACES 21 (>60)
[2020-08-19 05:19] LABS: ABG BASE EXCESS -8.2 mmol/L (-2.0-2.0); ABG HCO3 18.9 mmol/L (22-26)
[2020-08-19 05:20] LABS: ABG ALLEN TEST POS
[2020-08-19 05:21] LABS: CHLORIDE 116 mmol/L (98-107)
[2020-08-19 05:28] LABS: PLATELET MORPHOLOGY COMMENT NORMAL (NORMAL)
[2020-08-19 05:29] LABS: ANISOCYTOSIS SLIGHT; HYPOCHROMASIA SLIGHT; MICROCYTOSIS SLIGHT
[2020-08-19] MEDS: DUONEB 0.5 MG/3 MG (3 mL) NEB SCH (08:18)
[2020-08-19] MEDS: MUCOMYST 20% 200 MG/ML NEB SCH (08:18)
[2020-08-19] MEDS: LACRI-LUBE S.O.P. AFFEYE SCH ×2 (08:30→21:01)
[2020-08-19] MEDS ORDERED: PHARMACY COMMENT IV NR (08:30)
[2020-08-19] MEDS: VOLTAREN 1 % GEL MULTI DOSE TUBE TOP SCH ×2 (08:30→21:01)
[2020-08-19 09:07] LABS: CREATININE 3.02 mg/dL (0.70-1.30); VANCOMYCIN,TROUGH 18.1 ug/mL (15-20)
[2020-08-19] MEDS: VERSED IV PREMIX 100 MG/100 ML IV.SOLN IV PRN (11:40)
[2020-08-19] MEDS: PHARMACY COMMENT IV NR (12:48)
[2020-08-19] MEDS: DIFLUCAN 100 MG IV (MIX by PHARMACY)* 100 MG/50 ML BAG IV SCH (12:49)
[2020-08-19] MEDS: ALBUMIN HUMAN 25%- 100 ML 100 ML IV SCH ×2 (12:49→20:59)
[2020-08-19] MEDS: INVANZ INJ 1 GM VIAL 0.5 GM in NS 50 ML IV 50 ML IV SCH (12:50)
[2020-08-19] MEDS: DULCOLAX SUPPOSITORY 10 MG RECTAL SCH ×2 (12:50→20:59)
[2020-08-19] MEDS: LASIX IVP SCH ×2 (12:55→21:00)
[2020-08-19] MEDS: LOVENOX INJ 30 MG SYR SC SCH (12:55)
[2020-08-19] MEDS: PEPCID 20 MG IV PREMIX* 20 MG/50 ML BAG IV SCH (21:00)
[2020-08-19] MEDS ORDERED: SALINE 0.9% 3 ML NEB TX ONE (21:41)
--- NOTE | 2020-08-19 22:14 | PCM.PROG ---
Progress Note - Progress Note for Day of Date of Exam: 08/16/20 - Subjective Subjective: IS BEING TREATED FOR ASPIRATION PNEUMONIA, ILEUS, UTI, DEHYDRATION, ACUTE RENAL FAILURE, AND HYPOTENSION. HE REMAINS ON THE MECHANICAL VENT THIS MORNING. AN NG TUBE REMAINS IN PLACE TO LOW INTERMITTENT SUCTION. NG TUBE DRAINAGE IS MILD. VENT SETTINGS ARE: SIMV, VENT RATE 10, TIDAL VOLUME 550, PEEP 3, PRESSURE SUPPORT 12, FI02 28. HE HAS HAD DECREASED URINE OUTPUT TODAY. HE HAS CONTINUED TO BE HYPOTENSIVE THIS MORNING AND THROUGHOUT THE NIGHT. DOPAMINE HAS BEEN TITRATED TO MANAGE BLOOD PRESSURE. ON EXAMINATION, HEART IS REGULAR IN RATE AND RHYTHM. BILATERAL LUNGS ARE NOTED WITH DIMINISHED LUNG SOUNDS THROUGHOUT. ABDOMEN IS ROUND, SOFT, AND CONTINUES TO HAVE HYPOACTIVE BOWEL SOUNDS IN ALL QUADRANTS. PATIENT IS NOTED TO HAVE MULTIPLE PRESSURE ULCERS TO SACRUM AND LOWER EXTREMITIES. SEE WOUND ASSESSMENT. HIS VITALS THIS MORNING ARE: 97.9-100-10-97%-112/58. LABS WERE OBTAINED. ABNORMAL LAB VALUES INCLUDE THE FOLLOWING: WBC 12.7, RBC 2.79, HGB 7.8, HCT 24.4, POTASSIUM 5.2, CHLORIDE 110, CARBON DIOXIDE 16.9, BUN 49, CREATININE 2.31, GLUCOSE 123, CALCIUM 7.8, AST 11, ALT 11, TOTAL PROTEIN 5.7, ALBUMIN 2.3. ABG REVEALED: PH 02 7.190, PC02 44, P02 126, HC03 16.8, 02 SAT 98, A-A GRADIENT 19, FI02 28. URINE CULTURE REVEALS GROWTH OF YEAST. RIGHT KNEE AND LEFT ANKLE WOUND CULTURES REVEAL GROWTH OF MRSA. SPUTUM CULTURES REVEAL GROWTH OF PROTEUS MIRABILIS AND E.COLI. BLOOD CULTURES ARE PENDING. TODAYS CHEST XRAY REVEALED: CONTINUED WORSENING LEFT PERIHILAR INFILTRATES AND CONSOLIDATION. TODAY, WE WILL CONTINUE WITH NORMAL SALINE WITH BICARB AT 150 ML/HR, ALBUMIN 25% IV DAILY, INVANZ, VANCOMYCIN, DOPAMINE, VERSED FOR SEDATION, DUONEBS, MUCOMYST, AND CURRENT PLAN OF CARE. WILL CONTINUE TO MONITOR PATIENT. WE WILL WEAN SEDATION AND OXYGEN PATIENT TOLERATES. OTHERWISE, WE WILL FOLLOW UP WITH AM LABS AND CONTINUE TO MONITOR. TIME SPENT ON CLINICAL ASSESSMENT, REVIEWING LABS AND IMAGING, DECISION MAKING, AND DOCUMENTATION, WAS GREATER THAN 75 MINUTES. - Past Medical Family Social History Past Med/Fam/Surg Hx: No changes since H&P Allergies: Allergies doxycycline Allergy (Verified 04/10/19 17:47) - Review of Systems ROS: No change since H&P - Vital Signs and I&O's Vital Signs: Temperature 97.6 F Pulse Rate [Right Radial] 85 Pulse Rate 71 Respiratory Rate 24 Blood Pressure [Right Arm] 128/63 Blood Pressure 106/52 O2 Sat by Pulse Oximetry 98 Intake and Output: Intake & Output 08/17/20 08/18/20 08/19/20 08/20/20 11:59 11:59 11:59 11:59 Intake Total 4675 / 4675 6520 / 6520 4530 / 4530 571 / 571 Output Total 289 / 337 527 / 527 1294 / 1347 543 / 543 Balance 4386 / 4338 5993 / 5993 3236 / 3183 - Physical Exam Oriented: Unable to test Eyes: Normal Ear: Normal Nose: Normal Throat: Normal Respiratory: Generalized, Diminished Cardiovascular: Irregular : Normal Auscultation: Bowel Sounds: Decreased Palpation: Normal Tenderness: Other (mild distention , soft abdomen . BS+ but hypoactive .) Skin: Wound (SEE WOUND ASSESSMENT ) Musculoskeletal: Normal Psychiatric: Other (SEDATED) Mood Description: Calm Affect: Normal Speech Pattern: Artificially Ventilated - Laboratory and Diagnostics Result Diagrams: 08/19/20 04:15 08/19/20 08:40 Labs: 08/14/20 10:25 Blood Blood Culture - Final Staphylococcus Hominis 08/14/20 10:22 Blood Blood Culture - Final Staphylococcus Hominis 08/14/20 10:00 Urine,Clean Catch Urine Culture - Final 08/08/20 16:45 Sputum - Expectorated Sputum Sputum Culture - Final Proteus Mirabilis Escherichia Coli 08/08/20 16:45 Sputum - Expectorated Sputum - Final 08/07/20 21:18 Blood Blood Culture - Final 08/07/20 21:08 Blood Blood Culture - Final 08/05/20 09:54 Blood Blood Culture - Final 08/05/20 09:46 Blood Blood Culture - Final 08/07/20 23:01 Sputum - Endotracheal Wash Sputum Culture - Final Escherichia Coli Proteus Mirabilis 08/07/20 23:01 Sputum - Endotracheal Wash - Final 08/07/20 20:53 Urine,Clean Catch Urine Culture - Final 08/05/20 17:17 Leg - Left Gram Stain - Final 08/05/20 17:17 Leg - Left Wound Culture - Final Methicillin Resis Staph Aureus 08/05/20 17:17 Knee - Right Gram Stain - Final 08/05/20 17:17 Knee - Right Wound Culture - Final Methicillin Resis Staph Aureus 08/05/20 17:17 Ankle - Left Gram Stain - Final 08/05/20 17:17 Ankle - Left Wound Culture - Final Methicillin Resis Staph Aureus 08/05/20 00:00 Urine,Clean Catch Urine Culture - Final Laboratory WBC 9.9 X10^3/uL (3.6-10.0) 08/19/20 04:15 RBC 2.82 X10^6/uL (4.7-6.0) L 08/19/20 04:15 Hgb 7.9 g/dL (13.5-18.0) L 08/19/20 04:15 Hct 24.7 % (42.0-54.0) L 08/19/20 04:15 MCV 87.7 fL (80.0-100.0) 08/19/20 04:15 MCH 28.1 pg (27.0-34.0) 08/19/20 04:15 MCHC 32.0 g/dL (33.0-35.0) L 08/19/20 04:15 RDW 17.3 % (11.6-16.5) H 08/19/20 04:15 Plt Count 392 X10^3/uL (150.0-450.0) 08/19/20 04:15 Plt Count Comment Adequate (ADEQUATE) 08/19/20 04:15 MPV 7.0 fL (7.4-11.0) L 08/19/20 04:15 Neut % (Auto) 79.1 % (42.0-75.0) H 08/19/20 04:15 Lymph % (Auto) 15.0 % (21.0-51.0) L 08/19/20 04:15 [place] % (Auto) 4.2 % (0.0-13.0) 08/19/20 04:15 Eos % (Auto) 0.8 % (0.9-2.9) L 08/19/20 04:15 Baso % (Auto) 0.9 % (0.2-1.0) 08/19/20 04:15 Neut # (Auto) 7.8 x10^3/uL (2.2-4.8) H 08/19/20 04:15 Lymph # (Auto) 1.5 X10^3/uL (1.3-2.9) 08/19/20 04:15 [place] # (Auto) 0.4 x10^3/uL (0.3-0.8) 08/19/20 04:15 Eos # (Auto) 0.1 x10^3/uL (0.0-0.2) 08/19/20 04:15 Baso # (Auto) 0.1 X10^3/uL (0.0-0.1) 08/19/20 04:15 Absolute Nucleated RBC 0.1 /100WBC 08/19/20 04:15 Total Counted 100 08/19/20 04:15 Neutrophils % (Manual) 82 % (39-76) H 08/19/20 04:15 Band Neutrophils % 7 % (0-10) 08/17/20 05:10 Lymphocytes % (Manual) 14 % (13-43) 08/19/20 04:15 Monocytes % (Manual) 4 % (4-9) 08/19/20 04:15 Eosinophils % (Manual) 1 % (0-6) 08/15/20 04:40 Metamyelocytes % 5 08/14/20 05:20 Myelocytes % 1 08/14/20 05:20 Plt Morphology Comment Normal (NORMAL) 08/19/20 04:15 RBC Morphology Abnormal (NORMAL) 08/19/20 04:15 Hypochromasia Slight A 08/19/20 04:15 Anisocytosis Slight A 08/19/20 04:15 Microcytosis Slight A 08/19/20 04:15 ESR 67 MM/HOUR (0-15) H 08/04/20 13:27 Sample Site Lra 08/19/20 05:15 ABG pH 7.240 (7.35-7.45) L 08/19/20 05:15 ABG pCO2 44.0 mmHg (35.0-45.0) 08/19/20 05:15 ABG pO2 68.0 mmHg (80.0-100.0) L 08/19/20 05:15 ABG HCO3 18.9 mmol/L (22-26) L 08/19/20 05:15 ABG O2 Saturation 90.0 % (90-100) 08/19/20 05:15 ABG Base Excess -8.2 mmol/L (-2.0-2.0) L 08/19/20 05:15 Félix Test Pos 08/19/20 05:15 A-a Gradient 77.0 mmHg 08/19/20 05:15 FiO2 28.0 08/19/20 05:15 Blood Gas Comments deion well mt 08/19/20 05:15 Sodium 149 mmol/L (136-145) H 08/19/20 04:15 Corrected Sodium TNP 08/19/20 04:15 Potassium 4.5 mmol/L (3.5-5.1) 08/19/20 04:15 Chloride 116 mmol/L (98-107) H* 08/19/20 04:15 Carbon Dioxide 19.9 mmol/L (21-32) L 08/19/20 04:15 BUN 54 mg/dL (7-18) H 08/19/20 04:15 Creatinine 3.02 mg/dL (0.70-1.30) H 08/19/20 08:40 Est GFR (MDRD) Af Amer 26 (>60) L 08/19/20 04:15 Est GFR (MDRD) Non-Af 21 (>60) L 08/19/20 04:15 Glucose 94 mg/dL (65-99) 08/19/20 04:15 POC Glucose (mg/dL) 73 mg/dL (65-99) 08/18/20 20:35 Lactic Acid 2.8 mmol/L (0.4-2.0) H 08/07/20 21:18 Calcium 8.0 mg/dL (8.5-10.1) L 08/19/20 04:15 Corrected Calcium 8.8 mg/dL (8.5-10.1) 08/19/20 04:15 Phosphorus 2.6 mg/dL (2.6-4.7) 08/15/20 04:40 Magnesium 2.1 mg/dL (1.7-2.9) 08/10/20 04:20 Total Bilirubin 0.50 mg/dL (0.2-1.0) 08/19/20 04:15 AST 10 Units/L (15-37) L 08/19/20 04:15 ALT 10 Units/L (12-78) L 08/19/20 04:15 Alkaline Phosphatase 56 Units/L (46-116) 08/19/20 04:15 Creatine Kinase 748 Units/L (39-308) H 08/08/20 09:20 CK-MB (CK-2) 4.7 ng/mL (0-4.0) H* 08/08/20 09:20 CK/CKMB % Calc 0.6 % (<4) 08/08/20 09:20 Troponin I 0.09 ng/mL (0-1.5) 08/08/20 09:20 C-Reactive Protein 51.90 mg/L (0-3.0) H 08/05/20 05:29 B-Natriuretic Peptide 156 pg/mL (0-79) H 08/08/20 03:50 Total Protein 5.9 g/dL (6.4-8.2) L 08/19/20 04:15 Albumin 3.0 g/dL (3.4-5.0) L 08/19/20 04:15 Globulin 2.9 g/dL (2.5-4.5) 08/19/20 04:15 Albumin/Globulin Ratio 1.0 Ratio (1.1-2.1) L 08/19/20 04:15 Prealbumin 11.0 mg/dL (18-35.7) L 08/16/20 05:17 Triglycerides 138 mg/dL (0-150) 08/15/20 04:40 Amylase 36 Units/L (25-115) 08/04/20 13:27 Lipase 71 Units/L (73-393) L 08/04/20 13:27 Carcinoembryonic Ag 3.9 ng/mL (0.0-3.0) H 08/07/20 04:05 Specimen Type Catherized urine 08/08/20 00:04 Urine Color Straw (YELLOW) 08/08/20 00:04 Urine Appearance Hazy (CLEAR) 08/08/20 00:04 Urine pH 5.0 (5.0 - 8.0) 08/08/20 00:04 Ur Specific [place] 1.010 (1.000-1.030) 08/08/20 00:04 Urine Protein 3+ (NEGATIVE) 08/08/20 00:04 Urine Glucose (UA) Negative (NEGATIVE) 08/08/20 00:04 Urine Ketones Negative (NEGATIVE) 08/08/20 00:04 Urine Occult Blood 5+ (NEGATIVE) 08/08/20 00:04 Urine Nitrite Negative (NEGATIVE) 08/08/20 00:04 Urine Bilirubin Negative (NEGATIVE) 08/08/20 00:04 Urine Urobilinogen Normal (NORMAL) 08/08/20 00:04 Ur Leukocyte Esterase 3+ (NEGATIVE) 08/08/20 00:04 Urine RBC Tntc /HPF (0-3) A 08/05/20 00:00 Urine WBC Tntc /HPF (0-5) A 08/05/20 00:00 Ur Squamous Epith Cells Negative /HPF (NEGATIVE) 08/05/20 00:00 Urine Bacteria 3+ /HPF (NEGATIVE) 08/05/20 00:00 Urine Yeast Numerous /HPF (NEGATIVE) 08/05/20 00:00 Ur Culture Indicated? Yes/culture set up 08/05/20 00:00 Stl C. diff Tox B Gene Negative (NEGATIVE) 08/10/20 18:20 Stl C. diff [id number] Presumptive negative (NEGATIVE) 08/10/20 18:20 Vancomycin Trough 18.1 ug/mL (15-20) 08/19/20 08:40 SARS CoV-2 RNA Rapid HEMA Negative (NEGATIVE) 08/04/20 20:20 - Plan (1) Aspiration pneumonia Status: Acute Qualifiers: Aspiration pneumonia type: due to vomit Laterality: unspecified laterality Lung location: unspecified part of lung Qualified Code(s): J69.0 - Pneumonit is due to inhalation of food and vomit Plan: NORMAL SALINE WITH ONE AMP BICARB IN EACH LITER AT 150 ML/HR, ALBUMIN 25% IV DAILY, VANCOMYCIN, INVANZ 1G IV DAILY, DUONEBS, MUCOMYST IN NEB [place], DIFLUCAN 100MG IV DAILY, DUONEBS QID, DOPAMINE DRIP, VERSED DRIP, PEPCID 20MG IV HS, PROTONIX 40MG IV BID (2) CHF (congestive heart failure) Status: Acute Qualifiers: Heart failure type: unspecified Heart failure chronicity: acute on chronic Qualified Code(s): I50.9 - Heart failure, unspecified (3) Ileus Status: Acute Plan: NORMAL SALINE AT 50 ML/HR, VANCOMYCIN, INVANZ 1G IV DAILY, DIFLUCAN 100MG IV DAILY, DUONEBS QID, DOPAMINE DRIP, PRESEDEX DRIP, VERSED DRIP, PEPCID 20MG IV HS, PROTONIX 40MG IV BID (4) Abdominal pain Status: Acute Qualifiers: Abdominal location: left lower quadrant Qualified Code(s): R10.32 - Left lower quadrant pain (5) Urinary tract infection Status: Acute Qualifiers: Urinary tract infection type: acute cystitis Hematuria presence: with hematuria Qualified Code(s): N30.01 - Acute cystitis with hematuria (6) Dehydration Status: Acute (7) Nausea and vomiting Status: Acute Qualifiers: Vomiting Intractability: intractable (8) Chronic renal failure Status: Acute Qualifiers: Chronic kidney disease stage: unspecified stage Qualified Code(s): N18.9 - Chronic kidney disease, unspecified (9) Sacral decubitus ulcer Status: Acute Qualifiers: Pressure injury stage: unspecified pressure injury stage Qualified Code(s): L89.159 - Pressure ulcer of sacral region, unspecified stage (10) Fecal impaction Status: Resolved Plan: COLACE 200MG PO BID, MILK OF MAGNESIA 15ML PO QID, MIRALAX 17G PO DAILY
[2020-08-20] MEDS: NS 1000 ML 1,000 ML with SODIUM BICARBONATE 8.4% INJ ADULT 50 ML IV SCH ×2 (03:42)
[2020-08-20 08:00] LABS: ABG ALLEN TEST POS; ABG BASE EXCESS -7.9 mmol/L (-2.0-2.0); ABG HCO3 18.8 mmol/L (22-26)
[2020-08-20 08:17] LABS: BASOPHILS # (AUTO) 0.1 X10^3/uL (0.0-0.1); BASOPHILS % (AUTO) 0.9 % (0.2-1.0); EOSINOPHILS # (AUTO) 0.1 x10^3/uL (0.0-0.2); EOSINOPHILS % (AUTO) 1.4 % (0.9-2.9); HEMATOCRIT 23.2 % (42.0-54.0); HEMOGLOBIN 7.6 g/dL (13.5-18.0); LYMPHOCYTES # (AUTO) 1.4 X10^3/uL (1.3-2.9); LYMPHOCYTES % (AUTO) 17.7 % (21.0-51.0); MEAN CORPUSCULAR HEMOGLOBIN 28.5 pg (27.0-34.0); MEAN CORPUSCULAR HGB CONC 32.8 g/dL (33.0-35.0); MEAN CORPUSCULAR VOLUME 86.9 fL (80.0-100.0); MEAN PLATELET VOLUME 6.6 fL (7.4-11.0); MONOCYTES # (AUTO) 0.3 x10^3/uL (0.3-0.8); NEUTROPHILS # (AUTO) 6.1 x10^3/uL (2.2-4.8); PLATELET COUNT 342 X10^3/uL (150.0-450.0); RED BLOOD COUNT 2.67 X10^6/uL (4.7-6.0); RED CELL DISTRIBUTION WIDTH 17.5 % (11.6-16.5)
[2020-08-20 08:21] LABS: ASPARTATE AMINO TRANSFERASE 11 Units/L (15-37); BLOOD UREA NITROGEN 59 mg/dL (7-18); CALCIUM 7.9 mg/dL (8.5-10.1); CARBON DIOXIDE 20.2 mmol/L (21-32); CREATININE 3.35 mg/dL (0.70-1.30); eGFR NON BLACK RACES 19 (>60)
[2020-08-20 08:22] LABS: ALANINE AMINOTRANSFERASE 9 Units/L (12-78); ALBUMIN 2.4 g/dL (3.4-5.0); ALKALINE PHOSPHATASE 53 Units/L (46-116); COR CA(FOR HYPOALB) 9.2 mg/dL (8.5-10.1); TOTAL PROTEIN 5.1 g/dL (6.4-8.2)
[2020-08-20 08:32] LABS: SODIUM 151 mmol/L (136-145)
[2020-08-20 08:35] LABS: CHLORIDE 117 mmol/L (98-107)
--- NOTE | 2020-08-20 10:35 | RAD ---
HISTORYPNEUMONIASTUDYCHEST, 1 VIEWCOMPARISONChest radiograph done August 18, 2020FINDINGSThere is cardiomegaly with bilateral pulmonary opacities and pleural effusions. Findings are unchanged compared to the prior exam. Lines and tubes its are in stable radiographic position.IMPRESSIONStable bilateral pulmonary opacities and pleural effusions.Electronically signed by: LUCI SETHI (Aug 20, 2020 10:34:09)
--- NOTE | 2020-08-20 10:35 | RAD ---
HISTORYOBSTRUCTION FOLLOW UP HX: CAD, HTN SX: PACEMAKER, GB, ORTHOSTUDYKUBCOMPARISONFINDINGSEvaluation of the abdomen demonstrates a normal bowel gas pattern. No pathological soft tissue mass or calcification can be observed. Advanced lumbar degenerative disc di sease is present. The tip of the right its catheter projects over the right sacral ala.IMPRESSIONNo e vidence of obstruction.Electronically signed by: LUCI SETHI (Aug 20, 2020 10:35:34)
[2020-08-20] MEDS ORDERED: ATIVAN INJ 2 MG VIAL IVP PRN (11:53)
--- NOTE | 2020-08-20 12:03 | PCM.PROG ---
Progress Note Subjective Subjective: IS BEING TREATED FOR ASPIRATION PNEUMONIA, ILEUS, UTI, DEHYDRATION, ACUTE RENAL FAILURE, AND HYPOTENSION. HE REMAINS ON THE MECHANICAL VENT THIS MORNING. AN NG TUBE REMAINS IN PLACE TO LOW INTERMITTENT SUCTION. NG TUBE DRAINAGE IS MILD. VENT SETTINGS ARE: SIMV, VENT RATE 10, TIDAL VOLUME 550, PEEP 3, PRESSURE SUPPORT 12, FI02 28. HE HAS HAD DECREASED URINE OUTPUT TODAY. HE HAS CONTINUED TO BE HYPOTENSIVE THIS MORNING AND THROUGHOUT THE NIGHT. DOPAMINE HAS BEEN TITRATED TO MANAGE BLOOD PRESSURE. ON EXAMINATION, HEART IS REGULAR IN RATE AND RHYTHM. BILATERAL LUNGS ARE NOTED WITH DIMINISHED LUNG SOUNDS THROUGHOUT. ABDOMEN IS ROUND, SOFT, AND CONTINUES TO HAVE HYPOACTIVE BOW EL SOUNDS IN ALL QUADRANTS. PATIENT IS NOTED TO HAVE MULTIPLE PRESSURE ULCERS TO SACRUM AND LOWER EXTREMITIES. SEE WOUND ASSESSMENT. HIS VITALS THIS MORNING ARE: 97.9-100-10-97%-112/58. LABS WERE OBTAINED. ABNORMAL LAB VALUES INCLUDE THE FOLLOWING: WBC 12.7, RBC 2.79, HGB 7.8, HCT 24.4, POTASSIUM 5.2, CHLORIDE 110, CARBON DIOXIDE 16.9, BUN 49, CREATININE 2.31, GLUCOSE 123, CALCIUM 7.8, AST 11, ALT 11, TOTAL PROTEIN 5.7, ALBUMIN 2.3. ABG REVEALED: PH 02 7.190, PC02 44, P02 126, HC03 16.8, 02 SAT 98, A-A GRADIENT 19, FI02 28. URINE CULTURE REVEALS GROWTH OF YEAST. RIGHT KNEE AND LEFT ANKLE WOUND CULTURES REVEAL GROWTH OF MRSA. SPUTUM CULTURES REVEAL GROWTH OF PROTEUS MIRABILIS AND E.COLI. BLOOD CULTURES ARE PENDING. TODAYS CHEST XRAY REVEALED: CONTINUED WORSENING LEFT PERIHILAR INFILTRATES AND CONSOLIDATION. TODAY, WE WILL CONTINUE WITH NORMAL SALINE WITH BICARB AT 150 ML/HR, ALBUMIN 25% IV DAILY, INVANZ, VANCOMYCIN, DOPAMINE, VERSED FOR SEDATION, DUONEBS, MUCOMYST, AND CURRENT PLAN OF CARE. WILL CONTINUE TO MONITOR PATIENT. WE WILL WEAN SEDATION AND OXYGEN PATIENT TOLE RATES. OTHERWISE, WE WILL FOLLOW UP WITH AM LABS AND CONTINUE TO MONITOR. TIME SPENT ON CLINICAL ASSESSMENT, REVIEWING LABS AND IMAGING, DECISION MAKING, AND DOCUMENTATION, WAS GREATER THAN 75 MINUTES. Past Medical Family Social History Past Med/Fam/Surg Hx: No changes since H&P Allergies: Allergies doxycycline Allergy (Verified 04/10/19 17:47) Review of Systems ROS: No change since H&P Vital Signs and I&O's Vital Signs: Temperature 97.5 F Pulse Rate [Right Radial] 85 Pulse Rate 96 Respiratory Rate 28 Blood Pressure [Right Arm] 128/63 Blood Pressure 105/50 O2 Sat by Pulse Oximetry 97 Intake and Output: Intake & Output 08/17/20 08/18/20 08/19/20 08/20/20 23:59 23:59 23:59 23:59 Intake Total 6654 / 6654 4490 / 4490 1955 Output Total 423 / 428 749 / 759 1388 / 1458 201 / 201 Balance 6231 / 6226 3741 / 3731 568 / 498 -181 / -181 Physical Exam Oriented: Unable to test Eyes: Normal Ear: Normal Nose: Normal Throat: Normal Respiratory: Generalized and Diminished Cardiovascular: Irregular : Normal Auscultation: Bowel Sounds: Decreased Tenderness: Other (mild distention , soft abdomen . BS+ but hypoactive .) Skin: Wound (SEE WOUND ASSESSMENT ) Musculoskeletal: Normal Psychiatric: Other (SEDATED) Mood Description: Calm Affect: Normal Speech Pattern: Artificially Ventilated Laboratory and Diagnostics Result Diagrams: 08/20/20 08:00 08/20/20 08:00 Labs: 08/14/20 10:25 Blood Blood Culture - Final Staphylococcus Hominis 08/14/20 10:22 Blood Blood Culture - Final Staphylococcus Hominis 08/14/20 10:00 Urine,Clean Catch Urine Culture - Final 08/08/20 16:45 Sputum - Expectorated Sputum Sputum Culture - Final Proteus Mirabilis Escherichia Coli 08/08/20 16:45 Sputum - Expectorated Sputum - Final 08/07/20 21:18 Blood Blood Culture - Final 08/07/20 21:08 Blood Blood Culture - Final 08/05/20 09:54 Blood Blood Culture - Final 08/05/20 09:46 Blood Blood Culture - Final 08/07/20 23:01 Sputum - Endotracheal Wash Sputum Culture - Final Escherichia Coli Proteus Mirabilis 08/07/20 23:01 Sputum - Endotracheal Wash - Final 08/07/20 20:53 Urine,Clean Catch Urine Culture - Final 08/05/20 17:17 Leg - Left Gram Stain - Final 08/05/20 17:17 Leg - Left Wound Culture - Final Methicillin Resis Staph Aureus 08/05/20 17:17 Knee - Right Gram Stain - Final 08/05/20 17:17 Knee - Right Wound Culture - Final Methicillin Resis Staph Aureus 08/05/20 17:17 Ankle - Left Gram Stain - Final 08/05/20 17:17 Ankle - Left Wound Culture - Final Methicillin Resis Staph Aureus 08/05/20 00:00 Urine,Clean Catch Urine Culture - Final Laboratory WBC 8.0 X10^3/uL (3.6-10.0) 08/20/20 08:00 RBC 2.67 X10^6/uL (4.7-6.0) L 08/20/20 08:00 Hgb 7.6 g/dL (13.5-18.0) L 08/20/20 08:00 Hct 23.2 % (42.0-54.0) L 08/20/20 08:00 MCV 86.9 fL (80.0-100.0) 08/20/20 08:00 MCH 28.5 pg (27.0-34.0) 08/20/20 08:00 MCHC 32.8 g/dL (33.0-35.0) L 08/20/20 08:00 RDW 17.5 % (11.6-16.5) H 08/20/20 08:00 Plt Count 342 X10^3/uL (150.0-450.0) 08/20/20 08:00 Plt Count Comment Adequate (ADEQUATE) 08/19/20 04:15 MPV 6.6 fL (7.4-11.0) L 08/20/20 08:00 Neut % (Auto) 76.0 % (42.0-75.0) H 08/20/20 08:00 Lymph % (Auto) 17.7 % (21.0-51.0) L 08/20/20 08:00 [place] % (Auto) 4.0 % (0.0-13.0) 08/20/20 08:00 Eos % (Auto) 1.4 % (0.9-2.9) 08/20/20 08:00 Baso % (Auto) 0.9 % (0.2-1.0) 08/20/20 08:00 Neut # (Auto) 6.1 x10^3/uL (2.2-4.8) H 08/20/20 08:00 Lymph # (Auto) 1.4 X10^3/uL (1.3-2.9) 08/20/20 08:00 [place] # (Auto) 0.3 x10^3/uL (0.3-0.8) 08/20/20 08:00 Eos # (Auto) 0.1 x10^3/uL (0.0-0.2) 08/20/20 08:00 Baso # (Auto) 0.1 X10^3/uL (0.0-0.1) 08/20/20 08:00 Absolute Nucleated RBC 0.1 /100WBC 08/20/20 08:00 Total Counted 100 08/19/20 04:15 Neutrophils % (Manual) 82 % (39-76) H 08/19/20 04:15 Band Neutrophils % 7 % (0-10) 08/17/20 05:10 Lymphocytes % (Manual) 14 % (13-43) 08/19/20 04:15 Monocytes % (Manual) 4 % (4-9) 08/19/20 04:15 Eosinophils % (Manual) 1 % (0-6) 08/15/20 04:40 Metamyelocytes % 5 08/14/20 05:20 Myelocytes % 1 08/14/20 05:20 Plt Morphology Comment Normal (NORMAL) 08/19/20 04:15 RBC Morphology Abnormal (NORMAL) 08/19/20 04:15 Hypochromasia Slight A 08/19/20 04:15 Anisocytosis Slight A 08/19/20 04:15 Microcytosis Slight A 08/19/20 04:15 ESR 67 MM/HOUR (0-15) H 08/04/20 13:27 Sample Site Rr 08/20/20 07:49 ABG pH 7.260 (7.35-7.45) L 08/20/20 07:49 ABG pCO2 42.0 mmHg (35.0-45.0) 08/20/20 07:49 ABG pO2 78.0 mmHg (80.0-100.0) L 08/20/20 07:49 ABG HCO3 18.8 mmol/L (22-26) L 08/20/20 07:49 ABG O2 Saturation 93.0 % (90-100) 08/20/20 07:49 ABG Base Excess -7.9 mmol/L (-2.0-2.0) L 08/20/20 07:49 Félix Test Pos 08/20/20 07:49 A-a Gradient 69.0 mmHg 08/20/20 07:49 FiO2 28.0 08/20/20 07:49 Blood Gas Comments Jewel well, kh 08/20/20 07:49 Sodium 151 mmol/L (136-145) H* 08/20/20 08:00 Corrected Sodium TNP 08/20/20 08:00 Potassium 4.3 mmol/L (3.5-5.1) 08/20/20 08:00 Chloride 117 mmol/L (98-107) H* 08/20/20 08:00 Carbon Dioxide 20.2 mmol/L (21-32) L 08/20/20 08:00 BUN 59 mg/dL (7-18) H 08/20/20 08:00 Creatinine 3.35 mg/dL (0.70-1.30) H 08/20/20 08:00 Est GFR (MDRD) Af Amer 23 (>60) L 08/20/20 08:00 Est GFR (MDRD) Non-Af 19 (>60) L 08/20/20 08:00 Glucose 65 mg/dL (65-99) 08/20/20 08:00 POC Glucose (mg/dL) 73 mg/dL (65-99) 08/18/20 20:35 Lactic Acid 2.8 mmol/L (0.4-2.0) H 08/07/20 21:18 Calcium 7.9 mg/dL (8.5-10.1) L 08/20/20 08:00 Corrected Calcium 9.2 mg/dL (8.5-10.1) 08/20/20 08:00 Phosphorus 2.6 mg/dL (2.6-4.7) 08/15/20 04:40 Magnesium 2.1 mg/dL (1.7-2.9) 08/10/20 04:20 Total Bilirubin 0.40 mg/dL (0.2-1.0) 08/20/20 08:00 AST 11 Units/L (15-37) L 08/20/20 08:00 ALT 9 Units/L (12-78) L 08/20/20 08:00 Alkaline Phosphatase 53 Units/L (46-116) 08/20/20 08:00 Creatine Kinase 748 Units/L (39-308) H 08/08/20 09:20 CK-MB (CK-2) 4.7 ng/mL (0-4.0) H* 08/08/20 09:20 CK/CKMB % Calc 0.6 % (<4) 08/08/20 09:20 Troponin I 0.09 ng/mL (0-1.5) 08/08/20 09:20 C-Reactive Protein 51.90 mg/L (0-3.0) H 08/05/20 05:29 B-Natriuretic Peptide 156 pg/mL (0-79) H 08/08/20 03:50 Total Protein 5.1 g/dL (6.4-8.2) L 08/20/20 08:00 Albumin 2.4 g/dL (3.4-5.0) L 08/20/20 08:00 Globulin 2.7 g/dL (2.5-4.5) 08/20/20 08:00 Albumin/Globulin Ratio 0.9 Ratio (1.1-2.1) L 08/20/20 08:00 Prealbumin 11.0 mg/dL (18-35.7) L 08/16/20 05:17 Triglycerides 138 mg/dL (0-150) 08/15/20 04:40 Amylase 36 Units/L (25-115) 08/04/20 13:27 Lipase 71 Units/L (73-393) L 08/04/20 13:27 Carcinoembryonic Ag 3.9 ng/mL (0.0-3.0) H 08/07/20 04:05 Specimen Type Catherized urine 08/08/20 00:04 Urine Color Straw (YELLOW) 08/08/20 00:04 Urine Appearance Hazy (CLEAR) 08/08/20 00:04 Urine pH 5.0 (5.0 - 8.0) 08/08/20 00:04 Ur Specific [place] 1.010 (1.000-1.030) 08/08/20 00:04 Urine Protein 3+ (NEGATIVE) 08/08/20 00:04 Urine Glucose (UA) Negative (NEGATIVE) 08/08/20 00:04 Urine Ketones Negative (NEGATIVE) 08/08/20 00:04 Urine Occult Blood 5+ (NEGATIVE) 08/08/20 00:04 Urine Nitrite Negative (NEGATIVE) 08/08/20 00:04 Urine Bilirubin Negative (NEGATIVE) 08/08/20 00:04 Urine Urobilinogen Normal (NORMAL) 08/08/20 00:04 Ur Leukocyte Esterase 3+ (NEGATIVE) 08/08/20 00:04 Urine RBC Tntc /HPF (0-3) A 08/05/20 00:00 Urine WBC Tntc /HPF (0-5) A 08/05/20 00:00 Ur Squamous Epith Cells Negative /HPF (NEGATIVE) 08/05/20 00:00 Urine Bacteria 3+ /HPF (NEGATIVE) 08/05/20 00:00 Urine Yeast Numerous /HPF (NEGATIVE) 08/05/20 00:00 Ur Culture Indicated? Yes/culture set up 08/05/20 00:00 Stl C. diff Tox B Gene Negative (NEGATIVE) 08/10/20 18:20 Stl C. diff [id number] Presumptive negative (NEGATIVE) 08/10/20 18:20 Vancomycin Trough 18.1 ug/mL (15-20) 08/19/20 08:40 SARS CoV-2 RNA Rapid HEMA Negative (NEGATIVE) 08/04/20 20:20 Plan (1) Aspiration pneumonia: Status: Acute Qualifiers: Aspiration pneumonia type: due to vomit Laterality: unspecified laterality Lung location: unspecified part of lung Qualified Code(s): J69.0 - Pneumonitis due to inhalation of food and vomit Plan: NORMAL SALINE WITH ONE AMP BICARB IN EACH LITER AT 150 ML/HR, ALBUMIN 25% IV DAILY, VANCOMYCIN, INVANZ 1G IV DAILY, DUONEBS, MUCOMYST IN NEB [place], DIFLUCAN 100MG IV DAILY, DUONEBS QID, DOPAMINE DRIP, VERSED DRIP, PEPCID 20MG IV HS, PROTONIX 40MG IV BID (2) CHF (congestive heart failure): Status: Acute Qualifiers: Heart failure type: unspecified Heart failure chronicity: acute on chronic Qualified Code(s): I50.9 - Heart failure, unspecified (3) Ileus: Status: Acute Plan: NORMAL SALINE AT 50 ML/HR, VANCOMYCIN, INVANZ 1G IV DAILY, DIFLUCAN 100MG IV DAILY, DUONEBS QID, DOPAMINE DRIP, PRESEDEX DRIP, VERSED DRIP, PEPCID 20MG IV HS, PROTONIX 40MG IV BID (4) Abdominal pain: Status: Acute Qualifiers: Abdominal location: left lower quadrant Qualified Code(s): R10.32 - Left lower quadrant pain (5) Urinary tract infection: Status: Acute Qualifiers: Hematuria presence: with hematuria Urinary tract infection type: acute cystitis Qualified Code(s): N30.01 - Acute cystitis with hematuria (6) Dehydration: Status: Acute (7) Nausea and vomiting: Status: Acute Qualifiers: Vomiting Intractability: intractable (8) Chronic renal failure: Status: Acute Qualifiers: Chronic kidney disease stage: unspecified stage Qualified Code(s): N18.9 - Chronic kidney disease, unspecified (9) Sacral decubitus ulcer: Status: Acute Qualifiers: Pressure injury stage: unspecified pressure injury stage Qualified Code(s): L89.159 - Pressure ulcer of sacral region, unspecified stage (10) Fecal impaction: Status: Resolved Plan: COLACE 200MG PO BID, MILK OF MAGNESIA 15ML PO QID, MIRALAX 17G PO DAILY
[2020-08-20] MEDS: MORPHINE SULFATE INJ 4 MG IVP PRN ×2 (12:32→12:35)
[2020-08-20] MEDS ORDERED: MORPHINE SULFATE INJ 4 MG IVP ONE (12:35)
[2020-08-20 13:17] VITALS: BP 108/54
--- NOTE | 2020-08-20 13:17 | DR.DECEASE ---
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 Malnourished (Chronic) E46 Hypomagnesemia (Acute) E83.42 Urinary tract infection (Acute) N39.0 Sacral decubitus ulcer (Acute) L89.159 Hypotension (Acute) I95.9 Hematuria (Acute) R31.9 Sepsis (Acute) A41.9 Acute inferior myocardial infarction (Acute) I21.19 Prerenal renal failure (Acute) N19 Pulmonary congestion (Acute) R09.89 Acute hyponatremia (Acute) E87.1 Acute UTI (Acute) N39.0 Lobar pneumonia, unspecified organism (Acute) J18.1 Sepsis due to urinary tract infection (Acute) A41.9, N39.0 Diabetes mellitus (Acute) E11.9 Respiratory failure (Acute) J96.90 Laceration of toe of left foot (Acute) S91.119A Femur fracture, right (Acute) S72.91XA UTI (urinary tract infection) (Acute) N39.0 Penile bleeding (Acute) N48.89 Anemia (Acute) D64.9 Cystitis (Acute) N30.90 Accidental fall from bed (Acute) W06.XXXA Abdominal pain (Acute) R10.9 Nausea and vomiting (Acute) R11.2 Dehydration (Acute) E86.0 Ileus (Acute) K56.7 Aspiration pneumonia (Acute) J69.0 CHF (congestive heart failure) (Acute) I50.9 Chronic renal failure (Acute) N18.9 Hyponatremia (Chronic) E87.1 Hypokalemia (Chronic) E87.6 Anxiety (Chronic) F41.9 Prostatic hyperplasia (Chronic) N40.0 Diabetes mellitus, type II (Chronic) E11.9 DDD (degenerative disc disease) (Chronic) [id number] Back pain (Chronic) M54.9 HTN (hypertension) (Chronic) I10 CAD (coronary artery disease) (Chronic) I25.10 Discharge Diagnosis Current Active Problems Problem Status Onset Urinary tract infection Sacral decubitus ulcer Abdominal pain Nausea and vomiting Dehydration Ileus Aspiration pneumonia CHF (congestive heart failure) Chronic renal failure Labs Result Diagrams: 08/20/20 08:00 08/20/20 08:00 Home Medications Home Medications Medication Instructions Recorded Type amoxicillin-pot clavulanate 1 tab PO BID 08/04/20 History [Augmentin] [id number] HMB 1 ea PO BID 08/04/20 History [Jorge A] cephalexin [Keflex] 250 mg PO DAILY 08/04/20 History oxycodone-acetaminophen [Percocet] 1 tab PO Q4HR PRN 08/04/20 History ziprasidone HCl [Geodon] 20 mg PO BID 08/04/20 History Hospital Course Hospital Course: Pt is a 85 year old male, hospital course included complications from aspiration pneumonia including sepsis, bacteremia, and respiratory failure requiring mechanical ventilation. The patient had also required Dopamine for blood pressure control and was on IV antibiotics Ertapenem. Pt overall status did not improve and clinically continued to decline. Pt's status was discussed over the weekend by hospitalist with his son and , with decision to de-escalate care, DNR signed, and desire to pursue and provide palliative measures. Pt was palliatively extubated 08/20/20. Expiration Expiration Date: 08/20/20 Expiration Time: 12:43 Time Pronounced: 13:12 Pronounced by: Dr Heard
--- NOTE | 2020-08-30 11:53 | PCM.PROG ---
Progress Note - Progress Note for Day of Date of Exam: 08/17/20 - Subjective Subjective: IS BEING TREATED FOR ASPIRATION PNEUMONIA, ILEUS, UTI, DEHYDRATION, ACUTE RENAL FAILURE, AND HYPOTENSION. HE REMAINS ON THE MECHANICAL VENT THIS MORNING. AN NG TUBE REMAINS IN PLACE TO LOW INTERMITTENT SUCTION. NG TUBE DRAINAGE IS MILD. VENT SETTINGS ARE: SIMV, VENT RATE 10, TIDAL VOLUME 550, PEEP 3, PRESSURE SUPPORT 12, FI02 28. HE REMAINS ON A DOPAMINE AND VERSED DRIP THIS MORNING. URINE OUTPUT HAS CONTINUED TO BE DECREASED. ON EXAMINATION, HEART IS REGULAR IN RATE AND RHYTHM. BILATERAL LUNGS ARE NOTED WITH DIMINISHED LUNG SOUNDS THROUGHOUT. ABDOMEN IS ROUND, SOFT, AND CONTINUES TO HAVE HYPOACTIVE BOWEL SOUNDS IN ALL QUADRANTS. PATIENT IS NOTED TO HAVE MULTIPLE PRESSURE ULCERS TO SACRUM AND LOWER EXTREMITIES. SEE WOUND ASSESSMENT. HIS VITALS THIS MORNING ARE: 96.3-93-10-97%-103/53. LABS WERE OBTAINED. ABNORMAL LAB VALUES INCLUDE THE FOLLOWING: WBC 11.0, RBC 2.83, HGB 7.7, HCT 24.6, CHLORIDE 112, CARBON DIOXIDE 19.1, BUN 52, CREATININE 2.53, CALCIUM 7.8, AST 11, ALT 10, TOTAL PROTEIN 5.6, ALBUMIN 2.3. ABG REVEALED: PH 7.210, PC02 44, P02 65, HC03 17.6, 02 ST 87, BASE EXCESS -9.9, A-A GRADIENT 80, FI02 28. URINE CULTURE REVEALS GROWTH OF YEAST. RIGHT KNEE AND LEFT ANKLE WOUND CULTURES REVEAL GROWTH OF MRSA. SPUTUM CULTURES REVEAL GROWTH OF PROTEUS MIRABILIS AND E.COLI. BLOOD CULTURES ARE PENDING. TODAYS CHEST XRAY REVEALED: BILATERAL PNEUMONIA, SLIGHTLY IMPROVED. KUB REVEALED: IMPROVED PARALYTIC ILEUS. TODAY, WE WILL CONTINUE WITH NORMAL SALINE WITH BICARB AT 150 ML/HR, INVANZ, VANCOMYCIN, DOPAMINE, VERSED FOR SEDATION, DUONEBS, MUCOMYST, AND CURRENT PLAN OF CARE. WE WILL INCREASE ALBUMIN TO 25% IV BID AND ADD LASIX 20MG IV AFTER EACH DOSE OF ALBUMIN. WILL CONTINUE TO MONITOR PATIENT. WE WILL WEAN SEDATION AND OXYGEN PATIENT TOLERATES. O THERWISE, WE WILL FOLLOW UP WITH AM LABS AND CONTINUE TO MONITOR. TIME SPENT ON CLINICAL ASSESSMENT, REVIEWING LABS AND IMAGING, DECISION MAKING, AND DOCUMENTATION, WAS GREATER THAN 75 MINUTES. - Past Medical Family Social History Past Med/Fam/Surg Hx: No changes since H&P Allergies: Allergies doxycycline Allergy (Verified 04/10/19 17:47) - Review of Systems ROS: No change since H&P - Vital Signs and I&O's Vital Signs: Temperature 96.3 F Pulse Rate [Right Radial] 85 Pulse Rate 65 Respiratory Rate 0 Blood Pressure [Right Arm] 128/63 Blood Pressure 108/54 O2 Sat by Pulse Oximetry 58 - Physical Exam Oriented: Unable to test Eyes: Normal Ear: Normal Nose: Normal Throat: Normal Respiratory: Generalized, Diminished Cardiovascular: Irregular : Normal Auscultation: Bowel Sounds: Decreased Palpation: Normal Tenderness: Other (mild distention , soft abdomen . BS+ but hypoactive .) Skin: Wound (SEE WOUND ASSESSMENT ) Musculoskeletal: Normal Psychiatric: Other (SEDATED) Mood Description: Calm Affect: Normal Speech Pattern: Artificially Ventilated - Laboratory and Diagnostics Result Diagrams: 08/20/20 08:00 08/20/20 08:00 Labs: 08/14/20 10:25 Blood Blood Culture - Final Staphylococcus Hominis 08/14/20 10:22 Blood Blood Culture - Final Staphylococcus Hominis 08/14/20 10:00 Urine,Clean Catch Urine Culture - Final 08/08/20 16:45 Sputum - Expectorated Sputum Sputum Culture - Final Proteus Mirabilis Escherichia Coli 08/08/20 16:45 Sputum - Expectorated Sputum - Final 08/07/20 21:18 Blood Blood Culture - Final 08/07/20 21:08 Blood Blood Culture - Final 08/05/20 09:54 Blood Blood Culture - Final 08/05/20 09:46 Blood Blood Culture - Final 08/07/20 23:01 Sputum - Endotracheal Wash Sputum Culture - Final Escherichia Coli Proteus Mirabilis 08/07/20 23:01 Sputum - Endotracheal Wash - Final 08/07/20 20:53 Urine,Clean Catch Urine Culture - Final 08/05/20 17:17 Leg - Left Gram Stain - Final 08/05/20 17:17 Leg - Left Wound Culture - Final Methicillin Resis Staph Aureus 08/05/20 17:17 Knee - Right Gram Stain - Final 08/05/20 17:17 Knee - Right Wound Culture - Final Methicillin Resis Staph Aureus 08/05/20 17:17 Ankle - Left Gram Stain - Final 08/05/20 17:17 Ankle - Left Wound Culture - Final Methicillin Resis Staph Aureus 08/05/20 00:00 Urine,Clean Catch Urine Culture - Final Laboratory WBC 8.0 X10^3/uL (3.6-10.0) 08/20/20 08:00 RBC 2.67 X10^6/uL (4.7-6.0) L 08/20/20 08:00 Hgb 7.6 g/dL (13.5-18.0) L 08/20/20 08:00 Hct 23.2 % (42.0-54.0) L 08/20/20 08:00 MCV 86.9 fL (80.0-100.0) 08/20/20 08:00 MCH 28.5 pg (27.0-34.0) 08/20/20 08:00 MCHC 32.8 g/dL (33.0-35.0) L 08/20/20 08:00 RDW 17.5 % (11.6-16.5) H 08/20/20 08:00 Plt Count 342 X10^3/uL (150.0-450.0) 08/20/20 08:00 Plt Count Comment Adequate (ADEQUATE) 08/19/20 04:15 MPV 6.6 fL (7.4-11.0) L 08/20/20 08:00 Neut % (Auto) 76.0 % (42.0-75.0) H 08/20/20 08:00 Lymph % (Auto) 17.7 % (21.0-51.0) L 08/20/20 08:00 Mathews % (Auto) 4.0 % (0.0-13.0) 08/20/20 08:00 Eos % (Auto) 1.4 % (0.9-2.9) 08/20/20 08:00 Baso % (Auto) 0.9 % (0.2-1.0) 08/20/20 08:00 Neut # (Auto) 6.1 x10^3/uL (2.2-4.8) H 08/20/20 08:00 Lymph # (Auto) 1.4 X10^3/uL (1.3-2.9) 08/20/20 08:00 Mathews # (Auto) 0.3 x10^3/uL (0.3-0.8) 08/20/20 08:00 Eos # (Auto) 0.1 x10^3/uL (0.0-0.2) 08/20/20 08:00 Baso # (Auto) 0.1 X10^3/uL (0.0-0.1) 08/20/20 08:00 Absolute Nucleated RBC 0.1 /100WBC 08/20/20 08:00 Total Counted 100 08/19/20 04:15 Neutrophils % (Manual) 82 % (39-76) H 08/19/20 04:15 Band Neutrophils % 7 % (0-10) 08/17/20 05:10 Lymphocytes % (Manual) 14 % (13-43) 08/19/20 04:15 Monocytes % (Manual) 4 % (4-9) 08/19/20 04:15 Eosinophils % (Manual) 1 % (0-6) 08/15/20 04:40 Metamyelocytes % 5 08/14/20 05:20 Myelocytes % 1 08/14/20 05:20 Plt Morphology Comment Normal (NORMAL) 08/19/20 04:15 RBC Morphology Abnormal (NORMAL) 08/19/20 04:15 Hypochromasia Slight A 08/19/20 04:15 Anisocytosis Slight A 08/19/20 04:15 Microcytosis Slight A 08/19/20 04:15 ESR 67 MM/HOUR (0-15) H 08/04/20 13:27 Sample Site Rr 08/20/20 07:49 ABG pH 7.260 (7.35-7.45) L 08/20/20 07:49 ABG pCO2 42.0 mmHg (35.0-45.0) 08/20/20 07:49 ABG pO2 78.0 mmHg (80.0-100.0) L 08/20/20 07:49 ABG HCO3 18.8 mmol/L (22-26) L 08/20/20 07:49 ABG O2 Saturation 93.0 % (90-100) 08/20/20 07:49 ABG Base Excess -7.9 mmol/L (-2.0-2.0) L 08/20/20 07:49 Félix Test Pos 08/20/20 07:49 A-a Gradient 69.0 mmHg 08/20/20 07:49 FiO2 28.0 08/20/20 07:49 Blood Gas Comments Jewel well, kh 08/20/20 07:49 Sodium 151 mmol/L (136-145) H* 08/20/20 08:00 Corrected Sodium TNP 08/20/20 08:00 Potassium 4.3 mmol/L (3.5-5.1) 08/20/20 08:00 Chloride 117 mmol/L (98-107) H* 08/20/20 08:00 Carbon Dioxide 20.2 mmol/L (21-32) L 08/20/20 08:00 BUN 59 mg/dL (7-18) H 08/20/20 08:00 Creatinine 3.35 mg/dL (0.70-1.30) H 08/20/20 08:00 Est GFR (MDRD) Af Amer 23 (>60) L 08/20/20 08:00 Est GFR (MDRD) Non-Af 19 (>60) L 08/20/20 08:00 Glucose 65 mg/dL (65-99) 08/20/20 08:00 POC Glucose (mg/dL) 73 mg/dL (65-99) 08/18/20 20:35 Lactic Acid 2.8 mmol/L (0.4-2.0) H 08/07/20 21:18 Calcium 7.9 mg/dL (8.5-10.1) L 08/20/20 08:00 Corrected Calcium 9.2 mg/dL (8.5-10.1) 08/20/20 08:00 Phosphorus 2.6 mg/dL (2.6-4.7) 08/15/20 04:40 Magnesium 2.1 mg/dL (1.7-2.9) 08/10/20 04:20 Total Bilirubin 0.40 mg/dL (0.2-1.0) 08/20/20 08:00 AST 11 Units/L (15-37) L 08/20/20 08:00 ALT 9 Units/L (12-78) L 08/20/20 08:00 Alkaline Phosphatase 53 Units/L (46-116) 08/20/20 08:00 Creatine Kinase 748 Units/L (39-308) H 08/08/20 09:20 CK-MB (CK-2) 4.7 ng/mL (0-4.0) H* 08/08/20 09:20 CK/CKMB % Calc 0.6 % (<4) 08/08/20 09:20 Troponin I 0.09 ng/mL (0-1.5) 08/08/20 09:20 C-Reactive Protein 51.90 mg/L (0-3.0) H 08/05/20 05:29 B-Natriuretic Peptide 156 pg/mL (0-79) H 08/08/20 03:50 Total Protein 5.1 g/dL (6.4-8.2) L 08/20/20 08:00 Albumin 2.4 g/dL (3.4-5.0) L 08/20/20 08:00 Globulin 2.7 g/dL (2.5-4.5) 08/20/20 08:00 Albumin/Globulin Ratio 0.9 Ratio (1.1-2.1) L 08/20/20 08:00 Prealbumin 11.0 mg/dL (18-35.7) L 08/16/20 05:17 Triglycerides 138 mg/dL (0-150) 08/15/20 04:40 Amylase 36 Units/L (25-115) 08/04/20 13:27 Lipase 71 Units/L (73-393) L 08/04/20 13:27 Carcinoembryonic Ag 3.9 ng/mL (0.0-3.0) H 08/07/20 04:05 Specimen Type Catherized urine 08/08/20 00:04 Urine Color Straw (YELLOW) 08/08/20 00:04 Urine Appearance Hazy (CLEAR) 08/08/20 00:04 Urine pH 5.0 (5.0 - 8.0) 08/08/20 00:04 Ur Specific [place] 1.010 (1.000-1.030) 08/08/20 00:04 Urine Protein 3+ (NEGATIVE) 08/08/20 00:04 Urine Glucose (UA) Negative (NEGATIVE) 08/08/20 00:04 Urine Ketones Negative (NEGATIVE) 08/08/20 00:04 Urine Occult Blood 5+ (NEGATIVE) 08/08/20 00:04 Urine Nitrite Negative (NEGATIVE) 08/08/20 00:04 Urine Bilirubin Negative (NEGATIVE) 08/08/20 00:04 Urine Urobilinogen Normal (NORMAL) 08/08/20 00:04 Ur Leukocyte Esterase 3+ (NEGATIVE) 08/08/20 00:04 Urine RBC Tntc /HPF (0-3) A 08/05/20 00:00 Urine WBC Tntc /HPF (0-5) A 08/05/20 00:00 Ur Squamous Epith Cells Negative /HPF (NEGATIVE) 08/05/20 00:00 Urine Bacteria 3+ /HPF (NEGATIVE) 08/05/20 00:00 Urine Yeast Numerous /HPF (NEGATIVE) 08/05/20 00:00 Ur Culture Indicated? Yes/culture set up 08/05/20 00:00 Stl C. diff Tox B Gene Negative (NEGATIVE) 08/10/20 18:20 Stl C. diff [id number] Presumptive negative (NEGATIVE) 08/10/20 18:20 Vancomycin Trough 18.1 ug/mL (15-20) 08/19/20 08:40 SARS CoV-2 RNA Rapid HEMA Negative (NEGATIVE) 08/04/20 20:20 - Plan (1) Aspiration pneumonia Status: Acute Qualifiers: Aspiration pneumonia type: due to vomit Laterality: unspecified laterality Lung location: unspecified part of lung Qualified Code(s): J69.0 - Pneumo nitis due to inhalation of food and vomit Plan: NORMAL SALINE WITH ONE AMP BICARB IN EACH LITER AT 150 ML/HR, ALBUMIN 25% IV BID, LASIX 20MG IV BID, VANCOMYCIN, INVANZ 1G IV DAILY, DUONEBS, MUCOMYST IN NEB [place], DIFLUCAN 100MG IV DAILY, DUONEBS QID, DOPAMINE DRIP, VERSED DRIP, PEPCID 20MG IV HS, PROTONIX 40MG IV BID (2) CHF (congestive heart failure) Status: Acute Qualifiers: Heart failure type: unspecified Heart failure chronicity: acute on chronic Qualified Code(s): I50.9 - Heart failure, unspecified (3) Ileus Status: Acute Plan: NORMAL SALINE AT 50 ML/HR, VANCOMYCIN, INVANZ 1G IV DAILY, DIFLUCAN 100MG IV DAILY, DUONEBS QID, DOPAMINE DRIP, PRESEDEX DRIP, VERSED DRIP, PEPCID 20MG IV HS, PROTONIX 40MG IV BID (4) Abdominal pain Status: Acute Qualifiers: Abdominal location: left lower quadrant Qualified Code(s): R10.32 - Left lower quadrant pain (5) Urinary tract infection Status: Acute Qualifiers: Urinary tract infection type: acute cystitis Hematuria presence: with hematuria Qualified Code(s): N30.01 - Acute cystitis with hematuria (6) Dehydration Status: Acute (7) Nausea and vomiting Status: Acute Qualifiers: Vomiting Intractability: intractable (8) Chronic renal failure Status: Acute Qualifiers: Chronic kidney disease stage: unspecified stage Qualified Code(s): N18.9 - Chronic kidney disease, unspecified (9) Sacral decubitus ulcer Status: Acute Qualifiers: Pressure injury stage: unspecified pressure injury stage Qualified Code(s): L89.159 - Pressure ulcer of sacral region, unspecified stage (10) Fecal impaction Status: Resolved Plan: COLACE 200MG PO BID, MILK OF MAGNESIA 15ML PO QID, MIRALAX 17G PO DAILY
== END 2020-08-20 15:40 | disposition expired | DRG 388 ==
LOC: OBS 20:11 → MED/SURG 20:56 → ICU 08-09 15:16
PROVIDERS: ADMIT Internal Medicine; ATTEND Internal Medicine